=== PATIENT | female | born 1935 | race Caucasian/White ===

== ENCOUNTER 2017-04-08 11:25 | Inpatient (IN) ==
--- NOTE | 2017-04-08 12:30 | Emergency Department Note ---
Nausea/Vomiting/Diarrhea HPI - General Chief complaint: Nausea/Vomiting/Diarrhea Stated complaint: Nausea and vomiting, diarrhea, dialysis patient Time Seen by Provider: 04/08/17 11:44 Source: patient Mode of arrival: wheelchair Limitations: no limitations - History of Present Illness HPI Narrative: 82-year-old female with a history of nausea but no vomiting. Today. Been having intermittent bouts of midepigastric pain for the last week. This time she denies any pain states her appetite has been decreased. Been no diarrhea she states that the stool is soft this morning but not diarrhea. She was admitted at [facility] in February she states her stomach problems. Was told that she had poor gastric emptying times.. Attempting to get those old records. Sees Dr. Duncan and she is on dialysis. For her chronic renal failure is afebrile no acute distress no signs or symptoms at this time. - Related Data Home Medications Medication Instructions Recorded Confirmed Gabapentin [Neurontin] 100 mg PO BID 06/23/15 04/08/17 Isosorbide Mononitrate [Isosorbide 60 mg PO HS 06/23/15 04/08/17 Mononitrate ER] Pravastatin [Pravachol] 40 mg PO HS 06/23/15 04/08/17 Pantoprazole [Protonix] 40 mg PO QAMAC 08/18/15 04/08/17 Acetaminophen [Arthritis Pain 650 mg PO PRN PRN 09/24/16 04/08/17 Relief] Cyanocobalamin (Vitamin B-12) 1,000 mcg PO DAILY 09/24/16 04/08/17 [Vitamin B12] Ergocalciferol (Vitamin D2) 50,000 unit PO WEEKLY 09/24/16 04/08/17 [Vitamin D2] Insulin Glargine,Hum.rec.anlog 10 unit SQ DAILYP PRN 09/24/16 04/08/17 [Lantus Solostar] Ubidecarenone [Coq-10] 300 mg PO DAILY 09/24/16 04/08/17 Vit A,C & E/Lutein/Minerals 1 tab PO DAILY 09/24/16 04/08/17 [Ocuvite] Clopidogrel [Plavix] 75 mg PO HS 09/25/16 04/08/17 Meclizine [Antivert] 25 mg PO HS 09/25/16 04/08/17 HYDROcodone/APAP 5/325MG [[place] 1 tab PO TIDP PRN 04/08/17 04/08/17 5/325Mg] Lactobacillus Acidophilus/Fos 1 tab PO TID 04/08/17 04/08/17 [Acidophilus Probiotic Tablet] Metoclopramide [Reglan] 10 mg PO ACHS 04/08/17 04/08/17 Midodrine [Midodrine HCl] 5 mg PO DAILYP PRN 04/08/17 04/08/17 Previous Rx's Medication Instructions Recorded Aspirin [Ecotrin] 325 mg PO DAILY tab.ec 08/06/16 peg 3350-electrolytes 236 240 ml PO Q10M #4000 ml 09/10/16 gram-22.74 gram-6.74 gram-5.86 gram solution Allergies Allergy/AdvReac Type Severity Reaction Status Date / Time meperidine [From Demerol] Allergy Severe Difficulty Verified 04/08/17 11:36 Breathing levofloxacin [From Levaquin] AdvReac Intermediate Vomiting Verified 04/08/17 11: 36 amlodipine AdvReac Mild Cough Verified 04/08/17 11:36 morphine sulphate AdvReac Severe Vomiting Uncoded 09/24/16 09:35 Review of Systems All systems ED: reviewed and negative except as stated. Constitutional: Denies: fever, chills Eyes: Denies: eye pain ENT ED: Denies: ear pain Cardiovascular: Denies: chest pain, palpitations Respiratory: Denies: cough, dyspnea Gastrointestinal: Reports: as per HPI, abdominal pain, nausea, vomiting. Denies : diarrhea, constipation, hematemesis Genitourinary: Denies: urgency, dysuria Past Medical History - Past Medical History Medical history: Reports: arthritis, asthma, CHF, coronary artery disease, diabetes, hypertension, renal disease (dialysis dependent), other (per hPI) Surgical history ED: Reports: appendectomy, cataract, cholecystectomy, coronary bypass (CABG) [employer] history: Reports: bilateral tubal ligation - Social History Alcohol use: Reports: None Drug use: Reports: none Physical Exam - General Limitations: no limitations General appearance: alert, in no apparent distress - Head Head exam: atraumatic - Eye Eye exam: Present: normal appearance, PERRL - ENT ENT exam: normal exam, normal oropharynx - Neck Neck exam: Present: normal inspection, full ROM - Chest Chest inspection: Present: normal inspection, symmetric chest wall rise. Absent : tenderness - Respiratory Respiratory exam: Present: normal lung sounds bilaterally, respiratory distress. Absent: wheezes - Cardiovascular Cardiovascular exam: Present: regular rate, normal rhythm. Absent: bradycardia , tachycardia - Abdominal Exam Abdominal exam: Present: soft. Absent: distention, tenderness, guarding - Extremities Exam Extremities exam: Present: normal inspection, full ROM - Back Exam Back exam: Present: normal inspection, full ROM. Absent: tenderness - Neurological Exam Neurological exam: Present: alert, oriented X3, CN II-XII intact - Psychiatric Psychiatric exam: Present: normal affect, normal mood Course Vital Signs Temperature 98.3 F 04/08/17 11:26 Pulse Rate 65 04/08/17 11:26 Respiratory Rate 18 04/08/17 11:26 Blood Pressure 193/62 04/08/17 11:26 Pulse Oximetry (%) 94 04/08/17 11:26 Temperature 99.1 F H 04/08/17 16:21 Pulse Rate 62 04/08/17 16:09 Respiratory Rate 18 04/08/17 16:09 Blood Pressure 174/52 04/08/17 16:02 Pulse Oximetry (%) 87 L 04/08/17 16:09 Nausea/Vomiting/Diarrhea - MDM Narrative Medical decision making narrative: CT revealed no evidence of obstruction. Mild ileus was seen. This was reviewed with Dr. Duncan hospitalist admit for observation. Dialysis is scheduled for tomorrow - Lab Data Result diagrams: 04/08/17 11:48 04/08/17 11:48 Lab Results 04/08/17 04/08/17 Range/Units 11:48 11:48 WBC 9.6 (4.5-11.0) K/mcL RBC 3.74 L (4.00-5.20) M/mcL Hgb 11.8 L (12.0-15.0) g/dL Hct 35.7 L (36.0-48.0) % MCV 95.7 (80.0-100.0) fL MCH 31.6 (26.0-34.0) pg MCHC 33.0 (31.0-36.0) g/dL RDW 15.2 H (11.5-14.5) % Plt Count 235 (140-440) K/mcL MPV 9.5 (7.4-10.4) fL Total Counted 100 Seg Neutrophils % 83 H (38-78) % Band Neutrophils % Not Reportable Lymphocytes % 11 L (15-49) % Monocytes % (Manual) 5 (1-12) % Eosinophils % (Manual) 1 (0-7) % Platelet Estimate Normal (NORMAL) RBC Morphology Normal (NORMAL) Sodium 139 (133-145) mmol/L Potassium 5.6 H (3.3-5.1) mmol/L Chloride 99 (96-108) mmol/L Carbon Dioxide 25 (22-30) mmol/L Anion Gap 15.0 (8-16) BUN 23 (8-23) mg/dl Creatinine 3.8 H (0.6-1.1) mg/dl GFR Calculation 10 Glucose 161 H (70-105) mg/dL Calcium 10.3 (8.6-10.4) mg/dl Total Bilirubin 0.3 (0.0-1.0) mg/dL AST 11 (0-37) U/l ALT 5 (0-40) U/l Alkaline Phosphatase 73 (39-117) U/L Total Protein 6.5 (5.9-8.4) gm/dL Albumin 4.1 (3.2-5.2) gm/dL Globulin 2.4 (2.2-3.7) gm/dL Albumin/Globulin Ratio 1.7 (1.0-2.3) Lipase 22 (7-60) U/L Disposition Clinical Impression: Gastroparesis Disposition: Xfer As Outpt/Obs ([facility]) Condition: Fair Referrals: Pascale Peter DO [Primary Care Provider] -
[2017-04-08 12:31] LABS: ALT/SGPT 5 U/l (0-40); Albumin 4.1 gm/dL (3.2-5.2); Albumin/Globulin Ratio 1.7 (1.0-2.3); Alkaline Phosphatase 73 U/L (39-117); Blood Urea Nitrogen 23 mg/dl (8-23); Lipase 22 U/L (7-60)
--- NOTE | 2017-04-08 12:43 | XRay Report ---
CLINICAL INFORMATION: Nausea vomiting diarrhea COMPARISON: 01/31/2017 FINDINGS: The stomach and a few loops of upper small bowel are mildly dilated and contain scattered air-fluid levels. The distal small bowel and colon are normal. Findings suggestive of either atypical ileus or partial small bowel obstruction at the mid jejunal level. No free air, soft tissue mass or organomegaly. Extraordinarily heavy calcified calcification in the mesenteric arteries noted Small right pleural effusion noted. Heart is moderately enlarged IMPRESSION: Atypical ileus versus partial small bowel obstruction of the mid jejunum. If the patient is toxic, suggest abdomen and pelvic CT. Otherwise, suggest follow-up plain films in one day. Interpreted and Authenticated by: Solomon Lunsford 04/08/17
[2017-04-08 13:37] LABS: Eosinophils % (Manual) 1 % (0-7); Lymphocytes % 11 % (15-49); Monocytes % (Manual) 5 % (1-12); Platelet Estimate NORMAL (NORMAL); RBC Morphology NORMAL (NORMAL); Segmented Neutrophils % 83 % (38-78)
[2017-04-08 13:39] LABS: Mean Cell Volume 95.7 fL (80.0-100.0); Mean Corpuscular Hemoglobin 31.6 pg (26.0-34.0); Platelet Count 235 K/mcL (140-440); RBC 3.74 M/mcL (4.00-5.20); Red Cell Distribution Width 15.2 % (11.5-14.5)
--- NOTE | 2017-04-08 15:34 | Cat Scan Report ---
CLINICAL INFORMATION: Abdominal pain, nausea vomiting and abdominal distention COMPARISON: 08/02/2016 noncontrast abdomen and pelvic CT. TECHNIQUE: IV contrast was withheld due to elevated BUN/creatinine. 2.5 mm helical slices were obtained from the mid heart through the subtrochanteric regions. Following reconstruction, 2.5 mm sagittal, coronal and axial reformatted images were processed and reviewed at bone, lung and soft tissue windows. FINDINGS: Lung bases show moderate right and small left pleural effusions with subsegmental atelectasis posterior right lower lobe. The heart is moderately enlarged and there is heavy calcification in the region of mitral annulus and bowel and the aortic valve calcification. There is also a heavily calcified atherosclerotic plaque in the coronary arteries. Images through the abdomen noncontrasted liver is unremarkable. No focal hepatic lesions on the basis noncontrast study. The gallbladder is surgically absent. Intrahepatic and common bile ducts are normal caliber CBD is 6 mm. Mild atrophy of both kidneys as previously seen: The right is 8.5 cm in length and the left is 9 cm in length. Both adrenal glands, spleen, pancreas are normal. There is extraordinarily heavy calcific atherosclerotic plaque throughout the abdominal aorta and branches. Stomach, small and large bowel show mild symmetric dilatation compatible with mild ileus - no evidence of bowel obstruction. Scattered Sigmoid diverticuli noted. Images through the pelvis show normal volume of urine within the urinary bladder. Normal appearing postmenopausal uterus noted. No definite ascites. No free air and no adenopathy. There is a moderate amount of edema in the subcutaneous fat throughout the abdominal wall. IMPRESSION: 1. Mild ileus - no evidence of bowel obstruction 2. Extraordinarily heavy calcific atherosclerotic plaque throughout the abdominal aorta and all branches including the mesenteric artery. Patient is at high risk for mesenteric ischemia. Consider Doppler exam of the celiac, SMA and SANDRINE to determine arterial blood flow status. 3. Moderate cardiomegaly and moderate bilateral pleural effusions with subcutaneous edema in the abdominal wall. Findings suggestive of moderate CHF. The patient also be a risk for congestive hepatopathy related to CHF - please correlate with elevation in LFTs 4. Moderate bilateral renal atrophy stable Interpreted and Authenticated by: Solomon Lunsford 04/08/17
[2017-04-08] MEDS ORDERED: 0.9 % SODIUM CHLORIDE 1,000 ML IV ONE (16:24)
[2017-04-08] MEDS ORDERED: ACETAMINOPHEN 325 MG TABLET PO PRN (17:22)
[2017-04-08] MEDS ORDERED: ONDANSETRON 4 MG/2 ML VIAL IV PRN (17:22)
[2017-04-08] MEDS ORDERED: 0.9 % SODIUM CHLORIDE 1,000 ML IV SCH (17:22)
[2017-04-08] MEDS ORDERED: MIDODRINE 5 MG TABLET PO PRN (17:22)
[2017-04-08] MEDS ORDERED: ACETAMINOPHEN 1,000 MG/100 ML BOTTLE IV PRN (17:22)
[2017-04-08] MEDS ORDERED: INSULIN GLARGINE, HUMAN 1 UNIT/0.01 ML SQ PRN (17:26)
[2017-04-08] MEDS ORDERED: hydrALAZINE 20 MG/ML VIAL ONE (18:50)
[2017-04-08] MEDS: METOCLOPRAMIDE 10 MG TABLET PO SCH ×2 (18:54→21:03)
--- NOTE | 2017-04-08 18:56 | History and Physical Report ---
DATE OF ADMISSION: 04/08/2017 DATE OF ADMISSION: 04/08/2017 REASON FOR ADMISSION: Nausea, vomiting, weakness, diarrhea. HISTORY OF CHIEF COMPLAINT: The patient is an 82-year-old with known history of gastroparesis and ESRD on hemodialysis, along with history of coronary artery disease and DM type 2 who comes to [facility] with three days onset of worsening nausea and vomiting along with epigastric discomfort. The patient's symptoms started roughly seven days ago with epigastric discomfort after food intake. Symptoms get relieved by episodes of vomiting. She endorses to feeling of rocks in stomach. She otherwise denies weight loss, fevers, shaking chills, bloody stools, dysuria. She endorses to 4 to 5 stools a day for the last few days. She denies recent antibiotic use. She has gotten progressively weak and fatigued prompting her to be evaluated in the ER. Initial workup was essentially unremarkable except for potassium of 5.6. Nephrology was consulted along with hospitalist service for evaluation. CT scan of the abdomen reveals ileus without any evidence of obstruction. Moderate cardiomegaly along with moderate CHF noted. At the time of examination, the patient is alert and oriented. She was able to provide answers to most of the questions. She appears nondistressed. REVIEW OF SYSTEMS: Ten-point review of system was performed and negative except the ones discussed above. PAST MEDICAL HISTORY: 1. History of ESRD on HD. 2. Diabetes mellitus type 2. 3. Hypertension. 4. Coronary artery disease. 5. Neuropathy. 6. Hyperlipidemia. 7. Vertigo. 8. History of mesenteric ischemia status post recent mesenteric stent placement by Dr. Solomon Pearce. 9. History of diabetic gastroparesis, currently on Reglan. CURRENT MEDICATIONS: Aspirin 325. Pravastatin 40. Pantoprazole 40. Midodrine 5. Metoclopramide 10 __ Meclizine 25. Isosorbide 60. Glargine 10. Hydrocodone 1 tab three times daily. Gabapentin 100 twice daily. Plavix 75. ALLERGIES: 1. __ 2. LEVOFLOXACIN. 3. AMLODIPINE. 4. MORPHINE. SOCIAL HISTORY: No history of smoking or alcoholism, lives in the [place]. FAMILY HISTORY: Significant for mother with coronary artery disease. Father with cancer. PHYSICAL EXAMINATION: GENERAL: The patient is alert and oriented. BMI 24. Height 5 feet. VITAL SIGNS: Blood pressure 160/58, respiratory rate 15, temperature 99.1, pulse 58, sats 92 percent on room air. HEENT: Pupils symmetric. Oral cavity is dry. No ear or nose discharge. Head is normocephalic and atraumatic. NECK: No lymphadenopathy. HEART: S1, S2 regular rhythm. ESM grade I left-sided. CHEST: Dialysis catheter placement and removal incision site suture noted. UPPER EXTREMITIES: Fistula right upper extremity with adequate thrill. ABDOMEN: Soft, nontender, except for epigastrium without any palpable mass, but tender to deep palpation. No rebound, no guarding. LOWER EXTREMITIES: Minimal lymphedema, but no cyanosis or clubbing. Normal range of motion of the joints with no joint swelling or erythema. SKIN: Otherwise, no suspicious lesions. PSYCHIATRIC: Alert and cooperative. No anxiety. NEUROLOGIC: Nonfocal, moving all four extremities. LABS AND IMAGING: White count 9.6, hemoglobin 11.8, platelets 235. Sodium 139, potassium 5.6, creatinine 3.8, BUN 23. LFTs unremarkable. CT abdomen and pelvis: Ileus, moderate cardiomegaly, bilateral pleural effusion, moderate CHF. ASSESSMENT AND PLAN: An 82-year-old with history of gastroparesis, admitted with nausea, vomiting, diarrhea. 1. Nausea, vomiting. Possibly exacerbated with underlying gastroparesis, rule out viral infectious process. Continue bowel rest, crystalloids, and antiemetics. 2. Diarrhea, rule out Clostridium difficile, continue crystalloids. 3. Hyperkalemia, will be managed by Dr. Duncan 4. History of end stage renal disease, on hemodialysis. Will be managed by nephrology, Dr. Duncan. 5. Other prior medical issues, including history of diabetes mellitus type 2. Continue basal prandial insulin. 6. Neuropathy. Continue gabapentin. 7. History of coronary artery disease. Continue aspirin, Plavix. Isosorbide and statin. 8. History of gastroesophageal reflux disease. Continue Reglan. The patient will be admitted as observation while she will be kept on bowel rest. AA:maite Job ID: [id number] Doc ID: [id number] Andrew VILLANUEVA
[2017-04-08 20:36] LABS: C-Reactive Protein 0.4 mg/dl (0.0-0.8)
[2017-04-08] MEDS ORDERED: PRAVASTATIN 40 MG TABLET PO SCH (21:00)
[2017-04-08] MEDS: HEPARIN 5,000 UNIT/ML VIAL SQ SCH (21:03)
[2017-04-08] MEDS: GABAPENTIN 100 MG CAPSULE PO SCH (21:03)
[2017-04-08] MEDS: LACTOBACILLUS 1 CAPSULE PO SCH (21:03)
[2017-04-08] MEDS: CLOPIDOGREL 75 MG TABLET PO SCH (21:03)
[2017-04-08] MEDS: SENNOSIDES/DOCUSATE SODIUM 1 TAB TABLET PO SCH (21:04)
[2017-04-08] MEDS: DOCUSATE SODIUM 100 MG CAPSULE PO SCH (21:04)
[2017-04-08] MEDS: SIMVASTATIN 20 MG TABLET PO SCH (21:11)
[2017-04-08] MEDS: MECLIZINE 25 MG TABLET PO SCH (21:11)
[2017-04-08] MEDS: ISOSORBIDE MONONITRATE 60 MG TAB.XL.24H PO SCH (21:11)
[2017-04-08] MEDS: 0.9 % SODIUM CHLORIDE 10 ML SYRINGE IV SCH (21:12)
[2017-04-09] MEDS: HYDROcodone/APAP 5/325MG TABLET PO PRN ×2 (03:19→23:12)
[2017-04-09] MEDS: 0.9 % SODIUM CHLORIDE 10 ML SYRINGE IV SCH ×3 (05:29→23:12)
[2017-04-09 05:44] LABS: Mean Cell Volume 96.3 fL (80.0-100.0); Mean Corpuscular HGB Conc 33.4 g/dL (31.0-36.0); Mean Corpuscular Hemoglobin 32.2 pg (26.0-34.0); Platelet Count 216 K/mcL (140-440); RBC 3.56 M/mcL (4.00-5.20); Red Cell Distribution Width 15.3 % (11.5-14.5)
[2017-04-09 06:38] LABS: ALT/SGPT < 5 U/l (0-40); Albumin 3.5 gm/dL (3.2-5.2); Albumin/Globulin Ratio 1.8 (1.0-2.3); Alkaline Phosphatase 65 U/L (39-117); Bilirubin,Direct < 0.2 mg/dL (0.0-0.3); Blood Urea Nitrogen 25 mg/dl (8-23); Gamma Glutamyl Transpeptidase 40 U/L (5-36); Magnesium 1.3 mg/dL (1.6-2.5); Uric Acid 4.8 mg/dL (2.5-8.0)
[2017-04-09 06:53] LABS: Anisocytosis 1+ (NONE SEEN); Eosinophils % (Manual) 2 % (0-7); Lymphocytes % 21 % (15-49); Monocytes % (Manual) 6 % (1-12); Platelet Estimate NORMAL (NORMAL); RBC Morphology ABNORM (NORMAL); Segmented Neutrophils % 71 % (38-78)
--- NOTE | 2017-04-09 08:10 | Internal Med Progress Note ---
Medical - PN: Subj Patient information: Note initiated : 04/09/17 at 8:10 am Service Date, if different from initiated Date: [] Patient: Maryann Juares 82 y/o F admitted on 04/08/17 for Nausea and vomiting, diarrhea, dialysis patient. Chief Complaint: [] Interval history: 04/08- patient admitted with nausea vomiting diarrhea and hyperkalemia along with congestive heart failure. Underlying history of end-stage renal disease onhemodialysis and gastroparesis on Reglan. Nephrology consulted. Patient admitted for observation. await C. difficile. Continue crystalloids. congestive heart failure on chest imaging 04/09-hemodialysis today. Potassium down from 5.6-5.2. C. difficile negative. No overnight events including nausea vomiting or concerns per staff. Patient stable. extensive pre-existing medical condition currently managed on home medications. Anticipate discharge in 24 hours. - Constitutional Vitals: Vital Signs Temp Pulse Resp BP Pulse Ox 97.4 F 50 L 16 163/50 94 04/09/17 04:01 04/08/17 23:35 04/09/17 00:06 04/09/17 04:01 04/09/17 04:01 Period Temp Pulse Resp BP Sys/Turner Pulse Ox Last 24 Hr 97.4 F-98.7 F 50-70 16-20 131-191/40-74 89-99 Intake and Output 04/08/17 04/09/17 04/09/17 21:59 05:59 13:59 Weight 126 lb 8.725 oz Intake & Output: Intake & Output 04/08/17 04/09/17 04/09/17 21:59 05:59 13:59 Weight 126 lb 8.725 oz Other: # Bowel Movements 1 General appearance: cooperative, no acute distress Exam: alert oriented Nonlabored breathing Nondistended abdomen Medical - PN: Obj Da - Labs CBC & Chem 7: 04/09/17 04:34 04/09/17 04:34 Labs: Abnormal Lab Results 04/09/17 04/09/17 04:34 04:34 RBC 3.56 L Hgb 11.4 L Hct 34.2 L RDW 15.3 H RBC Morphology Abnorm A Anisocytosis 1+ A RBC Fragments Occ A Potassium 5.2 H BUN 25 H Creatinine 4.1 H Magnesium 1.3 L GGT 40 H Total Protein 5.5 L Globulin 2.0 L Meds: Medications Acetaminophen (Tylenol) 650 mg PO Q4-6HP PRN PRN Reason: PAIN/FEVER > 101 Hydrocodone Bitart/Acetaminophen ([place] 5/325mg) 1 tab PO TIDP PRN PRN Reason: Pain Last Admin: 04/09/17 03:19 Dose: 1 tab Aspirin (Ecotrin) 325 mg PO DAILY [facility] Clopidogrel Bisulfate (Plavix) 75 mg PO HS [facility] Last Admin: 04/08/17 21:03 Dose: 75 mg Docusate Sodium (Colace) 100 mg PO BID [facility] Last Admin: 04/08/17 21:04 Dose: Not Given Gabapentin (Neurontin) 100 mg PO BID [facility] Last Admin: 04/08/17 21:03 Dose: 100 mg Heparin Sodium (Porcine) (Heparin) 5,000 unit SQ Q12 [facility] Last Admin: 04/08/17 21:03 Dose: 5,000 unit Hydralazine HCl (Apresoline) 10 mg IV Q4-6HP PRN PRN Reason: Hypertension Acetaminophen (Ofirmev) 1,000 mg in 100 mls @ 200 mls/hr IV Q6HP PRN PRN Reason: PAIN/FEVER > 101 Insulin Glargine (Lantus) 10 unit SQ DAILYP PRN PRN Reason: HYPERGLYCEMIA Isosorbide Mononitrate (Imdur) 60 mg PO HS [facility] Last Admin: 04/08/17 21:11 Dose: 60 mg Lactobacillus Rhamnosus (Culturelle) 1 cap PO TID [facility] Last Admin: 04/08/17 21:03 Dose: 1 cap Meclizine HCl (Antivert) 25 mg PO HS [facility] Last Admin: 04/08/17 21:11 Dose: 25 mg Metoclopramide HCl (Reglan) 10 mg PO ACHS [facility] Last Admin: 04/08/17 21:03 Dose: 10 mg Midodrine (Midodrine Hcl) 5 mg PO DAILYP PRN PRN Reason: Hypotension Ondansetron HCl (Zofran) 4 mg IV Q4-6HP PRN PRN Reason: Nausea And Vomiting Pantoprazole Sodium (Protonix) 40 mg PO QAMAC [facility] Senna/Docusate Sodium (Senna Plus Tablet) 1 tab PO HS [facility] Last Admin: 04/08/17 21:04 Dose: Not Given Simvastatin (Zocor) 20 mg PO HS [facility] Last Admin: 04/08/17 21:11 Dose: 20 mg Sodium Chloride (Saline Flush) 10 ml IV Q8 [facility] Last Admin: 04/09/17 05:29 Dose: 10 ml Medical - PN: A/P - Time Spent With Patient Total time spent is greater than 50% in coordination of care (as documented) at patient's floor/unit and/or counseling patient: 15 - 24 minutes (1) Heart failure with acute decompensation, type unknown Status: Acute Assessment and plan: * Acute decompensated heart failure-secondary to volume overload secondary ESRD. Hemodialysis with fluid removal today * Hyperkalemia-potassium down from 5.65.2. Managed by nephrology * nausea vomiting and diarrhea-clinically improved. C. difficile negative. * History of gastroparesis. Continue Reglan * history of DM type II on basal prandial insulin * history of neuropathy On gabapentin * history of CAD on aspirin and Plavix and statin/isosorbide Plan * hemodialysis per nephrology * pre-existing medical condition management as above * possible discharge in 24 hours Current Visit: Yes Medical - PN: Qual - VTE Deep Vein Thrombosis/Pulmonary Embolism Present on Admission: No
[2017-04-09] MEDS: PANTOPRAZOLE 40 MG TABLET PO SCH (08:19)
[2017-04-09] MEDS: hydrALAZINE 20 MG/ML VIAL IV PRN (08:19)
[2017-04-09] MEDS: METOCLOPRAMIDE 10 MG TABLET PO SCH ×4 (08:19→21:08)
[2017-04-09] MEDS: LACTOBACILLUS 1 CAPSULE PO SCH ×3 (09:33→21:08)
[2017-04-09] MEDS: ASPIRIN 325 MG ENTERIC COATED TABLET PO SCH (09:33)
[2017-04-09] MEDS: GABAPENTIN 100 MG CAPSULE PO SCH ×2 (09:33→21:08)
[2017-04-09] MEDS: HEPARIN 5,000 UNIT/ML VIAL SQ SCH ×2 (09:50→21:08)
[2017-04-09] MEDS: DOCUSATE SODIUM 100 MG CAPSULE PO SCH ×2 (09:51→21:12)
[2017-04-09] MEDS ORDERED: PROMETHAZINE 25 MG/ML VIAL IV PRN (14:26)
--- NOTE | 2017-04-09 19:13 | Consultation ---
DATE OF CONSULTATION: 04/09/2017 REASON FOR HOSPITALIZATION: End-stage renal disease. REFERRING PHYSICIAN: Andrew Barrios MD HISTORY OF PRESENT ILLNESS: Ms. Juares is an 82-year-old female with end-stage renal disease on hemodialysis. She also has a history of coronary artery disease, type 2 diabetes and diabetic gastroparesis. She presented to the emergency room complaining of worsening nausea and vomiting along with epigastric discomfort. It has been getting worse over the last few months. Her symptoms are relieved by vomiting. For that reason, she came to the emergency room. In the emergency room, she had a CT scan of the abdomen without any evidence of obstruction. She had moderate cardiomegaly with moderate congestive heart failure. She dialyzes usually on Saturday, and Saturdays at [facility]. PAST MEDICAL HISTORY: 1. End-stage renal disease on hemodialysis, dialyzes on Tuesdays, and Saturdays at [facility]. 2. Type 2 diabetes. 3. Hypertension. 4. Coronary artery disease. 5. Diabetic gastroparesis. 6. Hyperlipidemia. 7. History of mesenteric ischemia for which she had a stent placement. CURRENT MEDICATIONS: 1. Aspirin 325 mg daily. 2. Pravastatin 40 mg daily. 3. Pantoprazole 40 mg daily. 4. Midodrine 5 mg as needed. 5. Metoclopramide 10 mg 3 times daily. 6. Meclizine 25 mg. 7. Isosorbide 60 mg. 8. Lantus 10 units once daily. 9. Hydrocodone p.r.n. 10. Gabapentin 100 mg twice daily. 11. Plavix 75 mg daily. ALLERGIES: LEVOFLOXACIN, AMLODIPINE, MORPHINE. SOCIAL HISTORY: The patient denies any history of alcohol or smoking. She lives by herself. FAMILY HISTORY: Significant for coronary artery disease in the father and cancer. REVIEW OF SYSTEMS: Fourteen systems were reviewed and negative except for the ones indicated in history of present illness. PHYSICAL EXAMINATION: GENERAL: Alert, oriented times 3 in no apparent distress. VITAL SIGNS: Blood pressures have been 150 to 160 systolic with a diastolic in the 60s, pulse rates have been in the 50s, temperature 97.4 with a pulse oximetry of 94 percent. HEENT: NCAT. PERRLA. EOMI. No pallor, no cyanosis, no icterus. Fundus examination is not performed. External and tympanic membranes appear normal. Oral cavity with normal mucosa. NECK: Supple. No jugular venous distention. No lymphadenopathy. No thyromegaly. No carotid bruits. LUNGS: Decreased air entry bilaterally. No rales or rhonchi heard. CARDIAC: S1, S2 heard. No S3, S4. No murmurs. No rubs. ABDOMEN: Soft, nontender, , positive bowel sounds. No mass. No rebound. EXTREMITIES: Did not show any evidence of edema. LABORATORY DATA: White count is 7.6 with a hemoglobin of 11.4 and a platelet count of 216. Sodium 140, potassium 5.2, chloride of 101, CO2 of 25, BUN of 25, creatinine of 4.1. ASSESSMENT AND PLAN: 1. End-stage renal disease on hemodialysis. She will have dialysis today and will attempt to remove 2 to 3 kilos of fluid as tolerated. 2. Nausea, vomiting: Probably related to diabetic gastroparesis. Unlikely to be intestinal ischemia. She would benefit from IV erythromycin and increasing the dose of Reglan. 3. Hyperkalemia, mild: We will dialyze with a 2-K bath. PETROS:gavino Job ID: [id number] Doc ID: [id number] Inder Barrios MD
[2017-04-09] MEDS: SIMVASTATIN 20 MG TABLET PO SCH (21:07)
[2017-04-09] MEDS: CLOPIDOGREL 75 MG TABLET PO SCH (21:08)
[2017-04-09] MEDS: SENNOSIDES/DOCUSATE SODIUM 1 TAB TABLET PO SCH (21:12)
[2017-04-09] MEDS: ISOSORBIDE MONONITRATE 60 MG TAB.XL.24H PO SCH (21:21)
[2017-04-09] MEDS: MECLIZINE 25 MG TABLET PO SCH (21:22)
[2017-04-10] MEDS: 0.9 % SODIUM CHLORIDE 10 ML SYRINGE IV SCH ×3 (05:12→20:44)
[2017-04-10 05:58] LABS: Mean Cell Volume 96.3 fL (80.0-100.0); Mean Corpuscular HGB Conc 32.9 g/dL (31.0-36.0); Mean Corpuscular Hemoglobin 31.7 pg (26.0-34.0); Platelet Count 219 K/mcL (140-440); RBC 3.45 M/mcL (4.00-5.20); Red Cell Distribution Width 15.2 % (11.5-14.5)
[2017-04-10 06:40] LABS: ALT/SGPT < 5 U/l (0-40); Albumin 3.5 gm/dL (3.2-5.2); Albumin/Globulin Ratio 1.8 (1.0-2.3); Alkaline Phosphatase 62 U/L (39-117); Bilirubin,Direct < 0.2 mg/dL (0.0-0.3); Blood Urea Nitrogen 14 mg/dl (8-23); Gamma Glutamyl Transpeptidase 38 U/L (5-36); Magnesium 1.5 mg/dL (1.6-2.5); Uric Acid 3.4 mg/dL (2.5-8.0)
[2017-04-10] MEDS ORDERED: MAGNESIUM SULFATE 8.12 MEQ in DEXTROSE 5% IN WATER 50 ML IV ONE (07:28)
[2017-04-10] MEDS: METOCLOPRAMIDE 10 MG TABLET PO SCH ×4 (07:32→20:43)
[2017-04-10] MEDS: PANTOPRAZOLE 40 MG TABLET PO SCH (07:32)
[2017-04-10 07:33] LABS: Anisocytosis 1+ (NONE SEEN); Lymphocytes % 18 % (15-49); Monocytes % (Manual) 13 % (1-12); Platelet Estimate NORMAL (NORMAL); RBC Morphology ABNORM (NORMAL); Segmented Neutrophils % 69 % (38-78)
[2017-04-10] MEDS ORDERED: DEXTROSE 50% 50 ML VIAL IV PRN (07:43)
[2017-04-10] MEDS: LACTOBACILLUS 1 CAPSULE PO SCH ×3 (09:16→20:42)
[2017-04-10] MEDS: GABAPENTIN 100 MG CAPSULE PO SCH ×2 (09:16→20:43)
[2017-04-10] MEDS: DOCUSATE SODIUM 100 MG CAPSULE PO SCH ×2 (09:17→20:42)
[2017-04-10] MEDS: ASPIRIN 325 MG ENTERIC COATED TABLET PO SCH (09:17)
[2017-04-10] MEDS: HEPARIN 5,000 UNIT/ML VIAL SQ SCH ×2 (09:17→20:42)
[2017-04-10] MEDS: ERYTHROMYCIN LACTOBIONATE IV SCH ×2 (10:11→16:41)
[2017-04-10] MEDS: SODIUM CHLORIDE 0.9% IV SCH ×2 (10:11→16:41)
--- NOTE | 2017-04-10 10:55 | Internal Med Progress Note ---
Medical - PN: Subj Patient information: Note initiated : 04/10/17 at 10:53 am Service Date, if different from initiated Date: [] Patient: Maryann Juares 82 y/o F admitted on 04/09/17 for Nausea and Vomiting, Diarrhea, Dialysis Patient. Chief Complaint: [] Interval history: 04/08- patient admitted with nausea vomiting diarrhea and hyperkalemia along with congestive heart failure. Underlying history of end-stage renal disease onhemodialysis and gastroparesis on Reglan. Nephrology consulted. Patient admitted for observation. await C. difficile. Continue crystalloids. congestive heart failure on chest imaging 04/09-hemodialysis today. Potassium down from 5.6-5.2. C. difficile negative. No overnight events including nausea vomiting or concerns per staff. Patient stable. extensive pre-existing medical condition currently managed on home medications. Anticipate discharge in 24 hours. 04/10: Patient seen examined, sitting comfortably in her chair, denies any acute complaints. She is still having vomiting, unable to tolerate PO. She vomited yesterday during dialysis. He diet has been changed to clear liquid diet again. Educated need for small frequent meals and to take reglan before meal time. I will start her on IV erythromycin for its prokientic effect along with reglan and see how she does. Pertinent ROS: Denies headache, dizziness Denies chest pain, palpitations Denies cough or shortness of breath Denies abdominal pain, Present nausea and vomiting. - Constitutional Vitals: Vital Signs Temp Pulse Resp BP Pulse Ox 98.0 F 82 18 170/60 95 04/10/17 07:41 04/09/17 16:00 04/10/17 07:41 04/10/17 07:41 04/10/17 07:41 Period Temp Pulse Resp BP Sys/Turner Pulse Ox Last 24 Hr 97.8 F-98.6 F 16-18 137-174/52-62 95-95 Intake and Output 04/09/17 04/10/17 04/10/17 21:59 05:59 13:59 Intake Total 292 / 292 Output Total 50 / 50 Balance 242 / 242 Weight 122 lb 2.177 oz Intake & Output: Intake & Output 04/09/17 04/10/17 04/10/17 21:59 05:59 13:59 Intake Total 292 / 292 Output Total 50 / 50 Balance 242 / 242 Weight 122 lb 2.177 oz Intake: IV 52 / 52 Oral 240 / 240 Output: Void Amount 50 / 50 Other: Meal Breakfast Percent of Meal Consumed 100% Exam: Constitutional; Afebrile, cooperative, alert, not in distress. frail old lady Eyes- No icterus, , No periorbital swelling Ears- Ext ear normal, hearing normal to conversation. Neck- Midline trachea, supple Respiratory system: Air Entry equal on both sides, No crackles or wheezing, no rhonchi. CVS- Rate rhythm regular, S1,S2 heard, no gallop, no rub. systolic murmur noted. 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 Medical - PN: Obj Da - Labs CBC & Chem 7: 04/10/17 04:50 04/10/17 04:50 Labs: Abnormal Lab Results 04/10/17 04/10/17 04:50 04:50 RBC 3.45 L Hgb 10.9 L Hct 33.2 L RDW 15.2 H Monocytes % (Manual) 13 H RBC Morphology Abnorm A Anisocytosis 1+ A Creatinine 3.2 H Magnesium 1.5 L GGT 38 H Total Protein 5.4 L Globulin 1.9 L Meds: Medications Acetaminophen (Tylenol) 650 mg PO Q4-6HP PRN PRN Reason: PAIN/FEVER > 101 Hydrocodone Bitart/Acetaminophen ([place] 5/325mg) 1 tab PO TIDP PRN PRN Reason: Pain Last Admin: 04/09/17 23:12 Dose: 1 tab Aspirin (Ecotrin) 325 mg PO DAILY [facility] Last Admin: 04/10/17 09:17 Dose: 325 mg Clopidogrel Bisulfate (Plavix) 75 mg PO HS [facility] Last Admin: 04/09/17 21:08 Dose: 75 mg Dextrose (Dextrose 50%) 0 ml IV UD PRN PRN Reason: Hypoglycemia Diagnostic Test (Pha) (Accu-Chek) 1 each FS ACHS [facility] Docusate Sodium (Colace) 100 mg PO BID [facility] Last Admin: 04/10/17 09:17 Dose: 100 mg Gabapentin (Neurontin) 100 mg PO BID [facility] Last Admin: 04/10/17 09:16 Dose: 100 mg Heparin Sodium (Porcine) (Heparin) 5,000 unit SQ Q12 [facility] Last Admin: 04/10/17 09:17 Dose: 5,000 unit Hydralazine HCl (Apresoline) 10 mg IV Q4-6HP PRN PRN Reason: Hypertension Last Admin: 04/09/17 08:19 Dose: 10 mg Acetaminophen (Ofirmev) 1,000 mg in 100 mls @ 200 mls/hr IV Q6HP PRN PRN Reason: PAIN/FEVER > 101 Erythromycin Lactobionate 180 (mg/ Sodium Chloride) 50 mls @ 100 mls/hr IV Q8H [facility] Last Admin: 04/10/17 10:11 Dose: 100 mls/hr Insulin Glargine (Lantus) 10 unit SQ DAILYP PRN PRN Reason: HYPERGLYCEMIA Insulin Human Lispro (Humalog) 0 unit SQ [facility] PRN Reason: Protocol Isosorbide Mononitrate (Imdur) 60 mg PO [facility] Last Admin: 04/09/17 21:21 Dose: 60 mg Lactobacillus Rhamnosus (Culturelle) 1 cap PO TID [facility] Last Admin: 04/10/17 09:16 Dose: 1 cap Meclizine HCl (Antivert) 25 mg PO [facility] Last Admin: 04/09/17 21:22 Dose: 25 mg Metoclopramide HCl (Reglan) 10 mg PO [facility] Last Admin: 04/10/17 07:32 Dose: 10 mg Midodrine (Midodrine Hcl) 5 mg PO DAILYP PRN PRN Reason: Hypotension Ondansetron HCl (Zofran) 4 mg IV Q4-6HP PRN PRN Reason: Nausea And Vomiting Last Admin: 04/09/17 12:20 Dose: 4 mg [facility]oprazole S[facility]) [facility] Last Admin: 04/10/17 07:32 Dose: 40 mg Promethazine HCl (Phenergan) 12.5 mg IV Q4-6HP PRN PRN Reason: Nausea And Vomiting Last Admin: 04/09/17 15:28 Dose: 12.5 mg Senna/Docusate Sodium (Senna Plus Tablet) 1 tab PO [facility] Last Admin: 04/09/17 21:12 Dose: Not Given Simvastatin (Zocor) 20 mg PO [facility] Last Admin: 04/09/17 21:07 Dose: 20 mg Sodium Chloride (Saline Flush) 10 ml IV Q8 [facility] Last Admin: 04/10/17 05:12 Dose: 10 ml Medical - PN: A/P - Time Spent With Patient Total time spent is greater than 50% in coordination of care (as documented) at patient's floor/unit and/or counseling patient: - Narrative A/P Narrative: A/P Acute decomensated Heart failure.: due to esrd, Volume overload due to ESRD: On HD, fluid status better now, continue HD as per nephrology. Hyperkalemia: Resolved. Diabetic Gastroparesis with Intractable Nausea and Vomiting: PO reglan ACHS, IV erythromycin today, X ray Abdomen today. Hypomagnesemia: Replace IV DM: Sliding scale insulin, glucose at goal. CAD: on statin and antiplatlet agents (aspirin and clopidogrel) , continue same , continue isosorbide , no cp. DVT hep sq Diet Clear liquid diet. Advance as tolerated Neuropathy: contiue home meds, neurontin. Medical - PN: Qual - VTE Deep Vein Thrombosis/Pulmonary Embolism Present on Admission: No
--- NOTE | 2017-04-10 12:06 | XRay Report ---
CLINICAL INFORMATION: Abdominal pain COMPARISON: 04/08/2017 FINDINGS: The stool gas pattern has normalized since previous study. No free air, soft tissue mass or organomegaly. Heavy calcification seen in the mesenteric arteries. IMPRESSION: Negative Interpreted and Authenticated by: Solomon Lunsford 04/10/17
[2017-04-10] MEDS: INSULIN LISPRO 1 UNIT/0.01 ML UNIT SQ SCH ×3 (12:46→20:42)
[2017-04-10] MEDS: hydrALAZINE 20 MG/ML VIAL IV PRN (14:04)
--- NOTE | 2017-04-10 15:41 | XRay Report ---
CLINICAL INFORMATION: CHF COMPARISON: 02/01/2017 FINDINGS: The heart has increased in size - now moderately enlarged. Sternotomy changes noted. Mediastinum is normal. The pulmonary vessels are mildly distended and there is mild perihilar edema. Small right pleural effusion noted. No infiltrate IMPRESSION: Moderate CHF Interpreted and Authenticated by: Solomon Lunsford 04/10/17
[2017-04-10] MEDS: MECLIZINE 25 MG TABLET PO SCH (20:41)
[2017-04-10] MEDS: CLOPIDOGREL 75 MG TABLET PO SCH (20:43)
[2017-04-10] MEDS: ISOSORBIDE MONONITRATE 60 MG TAB.XL.24H PO SCH (20:43)
[2017-04-10] MEDS: SIMVASTATIN 20 MG TABLET PO SCH (20:44)
[2017-04-10] MEDS: SENNOSIDES/DOCUSATE SODIUM 1 TAB TABLET PO SCH (20:44)
[2017-04-11] MEDS: ERYTHROMYCIN LACTOBIONATE IV SCH ×3 (00:12→17:46)
[2017-04-11] MEDS: SODIUM CHLORIDE 0.9% IV SCH ×3 (00:12→17:46)
[2017-04-11] MEDS: 0.9 % SODIUM CHLORIDE 10 ML SYRINGE IV SCH ×2 (05:28→14:05)
[2017-04-11] MEDS: PANTOPRAZOLE 40 MG TABLET PO SCH (08:04)
[2017-04-11] MEDS: INSULIN LISPRO 1 UNIT/0.01 ML UNIT SQ SCH ×4 (08:05→23:00)
[2017-04-11] MEDS: METOCLOPRAMIDE 10 MG TABLET PO SCH ×4 (08:05→23:01)
[2017-04-11 09:04] LABS: Mean Cell Volume 96.9 fL (80.0-100.0); Mean Corpuscular HGB Conc 33.1 g/dL (31.0-36.0); Platelet Count 237 K/mcL (140-440); RBC 3.79 M/mcL (4.00-5.20); Red Cell Distribution Width 15.1 % (11.5-14.5)
[2017-04-11 09:10] LABS: ALT/SGPT < 5 U/l (0-40); Albumin 3.5 gm/dL (3.2-5.2); Albumin/Globulin Ratio 2.1 (1.0-2.3); Alkaline Phosphatase 70 U/L (39-117); Bilirubin,Direct < 0.2 mg/dL (0.0-0.3); Blood Urea Nitrogen 20 mg/dl (8-23); Gamma Glutamyl Transpeptidase 37 U/L (5-36); Magnesium 1.7 mg/dL (1.6-2.5); Uric Acid 4.3 mg/dL (2.5-8.0)
[2017-04-11 09:48] LABS: Band Neutrophils % 7 % (0-10); Eosinophils % (Manual) 3 % (0-7); Lymphocytes % 10 % (15-49); Monocytes % (Manual) 6 % (1-12); Platelet Estimate NORMAL (NORMAL); RBC Morphology NORMAL (NORMAL); Segmented Neutrophils % 74 % (38-78)
[2017-04-11] MEDS: HEPARIN 5,000 UNIT/ML VIAL SQ SCH ×2 (09:58→23:00)
[2017-04-11] MEDS: DOCUSATE SODIUM 100 MG CAPSULE PO SCH ×2 (09:58→23:01)
[2017-04-11] MEDS: ASPIRIN 325 MG ENTERIC COATED TABLET PO SCH (09:58)
[2017-04-11] MEDS: GABAPENTIN 100 MG CAPSULE PO SCH ×2 (09:58→23:02)
[2017-04-11] MEDS: LACTOBACILLUS 1 CAPSULE PO SCH ×3 (09:58→23:00)
[2017-04-11] MEDS ORDERED: MAGNESIUM SULFATE 2 GM/50 ML BAG IV ONE (12:30)
--- NOTE | 2017-04-11 12:30 | Internal Med Progress Note ---
Medical - PN: Subj Patient information: Note initiated : 04/11/17 at 12:28 pm Service Date, if different from initiated Date: [] Patient: Maryann Juares 82 y/o F admitted on 04/09/17 for Nausea and Vomiting, Diarrhea, Dialysis Patient. Chief Complaint: [] Interval history: 04/08- patient admitted with nausea vomiting diarrhea and hyperkalemia along with congestive heart failure. Underlying history of end-stage renal disease onhemodialysis and gastroparesis on Reglan. Nephrology consulted. Patient admitted for observation. await C. difficile. Continue crystalloids. congestive heart failure on chest imaging 04/09-hemodialysis today. Potassium down from 5.6-5.2. C. difficile negative. No overnight events including nausea vomiting or concerns per staff. Patient stable. extensive pre-existing medical condition currently managed on home medications. Anticipate discharge in 24 hours. 04/10: Patient seen examined, sitting comfortably in her chair, denies any acute complaints. She is still having vomiting, unable to tolerate PO. She vomited yesterday during dialysis. He diet has been changed to clear liquid diet again. Educated need for small frequent meals and to take reglan before meal time. I will start her on IV erythromycin for its prokientic effect along with reglan and see how she does. 04/11 Pt seen examined, sitting comfortably in the chair, denies any acute issues , tolerated renal diet well yesterday. Pertinent ROS: Denies headache, dizziness Denies chest pain, palpitations Denies cough or shortness of breath Denies abdominal pain, nausea or vomiting. - Constitutional Vitals: Vital Signs Temp Pulse Resp BP Pulse Ox 98.1 F 58 L 18 159/52 98 04/11/17 07:55 04/11/17 00:25 04/11/17 07:55 04/11/17 07:55 04/11/17 07:55 Period Temp Pulse Resp BP Sys/Turner Pulse Ox Last 24 Hr 97.8 F-98.4 F 58-76 16-20 125-159/40-52 92-98 Intake and Output 04/10/17 04/11/17 04/11/17 21:59 05:59 13:59 Intake Total 290 / 290 300 / 300 120 / 120 Output Total 50 / 50 Balance 240 / 240 300 / 300 120 / 120 Weight 123 lb 12.8 oz Intake & Output: Intake & Output 04/10/17 04/11/17 04/11/17 21:59 05:59 13:59 Intake Total 290 / 290 300 / 300 120 / 120 Output Total 50 / 50 Balance 240 / 240 300 / 300 120 / 120 Weight 123 lb 12.8 oz Intake: IV 50 / 50 50 / 50 Erythrocin Lactobionate 50 / 50 50 / 50 180 mg In Sodium Chloride 0.9% 50 ml @ 100 mls/hr IV Q8H [facility] Rx#:[id number] Oral 240 / 240 250 / 250 120 / 120 Output: Void Amount 50 / 50 Other: Meal Dinner Breakfast Percent of Meal Consumed 100% 100% Feeding Ability Assist with Tray Set Up # Voids 1 # Bowel Movements 1 Exam: Constitutional; Afebrile, cooperative, alert, not in distress. Eyes- No icterus, , No periorbital swelling Ears- Ext ear normal, hearing moderately hard to conversation. Neck- Midline trachea, supple Respiratory system: Air Entry equal on both sides, No crackles or wheezing, no rhonchi. CVS- Rate rhythm regular, S1,S2 heard, no gallop, no rub. 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 Medical - PN: Obj Da - Labs CBC & Chem 7: 04/11/17 03:40 04/11/17 03:40 Labs: Abnormal Lab Results 04/11/17 04/11/17 04/10/17 03:40 03:40 04:50 RBC 3.79 L Hgb Hct RDW 15.1 H Lymphocytes % 10 L Monocytes % (Manual) RBC Morphology Anisocytosis Creatinine 3.4 H 3.2 H Glucose 184 H Magnesium 1.5 L GGT 37 H 38 H Total Protein 5.2 L 5.4 L Globulin 1.7 L 1.9 L 04/10/17 04:50 RBC 3.45 L Hgb 10.9 L Hct 33.2 L RDW 15.2 H Lymphocytes % Monocytes % (Manual) 13 H RBC Morphology Abnorm A Anisocytosis 1+ A Creatinine Glucose Magnesium GGT Total Protein Globulin Meds: Medications Acetaminophen (Tylenol) 650 mg PO Q4-6HP PRN PRN Reason: PAIN/FEVER > 101 Hydrocodone Bitart/Acetaminophen ([place] 5/325mg) 1 tab PO TIDP PRN PRN Reason: Pain Last Admin: 04/09/17 23:12 Dose: 1 tab Aspirin (Ecotrin) 325 mg PO DAILY [facility] Last Admin: 04/11/17 09:58 Dose: 325 mg Clopidogrel Bisulfate (Plavix) 75 mg PO HS [facility] Last Admin: 04/10/17 20:43 Dose: 75 mg Dextrose (Dextrose 50%) 0 ml IV UD PRN PRN Reason: Hypoglycemia Diagnostic Test (Pha) (Accu-Chek) 1 each FS ACHS [facility] Last Admin: 04/11/17 08:05 Dose: 1 each Docusate Sodium (Colace) 100 mg PO BID [facility] Last Admin: 04/11/17 09:58 Dose: 100 mg Gabapentin (Neurontin) 100 mg PO BID [facility] Last Admin: 04/11/17 09:58 Dose: 100 mg Heparin Sodium (Porcine) (Heparin) 5,000 unit SQ Q12 [facility] Last Admin: 04/11/17 09:58 Dose: 5,000 unit Hydralazine HCl (Apresoline) 10 mg IV Q4-6HP PRN PRN Reason: Hypertension Last Admin: 04/10/17 14:04 Dose: 10 mg Acetaminophen (Ofirmev) 1,000 mg in 100 mls @ 200 mls/hr IV Q6HP PRN PRN Reason: PAIN/FEVER > 101 Erythromycin Lactobionate 180 (mg/ Sodium Chloride) 50 mls @ 100 mls/hr IV Q8H [facility] Last Admin: 04/11/17 08:22 Dose: 100 mls/hr Insulin Glargine (Lantus) 10 unit SQ DAILYP PRN PRN Reason: HYPERGLYCEMIA Insulin Human Lispro (Humalog) 0 unit SQ ACHS [facility] PRN Reason: Protocol Last Admin: 04/11/17 08:05 Dose: Not Given Isosorbide Mononitrate (Imdur) 60 mg PO HS [facility] Last Admin: 04/10/17 20:43 Dose: 60 mg Lactobacillus Rhamnosus (Culturelle) 1 cap PO TID [facility] Last Admin: 04/11/17 09:58 Dose: 1 cap Meclizine HCl (Antivert) 25 mg PO HS [facility] Last Admin: 04/10/17 20:41 Dose: 25 mg Metoclopramide HCl (Reglan) 10 mg PO ACHS [facility] Last Admin: 04/11/17 08:05 Dose: 10 mg Midodrine (Midodrine Hcl) 5 mg PO DAILYP PRN PRN Reason: Hypotension Ondansetron HCl (Zofran) 4 mg IV Q4-6HP PRN PRN Reason: Nausea And Vomiting Last Admin: 04/09/17 12:20 Dose: 4 mg Pantoprazole Sodium (Protonix) 40 mg PO QAMAC [facility] Last Admin: 04/11/17 08:04 Dose: 40 mg Promethazine HCl (Phenergan) 12.5 mg IV Q4-6HP PRN PRN Reason: Nausea And Vomiting Last Admin: 04/09/17 15:28 Dose: 12.5 mg Senna/Docusate Sodium (Senna Plus Tablet) 1 tab PO HS [facility] Last Admin: 04/10/17 20:44 Dose: 1 tab Simvastatin (Zocor) 20 mg PO HS [facility] Last Admin: 04/10/17 20:44 Dose: 20 mg Sodium Chloride (Saline Flush) 10 ml IV Q8 [facility] Last Admin: 04/11/17 05:28 Dose: 10 ml Medical - PN: A/P - Time Spent With Patient Total time spent is greater than 50% in coordination of care (as documented) at patient's floor/unit and/or counseling patient: - Narrative A/P Narrative: A/P Acute decomensated Heart failure.: due to esrd, clinically improving. Volume overload due to ESRD: On HD, fluid status better now, continue HD as per nephrology. HD due today Hyperkalemia: Resolved. Diabetic Gastroparesis with Intractable Nausea and Vomiting: PO reglan ACHS, IV erythromycin, X ray abdomen is negative, patient doing well with IV erythromycin. Continue same today and if able to keep food down, anticipate d/c tomorrow. Hypomagnesemia: Replaced, today 1.7, give additional 2 gms. DM: Sliding scale insulin, glucose at goal. CAD: on statin and antiplatlet agents (aspirin and clopidogrel) , continue same , continue isosorbide , no cp. DVT hep sq Diet Renal diabetic diet. Neuropathy: contiue home meds, neurontin. Dispo anticipate d/c in AM barring any new issues. Medical - PN: Qual - VTE Deep Vein Thrombosis/Pulmonary Embolism Present on Admission: No
--- NOTE | 2017-04-11 13:39 | Nephrology Progress Note ---
Subjective Patient information: Note initiated : 04/11/17 at 1:36 pm Service Date, if different from initiated Date: [] Patient: Maryann Juares 82 y/o F admitted on 04/09/17 for Nausea and Vomiting, Diarrhea, Dialysis Patient. Chief Complaint: Feels better. She ate breakfast. Nausea is better. Objective - Vital Signs Vital signs: Vital Signs Temp Pulse Pulse Resp BP BP Pulse Ox 04/11/17 12:00 98.2 F 74 16 157/48 99 04/11/17 07:55 98.1 F 18 159/52 98 04/11/17 03:35 98.4 F 20 149/46 92 04/11/17 00:25 97.8 F 58 L 58 L 16 135/51 96 04/10/17 20:33 152/48 98 04/10/17 20:00 98.0 F 60 18 152/48 98 04/10/17 16:00 98.4 F 76 18 125/40 94 Intake and Output 04/10/17 04/11/17 04/11/17 21:59 05:59 13:59 Intake Total 290 / 290 300 / 300 170 / 170 Output Total 50 / 50 Balance 240 / 240 300 / 300 170 / 170 Intake: IV 50 / 50 50 / 50 50 / 50 Erythrocin Lactobionate 50 / 50 50 / 50 50 / 50 180 mg In Sodium Chloride 0.9% 50 ml @ 100 mls/hr IV Q8H [facility] Rx#:[id number] Oral 240 / 240 250 / 250 120 / 120 Output: Void Amount 50 / 50 Other: Meal Dinner Breakfast Percent of Meal Consumed 100% 100% Feeding Ability Assist with Tray Set Up # Voids 1 # Bowel Movements 1 Weight 123 lb 12.8 oz Intake & Output: Intake & Output 04/10/17 04/11/17 04/11/17 21:59 05:59 13:59 Intake Total 290 / 290 300 / 300 170 / 170 Output Total 50 / 50 Balance 240 / 240 300 / 300 170 / 170 Weight 123 lb 12.8 oz Intake: IV 50 / 50 50 / 50 50 / 50 Erythrocin Lactobionate 50 / 50 50 / 50 50 / 50 180 mg In Sodium Chloride 0.9% 50 ml @ 100 mls/hr IV Q8H [facility] Rx#:[id number] Oral 240 / 240 250 / 250 120 / 120 Output: Void Amount 50 / 50 Other: Meal Dinner Breakfast Percent of Meal Consumed 100% 100% Feeding Ability Assist with Tray Set Up # Voids 1 # Bowel Movements 1 - General Appearance General appearance: well-developed, appears started age EENT: ATNC, mucous membranes dry Neck: no JVD Respiratory: no kyphosis Cardiology: diastolic murmur Gastrointestinal: normoactive bowel sounds - Lab 04/11/17 03:40 04/11/17 03:40 Most recent lab results Calcium 9.8 mg/dl (8.6-10.4) 04/11/17 03:40 Phosphorus 4.2 mg/dL (2.7-4.5) 04/11/17 03:40 Magnesium 1.7 mg/dL (1.6-2.5) 04/11/17 03:40 Assessment and Plan (1) End-stage renal disease needing dialysis Status: Acute Comment: 1. End-stage renal disease on hemodialysis. She will have dialysis today and will attempt to remove 2 to 3 kilos of fluid as tolerated. 2. Nausea, vomiting: Probably related to diabetic gastroparesis. Unlikely to be intestinal ischemia. On Reglan. 3. Hyperkalemia, mild: resolved. 4. Can be placed on swing bed.
[2017-04-11] MEDS ORDERED: ONDANSETRON 4 MG/2 ML VIAL IV PRN (20:23)
[2017-04-11] MEDS ORDERED: DEXTROSE 50% 50 ML VIAL IV PRN (20:23)
[2017-04-11] MEDS ORDERED: PROMETHAZINE 25 MG/ML VIAL IV PRN (20:23)
[2017-04-11] MEDS ORDERED: ACETAMINOPHEN 325 MG TABLET PO PRN (20:23)
[2017-04-11] MEDS ORDERED: ACETAMINOPHEN 1,000 MG/100 ML BOTTLE IV PRN (20:23)
[2017-04-11] MEDS ORDERED: MIDODRINE 5 MG TABLET PO PRN (20:23)
[2017-04-11] MEDS ORDERED: INSULIN GLARGINE, HUMAN 1 UNIT/0.01 ML SQ PRN (20:23)
[2017-04-11] MEDS ORDERED: HYDROcodone/APAP 5/325MG TABLET PO PRN (20:23)
[2017-04-11] MEDS ORDERED: hydrALAZINE 20 MG/ML VIAL IV PRN (20:23)
[2017-04-11] MEDS ORDERED: CLOPIDOGREL 75 MG TABLET PO SCH (21:00)
[2017-04-11] MEDS ORDERED: SIMVASTATIN 20 MG TABLET PO SCH (21:00)
[2017-04-11] MEDS ORDERED: MECLIZINE 25 MG TABLET PO SCH (21:00)
[2017-04-11] MEDS ORDERED: SENNOSIDES/DOCUSATE SODIUM 1 TAB TABLET PO SCH (21:00)
[2017-04-11] MEDS ORDERED: ISOSORBIDE MONONITRATE 60 MG TAB.XL.24H PO SCH (21:00)
[2017-04-12] MEDS: SODIUM CHLORIDE 0.9% IV SCH ×2 (00:30→10:03)
[2017-04-12] MEDS: 0.9 % SODIUM CHLORIDE 10 ML SYRINGE IV SCH ×2 (00:30→10:03)
[2017-04-12] MEDS: ERYTHROMYCIN LACTOBIONATE IV SCH ×2 (00:30→10:03)
[2017-04-12 07:00] LABS: Eosinophils % (Manual) 1 % (0-7); Lymphocytes % 12 % (15-49); Monocytes % (Manual) 9 % (1-12); Platelet Estimate NORMAL (NORMAL); RBC Morphology ABNORM (NORMAL); Segmented Neutrophils % 78 % (38-78)
[2017-04-12 07:01] LABS: Mean Cell Volume 94.4 fL (80.0-100.0); Mean Corpuscular HGB Conc 33.1 g/dL (31.0-36.0); Mean Corpuscular Hemoglobin 31.3 pg (26.0-34.0); Platelet Count 188 K/mcL (140-440); RBC 3.57 M/mcL (4.00-5.20); Red Cell Distribution Width 14.9 % (11.5-14.5)
[2017-04-12] MEDS ORDERED: PANTOPRAZOLE 40 MG TABLET PO SCH (07:30)
[2017-04-12] MEDS: METOCLOPRAMIDE 10 MG TABLET PO SCH ×2 (08:06→12:25)
[2017-04-12] MEDS: INSULIN LISPRO 1 UNIT/0.01 ML UNIT SQ SCH ×2 (08:07→12:13)
[2017-04-12 08:14] LABS: ALT/SGPT < 5 U/l (0-40); Albumin 3.3 gm/dL (3.2-5.2); Albumin/Globulin Ratio 1.4 (1.0-2.3); Alkaline Phosphatase 66 U/L (39-117); Bilirubin,Direct < 0.2 mg/dL (0.0-0.3); Blood Urea Nitrogen 13 mg/dl (8-23); Gamma Glutamyl Transpeptidase 37 U/L (5-36); Magnesium 1.7 mg/dL (1.6-2.5); Uric Acid 2.8 mg/dL (2.5-8.0)
[2017-04-12] MEDS: HEPARIN 5,000 UNIT/ML VIAL SQ SCH (08:39)
[2017-04-12] MEDS: DOCUSATE SODIUM 100 MG CAPSULE PO SCH (08:39)
[2017-04-12] MEDS: GABAPENTIN 100 MG CAPSULE PO SCH (08:40)
[2017-04-12] MEDS ORDERED: ASPIRIN 325 MG ENTERIC COATED TABLET PO SCH (09:00)
[2017-04-12] MEDS: LACTOBACILLUS 1 CAPSULE PO SCH (10:53)
--- NOTE | 2017-04-12 12:54 | Discharge Summary ---
Medical - DS: Prov Patient information: Note initiated : 04/12/17 at 12:51 pm Service Date, if different from initiated Date: [] Patient: Maryann Juares 82 y/o F admitted on 04/09/17 for Nausea and Vomiting, Diarrhea, Dialysis Patient. Chief Complaint: [] Date of admission: 04/09/17 20:05 Discharge date: 04/12/17 Primary care physician: Pascale Peter DO Admitting clinician: Andrew Barrios Discharging clinician: Jack Alvarado Medical - DS: Meds - Discharge Medications Active and Home Medications: Home Medications Gabapentin [Neurontin] 100 mg PO BID 06/23/15 [History Confirmed 04/08/17 Last Taken 09/24/16] Isosorbide Mononitrate [Isosorbide Mononitrate ER] 60 mg PO HS 06/23/15 [ History Confirmed 04/08/17 Last Taken 09/24/16] Pravastatin [Pravachol] 40 mg PO HS 06/23/15 [History Confirmed 04/08/17 Last Taken 09/24/16] Pantoprazole [Protonix] 40 mg PO QAMAC 08/18/15 [History Confirmed 04/08/17 Last Taken 09/24/16] Aspirin [Ecotrin] 325 mg PO DAILY tab.ec 08/06/16 [Rx Confirmed 04/08/17 Last Taken 09/24/16] peg 3350-electrolytes 236 gram-22.74 gram-6.74 gram-5.86 gram solution 240 ml PO Q10M #4000 ml 09/10/16 [Rx Confirmed 04/08/17 Last Taken Unknown] Acetaminophen [Arthritis Pain Relief] 650 mg PO PRN PRN 09/24/16 [History Confirmed 04/08/17 Last Taken Unknown] Cyanocobalamin (Vitamin B-12) [Vitamin B12] 1,000 mcg PO DAILY 09/24/16 [ History Confirmed 04/08/17 Last Taken 09/24/16] Ergocalciferol (Vitamin D2) [Vitamin D2] 50,000 unit PO WEEKLY 09/24/16 [ History Confirmed 04/08/17 Last Taken 09/24/16] Insulin Glargine,Hum.rec.anlog [Lantus Solostar] 10 unit SQ DAILYP PRN 09/24/16 [History Confirmed 04/08/17 Last Taken 09/24/16] Ubidecarenone [Coq-10] 300 mg PO DAILY 09/24/16 [History Confirmed 04/08/17 Last Taken 09/24/16] Vit A,C & E/Lutein/Minerals [Ocuvite] 1 tab PO DAILY 09/24/16 [History Confirmed 04/08/17 Last Taken 09/24/16] Clopidogrel [Plavix] 75 mg PO HS 09/25/16 [History Confirmed 04/08/17 Last Taken 09/24/16] Meclizine [Antivert] 25 mg PO HS 09/25/16 [History Confirmed 04/08/17 Last Taken 09/24/16] HYDROcodone/APAP 5/325MG [[place] 5/325Mg] 1 tab PO TIDP PRN 04/08/17 [History Confirmed 04/08/17 Last Taken Unknown] Lactobacillus Acidophilus/Fos [Acidophilus Probiotic Tablet] 1 tab PO TID [History Confirmed 04/08/17 Last Taken Unknown] Metoclopramide [Reglan] 10 mg PO ACHS 04/08/17 [History Confirmed 04/08/17 Last Taken Unknown] Midodrine [Midodrine HCl] 5 mg PO DAILYP PRN 04/08/17 [History Confirmed Last Taken Unknown] Medical - DS: Hosp Hospital course: Mrs. Juares is a 82 year old Female with h/o ESRD on HD, DM and Gastroparesis, who presented to the ER with complaints of epigastric distress, and persistent nausea and vomiting. the patient was admitted to the hospital for further management. Acute exacerbation of Gastroparesis: Pt had a CT abdomen and pelvis done which showed mild ileus, no obstruction, heavy calcification of the blood vessels, subesquent X Ray revelaed resolution of the ileus. The patient was not taking her reglan as need 4 times a day, but only twice a day. She was treated by a cocktail of anti nausea meds, which helped but did not resolve her nausea. Erythromycin strated which completely helped with her nausea and vomiting and she has been able to tolerate po diet now for 2 days. Acute decompensated Heart failure/ ESRD with fluid overload: Noted on CXR, treated with HD and fluid removal. Pt asymptomatic and off oxygen on discharge. ESRD : Pt is esrd on HD, followed by Dr Duncan, pt dialysis was continued CAD: ON statin, isosoribide mononitrate and dual antiplatelet agents, which are continued patient had no cp The rest of the stay in the hospital was uneventful, no changes in home regime done, only compliance reinforced. Should patient develop gastroparesis again, she may benefit from a longer course of erythromycin.Pt educated regarding need for small more frequent meals. The patient was weak after her stay in the hospital and in need for more therapy. The patient has no pcp and therefore could not be discharged at the SNF facility as there was no accepting provider. Will be discharged to swing bed status for therapy. Discharge diagnosis: Gastroparesis. - Time Spent with Patient Total time spent providing and/or coordinating discharge services: Greater than 30 minutes Medical - DS: Exam - Constitutional Vitals: Vital Signs Temp Pulse Pulse Resp BP BP Pulse Ox 04/12/17 11:41 98.7 F 16 192/68 94 04/12/17 07:34 98 F 16 146/55 94 04/12/17 04:00 98.1 F 60 16 176/56 94 04/12/17 00:00 97.9 F 53 L 16 147/54 94 04/11/17 20:00 97.6 F 54 L 16 172/65 97 04/11/17 17:41 97.8 F 124 H 04/11/17 17:04 69 140/55 04/11/17 16:35 68 147/78 04/11/17 16:04 61 171/65 04/11/17 16:00 97.4 F 66 14 177/68 98 04/11/17 15:34 66 177/68 04/11/17 15:04 64 171/61 04/11/17 14:34 75 184/79 04/11/17 13:58 98.4 F 70 167/59 Intake and Output 04/11/17 04/12/17 04/12/17 21:59 05:59 13:59 Intake Total 420 / 420 150 / 150 50 / 50 Output Total 39932 / 55737 Balance -02678 / -19174 150 / 150 50 / 50 Intake: IV 50 / 50 50 / 50 Erythrocin Lactobionate 50 / 50 50 / 50 180 mg In Sodium Chloride 0.9% 50 ml @ 100 mls/hr IV Q8H [facility] Rx#:[id number] Oral 420 / 420 100 / 100 Output: Hemodialysis UF 54806 / 24671 Other: Meal Lunch Percent of Meal Consumed 100% Feeding Ability Assist with Tray Set Up # Bowel Movements 1 Weight 122 lb Additional comments: Constitutional; Afebrile, cooperative, alert, not in distress. Eyes- No icterus, , No periorbital swelling Ears- Ext ear normal, hearing normal to conversation. Neck- Midline trachea, supple Respiratory system: Air Entry equal on both sides, No crackles or wheezing, no rhonchi. CVS- Rate rhythm regular, S1,S2 heard, no gallop, no rub. Abdomen- Soft nontender abdomen, no organomegaly, no tenderness, no guarding or rigidity, SOLUTION COORDINATOR- AOOx3, moving all extremities, no gross focal deficit noted. Medical - DS: Data Labs on day of discharge: Labs from last 24 hours 04/12/17 04/12/17 04/12/17 07:04 05:10 05:10 WBC 8.9 RBC 3.57 L Hgb 11.2 L Hct 33.8 L MCV 94.4 MCH 31.3 MCHC 33.1 RDW 14.9 H Plt Count 188 MPV 10.1 Total Counted 100 Seg Neutrophils % 78 Band Neutrophils % Not Reportable Lymphocytes % 12 L Monocytes % (Manual) 9 Eosinophils % (Manual) 1 WBC Morphology Normal Platelet Estimate Normal RBC Morphology Abnorm A RBC Fragments Few A Sodium 138 Not Reportable Potassium 4.3 Not Reportable Chloride 97 Not Reportable Carbon Dioxide 29 Not Reportable Anion Gap 12.0 Not Reportable BUN 13 Not Reportable Creatinine 2.7 H Not Reportable GFR Calculation 16 Not Reportable Glucose 95 TNP Uric Acid 2.8 Not Reportable Calcium 9.7 Not Reportable Phosphorus 3.3 Not Reportable Magnesium 1.7 Not Reportable Total Bilirubin 0.2 Not Reportable Direct Bilirubin < 0.2 Not Reportable GGT 37 H Not Reportable AST 9 Not Reportable ALT < 5 Not Reportable Alkaline Phosphatase 66 Not Reportable Lactate Dehydrogenase 141 Not Reportable Total Protein 5.6 L Not Reportable Albumin 3.3 Not Reportable Globulin 2.3 Not Reportable Albumin/Globulin Ratio 1.4 Not Reportable Triglycerides 97 Not Reportable Medical - DS: A/P - Patient/Caregiver Discharge Instructions Activity: as per physical therapy, increase activity as tolerated Diet: Renal/Consistent Carbs Additional Instructions: Follow up with nephrology as per schedule - Follow up Plan Follow up with: Inder Duncan MD [Physician] - (Continue with your current Dialysis schedule.) Pascale Peter DO [Primary Care Provider] - Disposition: [facility] Swing Bed Prognosis: Fair Rehab Potential: Fair I certify that the patient requires SNF services: No Overall status at discharge: patient is progressing back to baseline Medical - DS: Qual - VTE Deep Vein Thrombosis/Pulmonary Embolism Present on Admission: No
== END 2017-04-12 13:32 | disposition other institution (70) | DRG 73 ==
LOC: ICU 11:25 → ED 11:25 → ICU 17:14 → MEDSUR 04-11 20:22
PROVIDERS: ADMIT Internal Medicine; ATTEND Internal Medicine

== ENCOUNTER 2017-04-12 12:33 | Inpatient (IN) ==
[2017-04-12] MEDS ORDERED: hydrALAZINE 20 MG/ML VIAL IV ONE (14:12)
[2017-04-12] MEDS ORDERED: DEXTROSE 50% 50 ML VIAL IV PRN (16:01)
[2017-04-12] MEDS ORDERED: ACETAMINOPHEN 325 MG TABLET PO PRN (16:05)
[2017-04-12] MEDS: INSULIN LISPRO 1 UNIT/0.01 ML UNIT SQ SCH ×2 (17:23→21:18)
[2017-04-12] MEDS: METOCLOPRAMIDE 10 MG TABLET PO SCH ×2 (17:24→21:17)
[2017-04-12] MEDS: ISOSORBIDE MONONITRATE 60 MG TAB.XL.24H PO SCH (21:16)
[2017-04-12] MEDS: HEPARIN 5,000 UNIT/ML VIAL SQ SCH (21:16)
[2017-04-12] MEDS: CLOPIDOGREL 75 MG TABLET PO SCH (21:17)
[2017-04-12] MEDS: LACTOBACILLUS 1 CAPSULE PO SCH (21:17)
[2017-04-12] MEDS: HYDROcodone/APAP 5/325MG TABLET PO PRN (21:17)
[2017-04-12] MEDS: MECLIZINE 25 MG TABLET PO SCH (21:18)
[2017-04-12] MEDS: GABAPENTIN 100 MG CAPSULE PO SCH (21:18)
[2017-04-12] MEDS: SIMVASTATIN 20 MG TABLET PO SCH (21:18)
[2017-04-13] MEDS ORDERED: ONDANSETRON 4 MG/2 ML VIAL ONE ×2 (01:01→05:25)
[2017-04-13] MEDS: METOCLOPRAMIDE 10 MG TABLET PO SCH ×4 (08:12→21:22)
[2017-04-13] MEDS: INSULIN LISPRO 1 UNIT/0.01 ML UNIT SQ SCH ×4 (08:12→21:29)
[2017-04-13] MEDS: PANTOPRAZOLE 40 MG TABLET PO SCH (08:12)
[2017-04-13] MEDS: ERYTHROMYCIN LACTOBIONATE IV SCH ×2 (09:46→17:21)
[2017-04-13] MEDS: HEPARIN 5,000 UNIT/ML VIAL SQ SCH ×2 (09:46→21:23)
[2017-04-13] MEDS: LACTOBACILLUS 1 CAPSULE PO SCH ×3 (09:46→21:23)
[2017-04-13] MEDS: SODIUM CHLORIDE 0.9% IV SCH ×2 (09:46→17:21)
[2017-04-13] MEDS: cloNIDine HCL 0.1 MG TABLET PO PRN (09:46)
[2017-04-13] MEDS: CYANOCOBALAMIN (VITAMIN B-12) 500 MCG TABLET PO SCH (09:46)
[2017-04-13] MEDS: GABAPENTIN 100 MG CAPSULE PO SCH ×2 (09:47→21:23)
[2017-04-13] MEDS: ASPIRIN 325 MG ENTERIC COATED TABLET PO SCH (09:47)
[2017-04-13] MEDS: VIT A,C & E/LUTEIN/MINERALS TABLET PO SCH (09:47)
[2017-04-13] MEDS: UBIDECARENONE 300 MG PO SCH (12:28)
--- NOTE | 2017-04-13 12:30 | Internal Med History&Physical ---
Medical - H&P: [facility] Patient information: Note initiated : 04/13/17 at 12:25 pm Service Date, if different from initiated Date: [] Patient: Maryann Juares a 82 y/o F admitted on 04/12/17 for Gastroperesis, CHF. Chief Complaint: [] History of present illness: Ms. Juares is a 82 year old F with h/o DM, ESRD on HD, admitted to the hospital for therapy on swing bed status. The patient was initially admitted to the hospital for acute gastroparesis, treated with reglan and IV erythromycin. The patient was stablizied and was able to tolerate po diet x 2 days and once she was able keep food down she was discharged to swing bed status. The gaby ent overnight noted that she has 2 episodes of emesis. and was feeling full this AM, Besides thsi she did not have any other complaints. The patient was weak after her admission and was admitted to swing bed status as she did not have a PCP to follow her in [place], and she needed therapy to get better. Review of systems: CONSTITUTIONAL: No weight loss, fever, chills, weakness or fatigue. HEENT: Eyes: No visual loss, blurred vision, double vision or yellow sclerae. Ears, Nose, Throat: No hearing loss, sneezing, congestion, runny nose or sore throat. SKIN: No rash or itching. CARDIOVASCULAR: No chest pain, chest pressure or chest discomfort. No palpitations or edema. RESPIRATORY: No shortness of breath, cough or sputum. GASTROINTESTINAL: nausea and vomjiting present overnight, fullness in epigastrium noted. GENITOURINARY: Denies Burning on urination. Blood in urine, or foul smelling urine NEUROLOGICAL: No headache, dizziness, syncope, paralysis, tremors, numbness or tingling in the extremities. No change in bowel or bladder control. MUSCULOSKELETAL: No muscle, back pain, joint pain or stiffness. HEMATOLOGIC: No bleeding or bruising. No enlarged nodes PSYCHIATRIC: No depression or anxiety. ENDOCRINOLOGIC: No reports of sweating, cold or heat intolerance. No polyuria or polydipsia. ALLERGIES: No hives, eczema or rhinitis. Skin: No rash, no jaundice, cyanosis or pallor. Medical - H&P: [facility] Medical history: Medical History (Last Updated 04/11/17 @ 13:40 by Inder Duncan MD) Chronic mesenteric ischemia (Acute) Chronic renal failure (Acute) Closed head injury (Acute) Diabetes mellitus, insulin dependent (IDDM), controlled (Acute) End-stage renal disease needing dialysis (Acute) Hypokalemia due to loss of potassium (Acute) Nausea (Acute) Pneumonia (Acute) Small bowel obstruction (Acute) Syncope (Acute) UTI (urinary tract infection) (Acute) Ventricular ectopy (Acute) Surgical history: Past Surgical History (Last Updated 08/13/16 @ 09:21 by Charline Murillo RN) H/O neck surgery (Acute) Tubal ligation status (Acute) Family history: reviewed and not pertinent Medical - H&P: Meds Home Medications Medication Instructions Recorded Confirmed Type Gabapentin [Neurontin] 100 mg PO BID 06/23/15 04/12/17 History Isosorbide Mononitrate [Isosorbide 60 mg PO HS 06/23/15 04/12/17 History Mononitrate ER] Pravastatin [Pravachol] 40 mg PO HS 06/23/15 04/12/17 History Pantoprazole [Protonix] 40 mg PO QAMAC 08/18/15 04/12/17 History Aspirin [Ecotrin] 325 mg PO DAILY tab.ec 08/06/16 04/12/17 Rx Acetaminophen [Arthritis Pain 650 mg PO PRN PRN 09/24/16 04/12/17 History Relief] Cyanocobalamin (Vitamin B-12) 1,000 mcg PO DAILY 09/24/16 04/12/17 History [Vitamin B12] Ergocalciferol (Vitamin D2) 50,000 unit PO WEEKLY 09/24/16 04/12/17 History [Vitamin D2] Insulin Glargine,Hum.rec.anlog 10 unit SQ DAILYP PRN 09/24/16 04/12/17 History [Lantus Solostar] Ubidecarenone [Coq-10] 300 mg PO DAILY 09/24/16 04/12/17 History Vit A,C & E/Lutein/Minerals 1 tab PO DAILY 09/24/16 04/12/17 History [Ocuvite] Clopidogrel [Plavix] 75 mg PO HS 09/25/16 04/12/17 History Meclizine [Antivert] 25 mg PO HS 09/25/16 04/12/17 History HYDROcodone/APAP 5/325MG [[place] 1 tab PO TIDP PRN 04/08/17 04/12/17 History 5/325Mg] Lactobacillus Acidophilus/Fos 1 tab PO TID 04/08/17 04/12/17 History [Acidophilus Probiotic Tablet] Metoclopramide [Reglan] 10 mg PO ACHS 04/08/17 04/12/17 History Midodrine [Midodrine HCl] 5 mg PO DAILYP PRN 04/08/17 04/12/17 History Allergies Allergy/AdvReac Type Severity Reaction Status Date / Time meperidine [From Demerol] Allergy Severe Difficulty Verified 04/08/17 11:36 Breathing levofloxacin [From Levaquin] AdvReac Intermediate Vomiting Verified 04/08/17 11: 36 morphine AdvReac Intermediate Vomiting Verified 04/11/17 21:00 amlodipine AdvReac Mild Cough Verified 04/08/17 11:36 Medical - H&P: Exam - Constitutional Vitals: Temp Pulse Resp BP Pulse Ox 98.3 F 66 20 198/65 91 04/13/17 07:28 04/12/17 20:00 04/13/17 07:28 04/13/17 07:28 04/13/17 07:28 Exam: GENERAL: The patient is a well-developed, well-nourished in no apparent distress. Is alert and oriented x3. frail old lady VITAL SIGNS: Reviewed and as noted elsewhere. HEENT: Head is normocephalic and atraumatic. Extraocular muscles are intact. Pupils are equal, round, and reactive to light. Nares appeared normal. Mouth appears any without lesions. Mucous membranes are moist. NECK: Normal to inspection, Supple, No lymphadenopathy or thyromegaly. LUNGS: Air entry equal on both sides, no wheezing, crackles or rhonchi noted. No accessory muscles of respiration HEART: Regular rate and rhythm normal, S1 and S2 heard, no Gallop, S3 or Rub Noted, No Gross murmur heard. ABDOMEN: Soft, nontender, and nondistended. Positive bowel sounds. No hepatosplenomegaly was noted. EXTREMITIES: No cyanosis, clubbing, rash, lesions or edema. NEUROLOGIC: Cranial nerves II through XII are grossly intact. Motor and Sensory System Grossly Intact PSYCHIATRIC: Normal affect, Normal Mood. Appropriate Behavior. SKIN: No ulceration or wounds noted, No jaundice, No rash noted. Medical - H&P: A/P - Narrative A/P Narrative: Volume overload due to ESRD: On HD, fluid status better now, continue HD as per nephrology. HD due today Diabetic Gastroparesis with Intractable Nausea and Vomiting: continue po reglan , Resumve IV erythromycin x 1 day, and then start PO erythromycin 250mg tid to help with prokientic action. Hopefully this will help the patient. Low fat, low fiber diet, renal diabetic diet. DM: Sliding scale insulin, glucose at goal. CAD: on statin and antiplatlet agents (aspirin and clopidogrel) , continue same , continue isosorbide , no cp. DVT hep sq Diet Renal diabetic diet. Neuropathy: continue home meds, Weakness and debility: Continue therapy with OT, PT twice daily . Medical - H&P: Qual - VTE Deep Vein Thrombosis/Pulmonary Embolism Present on Admission: No Social History - Tobacco smoking status: Never smoker - Alcohol alcohol intake frequency: does not drink
[2017-04-13] MEDS: HYDROcodone/APAP 5/325MG TABLET PO PRN (15:48)
[2017-04-13] MEDS: amLODIPine 5 MG TABLET PO SCH (15:49)
[2017-04-13] MEDS: CLOPIDOGREL 75 MG TABLET PO SCH (21:22)
[2017-04-13] MEDS: SIMVASTATIN 20 MG TABLET PO SCH (21:23)
[2017-04-13] MEDS: MECLIZINE 25 MG TABLET PO SCH (21:23)
[2017-04-13] MEDS: ISOSORBIDE MONONITRATE 60 MG TAB.XL.24H PO SCH (21:26)
[2017-04-14] MEDS: ERYTHROMYCIN LACTOBIONATE IV SCH (01:01)
[2017-04-14] MEDS: SODIUM CHLORIDE 0.9% IV SCH (01:01)
[2017-04-14] MEDS: VIT A,C & E/LUTEIN/MINERALS TABLET PO SCH (08:27)
[2017-04-14] MEDS: INSULIN LISPRO 1 UNIT/0.01 ML UNIT SQ SCH ×4 (08:27→21:49)
[2017-04-14] MEDS: LACTOBACILLUS 1 CAPSULE PO SCH ×3 (08:28→23:19)
[2017-04-14] MEDS: METOCLOPRAMIDE 10 MG TABLET PO SCH ×4 (08:28→23:17)
[2017-04-14] MEDS: PANTOPRAZOLE 40 MG TABLET PO SCH (08:28)
[2017-04-14] MEDS: ERYTHROMYCIN 250 MG PO SCH ×3 (08:28→23:19)
[2017-04-14] MEDS: CYANOCOBALAMIN (VITAMIN B-12) 500 MCG TABLET PO SCH (08:28)
[2017-04-14] MEDS: ASPIRIN 325 MG ENTERIC COATED TABLET PO SCH (08:28)
[2017-04-14] MEDS: GABAPENTIN 100 MG CAPSULE PO SCH ×2 (08:28→23:15)
[2017-04-14] MEDS: HEPARIN 5,000 UNIT/ML VIAL SQ SCH ×2 (08:28→21:49)
[2017-04-14] MEDS: UBIDECARENONE 300 MG PO SCH (08:46)
[2017-04-14] MEDS: amLODIPine 5 MG TABLET PO SCH (10:42)
--- NOTE | 2017-04-14 11:13 | Internal Med Progress Note ---
Medical - PN: Subj Patient information: Note initiated : 04/14/17 at 11:12 am Patient: Maryann Juares a 82 y/o F admitted on 04/12/17 for nausea and vomiting, Gastroparesis, CHF. Interval history: april 13, 2017: History of present illness: Ms. Juares is a 82 year old F with h/o DM, ESRD on HD, admitted to the hospital for therapy on swing bed status. The patient was initially admitted to the hospital for acute gastroparesis, treated with reglan and IV erythromycin. The patient was stabilized and was able to tolerate po diet x 2 days and once she was able keep food down she was discharged to swing bed status. The patient overnight noted that she has 2 episodes of emesis. and was feeling full this AM, Besides this she did not have any other complaints. The patient was weak after her admission and was admitted to swing bed status as she did not have a PCP to follow her in [place], and she needed therapy to get better. April 14: -This morning, the patient took erythromycin orally, and then had breakfast. Ever since then, she has complained of upper abdominal discomfortand pressure that radiates up into her chest. She has also had nausea. Later in the day she also began to vomit. She then refused to eat lunch or takeher lunchtime dose erythromycin. - also, nursing staff had noted that her right arm seemed a bit swollen yesterday after dialysis. The patient reportsthis often happens. -The patient's IV came out last night. She refused to let the nurses replace it. otherwise, she denies fever or chills. She is not having palpitations or shortness of breath. I believe her diarrhea,that she had briefly, has resolved. She denies dysuria. Medical History Chronic mesenteric ischemia (Acute) Chronic renal failure (Acute) Closed head injury (Acute) Diabetes mellitus, insulin dependent (IDDM), controlled (Acute) End-stage renal disease needing dialysis (Acute) Hypokalemia due to loss of potassium (Acute) Nausea (Acute) Pneumonia (Acute) Small bowel obstruction (Acute) Syncope (Acute) UTI (urinary tract infection) (Acute) Ventricular ectopy (Acute) - Constitutional Vitals: Vital Signs Temp Pulse Resp BP Pulse Ox 98 F 66 18 124/34 94 04/14/17 07:05 04/13/17 20:00 04/14/17 08:00 04/14/17 08:34 04/14/17 08:00 Period Temp Pulse Resp BP Sys/Turner Pulse Ox Last 24 Hr 97.6 F-98 F 66-70 16-18 120-150/34-78 94-95 Intake and Output 04/13/17 04/14/17 04/14/17 21:59 05:59 13:59 Intake Total 50 / 50 400 / 400 180 / 180 Output Total 400 / 400 Balance -350 / -350 400 / 400 180 / 180 Weight 123 lb 8 oz Intake & Output: Intake & Output 04/13/17 04/14/17 04/14/17 21:59 05:59 13:59 Intake Total 50 / 50 400 / 400 180 / 180 Output Total 400 / 400 Balance -350 / -350 400 / 400 180 / 180 Weight 123 lb 8 oz Intake: IV 50 / 50 Erythrocin Lactobionate 50 / 50 180 mg In Sodium Chloride 0.9% 50 ml @ 100 mls/hr IV Q8H [facility] Rx#:[id number] Oral 400 / 400 180 / 180 Output: Void Amount 400 / 400 Other: Meal Breakfast Percent of Meal Consumed 100% # Voids 1 # Bowel Movements 1 # of times incontinent of 2 Bowels on exam, this is an elderly female who appears in distress. She is holding her abdomen, complaining of pressure. Neck is supple without obvious lymphadenopathy or JVD. Cardiac exam shows regular rate and rhythm. Lungs are clear to auscultation. Abdomen: Appears a bit distended. There is moderate epigastric tenderness, and less tenderness in the lower quadrants. Bowel sounds are active. Extremities: Show no significant edema. Medical - PN: Obj Da - Labs Labs: April 12: -CBC: White blood cell count 8900, hemoglobin 11.2, hematocrit 33.8, RDW 14.9 -chemistry panel:Normal electrolytes. B UN 13, creatinine 2.7 Calcium and phosphorus and magnesium are within normal limits. GGT is elevated at 37, stable.Total protein is low at 5.6. Albumin is normal at 3.3. april 10: Abdominal x-ray: Normal. chest x-ray: Mild CHF. April 09: C. difficile screen is negative. Stool culture:negative for Salmonella, Shigella, Campylobacter, Escherichia coli , Yersinia, vibrio April 08: MRSA screen is positive. CT of the abdomen, without contrast:mild ileus. Extraordinarily heavy calcific atherosclerotic plaque throughout the abdominal aorta including mesenteric artery. Patient is at high risk for mesenteric ischemia. Moderate cardiomegaly and moderate bilateral pleural effusions suggestive of moderate CHF. At risk for congestive hepatopathy. Bilateral renal atrophy. Meds: Medications Acetaminophen (Tylenol) 650 mg PO DAILYP PRN PRN Reason: Pain Hydrocodone Bitart/Acetaminophen ([place] 5/325mg) 1 tab PO TIDP PRN PRN Reason: Pain Last Admin: 04/13/17 15:48 Dose: 1 tab Amlodipine Besylate (Norvasc) 5 mg PO DAILY [facility] Last Admin: 04/14/17 10:42 Dose: Not Given Aspirin (Ecotrin) 325 mg PO DAILY [facility] Last Admin: 04/14/17 08:28 Dose: 325 mg Clonidine HCl (Catapres) 0.1 mg PO Q4HP PRN PRN Reason: Hypertension Last Admin: 04/13/17 09:46 Dose: 0.1 mg Clopidogrel Bisulfate (Plavix) 75 mg PO HS [facility] Last Admin: 04/13/17 21:22 Dose: 75 mg Cyanocobalamin (Vitamin B-12) 1,000 mcg PO DAILY [facility] Last Admin: 04/14/17 08:28 Dose: 1,000 mcg Dextrose (Dextrose 50%) 0 ml IV UD PRN PRN Reason: Hypoglycemia Diagnostic Test (Pha) (Accu-Chek) 1 each FS ACHS [facility] Last Admin: 04/14/17 08:27 Dose: 1 each Ergocalciferol (Drisdol) 50,000 unit PO Mo@0900 [facility] Gabapentin (Neurontin) 100 mg PO BID [facility] Last Admin: 04/14/17 08:28 Dose: 100 mg Heparin Sodium (Porcine) (Heparin) 5,000 unit SQ Q12 [facility] Last Admin: 04/14/17 08:28 Dose: 5,000 unit Insulin Human Lispro (Humalog) 0 unit SQ ACHS [facility] PRN Reason: Protocol Last Admin: 04/14/17 08:27 Dose: Not Given Isosorbide Mononitrate (Imdur) 60 mg PO HS [facility] Last Admin: 04/13/17 21:26 Dose: 60 mg Lactobacillus Rhamnosus (Culturelle) 1 cap PO TID [facility] Last Admin: 04/14/17 08:28 Dose: 1 cap Meclizine HCl (Antivert) 25 mg PO HS [facility] Last Admin: 04/13/17 21:23 Dose: 25 mg Metoclopramide HCl (Reglan) 10 mg PO ACHS [facility] Last Admin: 04/14/17 08:28 Dose: 10 mg Multivitamins/Minerals (Ocuvite) 1 tab PO DAILY [facility] Last Admin: 04/14/17 08:27 Dose: 1 tab Erythromycin (Erymax ) Delayed-Release Capsule 250 Mg 1 dose PO TID [facility] Last Admin: 04/14/17 08:28 Dose: 1 dose Ondansetron HCl (Zofran) 4 mg IV Q6HP PRN PRN Reason: Nausea And Vomiting Ondansetron HCl (Zofran Odt) 4 mg SL Q4HP PRN PRN Reason: Nausea And Vomiting Pantoprazole Sodium (Protonix) 40 mg PO QAMAC [facility] Last Admin: 04/14/17 08:28 Dose: 40 mg Ubidecarenone [Coq- (10] 300 Mg Tab) 1 dose PO DAILY [facility] Last Admin: 04/14/17 08:46 Dose: Not Given Simvastatin (Zocor) 20 mg PO [facility] Last Admin: 04/13/17 21:23 Dose: 20 mg Medical - PN: A/P - Time Spent With Patient Total time spent is greater than 50% in coordination of care (as documented) at patient's floor/unit and/or counseling patient: 25 - 35 minutes - Narrative A/P Narrative: #1 GI. -this patient presents with persistent nausea vomiting, abdominal pain. She does have a history of mesenteric ischemia, and is status post stent placements. Apparently Dr. Alvarado and Dr. Duncan thought her symptoms were more likely consistent with diabetic gastroparesis. She was treated with IV Reglan and IV erythromycin and seemed to improve. However, today, when she was placed on oral erythromycin, she again had nausea and vomiting after eating. Radiology thought that the patient was still at high risk for mesenteric ischemia. Unfortunately, she is already on fairly maximal treatment with aspirin plus Plavix plus a statin. She is also on nitroglycerin. -resume IV fluids. Continue attempts at oral nutrition. -Discuss with Dr. Bonilla of general surgery as he has seen her in the past. -continue Reglan for possible diabetic gastroparesis. We may need to discontinue erythromycin if she cannot tolerate it.continue Zofran. #2. Type 2 diabetes. -Reasonable control.continue diabetic diet Humalog sliding scale.add Lantus back if needed. Oral intake is currently rather poor. continue aspirin, Plavix,zocor She is apparently no longer on an MALIA inhibitor , regarding renal failure. #3. Hypertension. Blood pressure is currently well controlled.Continue Isordil and amlodipine,and when necessary clonidine.ext #4. Continue gabapentin for peripheral neuropathy. #5. DVT prophylaxis: Subcutaneous heparin. #6. CODE STATUS: Full code. #7. Renal. End-stage renal disease. Continue dialysis as scheduled. approximately 30 minutes was spent today, reviewing the patient's chart and test results, interviewing and examining her, and reviewing plan of care with nursing staff, as well as writing orders. Medical - PN: Qual - VTE Deep Vein Thrombosis/Pulmonary Embolism Present on Admission: No
[2017-04-14] MEDS: ONDANSETRON ODT 4 MG TABLET SL PRN ×2 (11:16→18:53)
[2017-04-14] MEDS: ONDANSETRON 4 MG/2 ML VIAL IV PRN ×2 (13:39→21:48)
[2017-04-14] MEDS: MECLIZINE 25 MG TABLET PO SCH (23:14)
[2017-04-14] MEDS: SIMVASTATIN 20 MG TABLET PO SCH (23:16)
[2017-04-14] MEDS: ISOSORBIDE MONONITRATE 60 MG TAB.XL.24H PO SCH (23:16)
[2017-04-14] MEDS: CLOPIDOGREL 75 MG TABLET PO SCH (23:17)
[2017-04-14] MEDS: cloNIDine HCL 0.1 MG TABLET PO PRN (23:29)
[2017-04-15] MEDS ORDERED: cloNIDine HCL 0.1 MG TABLET PO SCH (00:02)
[2017-04-15] MEDS ORDERED: ERGOCALCIFEROL (VITAMIN D2) 50,000 UNIT CAPSULE PO SCH (09:00)
[2017-04-15] MEDS: PANTOPRAZOLE 40 MG TABLET PO SCH (09:24)
[2017-04-15] MEDS: METOCLOPRAMIDE 10 MG TABLET PO SCH ×4 (09:24→21:21)
[2017-04-15] MEDS: ERYTHROMYCIN 250 MG PO SCH ×3 (09:24→21:20)
[2017-04-15] MEDS: ASPIRIN 325 MG ENTERIC COATED TABLET PO SCH (09:25)
[2017-04-15] MEDS: UBIDECARENONE 300 MG PO SCH (09:26)
[2017-04-15] MEDS: VIT A,C & E/LUTEIN/MINERALS TABLET PO SCH (09:26)
[2017-04-15] MEDS: amLODIPine 5 MG TABLET PO SCH (09:26)
[2017-04-15] MEDS: CYANOCOBALAMIN (VITAMIN B-12) 500 MCG TABLET PO SCH (09:27)
[2017-04-15] MEDS: LACTOBACILLUS 1 CAPSULE PO SCH ×3 (09:27→21:20)
[2017-04-15] MEDS: GABAPENTIN 100 MG CAPSULE PO SCH ×2 (09:27→21:21)
[2017-04-15] MEDS: HEPARIN 5,000 UNIT/ML VIAL SQ SCH ×2 (09:28→21:21)
[2017-04-15] MEDS: INSULIN LISPRO 1 UNIT/0.01 ML UNIT SQ SCH ×4 (09:59→21:43)
[2017-04-15] MEDS: CLOPIDOGREL 75 MG TABLET PO SCH (21:21)
[2017-04-15] MEDS: MECLIZINE 25 MG TABLET PO SCH (21:22)
[2017-04-15] MEDS: SIMVASTATIN 20 MG TABLET PO SCH (21:22)
[2017-04-15] MEDS: ISOSORBIDE MONONITRATE 60 MG TAB.XL.24H PO SCH (21:22)
[2017-04-16] MEDS: INSULIN LISPRO 1 UNIT/0.01 ML UNIT SQ SCH ×4 (07:12→20:30)
[2017-04-16] MEDS: METOCLOPRAMIDE 10 MG TABLET PO SCH ×4 (07:13→20:31)
[2017-04-16] MEDS: PANTOPRAZOLE 40 MG TABLET PO SCH (07:13)
[2017-04-16] MEDS: VIT A,C & E/LUTEIN/MINERALS TABLET PO SCH (08:48)
[2017-04-16] MEDS: HEPARIN 5,000 UNIT/ML VIAL SQ SCH ×2 (08:48→20:32)
[2017-04-16] MEDS: CYANOCOBALAMIN (VITAMIN B-12) 500 MCG TABLET PO SCH (08:49)
[2017-04-16] MEDS: ASPIRIN 325 MG ENTERIC COATED TABLET PO SCH (08:49)
[2017-04-16] MEDS: ERYTHROMYCIN 250 MG PO SCH ×3 (08:49→20:30)
[2017-04-16] MEDS: GABAPENTIN 100 MG CAPSULE PO SCH ×2 (08:49→20:30)
[2017-04-16] MEDS: LACTOBACILLUS 1 CAPSULE PO SCH ×3 (08:49→20:43)
[2017-04-16] MEDS: amLODIPine 5 MG TABLET PO SCH (08:50)
[2017-04-16] MEDS: UBIDECARENONE 300 MG PO SCH (08:50)
[2017-04-16] MEDS: ISOSORBIDE MONONITRATE 60 MG TAB.XL.24H PO SCH (20:31)
[2017-04-16] MEDS: MECLIZINE 25 MG TABLET PO SCH (20:31)
[2017-04-16] MEDS: CLOPIDOGREL 75 MG TABLET PO SCH (20:31)
[2017-04-16] MEDS: cloNIDine HCL 0.1 MG TABLET PO PRN (20:31)
[2017-04-16] MEDS: SIMVASTATIN 20 MG TABLET PO SCH (20:31)
[2017-04-17] MEDS: INSULIN LISPRO 1 UNIT/0.01 ML UNIT SQ SCH ×4 (07:17→21:05)
[2017-04-17] MEDS: METOCLOPRAMIDE 10 MG TABLET PO SCH ×4 (07:38→21:07)
[2017-04-17] MEDS: PANTOPRAZOLE 40 MG TABLET PO SCH (07:38)
[2017-04-17] MEDS: LACTOBACILLUS 1 CAPSULE PO SCH ×3 (08:41→21:07)
[2017-04-17] MEDS: HEPARIN 5,000 UNIT/ML VIAL SQ SCH ×2 (08:41→21:06)
[2017-04-17] MEDS: CYANOCOBALAMIN (VITAMIN B-12) 500 MCG TABLET PO SCH (08:41)
[2017-04-17] MEDS: ASPIRIN 325 MG ENTERIC COATED TABLET PO SCH (08:41)
[2017-04-17] MEDS: GABAPENTIN 100 MG CAPSULE PO SCH ×2 (08:41→21:07)
[2017-04-17] MEDS: amLODIPine 5 MG TABLET PO SCH (08:41)
[2017-04-17] MEDS: UBIDECARENONE 300 MG PO SCH (08:42)
[2017-04-17] MEDS: ERYTHROMYCIN 250 MG PO SCH ×3 (08:42→21:07)
[2017-04-17] MEDS: VIT A,C & E/LUTEIN/MINERALS TABLET PO SCH (08:42)
[2017-04-17] MEDS: MECLIZINE 25 MG TABLET PO SCH (21:07)
[2017-04-17] MEDS: CLOPIDOGREL 75 MG TABLET PO SCH (21:07)
[2017-04-17] MEDS: SIMVASTATIN 20 MG TABLET PO SCH (21:07)
[2017-04-17] MEDS: ISOSORBIDE MONONITRATE 60 MG TAB.XL.24H PO SCH (21:13)
[2017-04-18] MEDS: METOCLOPRAMIDE 10 MG TABLET PO SCH ×4 (07:37→21:56)
[2017-04-18] MEDS: PANTOPRAZOLE 40 MG TABLET PO SCH (07:37)
[2017-04-18] MEDS: INSULIN LISPRO 1 UNIT/0.01 ML UNIT SQ SCH ×4 (07:40→21:53)
[2017-04-18] MEDS: CYANOCOBALAMIN (VITAMIN B-12) 500 MCG TABLET PO SCH (08:44)
[2017-04-18] MEDS: HEPARIN 5,000 UNIT/ML VIAL SQ SCH ×2 (08:44→21:53)
[2017-04-18] MEDS: VIT A,C & E/LUTEIN/MINERALS TABLET PO SCH (08:44)
[2017-04-18] MEDS: LACTOBACILLUS 1 CAPSULE PO SCH ×3 (08:44→21:54)
[2017-04-18] MEDS: ERYTHROMYCIN 250 MG PO SCH ×3 (08:44→21:56)
[2017-04-18] MEDS: ASPIRIN 325 MG ENTERIC COATED TABLET PO SCH (08:44)
[2017-04-18] MEDS: GABAPENTIN 100 MG CAPSULE PO SCH ×2 (08:44→21:56)
[2017-04-18] MEDS: amLODIPine 5 MG TABLET PO SCH (08:45)
[2017-04-18] MEDS: UBIDECARENONE 300 MG PO SCH (08:45)
[2017-04-18] MEDS: MECLIZINE 25 MG TABLET PO SCH (21:55)
[2017-04-18] MEDS: CLOPIDOGREL 75 MG TABLET PO SCH (21:56)
[2017-04-18] MEDS: ISOSORBIDE MONONITRATE 60 MG TAB.XL.24H PO SCH (21:56)
[2017-04-18] MEDS: SIMVASTATIN 20 MG TABLET PO SCH (21:56)
[2017-04-19] MEDS: INSULIN LISPRO 1 UNIT/0.01 ML UNIT SQ SCH ×2 (07:12→11:25)
[2017-04-19] MEDS: PANTOPRAZOLE 40 MG TABLET PO SCH (07:17)
[2017-04-19] MEDS: METOCLOPRAMIDE 10 MG TABLET PO SCH ×2 (07:17→11:13)
[2017-04-19] MEDS: ASPIRIN 325 MG ENTERIC COATED TABLET PO SCH (09:37)
[2017-04-19] MEDS: GABAPENTIN 100 MG CAPSULE PO SCH (09:37)
[2017-04-19] MEDS: amLODIPine 5 MG TABLET PO SCH (09:37)
[2017-04-19] MEDS: LACTOBACILLUS 1 CAPSULE PO SCH (09:37)
[2017-04-19] MEDS: CYANOCOBALAMIN (VITAMIN B-12) 500 MCG TABLET PO SCH (09:38)
[2017-04-19] MEDS: VIT A,C & E/LUTEIN/MINERALS TABLET PO SCH (09:38)
[2017-04-19] MEDS: ERYTHROMYCIN 250 MG PO SCH (09:38)
[2017-04-19] MEDS: UBIDECARENONE 300 MG PO SCH (09:39)
[2017-04-19] MEDS: HEPARIN 5,000 UNIT/ML VIAL SQ SCH (09:39)
--- NOTE | 2017-04-19 13:21 | Discharge Summary ---
Medical - DS: Prov Patient information: Note initiated : 04/19/17 at 1:13 pm Service Date, if different from initiated Date: [] Patient: Maryann Juares 82 y/o F admitted on 04/12/17 for Gastroperesis, CHF. Chief Complaint: [] Date of admission: 04/12/17 13:32 Discharge date: 04/19/17 Primary care physician: Pascale Peter DO Admitting clinician: Jack Alvarado Consults: 04/14/17 13:33 Consult to Physician [CONS] Routine Comment: Consulting Provider: Felicia Bonilla Reason For Exam: Physician to Consult 04/19/17 11:19 Consult to Physician [CONS] Routine Comment: Consulting Provider: [facility] Reason For Exam: Physician to Consult Attending physician on discharge: Britta Canseco Medical - DS: Meds - Discharge Medications Prescriptions: Erythromycin Base [Erythromycin] 250 mg PO TIDCC #1 capsule. HYDROcodone/APAP 5/325MG [[place] 5/325Mg] 1 tab PO TIDP PRN #30 PRN Reason: Pain Insulin Glargine,Hum.rec.anlog [Lantus Solostar] 5 unit SQ DAILYP PRN #1 PRN Reason: Blood Sugar - High Active and Home Medications: Discharge medications: Tylenol 650 mg 4 times daily as needed Norvasc 5 mg daily Aspirin 325 mg daily Clonidine 0.1 mg p.o. every 4 hours as needed elevated blood pressure, greater than 160/90 Plavix 75 mg nightly B12 1000 mcg daily Vitamin D 50,000 units q. Saturday Erythromycin 250 mg 3 times daily with or after meals, not before, for gastroparesis Gabapentin 100 mg p.o. twice daily [place] 5/325 3 times daily as needed Lantus 5 units subcu nightly Low-dose Humalog sliding scale before meals and at bedtime Imdur 60 mg nightly Lactobacillus supplement 1 cap 3 times daily Meclizine 25 mg nightly as needed Reglan 10 mg p.o. before meals and at bedtime Multivitamin 1 daily Zofran 4 mg sublingual every 4 hours as needed nausea Protonix 40 mg every morning Pravastatin 40 mg nightly Co-Q10 300 mg daily Previous home Medications Gabapentin [Neurontin] 100 mg PO BID 06/23/15 [History Confirmed 04/12/17 Last Taken 09/24/16] Isosorbide Mononitrate [Isosorbide Mononitrate ER] 60 mg PO HS 06/23/15 [ History Confirmed 04/12/17 Last Taken 09/24/16] Pravastatin [Pravachol] 40 mg PO HS 06/23/15 [History Confirmed 04/12/17 Last Taken 09/24/16] Pantoprazole [Protonix] 40 mg PO QAMAC 08/18/15 [History Confirmed 04/12/17 Last Taken 09/24/16] Aspirin [Ecotrin] 325 mg PO DAILY tab.ec 08/06/16 [Rx Confirmed 04/12/17 Last Taken 09/24/16] Acetaminophen [Arthritis Pain Relief] 650 mg PO PRN PRN 09/24/16 [History Confirmed 04/12/17 Last Taken Unknown] Cyanocobalamin (Vitamin B-12) [Vitamin B12] 1,000 mcg PO DAILY 09/24/16 [ History Confirmed 04/12/17 Last Taken 09/24/16] Ergocalciferol (Vitamin D2) [Vitamin D2] 50,000 unit PO WEEKLY 09/24/16 [ History Confirmed 04/12/17 Last Taken 09/24/16] Insulin Glargine,Hum.rec.anlog [Lantus Solostar] 10 unit SQ DAILYP PRN 09/24/16 [History Confirmed 04/12/17 Last Taken 09/24/16] Ubidecarenone [Coq-10] 300 mg PO DAILY 09/24/16 [History Confirmed 04/12/17 Last Taken 09/24/16] Vit A,C & E/Lutein/Minerals [Ocuvite] 1 tab PO DAILY 09/24/16 [History Confirmed 04/12/17 Last Taken 09/24/16] Clopidogrel [Plavix] 75 mg PO HS 09/25/16 [History Confirmed 04/12/17 Last Taken 09/24/16] Meclizine [Antivert] 25 mg PO HS 09/25/16 [History Confirmed 04/12/17 Last Taken 09/24/16] HYDROcodone/APAP 5/325MG [[place] 5/325Mg] 1 tab PO TIDP PRN 04/08/17 [History Confirmed 04/12/17 Last Taken Unknown] Lactobacillus Acidophilus/Fos [Acidophilus Probiotic Tablet] 1 tab PO TID [History Confirmed 04/12/17 Last Taken Unknown] Metoclopramide [Reglan] 10 mg PO ACHS 04/08/17 [History Confirmed 04/12/17 Last Taken Unknown] Midodrine [Midodrine HCl] 5 mg PO DAILYP PRN 04/08/17 [History Confirmed Last Taken Unknown] Medical - DS: Hosp Hospital course: Mr. uJares is a 82 year old F april 13, 2017: History of present illness: Ms. Juares is a 82 year old F with h/o DM, ESRD on HD, admitted to the hospital for therapy on swing bed status. The patient was initially admitted to the hospital for acute gastroparesis, treated with reglan and IV erythromycin. The patient was stabilized and was able to tolerate po diet x 2 days and once she was able keep food down she was discharged to swing bed status. The patient overnight noted that she has 2 episodes of emesis. and was feeling full this AM, Besides this she did not have any other complaints. The patient was weak after her admission and was admitted to swing bed status as she did not have a PCP to follow her in [place], and she needed therapy to get better. April 14: -This morning, the patient took erythromycin orally, and then had breakfast. Ever since then, she has complained of upper abdominal discomfort and pressure that radiates up into her chest. She has also had nausea. Later in the day she also began to vomit. She then refused to eat lunch or takeher lunchtime dose erythromycin. - also, nursing staff had noted that her right arm seemed a bit swollen yesterday after dialysis. The patient reports this often happens. -The patient's IV came out last night. She refused to let the nurses replace it. otherwise, she denies fever or chills. She is not having palpitations or shortness of breath. I believe her diarrhea,that she had briefly, has resolved. She denies dysuria. April 19, 2017: Hospital course: -The patient was admitted to the hospital on April 08, 2017 with persistent nausea and vomiting. He has a history of mesenteric ischemia, but has already had 2 stents placed, so this was not felt to be the cause. It was decided that the cause was most likely diabetic gastroparesis. We had trouble controlling her symptoms with IV Reglan and Zofran, so eventually erythromycin was added. The first day, she received erythromycin before breakfast, on an empty stomach, and then had nausea and vomiting after breakfast. Thereafter, she was given erythromycin either during or after her meals, and that seems to be tolerated much better. For the last several days she has not had any vomiting, and has had minimal nausea. She is slowly increasing her oral intake of both food and liquids, and is feeling better. Medical History Chronic mesenteric ischemia (Acute) status post stents in the mesenteric and celiac arteries. Chronic renal failure (Acute) Closed head injury (Acute) Diabetes mellitus, insulin dependent (IDDM), controlled (Acute) Diabetic gastroparesis End-stage renal disease needing dialysis (Acute) Hypokalemia due to loss of potassium (Acute) Nausea (Acute) Pneumonia (Acute) Small bowel obstruction (Acute) Syncope (Acute) UTI (urinary tract infection) (Acute) Ventricular ectopy (Acute) On exam today, she is sitting up in a chair, talking on the phone, went into the room. She says she is feeling pretty well. She admits she is still quite fatigued, and probably would not be safe to live on her own at this time. Neck is supple without obvious lymphadenopathy or JVD. Cardiac exam shows regular rate and rhythm. Lungs are clear to auscultation. Abdomen is soft and nontender. Extremities: The right arm has a fistula, with a strong thrill in the antecubital area. The left arm has a probable fistula, but she reports it did not work. Lower extremities do not show any edema. Neurologic exam: The patient is awake and alert, calm and cooperative. Exam is grossly nonfocal. Assessment and plan: #1 GI. -this patient presents with persistent nausea vomiting, abdominal pain. She does have a history of mesenteric ischemia, and is status post stent placements. Apparently Dr. Alvarado and Dr. Duncan thought her symptoms were more likely consistent with diabetic gastroparesis. She was treated with IV Reglan and IV erythromycin and seemed to improve. Radiology thought that the patient was still at high risk for mesenteric ischemia. Unfortunately, she is already on fairly maximal treatment with aspirin plus Plavix plus a statin. She is also on nitroglycerin. -She is now tolerating food and liquids well, on Reglan plus erythromycin. She will continue with this. I did review her case also, with Dr. Bonilla, who was previously involved with her care and getting her over to Dr. Pearce for stents for her bowel ischemia. Dr. Bonilla did not feel that her current symptoms were due to ischemia. #2. Type 2 diabetes. -Reasonable control.continue diabetic diet Humalog sliding scale. I did add back daily Lantus, but it does 5 mg nightly. This should be monitored -continue aspirin, Plavix,zocor She is apparently no longer on an MALIA inhibitor , regarding renal failure. #3. Hypertension. Blood pressure is currently well controlled.Continue Isordil and amlodipine,and when necessary clonidine. She was previously on midodrine, but does not appear to need this any longer. #4. Continue gabapentin for peripheral neuropathy. #5. DVT prophylaxis: Subcutaneous heparin. #6. CODE STATUS: Full code. #7. Renal. End-stage renal disease. Continue dialysis as scheduled. -Hyperkalemia resolved with dialysis. -Hypomagnesemia-resolved. #8. During her hospital stay, at one point she looks volume overloaded. She did receive IV Lasix, and this appeared to resolve. Volume is now managed via dialysis. #9. Cardiac History of coronary disease and peripheral vascular disease. Continue aspirin and Plavix, isosorbide. Approximately 35 minutes was spent today, reviewing patient's recent vital signs and nurse's notes, reviewing plan of care with our team, interviewing and examining her, and writing orders. Discharge diagnosis: Volume overload. End-stage renal failure. Diabetic gastroparesis with aundrea Secondary discharge diagnosis: Type 2 diabetes. Peripheral vascular disease, including mesenteric ischemia. Hypertension - Time Spent with Patient Total time spent providing and/or coordinating discharge services: Greater than 30 minutes Medical - DS: Exam - Constitutional Vitals: Vital Signs Temp Pulse Resp BP Pulse Ox 04/19/17 06:53 97.8 F 16 138/64 94 04/19/17 01:04 152/58 04/18/17 20:00 98.2 F 65 20 170/60 96 Intake and Output 04/18/17 04/19/17 04/19/17 21:59 05:59 13:59 Intake Total 300 / 300 100 / 100 120 / 120 Output Total 400 / 400 Balance 300 / 300 -300 / -300 120 / 120 Intake: Oral 300 / 300 100 / 100 120 / 120 Output: Void Amount 400 / 400 Other: Meal Dinner Breakfast Percent of Meal Consumed 100% 100% # Bowel Movements 1 Weight 121 lb 8 oz Medical - DS: Data Procedures and tests throughout hospitalization: Labs: April 12: -CBC: White blood cell count 8900, hemoglobin 11.2, hematocrit 33.8, RDW 14.9 -chemistry panel:Normal electrolytes. B UN 13, creatinine 2.7 Calcium and phosphorus and magnesium are within normal limits. GGT is elevated at 37, stable.Total protein is low at 5.6. Albumin is normal at 3.3. april 10: Abdominal x-ray: Normal. chest x-ray: Mild CHF. April 09: C. difficile screen is negative. Stool culture:negative for Salmonella, Shigella, Campylobacter, Escherichia coli , Yersinia, vibrio April 08: MRSA screen is positive. CT of the abdomen, without contrast:mild ileus. Extraordinarily heavy calcific atherosclerotic plaque throughout the abdominal aorta including mesenteric artery. Patient is at high risk for mesenteric ischemia. Moderate cardiomegaly and moderate bilateral pleural effusions suggestive of moderate CHF. At risk for congestive hepatopathy. Bilateral renal atrophy. Medical - DS: A/P - Patient/Caregiver Discharge Instructions Activity: as per physical therapy, increase activity as tolerated Diet: Renal/Consistent Carbs Prescriptions: Erythromycin Base [Erythromycin] 250 mg PO TIDCC #1 capsule. HYDROcodone/APAP 5/325MG [[place] 5/325Mg] 1 tab PO TIDP PRN #30 PRN Reason: Pain Insulin Glargine,Hum.rec.anlog [Lantus Solostar] 5 unit SQ DAILYP PRN #1 PRN Reason: Blood Sugar - High Other Amb Orders: Aspiration Precautions Location: Determined By Patient Fall Risk Location: Determined By Patient OT Discharge Order Location: Determined By Patient Physical Therapy at Discharge - General Location: Determined By Patient Walker Location: Determined By Patient - Follow up Plan Disposition: er SNF Prognosis: Fair Rehab Potential: Fair Overall status at discharge: patient is progressing back to baseline Medical - DS: Qual - VTE Deep Vein Thrombosis/Pulmonary Embolism Present on Admission: No
== END 2017-04-19 14:49 | DRG 73 ==
LOC: MEDSUR 13:32 → SUATTDRO 13:32 → MEDSUR 14:15
PROVIDERS: ADMIT Internal Medicine; ATTEND Internal Medicine

== ENCOUNTER 2017-05-04 12:42 | Inpatient (IN) ==
[2017-05-04] MEDS ORDERED: ONDANSETRON 4 MG/2 ML VIAL IV ONE (13:10)
--- NOTE | 2017-05-04 13:28 | Emergency Department Note ---
Abdominal Pain HPI - General Chief Complaint: Abdominal Pain Stated Complaint: Nausea, abd pain Time Seen by Provider: 05/04/17 13:00 Source: patient, RN notes reviewed Mode of arrival: wheelchair Limitations: no limitations - History of Present Illness HPI Narrative: 82-year-old female is sent over from the dialysis unit after the patient was complaining of abdominal pain which is in the lower abdomen. They pulled 60 cc of fluid, had to discontinue the dialysis run for today secondary to nausea and abdominal pain. Patient tells me her abdominal pain started this morning, she has had a history of urinary infections, has also had abdominal surgeries and has a history of small bowel obstruction. She is also a diabetic on insulin. Patient does tell me that she ate some toast this morning, food seems to make the pain worse the pain is actually been going on for several months, she has issues with her memory cannot remember exactly. No recent surgery she is status post cholecystectomy and appendectomy, had bowel surgery as well, poor historian. - Related Data Home Medications Medication Instructions Recorded Confirmed Gabapentin [Neurontin] 100 mg PO BID 06/23/15 05/03/17 Isosorbide Mononitrate [Isosorbide 60 mg PO HS 06/23/15 05/03/17 Mononitrate ER] Pravastatin [Pravachol] 40 mg PO HS 06/23/15 05/03/17 Pantoprazole [Protonix] 40 mg PO QAMAC 08/18/15 05/03/17 Acetaminophen [Arthritis Pain 650 mg PO PRN PRN 09/24/16 05/03/17 Relief] Cyanocobalamin (Vitamin B-12) 1,000 mcg PO DAILY 09/24/16 05/03/17 [Vitamin B12] Ergocalciferol (Vitamin D2) 50,000 unit PO WEEKLY 09/24/16 05/03/17 [Vitamin D2] Ubidecarenone [Coq-10] 300 mg PO DAILY 09/24/16 05/03/17 Vit A,C & E/Lutein/Minerals 1 tab PO DAILY 09/24/16 05/03/17 [Ocuvite] Meclizine [Antivert] 25 mg PO HS 09/25/16 05/03/17 Lactobacillus Acidophilus/Fos 1 tab PO TID 04/08/17 05/03/17 [Acidophilus Probiotic Tablet] Metoclopramide [Reglan] 10 mg PO ACHS 04/08/17 05/03/17 aspirin 81 mg chewable tablet 81 mg PO QDAY 05/03/17 05/03/17 folic acid 1 mg tablet 1 mg PO QDAY 05/03/17 05/03/17 misoprostol 100 mcg tablet 100 mcg PO TID tab 05/03/17 05/03/17 ramipril 2.5 mg capsule 2.5 mg PO QDAY 05/03/17 05/03/17 ranitidine 150 mg tablet 150 mg PO QHS 05/03/17 05/03/17 sucralfate 1 gram tablet 1 g PO QID 05/03/17 05/03/17 Previous Rx's Medication Instructions Recorded Aspirin [Ecotrin] 325 mg PO DAILY tab.ec 08/06/16 Accu-Chek 1 each FS ACHS strip 04/19/17 Erythromycin Base [Erythromycin] 250 mg PO TIDCC #1 capsule. 04/19/17 HYDROcodone/APAP 5/325MG [[place] 1 tab PO TIDP PRN #30 04/19/17 5/325Mg] Insulin Glargine,Hum.rec.anlog 5 unit SQ DAILYP PRN #1 04/19/17 [Lantus Solostar] Insulin Lispro [Humalog] 1 unit SQ ACHS #1 unit 04/19/17 Insulin Lispro [Humalog] See Protocol SQ ACHS #1 unit 04/19/17 Ondansetron HCl [Zofran ODT] 4 mg SL Q4HP PRN tablet 04/19/17 amLODIPine [Norvasc] 5 mg PO DAILY tab 04/19/17 cloNIDine HCL [Catapres] 0.1 mg PO Q4HP PRN tablet 04/19/17 hydrocodone 5 mg-acetaminophen 163 2.8 ml PO q6h #7.5 ml 05/03/17 mg/7.5 mL (7.5 mL) oral solution Allergies Allergy/AdvReac Type Severity Reaction Status Date / Time meperidine [From Demerol] Allergy Severe Difficulty Verified 04/08/17 11:36 Breathing levofloxacin [From Levaquin] AdvReac Intermediate Vomiting Verified 04/08/17 11: 36 morphine AdvReac Intermediate Vomiting Verified 04/11/17 21:00 amlodipine AdvReac Mild Cough Verified 04/08/17 11:36 Review of Systems Limitations: ROS unobtainable due to patients medical condition Abdominal Pain PMH - Past Medical History Attestation: Yes: The following information was validated with the patient. Medical history: Reports: arthritis, asthma, CHF, coronary artery disease, diabetes, hypertension, renal disease (dialysis dependent), valvular heart disease, other (, history of mesenteric ischemia,) Surgical history ED: Reports: appendectomy, cholecystectomy, other (status post bowel surgery) REGISTERED NURSE [facility] history: Reports: bilateral tubal ligation - Social History Smoking status: Never smoker Alcohol use: Reports: None Drug use: Reports: none Physical Exam - General Limitations: no limitations General appearance: alert, in no apparent distress - Head Head exam: atraumatic, normocephalic, normal inspection - Eye Eye exam: Present: normal appearance, PERRL, EOMI. Absent: conjunctival injection, nystagmus - ENT ENT exam: normal exam, normal oropharynx, mucous membranes moist, TM's normal bilaterally - Neck Neck exam: Present: normal inspection, full ROM, trachea midline. Absent: tenderness, meningismus - Chest Chest inspection: Present: normal inspection, symmetric chest wall rise - Respiratory Respiratory exam: Present: normal lung sounds bilaterally. Absent: respiratory distress - Cardiovascular Cardiovascular exam: Present: regular rate, normal rhythm, systolic murmur, other (Harsh holosystolic murmur over the apex) - Abdominal Exam Abdominal exam: Present: soft, tenderness, guarding Abdominal tenderness: Present: epigastrium, moderate - Rectal Exam Rectal exam: Present: decreased rectal tone, heme (+) stool. Absent: mass - External exam: Present: normal external exam - Extremities Exam Extremities exam: Present: normal inspection, full ROM, normal capillary refill. Absent: pedal edema, calf tenderness - Back Exam Back exam: Present: normal inspection, full ROM. Absent: CVA tenderness (R), CVA tenderness (L), vertebral tenderness - Neurological Exam Neurological exam: Present: alert, oriented X3, CN II-XII intact. Absent: motor sensory deficit - Psychiatric Psychiatric exam: Present: normal affect, depressed, flat affect - Skin Skin exam: Present: warm, dry, intact, pallor Course Vital Signs Temperature 98.4 F 05/04/17 12:44 Pulse Rate 85 05/04/17 12:44 Respiratory Rate 20 05/04/17 12:44 Pulse Oximetry (%) 92 05/04/17 12:44 Temperature 98.4 F 05/04/17 12:44 Pulse Rate 79 05/04/17 18:31 Respiratory Rate 18 05/04/17 18:31 Blood Pressure 184/65 05/04/17 18:31 Pulse Oximetry (%) 97 05/04/17 18:31 Abdominal Pain - MDM Narrative Medical decision making narrative: CT scan reviewed. With her stools being heme positive, also white count of almost 15,000 recommended hospital observation. Family is here and they are aware of her condition, she feels a little bit better after being nothing by mouth receiving IV fluids. Discussed with Dr. Duncan, also our hospitalist. - Lab Data Result diagrams: 05/04/17 13:12 05/04/17 13:12 Lab Results 05/04/17 05/04/17 05/04/17 Range/Units 13:12 13:12 13:12 WBC 14.7 H (4.5-11.0) K/mcL RBC 4.36 (4.00-5.20) M/mcL Hgb 13.5 (12.0-15.0) g/dL Hct 41.8 (36.0-48.0) % MCV 96.0 (80.0-100.0) fL MCH 31.0 (26.0-34.0) pg MCHC 32.3 (31.0-36.0) g/dL RDW 14.9 H (11.5-14.5) % Plt Count 323 (140-440) K/mcL MPV 9.4 (7.4-10.4) fL Gran % 86.0 H (38.0-78.0) % Lymph % (Auto) 8.1 L (15.5-49.0) % [place] % (Auto) 5.4 (1.0-12.0) % Eos % (Auto) 0.3 (0.0-7.0) % Baso % (Auto) 0.2 (0.0-2.0) % Gran # 12.7 H (1.8-8.0) K/mcL Lymph # (Auto) 1.2 L (1.5-4.8) K/mcL [place] # (Auto) 0.8 (0.1-0.9) K/mcL Eos # (Auto) 0.1 (0.0-0.7) K/mcL Baso # (Auto) 0 (0.0-0.3) K/mcL Sodium 137 (133-145) mmol/L Potassium 4.1 (3.3-5.1) mmol/L Chloride 90 L (96-108) mmol/L Carbon Dioxide 35 H (22-30) mmol/L Anion Gap 12.0 (8-16) BUN 16 (8-23) mg/dl Creatinine 3.3 H (0.6-1.1) mg/dl GFR Calculation 12 Glucose 204 H (70-105) mg/dL Calcium 10.9 H (8.6-10.4) mg/dl Total Bilirubin 0.3 (0.0-1.0) mg/dL AST 15 (0-37) U/l ALT 5 (0-40) U/l Alkaline Phosphatase 86 (39-117) U/L C-Reactive Protein 1.2 H (0.0-0.8) mg/dl Total Protein 7.1 (5.9-8.4) gm/dL Albumin 4.2 (3.2-5.2) gm/dL Globulin 2.9 (2.2-3.7) gm/dL Albumin/Globulin Ratio 1.4 (1.0-2.3) Amylase 23 L (28-100) U/L Lipase 26 (7-60) U/L Urine Color Urine Appearance Urine pH (5.0-9.0) Ur Specific [place] (1.000-1.035) Urine Protein (NEG) mg/dL Urine Glucose (UA) (NEG) mg/dL Urine Ketones (NEG) mg/dL Urine Occult Blood (<0.03) mg/dL Urine Nitrate (NEG) Urine Bilirubin (NEG) mg/dL Urine Urobilinogen (NEG) mg/dL Ur Leukocyte Esterase (NEG) /uL Urine RBC (0-1) /hpf Urine WBC (0-4) /hpf Ur Squamous Epith Cells (0-4) /hpf Amorphous Crystals (0) /hpf Urine Bacteria (0) /hpf Hyaline Casts (0-2) /lpf Urine Mucus (0) /hpf 07/15/17 Range/Units 13:47 WBC (4.5-11.0) K/mcL RBC (4.00-5.20) M/mcL Hgb (12.0-15.0) g/dL Hct (36.0-48.0) % MCV (80.0-100.0) fL MCH (26.0-34.0) pg MCHC (31.0-36.0) g/dL RDW (11.5-14.5) % Plt Count (140-440) K/mcL MPV (7.4-10.4) fL Gran % (38.0-78.0) % Lymph % (Auto) (15.5-49.0) % [place] % (Auto) (1.0-12.0) % Eos % (Auto) (0.0-7.0) % Baso % (Auto) (0.0-2.0) % Gran # (1.8-8.0) K/mcL Lymph # (Auto) (1.5-4.8) K/mcL [place] # (Auto) (0.1-0.9) K/mcL Eos # (Auto) (0.0-0.7) K/mcL Baso # (Auto) (0.0-0.3) K/mcL Sodium (133-145) mmol/L Potassium (3.3-5.1) mmol/L Chloride (96-108) mmol/L Carbon Dioxide (22-30) mmol/L Anion Gap (8-16) BUN (8-23) mg/dl Creatinine (0.6-1.1) mg/dl GFR Calculation Glucose (70-105) mg/dL Calcium (8.6-10.4) mg/dl Total Bilirubin (0.0-1.0) mg/dL AST (0-37) U/l ALT (0-40) U/l Alkaline Phosphatase (39-117) U/L C-Reactive Protein (0.0-0.8) mg/dl Total Protein (5.9-8.4) gm/dL Albumin (3.2-5.2) gm/dL Globulin (2.2-3.7) gm/dL Albumin/Globulin Ratio (1.0-2.3) Amylase (28-100) U/L Lipase (7-60) U/L Urine Color Yellow Urine Appearance Hazy Urine pH 5.0 (5.0-9.0) Ur Specific [place] 1.018 (1.000-1.035) Urine Protein 100 A (NEG) mg/dL Urine Glucose (UA) 50 A (NEG) mg/dL Urine Ketones Neg (NEG) mg/dL Urine Occult Blood Neg (<0.03) mg/dL Urine Nitrate Neg (NEG) Urine Bilirubin Neg (NEG) mg/dL Urine Urobilinogen Neg (NEG) mg/dL Ur Leukocyte Esterase Neg (NEG) /uL Urine RBC 1 (0-1) /hpf Urine WBC 3 (0-4) /hpf Ur Squamous Epith Cells < 1 (0-4) /hpf Amorphous Crystals Few A (0) /hpf Urine Bacteria 0 (0) /hpf Hyaline Casts 12 H (0-2) /lpf Urine Mucus Few (0) /hpf Disposition Pt seen by [facility] only: No Clinical Impression: Mesenteric ischemia, Abdominal pain, Gastroparesis, Chronic renal failure Disposition: Xfer As Outpt/Obs ([facility]) Condition: Fair Referrals: Pascale Peter DO [Primary Care Provider] -
[2017-05-04] MEDS ORDERED: 0.9 % SODIUM CHLORIDE 500 ML IV ONE (13:31)
[2017-05-04] MEDS ORDERED: PANTOPRAZOLE 40 MG VIAL IV ONE (13:31)
[2017-05-04 13:47] LABS: Basophils # (Auto) 0 K/mcL (0.0-0.3); Basophils % (Auto) 0.2 % (0.0-2.0); Eosinophils # (Auto) 0.1 K/mcL (0.0-0.7); Eosinophils % (Auto) 0.3 % (0.0-7.0); Lymphocytes # (Auto) 1.2 K/mcL (1.5-4.8); Lymphocytes % (Auto) 8.1 % (15.5-49.0); Mean Corpuscular HGB Conc 32.3 g/dL (31.0-36.0); Monocytes # (Auto) 0.8 K/mcL (0.1-0.9); Monocytes % (Auto) 5.4 % (1.0-12.0); Platelet Count 323 K/mcL (140-440); RBC 4.36 M/mcL (4.00-5.20); Red Cell Distribution Width 14.9 % (11.5-14.5)
[2017-05-04] MEDS ORDERED: NITROGLYCERIN 1 GM OINT.TOP TD ONE (13:49)
[2017-05-04] MEDS: HYDROmorphone 2 MG/ML SYRINGE IV PRN ×2 (13:50→16:40)
[2017-05-04 14:01] LABS: ALT/SGPT 5 U/l (0-40); Albumin 4.2 gm/dL (3.2-5.2); Albumin/Globulin Ratio 1.4 (1.0-2.3); Alkaline Phosphatase 86 U/L (39-117); Blood Urea Nitrogen 16 mg/dl (8-23)
[2017-05-04 14:12] LABS: Amylase 23 U/L (28-100); C-Reactive Protein 1.2 mg/dl (0.0-0.8); Lipase 26 U/L (7-60)
--- NOTE | 2017-05-04 14:12 | XRay Report ---
CLINICAL INFORMATION: Abdominal pain. Nausea. TECHNIQUE: AP supine and upright abdomen COMPARISON: Previous examinations dated 04/10/2017 and 04/08/2017 FINDINGS: Gas and fecal material within the colon. No gas-filled dilated small bowel. No mechanical small bowel obstruction. No pneumatosis. No biliary or portal venous gas. No pneumoperitoneum. No air-fluid levels. There is extensive vascular calcification consistent with atherosclerosis. No significant interval change since previous examinations. IMPRESSION: 1. Extensive mesenteric atherosclerosis and vascular calcification 2. Unremarkable and nonspecific bowel gas pattern. No acute or focal abnormality Interpreted and Authenticated by: Solomon Sanford 05/04/17
[2017-05-04 14:47] LABS: Appearance,Urine HAZY; Bacteria,Urine 0 /hpf (0); Bilirubin,Urine NEG (NEG); Color,Urine YELLOW; Glucose,Urine (UA) 50 mg/dL (NEG); Leukocyte Esterase,Urine NEG /uL (NEG); Mucus,Urine FEW /hpf (0); Nitrate,Urine NEG (NEG); Protein,Urine 100 mg/dL (NEG); Specific Gravity,Urine 1.018 (1.000-1.035); Urine Amorphous Crystals FEW /hpf (0); Urine Blood NEG mg/dL (<0.03); Urine Hyaline Cast 12 /lpf (0-2); Urine RBC 1 /hpf (0-1); Urine Squamous Epithelial Cell < 1 /hpf (0-4); Urine WBC 3 /hpf (0-4); Urobilinogen,Urine NEG (NEG)
--- NOTE | 2017-05-04 18:11 | Cat Scan Report ---
CLINICAL INFORMATION: Abdominal pain. Nausea and vomiting. COMPARISON: Previous CT scans dated 04/08/2017 and 08/02/2016. Previous plain film examination dated 05/04/2017 TECHNIQUE: Axial images were obtained through the abdomen and pelvis. Sagittally and coronally reformatted images. FINDINGS: Bilateral lower lobe volume loss or infiltrate. Small left pleural effusion. Moderate right pleural effusion. Cardiomegaly. No pericardial effusion. Gallbladder is not identified. No dilated bile ducts. Common bile duct measures 6 to 7 mm. No intrahepatic bile duct dilatation. Liver is smooth without significant nodularity. No detectable focal abnormality on this noncontrast enhanced examination. There is a small amount of perihepatic ascitic fluid No splenomegaly. Pancreas is negative. No pancreatic mass. No peripancreatic abnormality. Kidneys are small bilaterally. No hydronephrosis. Negative adrenal glands. Very severe atherosclerotic disease with dense calcification of the abdominal aorta, common iliac arteries, external iliac arteries, common femoral arteries. There is dense calcification of mesenteric arteries. There is severe calcification at the origins of the celiac trunk and superior mesenteric artery. Inferior mesenteric artery is densely calcified. There is no definite small bowel or colonic wall thickening. No pneumatosis. No pneumoperitoneum. The stomach is moderately distended and contains fluid. Small bowel appears negative. There is fecal material within the colon. There are multiple diverticuli without evidence for diverticulitis. No intra-abdominal abscess. No definite manifestations of ischemic bowel disease. Acute ischemic bowel is possible and clinical correlation with serum lactate levels may be helpful. If renal function allows for it. Contrast-enhanced examination would also be helpful. There is generalized subcutaneous edema suggesting anasarca. Uterus is present and calcified. No adnexal mass. No lumbar compression fractures. Sacrum and pelvis are negative. IMPRESSION: 1. Very severe densely calcified atherosclerotic disease. No CT manifestations of ischemic colitis or small bowel disease. Acute ischemic bowel is possible. 2. Moderate right pleural effusion. Bilateral lower lobe loss or infiltrate 3. Small amount of ascitic fluid around the liver 4. Moderately distended fluid-filled stomach. No mechanical small bowel obstruction Interpreted and Authenticated by: Solomon Sanford 05/04/17
--- NOTE | 2017-05-04 18:53 | Internal Med History&Physical ---
Medical - H&P: HPI Patient information: Note initiated : 05/04/17 at 6:50 pm Patient: Maryann Juares 82 y/o F admitted on for Nausea, abd pain. History of present illness: Ms. Juares is a 82 year old with a history of recurrent abdominal pain, nausea and vomiting. In the past she has had signs and comes of mesenteric ischemia. She did have stents placed by Dr. Pearce. She was last here for a similar problem from April 08 - April 19. At that time, the consensus was that this was more of a diabetic gastroparesis problem. She failed treatment with Reglan and Zofran, etc. but then she was tried on oral erythromycin with each meal, and seemed to improve, so was discharged back to [facility]. He tells me that ever since she left though, she still has intermittent abdominal pain, nausea and vomiting, after meals. Today, she ate a piece of toast, and started to have abdominal pain. She then reported for dialysis, but continued to have pain and vomiting. She was sent back to the emergency room for evaluation, where she was found to have an elevated white blood cell count. CT scan shows severe diffuse vascular disease. Otherwise, the patient denies recent fever or chills, headaches or dizziness, new eye or ear symptoms, sore throat or cough. She denies chest pain or palpitations, shortness of breath, or diarrhea. She thinks she has more constipation issues. She denies significant urine output or dysuria. Medical History Chronic mesenteric ischemia (Acute) Chronic renal failure (Acute) Closed head injury (Acute) Diabetes mellitus, insulin dependent (IDDM), controlled (Acute) End-stage renal disease needing dialysis (Acute) 1. End-stage renal disease on hemodialysis. 2. Nausea, vomiting: Probably related to diabetic gastroparesis. 3. Hyperkalemia, mild: resolved. Hypokalemia due to loss of potassium (Acute) Nausea (Acute) Pneumonia (Acute) Small bowel obstruction (Acute) Syncope (Acute) UTI (urinary tract infection) (Acute) Ventricular ectopy (Acute) Coronary artery disease, status post three-vessel bypass Hypertension GERD Surgical History H/O neck surgery (Acute) Tubal ligation status (Acute) Medication List [Accu-Chek 1 EACH 1 ea FS ACHS] acetaminophen ER 650 mg PO PRN PRN amlodipine 5 mg PO DAILY aspirin 81 mg PO QDAY aspirin 325 mg PO DAILY [clonidine HCl 0.1 mg PO Q4HP PRN] coenzyme Q10 300 mg PO DAILY cyanocobalamin (vitamin B-12) 1,000 mcg PO DAILY ergocalciferol (vitamin D2) 50,000 units PO WEEKLY erythromycin 250 mg PO TIDCC folic acid 1 mg PO QDAY gabapentin 100 mg PO BID hydrocodone-acetaminophen 5-325 mg 1 tab PO TIDP PRN [insulin glargine 5 units (0.05 mL) SQ DAILYP PRN] [insulin lispro 1 unit (0.01 mL) SQ ACHS] [insulin lispro See Protocol units SQ ACHS] isosorbide mononitrate ER 60 mg PO HS Lactobac acidoph-fructooligos 500 million cell-50 mg 1 tab PO TID meclizine 25 mg PO HS metoclopramide 10 mg PO ACHS misoprostol 100 mcg PO TID [ondansetron 4 mg SL Q4HP PRN] pantoprazole 40 mg PO QAMAC pravastatin 40 mg PO HS ramipril 2.5 mg PO QDAY ranitidine (Zantac) 150 mg PO QHS sucralfate (Carafate) 1 g PO QID vit A 1 tab PO DAILY Allergies/Adverse Reactions meperidine [From Demerol] Allergy (Severe, Verified 04/08/17 11:36) Difficulty Breathing levofloxacin [From Levaquin] Adverse Reaction (Intermediate, Verified 04/08/17 11:36) Vomiting morphine Adverse Reaction (Intermediate, Verified 04/11/17 21:00) Vomiting amlodipine Adverse Reaction (Mild, Verified 04/08/17 11:36) Cough Family History Father may have with kidney failure. Cancer Mother had coronary disease and stroke. Social History smoking status: Never smoker; alcohol intake frequency: does not drink; no drugs. The patient is currently living at [facility]. She is a . She has 2 daughters here with her today. Medical - H&P: Meds Home Medications Medication Instructions Recorded Confirmed Type Gabapentin [Neurontin] 100 mg PO BID 06/23/15 05/03/17 History Isosorbide Mononitrate [Isosorbide 60 mg PO HS 06/23/15 05/03/17 History Mononitrate ER] Pravastatin [Pravachol] 40 mg PO HS 06/23/15 05/03/17 History Pantoprazole [Protonix] 40 mg PO QAMAC 08/18/15 05/03/17 History Aspirin [Ecotrin] 325 mg PO DAILY tab.ec 08/06/16 05/03/17 Rx Acetaminophen [Arthritis Pain 650 mg PO PRN PRN 09/24/16 05/03/17 History Relief] Cyanocobalamin (Vitamin B-12) 1,000 mcg PO DAILY 09/24/16 05/03/17 History [Vitamin B12] Ergocalciferol (Vitamin D2) 50,000 unit PO WEEKLY 09/24/16 05/03/17 History [Vitamin D2] Ubidecarenone [Coq-10] 300 mg PO DAILY 09/24/16 05/03/17 History Vit A,C & E/Lutein/Minerals 1 tab PO DAILY 09/24/16 05/03/17 History [Ocuvite] Meclizine [Antivert] 25 mg PO HS 09/25/16 05/03/17 History Lactobacillus Acidophilus/Fos 1 tab PO TID 04/08/17 05/03/17 History [Acidophilus Probiotic Tablet] Metoclopramide [Reglan] 10 mg PO ACHS 04/08/17 05/03/17 History Accu-Chek 1 each FS ACHS strip 04/19/17 Rx Erythromycin Base [Erythromycin] 250 mg PO TIDCC #1 capsule. 04/19/17 Rx HYDROcodone/APAP 5/325MG [Lena 1 tab PO TIDP PRN #30 04/19/17 05/03/17 Rx 5/325Mg] Insulin Glargine,Hum.rec.anlog 5 unit SQ DAILYP PRN #1 04/19/17 Rx [Lantus Solostar] Insulin Lispro [Humalog] 1 unit SQ ACHS #1 unit 04/19/17 Rx Insulin Lispro [Humalog] See Protocol SQ ACHS #1 unit 04/19/17 Rx Ondansetron HCl [Zofran ODT] 4 mg SL Q4HP PRN tablet 04/19/17 Rx amLODIPine [Norvasc] 5 mg PO DAILY tab 04/19/17 05/03/17 Rx cloNIDine HCL [Catapres] 0.1 mg PO Q4HP PRN tablet 04/19/17 Rx aspirin 81 mg chewable tablet 81 mg PO QDAY 05/03/17 05/03/17 History folic acid 1 mg tablet 1 mg PO QDAY 05/03/17 05/03/17 History hydrocodone 5 mg-acetaminophen 163 2.8 ml PO q6h #7.5 ml 05/03/17 05/03/17 Rx mg/7.5 mL (7.5 mL) oral solution misoprostol 100 mcg tablet 100 mcg PO TID tab 05/03/17 05/03/17 History ramipril 2.5 mg capsule 2.5 mg PO QDAY 05/03/17 05/03/17 History ranitidine 150 mg tablet 150 mg PO QHS 05/03/17 05/03/17 History sucralfate 1 gram tablet 1 g PO QID 05/03/17 05/03/17 History Allergies Allergy/AdvReac Type Severity Reaction Status Date / Time meperidine [From Demerol] Allergy Severe Difficulty Verified 04/08/17 11:36 Breathing levofloxacin [From Levaquin] AdvReac Intermediate Vomiting Verified 04/08/17 11: 36 morphine AdvReac Intermediate Vomiting Verified 04/11/17 21:00 amlodipine AdvReac Mild Cough Verified 04/08/17 11:36 Medical - H&P: Exam - Constitutional Vitals: Temp Pulse Resp BP Pulse Ox 98.4 F 79 18 184/65 97 05/04/17 12:44 05/04/17 18:31 05/04/17 18:31 05/04/17 18:31 05/04/17 18:31 On exam, she is a very small framed elderly female, who is fragile in appearance. She appears quite fatigued. She is otherwise alert and cooperative. Head: Normocephalic, atraumatic. Eyes: PERRLA, EOMI, anicteric. Ears: She has bilateral cerumen occluding the view of her TMs. Pharynx: Appears clear. She has full upper and lower plates. Mucosa appears normal. Next Neck: Shows no obvious lymphadenopathy, JVD, thyromegaly, bruits. Cardiac exam: Shows regular rate and rhythm with normal S1 and S2. 2/6 systolic ejection murmur is heard throughout the precordium. No rubs or gallops are noted. Lungs: She has a few crackles at the right base, and otherwise lungs are clear, without rales, rhonchi, wheezes. Abdomen: Appears soft and nontender. No masses are noted. Bowel sounds are active. There is no guarding or rebound. Extremities: Show no significant edema, cyanosis or clubbing. Neurologic exam: Patient is alert and oriented, calm and cooperative. The remainder of the exam is grossly nonfocal. Medical - H&P: Reslt - Labs CBC & Chem 7: 05/04/17 13:12 05/04/17 13:12 Labs: Short CBC 05/04/17 Range/Units 13:12 WBC 14.7 H (4.5-11.0) K/mcL Hgb 13.5 (12.0-15.0) g/dL Hct 41.8 (36.0-48.0) % Plt Count 323 (140-440) K/mcL BMP 05/04/17 13:12 Sodium 137 Potassium 4.1 Chloride 90 L Carbon Dioxide 35 H BUN 16 Creatinine 3.3 H Glucose 204 H Calcium 10.9 H Liver Function 05/04/17 Range/Units 13:12 Total Bilirubin 0.3 (0.0-1.0) mg/dL AST 15 (0-37) U/l ALT 5 (0-40) U/l Alkaline Phosphatase 86 (39-117) U/L Albumin 4.2 (3.2-5.2) gm/dL Urine 05/04/17 Range/Units 13:47 Urine Color Yellow Urine Appearance Hazy Urine pH 5.0 (5.0-9.0) Ur Specific [place] 1.018 (1.000-1.035) Urine Protein 100 A (NEG) mg/dL Urine Glucose (UA) 50 A (NEG) mg/dL May 04, 2017: CBC: White blood cell count 14,700, hemoglobin 13, hematocrit 41 , RDW 14, absolute granulocyte count is 12,700. Chemistry panel: Is notable for chloride of 90, CO2 of 35, creatinine 3.3, BUN 16, glucose 204, total calcium 10.9 C-reactive protein is elevated at 1.2 Urinalysis shows 100 mg of protein, 50 of glucose, negative nitrites, negative leukocyte esterase, 12 casts Lipase and amylase are normal April 09, 2017: Screen for C. difficile was negative. Noncontrast CT abdomen: Show severely densely calcified atherosclerotic disease. No obvious ischemic colitis or small bowel disease. Acute bowel ischemia is possible. Moderate right pleural effusion. Bilateral lower lobe loss or infiltrate. Small amount of ascites. Moderately distended fluid- filled stomach, without obvious small bowel obstruction. Abdominal x-ray: Shows extensive mesenteric atherosclerosis, unremarkable bowel gas pattern. Medical - H&P: A/P (1) Abdominal pain Current visit: Yes Status: Acute (2) Gastroparesis Current visit: No Status: Acute (3) Chronic mesenteric ischemia Current visit: No Status: Acute (4) End-stage renal disease needing dialysis Problem details: 1. End-stage renal disease on hemodialysis. She will have dialysis today and will attempt to remove 2 to 3 kilos of fluid as tolerated. 2. Nausea, vomiting: Probably related to diabetic gastroparesis. Unlikely to be intestinal ischemia. On Reglan. 3. Hyperkalemia, mild: resolved. 4. Can be placed on swing bed. Current visit: No Status: Acute (5) Diabetes mellitus, insulin dependent (IDDM), controlled Current visit: No Status: Acute - Narrative A/P Narrative: #1. GI. This patient presents with recurrent abdominal pain. She has known mesenteric ischemia, which is remarkably bad on CT scan. She is status post stenting for this. She also has known diabetic gastroparesis, which is also quite severe. White blood cell count is quite elevated today, and cause is uncertain. I reviewed with the patient and her 2 daughters this evening, that she has known severe vascular disease, which in the past has caused mesenteric ischemia. She also has known severe gastroparesis. We discussed that either of these problems could be triggered by her eating. They say she eats almost nothing, but that at the senior care they sometimes do serve heavy foods, such as hamburgers. The patient seems to tolerate small-volume liquid foods rather than solid foods. We discussed that at this point, there is likely to be anything further they could do if she is having mesenteric ischemia, as she has already had stents placed. She is also much too frail to undergo major surgery. If this is in fact gastroparesis, we wondered if perhaps placing a J-tube would get around that problem. I touched base with Dr. Bonilla, and he will review her case tomorrow, and discuss if this would be an option for her. Admit for observation. Gentle IV fluids, if renal function will allow. -Bowel rest. -Antiemetics as needed. -Continue sucralfate, ranitidine, misoprostol, aspirin, Norvasc, pravastatin, Reglan, lactobacillus, isosorbide, , for her known history of gastroparesis and bowel ischemia, with diffuse vascular disease. We will hold erythromycin, as long as she is not eating well #2. End-stage renal disease. Dialysis patient. Consult Dr. Duncan. 3. Type 2 diabetes -Cover with sliding scale insulin for now, as we do not know how much nutrition she will get over the next day or 2. 4. Endocrine. Hypercalcemia. Likely due to renal dysfunction. #5. CODE STATUS: The patient stated she did not have a living well today. I did think take some time to discuss with her and her daughters health CPR works , and that I doubted that it would do her any good if she ever got to the point of needing it. She says she does not think she would want CPR at this point, and her daughters are in agreement with that. We will make her a no code. 6. DVT prophylaxis: Subcu heparin. 7. Hypertension. Blood pressures running quite high. She did miss most of her dialysis treatment today, and I believe Dr. Duncan will see her tomorrow. When she can tolerate p.o., we will resume the rammer Juliana, clonidine, Norvasc , Isordil. Also resume aspirin. It is a little unclear if she is still on the Norvasc, as I also see that on her allergy list. The patient really does not know what she takes right now, as the senior care brings her her meds. 8. Continue gabapentin for peripheral neuropathy. 9. Cardiac. History of coronary disease, vascular disease. Continue aspirin and isosorbide. Patient was previously on Plavix, but I no longer see that on her medication list. This visit took approximately 60 minutes, to review the patient's old records, review current test results, review her case with the ER MD, interview and examine her, review plan of care with the patient and her daughters, and write orders.
[2017-05-04] MEDS ORDERED: MAGNESIUM HYDROXIDE 30 ML ORAL.SUSP PO PRN (19:59)
[2017-05-04] MEDS ORDERED: DOCUSATE SODIUM 100 MG CAPSULE PO PRN (19:59)
[2017-05-04] MEDS ORDERED: DEXTROSE 50% 50 ML VIAL IV PRN (19:59)
[2017-05-04] MEDS ORDERED: ACETAMINOPHEN 325 MG TABLET PO PRN (19:59)
[2017-05-04] MEDS ORDERED: HYDROmorphone 2 MG/ML SYRINGE IV PRN ×2 (19:59)
[2017-05-04] MEDS ORDERED: ONDANSETRON 4 MG/2 ML VIAL IV PRN (19:59)
[2017-05-04] MEDS ORDERED: NALOXONE HCL 0.4 MG/ML VIAL IV PRN (19:59)
[2017-05-04] MEDS: 0.9 % SODIUM CHLORIDE 1,000 ML IV SCH (20:10)
[2017-05-04] MEDS: FAMOTIDINE/PF 20 MG/2 ML VIAL IV SCH (22:01)
[2017-05-04] MEDS: HEPARIN 5,000 UNIT/ML VIAL SQ SCH (22:01)
[2017-05-04] MEDS: INSULIN LISPRO 1 UNIT/0.01 ML UNIT SQ SCH (22:02)
[2017-05-04] MEDS: 0.9 % SODIUM CHLORIDE 10 ML SYRINGE IV SCH (22:02)
[2017-05-05] MEDS: 0.9 % SODIUM CHLORIDE 10 ML SYRINGE IV SCH ×3 (05:53→23:23)
[2017-05-05] MEDS: INSULIN LISPRO 1 UNIT/0.01 ML UNIT SQ SCH ×4 (07:14→22:29)
[2017-05-05 08:04] LABS: ALT/SGPT 5 U/l (0-40); Albumin/Globulin Ratio 1.5 (1.0-2.3); Alkaline Phosphatase 63 U/L (39-117); Bilirubin,Direct < 0.2 mg/dL (0.0-0.3); Blood Urea Nitrogen 21 mg/dl (8-23); Gamma Glutamyl Transpeptidase 52 U/L (5-36); Magnesium 1.9 mg/dL (1.6-2.5); Uric Acid 4.7 mg/dL (2.5-8.0)
[2017-05-05 08:08] LABS: Basophils # (Auto) 0 K/mcL (0.0-0.3); Basophils % (Auto) 0 % (0.0-2.0); Eosinophils # (Auto) 0.2 K/mcL (0.0-0.7); Eosinophils % (Auto) 1.6 % (0.0-7.0); Granulocytes % (Auto) 78.4 % (38.0-78.0); Lymphocytes # (Auto) 1.4 K/mcL (1.5-4.8); Lymphocytes % (Auto) 11.8 % (15.5-49.0); Mean Corpuscular HGB Conc 32.1 g/dL (31.0-36.0); Mean Corpuscular Hemoglobin 30.5 pg (26.0-34.0); Monocytes # (Auto) 0.9 K/mcL (0.1-0.9); Monocytes % (Auto) 8.2 % (1.0-12.0); Platelet Count 221 K/mcL (140-440); RBC 3.43 M/mcL (4.00-5.20); Red Cell Distribution Width 15.2 % (11.5-14.5)
[2017-05-05] MEDS: HEPARIN 5,000 UNIT/ML VIAL SQ SCH ×2 (08:45→20:24)
[2017-05-05] MEDS: FAMOTIDINE/PF 20 MG/2 ML VIAL IV SCH ×2 (08:45→20:25)
--- NOTE | 2017-05-05 15:06 | Internal Med Progress Note ---
Medical - PN: Subj Patient information: Note initiated : 05/05/17 at 3:04 pm Service Date, if different from initiated Date: [] Patient: Maryann Juares 82 y/o F admitted on 05/04/17 for Nausea, abd pain. Chief Complaint: [] Interval history: Ms. Juares is a 82 year old with a history of recurrent abdominal pain, nausea and vomiting. In the past she has had signs and comes of mesenteric ischemia. She did have stents placed by Dr. Pearce. She was last here for a similar problem from April 08 - April 19. At that time, the consensus was that this was more of a diabetic gastroparesis problem. She failed treatment with Reglan and Zofran, etc. but then she was tried on oral erythromycin with each meal, and seemed to improve, so was [facility]. He tells me that ever since she left though, she still has intermittent abdominal pain, nausea and vomiting, after meals. Today, she ate a piece of toast, and started to have abdominal pain. She then reported for dialysis, but continued to have pain and vomiting. She was sent back to the emergency room for evaluation, where she was found to have an elevated white blood cell count. CT scan shows severe diffuse vascular disease. Otherwise, the patient denies recent fever or chills, headaches or dizziness, new eye or ear symptoms, sore throat or cough. She denies chest pain or palpitations, shortness of breath, or diarrhea. She thinks she has more constipation issues. She denies significant urine output or dysuria. 05/05- Pt doing well, case discussed with Dr Duncan- Dialysis likely tomorrow as labs appear stable per nephrology. Multiple family at bedside. No O/n events, Improved abd pain, no0 Nausea, on clears, Start Dietary consult and ST eval. - Constitutional Vitals: Vital Signs Temp Pulse Resp BP Pulse Ox 98.1 F 71 18 134/51 92 05/05/17 11:40 05/05/17 08:00 05/05/17 11:40 05/05/17 11:40 05/05/17 11:40 Period Temp Pulse Resp BP Sys/Turner Pulse Ox Last 24 Hr 98.0 F-98.2 F 71-77 18-18 134-174/50-56 92-94 Intake and Output 05/05/17 05/05/17 05/05/17 05:59 13:59 21:59 Intake Total 0 / 0 1210 / 1210 Balance 0 / 0 1210 / 1210 Weight 114 lb Intake & Output: Intake & Output 05/05/17 05/05/17 05/05/17 05:59 13:59 21:59 Intake Total 0 / 0 1210 / 1210 Balance 0 / 0 1210 / 1210 Weight 114 lb Intake: Oral 0 / 0 1210 / 1210 Other: Meal Lunch Percent of Meal Consumed 100% Feeding Ability Independent # Voids 1 # Bowel Movements 1 General appearance: cooperative, no acute distress Exam: alert, CTAB No lymphedema NTND abdomen Medical - PN: Obj Da - Labs CBC & Chem 7: 05/05/17 05:38 05/05/17 05:38 Labs: Abnormal Lab Results 05/05/17 05/05/17 05:38 05:38 WBC 11.5 H RBC 3.43 L Hgb 10.5 L Hct 32.6 L RDW 15.2 H Gran % 78.4 H Lymph % (Auto) 11.8 L Gran # 9.0 H Lymph # (Auto) 1.4 L Carbon Dioxide 31 H Creatinine 3.9 H Glucose 151 H GGT 52 H Total Protein 5.0 L Albumin 3.0 L Globulin 2.0 L Meds: Medications Acetaminophen (Tylenol) 650 mg PO Q6HP PRN PRN Reason: PAIN/FEVER > 101 Dextrose (Dextrose 50%) 0 ml IV UD PRN PRN Reason: Hypoglycemia Diagnostic Test (Pha) (Accu-Chek) 1 each FS ACHS [facility] Last Admin: 05/05/17 11:44 Dose: 1 each Docusate Sodium (Colace) 100 mg PO BID PRN PRN Reason: Constipation Famotidine (Pepcid) 20 mg IV Q12 [facility] Last Admin: 05/05/17 08:45 Dose: 20 mg Heparin Sodium (Porcine) (Heparin) 5,000 unit SQ Q12 TOY Last Admin: 05/05/17 08:45 Dose: 5,000 unit Hydromorphone HCl (Dilaudid) 0.5 mg IV Q2HP PRN PRN Reason: Pain Last Admin: 05/05/17 03:14 Dose: 0.5 mg Sodium Chloride (Sodium Chloride 0.9%) 1,000 mls @ 50 mls/hr IV .Q20H [facility] Last Admin: 05/04/17 20:10 Dose: 50 mls/hr Insulin Human Lispro (Humalog) 0 unit SQ ACHS TOY PRN Reason: Protocol Last Admin: 05/05/17 12:47 Dose: 2 unit Magnesium Hydroxide (Milk Of Magnesia) 30 ml PO DAILYP PRN PRN Reason: Constipation Naloxone HCl (Narcan) 0.1 mg IV Q2MIN PRN PRN Reason: Opiate Reversal Ondansetron HCl (Zofran) 4 mg IV Q6HP PRN PRN Reason: Nausea And Vomiting Sodium Chloride (Saline Flush) 10 ml IV Q8 [facility] Last Admin: 05/05/17 13:36 Dose: Not Given Medical - PN: A/P - Time Spent With Patient Total time spent is greater than 50% in coordination of care (as documented) at patient's floor/unit and/or counseling patient: 15 - 24 minutes - Narrative A/P Narrative: * Abdominal pain- Mesentric ischemia Vs gastroparesis, Dr lazo consulted for possibility for J-tube placement and evaluation. EGD was done in Oct. She has known mesenteric ischemia, which is remarkably bad on CT scan. She is status post stenting. She also has known diabetic gastroparesis, which is also quite severe. * Elevated White blood cell count-etiology uncertain. downtrending from 14.7- 11.5. * severe diabetic gastroparesis-on erythromycin as outpatient * End-stage renal disease.- Dialysis per Dr. Duncan. * Type 2 diabetes-Cover with sliding scale insulin for now, as we do not know how much nutrition she will get over the next day or 2. * Hypercalcemia. Likely due to renal dysfunction. down from 10.9-9.6 * HTN- On home meds * Neuropathy-0 gabapentin * CAD/PVD- -ASA/isosorbide * CODE STATUS:- full code plan * Surgery consult * Hemodialysis per nephrology * pre-existing condition management as above Medical - PN: Qual - VTE Deep Vein Thrombosis/Pulmonary Embolism Present on Admission: No
[2017-05-05] MEDS: 0.9 % SODIUM CHLORIDE 1,000 ML IV SCH (16:59)
--- NOTE | 2017-05-05 17:53 | General Surgery Consult Note ---
History of Present Illness Patient information: Note initiated : 05/05/17 at 5:49 pm Service Date, if different from initiated Date: [] Patient: Maryann Juares 82 y/o F admitted on 05/04/17 for Nausea, abd pain. Chief Complaint: [] Reason for consult: abdominal pain History of present illness: 82-year-old female who was admitted with recurrent nausea and vomiting and epigastric and mid abdominal pain. The patient has a known history of mesenteric ischemia and she has a presumptive diagnosis of gastroparesis. She was admitted in July 2016 where she had severe abdominal pain with a 30 cm segment of ischemic jejunum. 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 She was transferred to [facility] where she underwent stenting of the SMA and the celiac axis. She improved for short-term but had recurrent symptoms off and on. She was readmitted with suspected gastroparesis and was started on metoclopramide and erythromycin. This improved her symptoms temporarily but her symptoms returned.. She has about a 2 week history of recurrent severe symptoms with onset of profuse nausea and vomiting on the day prior to admission. She is admitted and started on symptomatic treatment. She was admitted to [facility] for pneumonia in January and was admitted at [facility] for abdominal pain and February 2017. She was taken off of her Plavix at that time since she had been on it for 6 months and there was some question as to whether or not this was causing her abdominal pain. By history she is gotten worse since then. Review of Systems - Constitutional anorexia, fatigue, malaise, weakness, weight loss - EENT Nose, mouth and throat: no bleeding gums, no disequilibrium, no dizziness, no dysphagia, no headache(s) - Cardiovascular no chest pain, no chest pain with activity, no dyspnea on exertion, no palpatations, no pedal edema - Respiratory dyspnea on exertion, no wheezing, no chest congestion - Gastrointestinal abdominal pain, change in bowel habits, dyspepsia, early satiety, loose stools, nausea, vomiting - Genitourinary Genitourinary: no dysuria, no nocturia, no urinary frequency - Musculoskeletal abnormal gait, arthralgias, back pain, muscle cramps, numbness, stiffness - Integumentary no changing lesions, no new lesions, no pruritus, no rash - Neurological lack of coordination, paresthesias, sensory deficit, weakness, no numbness - Psychiatric anxiety, depression - Endocrine fatigue, palpitations - Hematologic/Lymphatic no easy bleeding, no easy bruising, no lymphadenopathy - Allergic/Immunologic no tongue swelling, no throat swelling, no uticaria, no wheezing, no lip swelling Past History Past medical history: Diabetes mellitus End-stage renal disease on hemodialysis Coronary artery disease status post three-vessel bypass Hypertension Gastroesophageal reflux Gastroparesis Peripheral vascular disease Mesenteric ischemia Past surgical history: Cervical spine fusion Cholecystectomy Coronary artery bypass graft 3 Appendectomy OTIF right ankle vascular access graft Past family history: Kidney failure Coronary artery disease Stroke Past social history: Retired Never smoker Never alcohol use Never drug use Medications and Allergies Home Medications Medication Instructions Recorded Confirmed Type Gabapentin [Neurontin] 100 mg PO BID 06/23/15 05/05/17 History Isosorbide Mononitrate [Isosorbide 60 mg PO HS 06/23/15 05/05/17 History Mononitrate ER] Pravastatin [Pravachol] 40 mg PO HS 06/23/15 05/05/17 History Cyanocobalamin (Vitamin B-12) 1,000 mcg PO DAILY 09/24/16 05/05/17 History [Vitamin B12] Ergocalciferol (Vitamin D2) 50,000 unit PO MO@0800 09/24/16 05/05/17 History [Vitamin D2] Ubidecarenone [Coq-10] 300 mg PO DAILY 09/24/16 05/05/17 History Vit A,C & E/Lutein/Minerals 1 tab PO DAILY 09/24/16 05/05/17 History [Ocuvite] Meclizine [Antivert] 25 mg PO HS 09/25/16 05/05/17 History Lactobacillus Acidophilus/Fos 1 tab PO TID 04/08/17 05/05/17 History [Acidophilus Probiotic Tablet] Metoclopramide [Reglan] 10 mg PO ACHS 04/08/17 05/05/17 History Accu-Chek 1 each FS ACHS strip 04/19/17 05/05/17 Rx Erythromycin Base [Erythromycin] 250 mg PO TIDCC #1 capsule. 04/19/17 Rx Insulin Lispro [Humalog] See Protocol SQ ACHS #1 unit 04/19/17 05/05/17 Rx Ondansetron HCl [Zofran ODT] 4 mg SL Q4HP PRN tablet 04/19/17 05/05/17 Rx cloNIDine HCL [Catapres] 0.1 mg PO Q4HP PRN tablet 04/19/17 05/05/17 Rx aspirin 81 mg chewable tablet 81 mg PO QDAY 05/03/17 05/05/17 History folic acid 1 mg tablet 1 mg PO QDAY 05/03/17 05/05/17 History misoprostol 100 mcg tablet 100 mcg PO TIDCC tab 05/03/17 05/05/17 History ramipril 2.5 mg capsule 2.5 mg PO QDAY 05/03/17 05/05/17 History ranitidine 150 mg tablet 150 mg PO QHS 05/03/17 05/05/17 History sucralfate 1 gram tablet 1 g PO QID 05/03/17 05/05/17 History Bisacodyl [Dulcolax] 10 mg [place] DAILYP PRN 05/05/17 05/05/17 History HYDROcodone/APAP 5/325MG [[place] 1 tab PO Q4HP PRN 05/05/17 05/05/17 History 5/325Mg] Na Phos,M-B/Na Phos,Di-Ba [Fleets 1 unit [place] DAILYP PRN 05/05/17 05/05/17 History Adult] Polyethylene Glycol 3350 [Miralax] 17 gm PO DAILYP PRN 05/05/17 05/05/17 History Allergies Allergy/AdvReac Type Severity Reaction Status Date / Time meperidine [From Demerol] Allergy Severe Difficulty Verified 04/08/17 11:36 Breathing levofloxacin [From Levaquin] AdvReac Intermediate Vomiting Verified 04/08/17 11: 36 morphine AdvReac Intermediate Vomiting Verified 04/11/17 21:00 amlodipine AdvReac Mild Cough Verified 04/08/17 11:36 Exam Temp Pulse Resp BP Pulse Ox 98.3 F 71 16 136/77 93 05/05/17 16:00 05/05/17 08:00 05/05/17 16:00 05/05/17 16:00 05/05/17 16:00 - General physical appearance well developed, well nourished, moderate distress, moderate pain, chronically ill - Eyes PERRL, normal ocular movement - ENT normal pinna, normal nares, normal mucosa, no hearing loss, no congestion - Head Head exam IM: Present: atraumatic, normocephalic - Neck no masses, no bruits, trachea midline, no lymphadectomy, no venous distension - Cardiovascular Cardiovascular exam IM: Present: normal rate and rhythm, irregular rhythm, +S1, +S2, systolic murmur. Absent: JVD Intensity IM: 10/26 Cardiovascular: Decreased femoral and peripheral pulses Bruit right upper extremity AV fistula left upper extremity - Respiratory normal expansion, normal respiratory effort, clear to percussion, clear to auscultation - Abdomen Abdomen: Present: soft, tender (Mild mid abdominal tenderness), bowel sounds, surgical scars (Multiple healed surgical scars) Hernia: Present: none - Genitourinary Present: normal external genitalia - Integumentary Present: no rash, no growths, no abnormal pigmentation - Neurologic Present: normal coordination, normal sensation - Musculoskeletal Present: normal gait, normal posture - Psychiatric Present: oriented to time, oriented to person, oriented to place, speech is normal, memory intact Results - Labs 05/06/17 06:52 05/06/17 06:52 Abnormal lab results 05/05/17 05/05/17 Range/Units 05:38 05:38 WBC 11.5 H (4.5-11.0) K/mcL RBC 3.43 L (4.00-5.20) M/mcL Hgb 10.5 L (12.0-15.0) g/dL Hct 32.6 L (36.0-48.0) % RDW 15.2 H (11.5-14.5) % Gran % 78.4 H (38.0-78.0) % Lymph % (Auto) 11.8 L (15.5-49.0) % Gran # 9.0 H (1.8-8.0) K/mcL Lymph # (Auto) 1.4 L (1.5-4.8) K/mcL Carbon Dioxide 31 H (22-30) mmol/L Creatinine 3.9 H (0.6-1.1) mg/dl Glucose 151 H (70-105) mg/dL GGT 52 H (5-36) U/L Total Protein 5.0 L (5.9-8.4) gm/dL Albumin 3.0 L (3.2-5.2) gm/dL Globulin 2.0 L (2.2-3.7) gm/dL Diabetes panel 05/05/17 Range/Units 05:38 Sodium 137 (133-145) mmol/L Potassium 4.0 (3.3-5.1) mmol/L Chloride 97 (96-108) mmol/L Carbon Dioxide 31 H (22-30) mmol/L BUN 21 (8-23) mg/dl Creatinine 3.9 H (0.6-1.1) mg/dl Glucose 151 H (70-105) mg/dL Calcium 9.6 (8.6-10.4) mg/dl AST 15 (0-37) U/l ALT 5 (0-40) U/l Alkaline Phosphatase 63 (39-117) U/L Total Protein 5.0 L (5.9-8.4) gm/dL Albumin 3.0 L (3.2-5.2) gm/dL Triglycerides 100 (<150) mg/dl Calcium panel 05/05/17 Range/Units 05:38 Calcium 9.6 (8.6-10.4) mg/dl Phosphorus 3.2 (2.7-4.5) mg/dL Albumin 3.0 L (3.2-5.2) gm/dL Pituitary panel 05/05/17 Range/Units 05:38 Sodium 137 (133-145) mmol/L Potassium 4.0 (3.3-5.1) mmol/L Chloride 97 (96-108) mmol/L Carbon Dioxide 31 H (22-30) mmol/L BUN 21 (8-23) mg/dl Creatinine 3.9 H (0.6-1.1) mg/dl Glucose 151 H (70-105) mg/dL Calcium 9.6 (8.6-10.4) mg/dl Adrenal panel 05/05/17 Range/Units 05:38 Sodium 137 (133-145) mmol/L Potassium 4.0 (3.3-5.1) mmol/L Chloride 97 (96-108) mmol/L Carbon Dioxide 31 H (22-30) mmol/L BUN 21 (8-23) mg/dl Creatinine 3.9 H (0.6-1.1) mg/dl Glucose 151 H (70-105) mg/dL Calcium 9.6 (8.6-10.4) mg/dl Total Bilirubin 0.2 (0.0-1.0) mg/dL AST 15 (0-37) U/l ALT 5 (0-40) U/l Alkaline Phosphatase 63 (39-117) U/L Total Protein 5.0 L (5.9-8.4) gm/dL Albumin 3.0 L (3.2-5.2) gm/dL All other labs normal. Assessment and Plan (1) Chronic mesenteric ischemia Status: Acute (2) Diabetes mellitus, insulin dependent (IDDM), controlled Status: Acute (3) End-stage renal disease needing dialysis Status: Acute Comment: 1. End-stage renal disease on hemodialysis. She will have dialysis today and will attempt to remove 2 to 3 kilos of fluid as tolerated. 2. Nausea, vomiting: Probably related to diabetic gastroparesis or intestinal ischemia. On Reglan. (4) Gastroparesis Status: Acute
[2017-05-05] MEDS ORDERED: METOCLOPRAMIDE 10 MG/2 ML VIAL IV SCH (18:00)
[2017-05-05] MEDS ORDERED: METOCLOPRAMIDE 10 MG/2 ML VIAL ONE (18:23)
[2017-05-06] MEDS: METOCLOPRAMIDE 10 MG/2 ML VIAL IV SCH ×4 (01:09→17:54)
[2017-05-06] MEDS: 0.9 % SODIUM CHLORIDE 10 ML SYRINGE IV SCH ×3 (06:25→20:30)
[2017-05-06] MEDS: INSULIN LISPRO 1 UNIT/0.01 ML UNIT SQ SCH ×4 (07:07→20:31)
[2017-05-06] MEDS: CILOSTAZOL 100 MG TABLET PO SCH ×2 (07:15→20:28)
[2017-05-06 08:10] LABS: Basophils # (Auto) 0 K/mcL (0.0-0.3); Basophils % (Auto) 0.3 % (0.0-2.0); Eosinophils # (Auto) 0.3 K/mcL (0.0-0.7); Eosinophils % (Auto) 3.2 % (0.0-7.0); Lymphocytes # (Auto) 1.1 K/mcL (1.5-4.8); Lymphocytes % (Auto) 14.3 % (15.5-49.0); Mean Cell Volume 97.4 fL (80.0-100.0); Mean Corpuscular HGB Conc 32.1 g/dL (31.0-36.0); Mean Corpuscular Hemoglobin 31.3 pg (26.0-34.0); Monocytes # (Auto) 0.7 K/mcL (0.1-0.9); Monocytes % (Auto) 8.2 % (1.0-12.0); Platelet Count 204 K/mcL (140-440); RBC 3.18 M/mcL (4.00-5.20); Red Cell Distribution Width 14.7 % (11.5-14.5)
[2017-05-06] MEDS: ERYTHROMYCIN BASE 250 MG CAPSULE PO SCH ×3 (08:20→11:40)
[2017-05-06] MEDS: FAMOTIDINE/PF 20 MG/2 ML VIAL IV SCH ×2 (08:20→20:30)
[2017-05-06] MEDS: HEPARIN 5,000 UNIT/ML VIAL SQ SCH (08:20)
[2017-05-06] MEDS ORDERED: cloNIDine HCL 0.1 MG TABLET PO PRN (08:21)
[2017-05-06 08:35] LABS: ALT/SGPT 5 U/l (0-40); Albumin 2.7 gm/dL (3.2-5.2); Albumin/Globulin Ratio 1.5 (1.0-2.3); Alkaline Phosphatase 53 U/L (39-117); Bilirubin,Direct < 0.2 mg/dL (0.0-0.3); Blood Urea Nitrogen 20 mg/dl (8-23); Gamma Glutamyl Transpeptidase 37 U/L (5-36); Magnesium 1.4 mg/dL (1.6-2.5); Uric Acid 4.4 mg/dL (2.5-8.0)
--- NOTE | 2017-05-06 08:46 | Nephrology Consult Note ---
History of Present Illness - Reason for Consult Patient information: Note initiated : 05/06/17 at 8:29 am Service Date, if different from initiated Date: [] Patient: aMryann Juares 82 y/o F admitted on 05/04/17 for Nausea, abd pain. Chief Complaint: Patient seen on 05/05/2017 at 2 PM. I had a family conference with the extended family at that time. Nausea, vomiting and abdominal pain. Ms. Juares is a 82 year old with a history of recurrent abdominal pain, nausea and vomiting. In the past she has had signs and comes of mesenteric ischemia for which stents werer placed by Dr. Pearce. She also has significant diabetic gastroparesis. She has responded to oral erythromycin but she still has intermittent abdominal pain, nausea and vomiting, after meals. On the day of admission, she was fed a hamburger and then she started to have abdominal pain. She then reported for dialysis, but continued to have pain and vomiting. She was sent back to the emergency room for evaluation, where she was found to have an elevated white blood cell count. CT scan shows severe diffuse vascular disease. end stage renal disease Medications and Allergies Home Medications Medication Instructions Recorded Confirmed Type Gabapentin [Neurontin] 100 mg PO BID 06/23/15 05/05/17 History Isosorbide Mononitrate [Isosorbide 60 mg PO HS 06/23/15 05/05/17 History Mononitrate ER] Pravastatin [Pravachol] 40 mg PO HS 06/23/15 05/05/17 History Cyanocobalamin (Vitamin B-12) 1,000 mcg PO DAILY 09/24/16 05/05/17 History [Vitamin B12] Ergocalciferol (Vitamin D2) 50,000 unit PO MO@0800 09/24/16 05/05/17 History [Vitamin D2] Ubidecarenone [Coq-10] 300 mg PO DAILY 09/24/16 05/05/17 History Vit A,C & E/Lutein/Minerals 1 tab PO DAILY 09/24/16 05/05/17 History [Ocuvite] Meclizine [Antivert] 25 mg PO HS 09/25/16 05/05/17 History Lactobacillus Acidophilus/Fos 1 tab PO TID 04/08/17 05/05/17 History [Acidophilus Probiotic Tablet] Metoclopramide [Reglan] 10 mg PO ACHS 04/08/17 05/05/17 History Accu-Chek 1 each FS ACHS strip 04/19/17 05/05/17 Rx Erythromycin Base [Erythromycin] 250 mg PO TIDCC #1 capsule. 04/19/17 Rx Insulin Lispro [Humalog] See Protocol SQ ACHS #1 unit 04/19/17 05/05/17 Rx Ondansetron HCl [Zofran ODT] 4 mg SL Q4HP PRN tablet 04/19/17 05/05/17 Rx cloNIDine HCL [Catapres] 0.1 mg PO Q4HP PRN tablet 04/19/17 05/05/17 Rx aspirin 81 mg chewable tablet 81 mg PO QDAY 05/03/17 05/05/17 History folic acid 1 mg tablet 1 mg PO QDAY 05/03/17 05/05/17 History misoprostol 100 mcg tablet 100 mcg PO TIDCC tab 05/03/17 05/05/17 History ramipril 2.5 mg capsule 2.5 mg PO QDAY 05/03/17 05/05/17 History ranitidine 150 mg tablet 150 mg PO QHS 05/03/17 05/05/17 History sucralfate 1 gram tablet 1 g PO QID 05/03/17 05/05/17 History Bisacodyl [Dulcolax] 10 mg [place] DAILYP PRN 05/05/17 05/05/17 History HYDROcodone/APAP 5/325MG [[place] 1 tab PO Q4HP PRN 05/05/17 05/05/17 History 5/325Mg] Na Phos,M-B/Na Phos,Di-Ba [Fleets 1 unit [place] DAILYP PRN 05/05/17 05/05/17 History Adult] Polyethylene Glycol 3350 [Miralax] 17 gm PO DAILYP PRN 05/05/17 05/05/17 History Allergies Allergy/AdvReac Type Severity Reaction Status Date / Time meperidine [From Demerol] Allergy Severe Difficulty Verified 04/08/17 11:36 Breathing levofloxacin [From Levaquin] AdvReac Intermediate Vomiting Verified 04/08/17 11: 36 morphine AdvReac Intermediate Vomiting Verified 04/11/17 21:00 amlodipine AdvReac Mild Cough Verified 04/08/17 11:36 Exam - Vital Signs Vital signs: Temp Pulse Resp BP Pulse Ox 98.6 F 71 18 122/81 94 05/06/17 06:53 05/06/17 04:00 05/06/17 06:53 05/06/17 06:53 05/06/17 06:53 - General Appearance General appearance: appears started age, chronically ill EENT: ATNC, PERRL Neck: no JVD, no thyromegaly Respiratory: no kyphosis Cardiology: no murmurs Gastrointestinal: normoactive bowel sounds, no tenderness, no guarding Integumentary: no rash Neurologic: no focal deficit Musculoskeletal: no deformities Results - Lab Results 05/06/17 06:52 05/05/17 05:38 Most recent lab results Calcium 9.6 mg/dl (8.6-10.4) 05/05/17 05:38 Phosphorus 3.2 mg/dL (2.7-4.5) 05/05/17 05:38 Magnesium 1.9 mg/dL (1.6-2.5) 05/05/17 05:38 Assessment and Plan (1) End-stage renal disease needing dialysis Status: Acute Comment: 1. End-stage renal disease on hemodialysis. She will have dialysis today and will attempt to remove 2 to 3 kilos of fluid as tolerated. 2. Nausea, vomiting: Probably related to diabetic gastroparesis or intestinal ischemia. On Reglan.
[2017-05-06] MEDS ORDERED: RAMIPRIL 2.5 MG CAPSULE PO SCH (09:00)
[2017-05-06] MEDS: GABAPENTIN 100 MG CAPSULE PO SCH ×2 (09:11→20:29)
[2017-05-06] MEDS: ASPIRIN 81 MG TAB.CHEW PO SCH (09:11)
--- NOTE | 2017-05-06 09:57 | Internal Med Progress Note ---
Medical - PN: Subj Patient information: Note initiated : 05/06/17 at 9:54 am Service Date, if different from initiated Date: [] Patient: Maryann Juares 82 y/o F admitted on 05/04/17 for Nausea, abd pain. Chief Complaint: [] Interval history: Ms. Juares is a 82 year old with a history of recurrent abdominal pain, nausea and vomiting. In the past she has had signs and comes of mesenteric ischemia. She did have stents placed by Dr. Pearce. She was last here for a similar problem from April 08 - April 19. At that time, the consensus was that this was more of a diabetic gastroparesis problem. She failed treatment with Reglan and Zofran, etc. but then she was tried on oral erythromycin with each meal, and seemed to improve, so was discharged back to life care. He tells me that ever since she left though, she still has intermittent abdominal pain, nausea and vomiting, after meals. Today, she ate a piece of toast, and started to have abdominal pain. She then reported for dialysis, but continued to have pain and vomiting. She was sent back to the emergency room for evaluation, where she was found to have an elevated white blood cell count. CT scan shows severe diffuse vascular disease. Otherwise, the patient denies recent fever or chills, headaches or dizziness, new eye or ear symptoms, sore throat or cough. She denies chest pain or palpitations, shortness of breath, or diarrhea. She thinks she has more constipation issues. She denies significant urine output or dysuria. 05/05- Pt doing well, case discussed with Dr Duncan- Dialysis likely tomorrow as labs appear stable per nephrology. Multiple family at bedside. No O/n events, Improved abd pain, no0 Nausea, on clears, Start Dietary consult and ST eval. -case discussed with surgery. Patient will need upper endoscopy likely in 24 hours. She is a poor candidate for J-tube given severe mesenteric ischemia. Surgeon already started patient on Reglan/erythromycin/ilostazol. surgery recommends keeping patient additional 24-48 hours until further workup. patient has been able to tolerate oral liquids and clears. dietary intervention for high-protein calorie supplements. - Constitutional Vitals: Vital Signs Temp Pulse Resp BP Pulse Ox 98.6 F 71 18 122/81 94 05/06/17 06:53 05/06/17 04:00 05/06/17 06:53 05/06/17 06:53 05/06/17 06:53 Period Temp Pulse Resp BP Sys/Turner Pulse Ox Last 24 Hr 97.3 F-98.6 F 60-71 14-18 120-170/50-81 91-97 Intake and Output 05/05/17 05/06/17 05/06/17 21:59 05:59 13:59 Intake Total 1880 / 1880 0 / 0 520 / 520 Balance 1880 / 1880 0 / 0 520 / 520 Weight 123 lb Intake & Output: Intake & Output 05/05/17 05/06/17 05/06/17 21:59 05:59 13:59 Intake Total 1880 / 1880 0 / 0 520 / 520 Balance 1880 / 1880 0 / 0 520 / 520 Weight 123 lb Intake: IV 1000 / 1000 Sodium Chloride 0.9% 1, 1000 / 1000 000 ml @ 50 mls/hr IV . Q20H [facility] Rx#:[id number] Oral 880 / 880 0 / 0 520 / 520 Other: Meal Dinner Breakfast Percent of Meal Consumed 100% 100% # Voids 1 # Bowel Movements 1 1 # of times incontinent of 1 Bowels General appearance: no acute distress Exam: alert oriented Nonlabored breathing nontender abdomen Medical - PN: Obj Da - Labs CBC & Chem 7: 05/06/17 06:52 05/06/17 06:52 Labs: Abnormal Lab Results 05/06/17 05/06/17 05/05/17 06:52 06:52 05:38 WBC RBC 3.18 L Hgb 9.9 L Hct 30.9 L RDW 14.7 H Gran % Lymph % (Auto) 14.3 L Gran # Lymph # (Auto) 1.1 L Potassium 3.2 L Carbon Dioxide 31 H Creatinine 3.5 H 3.9 H Glucose 106 H 151 H Calcium 8.0 L Phosphorus 2.2 L Magnesium 1.4 L GGT 37 H 52 H Total Protein 4.5 L 5.0 L Albumin 2.7 L 3.0 L Globulin 1.8 L 2.0 L 05/05/17 05:38 WBC 11.5 H RBC 3.43 L Hgb 10.5 L Hct 32.6 L RDW 15.2 H Gran % 78.4 H Lymph % (Auto) 11.8 L Gran # 9.0 H Lymph # (Auto) 1.4 L Potassium Carbon Dioxide Creatinine Glucose Calcium Phosphorus Magnesium GGT Total Protein Albumin Globulin Meds: Medications Acetaminophen (Tylenol) 650 mg PO Q6HP PRN PRN Reason: PAIN/FEVER > 101 Last Admin: 05/05/17 22:43 Dose: 650 mg Hydrocodone Bitart/Acetaminophen ([place] 5/325mg) 1 tab PO Q4HP PRN PRN Reason: Pain Aspirin (Aspirin) 81 mg PO QDAY [facility] Last Admin: 05/06/17 09:11 Dose: 81 mg Cilostazol (Pletal) 50 mg PO BIDAC [facility] Last Admin: 05/06/17 07:15 Dose: 50 mg Clonidine HCl (Catapres) 0.1 mg PO Q4HP PRN PRN Reason: Hypertension Dextrose (Dextrose 50%) 0 ml IV UD PRN PRN Reason: Hypoglycemia Diagnostic Test (Pha) (Accu-Chek) 1 each FS ACHS [facility] Last Admin: 05/06/17 07:06 Dose: 1 each Docusate Sodium (Colace) 100 mg PO BID PRN PRN Reason: Constipation Erythromycin (Erythromycin) 250 mg PO TIDCC [facility] Last Admin: 05/06/17 09:13 Dose: Not Given Famotidine (Pepcid) 20 mg IV Q12 [facility] Last Admin: 05/06/17 08:20 Dose: 20 mg Gabapentin (Neurontin) 100 mg PO BID [facility] Last Admin: 05/06/17 09:11 Dose: 100 mg Heparin Sodium (Porcine) (Heparin) 5,000 unit SQ Q12 [facility] Last Admin: 05/06/17 08:20 Dose: 5,000 unit Hydromorphone HCl (Dilaudid) 0.5 mg IV Q2HP PRN PRN Reason: Pain Last Admin: 05/05/17 03:14 Dose: 0.5 mg Sodium Chloride (Sodium Chloride 0.9%) 1,000 mls @ 50 mls/hr IV .Q20H [facility] Last Admin: 05/05/17 16:59 Dose: 50 mls/hr Insulin Human Lispro (Humalog) 0 unit SQ ACHS [facility] PRN Reason: Protocol Last Admin: 05/06/17 07:07 Dose: Not Given Isosorbide Mononitrate (Imdur) 60 mg PO HS [facility] Magnesium Hydroxide (Milk Of Magnesia) 30 ml PO DAILYP PRN PRN Reason: Constipation Metoclopramide HCl (Reglan) 5 mg IV Q6 [facility] Last Admin: 05/06/17 05:54 Dose: 5 mg Metoclopramide HCl (Reglan) 10 mg PO ACHS [facility] Misoprostol (Cytotec) 100 mcg PO TIDCC [facility] Naloxone HCl (Narcan) 0.1 mg IV Q2MIN PRN PRN Reason: Opiate Reversal Ondansetron HCl (Zofran) 4 mg IV Q6HP PRN PRN Reason: Nausea And Vomiting Ramipril (Altace) 2.5 mg PO QDAY [facility] Last Admin: 05/06/17 09:11 Dose: 2.5 mg Simvastatin (Zocor) 10 mg PO HS [facility] Sodium Chloride (Saline Flush) 10 ml IV Q8 [facility] Last Admin: 05/06/17 06:25 Dose: 10 ml Sucralfate (Carafate) 1 gm PO [facility] Medical - PN: A/P - Time Spent With Patient Total time spent is greater than 50% in coordination of care (as documented) at patient's floor/unit and/or counseling patient: 15 - 24 minutes - Narrative A/P Narrative: * Abdominal pain- Mesentric ischemia Vs gastroparesis, Dr lazo consulted for possibility However recommends against J-tube placement due to extensive mesenteric ischemia. surgery will perform upper endoscopy in 24-48 hours. Surgery recommends cilostazol/gentamicin/Reglan. she is status post mesenteric stenting owever Plavix was stopped by interventional radiology due to significant nausea associated with Plavix. * Elevated White blood cell count-etiology uncertain. downtrending from 14.7- 11.5->8 * severe diabetic gastroparesis-on erythromycin as outpatient * End-stage renal disease.- Dialysis per Dr. Duncan. * Type 2 diabetes-Cover with sliding scale insulin for now, as we do not know how much nutrition she will get over the next day or 2. * Hypercalcemia. Likely secondary to volume depletion. down from 10.9-9.6->8 * HTN- On home meds * Neuropathy-gabapentin * CAD/PVD- -ASA/isosorbide * CODE STATUS:- full code plan * EGD in am * patient cannot be discharge in light of persistent symptoms and failure to advance diet and need for further investigations * continue HD per nephrology * Pre-existing condition management as above Medical - PN: Qual - VTE Deep Vein Thrombosis/Pulmonary Embolism Present on Admission: No
[2017-05-06] MEDS: SUCRALFATE 1 GM TABLET PO SCH ×3 (11:39→20:29)
[2017-05-06] MEDS: MISOPROSTOL 100 MCG TABLET PO SCH ×2 (11:40→17:53)
[2017-05-06] MEDS: METOCLOPRAMIDE 10 MG TABLET PO SCH ×3 (11:40→20:29)
[2017-05-06] MEDS: HYDROcodone/APAP 5/325MG TABLET PO PRN (11:43)
[2017-05-06] MEDS: 0.9 % SODIUM CHLORIDE 1,000 ML IV SCH (12:33)
--- NOTE | 2017-05-06 17:06 | General Surgery Progress Note ---
Subjective Patient reports: still having pain, pain is less, nausea, vomiting, afebrile Narrative: Note initiated : 05/06/17 at 5:03 pm Service Date, if different from initiated Date: [] Patient: Maryann Juares 82 y/o F admitted on 05/06/17 for Nausea, abd pain. Chief Complaint: [Patient had episode of melena earlier yesterday and there is a documented episode of emesis of dark brown liquid suggestive of bleeding from the stomach. She complains of severe indigestion which leads to emesis. Her lower abdominal discomfort is better. Since her emesis she has tolerated a small amount of clear liquids. 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 be done in the aircraft designer.] Objective Temp Pulse Resp BP Pulse Ox 97.2 F 58 L 16 120/42 96 05/06/17 16:00 05/06/17 16:35 05/06/17 16:00 05/06/17 16:35 05/06/17 16:00 - Additional Data Intake & Output - Last 24 hours: Intake & Output 05/04/17 05/05/17 05/06/17 05/07/17 05:59 05:59 05:59 05:59 Intake Total 978 / 1498 Output Total 2594 / 2594 Balance -1616 / -1096 Weight 123 lb - General physical appearance no distress, chronically ill - Eyes PERRL, pale - ENT no congestion - Neck no venous distension - Respiratory clear to auscultation - Cardiovascular Cardiovascular exam: Present: normal rate and rhythm, +S1, +S2. Absent: JVD - Abdomen soft, non tender, bowel sounds, distended (No distention; active bowel sounds; no tenderness to palpation in epigastrium or left upper quadrant) - Integumentary no rash, no growths, no abnormal pigmentation - Neurologic normal coordination, normal sensation - Musculoskeletal normal gait, normal posture - Psychiatric oriented to time, oriented to person, oriented to place, speech is normal - Labs 05/06/17 06:52 05/06/17 06:52 Assessment and Plan (1) Mesenteric ischemia Status: Acute Current Visit: Yes (2) Gastroparesis Status: Acute Current Visit: Yes (3) Gastrointestinal hemorrhage with hematemesis Status: Acute Assessment and plan: Plan for EGD in the morning discontinue heparin for now Current Visit: Yes (4) Gastrointestinal hemorrhage with melena Status: Acute Current Visit: Yes - Time Spent With Patient Total time spent is greater than 50% in coordination of care (as documented) at patient's floor/unit and/or counseling patient:
[2017-05-06] MEDS: ERYTHROMYCIN LACTOBIONATE 250 MG in 0.9 % SODIUM CHLORIDE 100 ML IV SCH (20:54)
[2017-05-06] MEDS ORDERED: PRAVASTATIN 40 MG TABLET PO SCH (21:00)
[2017-05-06] MEDS ORDERED: SIMVASTATIN 10 MG TABLET PO SCH (21:00)
[2017-05-06] MEDS ORDERED: ISOSORBIDE MONONITRATE 60 MG TAB.XL.24H PO SCH (21:00)
[2017-05-07] MEDS: HYDROcodone/APAP 5/325MG TABLET PO PRN ×2 (00:16→18:05)
[2017-05-07] MEDS: ERYTHROMYCIN LACTOBIONATE 250 MG in 0.9 % SODIUM CHLORIDE 100 ML IV SCH ×4 (00:16→18:11)
[2017-05-07] MEDS: METOCLOPRAMIDE 10 MG/2 ML VIAL IV SCH ×2 (00:21→05:53)
[2017-05-07] MEDS: 0.9 % SODIUM CHLORIDE 10 ML SYRINGE IV SCH ×3 (05:50→20:19)
[2017-05-07 05:52] LABS: Basophils # (Auto) 0 K/mcL (0.0-0.3); Basophils % (Auto) 0.4 % (0.0-2.0); Eosinophils # (Auto) 0.3 K/mcL (0.0-0.7); Eosinophils % (Auto) 2.6 % (0.0-7.0); Lymphocytes # (Auto) 1.1 K/mcL (1.5-4.8); Lymphocytes % (Auto) 11.8 % (15.5-49.0); Mean Cell Volume 96.4 fL (80.0-100.0); Mean Corpuscular HGB Conc 32.8 g/dL (31.0-36.0); Mean Corpuscular Hemoglobin 31.6 pg (26.0-34.0); Monocytes # (Auto) 0.8 K/mcL (0.1-0.9); Monocytes % (Auto) 8.2 % (1.0-12.0); Platelet Count 231 K/mcL (140-440); RBC 3.45 M/mcL (4.00-5.20); Red Cell Distribution Width 14.7 % (11.5-14.5)
[2017-05-07] MEDS ORDERED: KETAMINE 10 MG/ML ML IV PRN (05:58)
[2017-05-07] MEDS ORDERED: PROPOFOL 200 MG/20 ML VIAL IV SCH (06:00)
[2017-05-07] MEDS ORDERED: MIDAZOLAM 2 MG/2 ML VIAL IV SCH (06:00)
[2017-05-07 06:19] LABS: ALT/SGPT 6 U/l (0-40); Albumin 3.4 gm/dL (3.2-5.2); Albumin/Globulin Ratio 1.8 (1.0-2.3); Alkaline Phosphatase 68 U/L (39-117); Bilirubin,Direct < 0.2 mg/dL (0.0-0.3); Blood Urea Nitrogen 9 mg/dl (8-23); Gamma Glutamyl Transpeptidase 45 U/L (5-36); Magnesium 1.7 mg/dL (1.6-2.5); Uric Acid 2.8 mg/dL (2.5-8.0)
[2017-05-07] MEDS ORDERED: PROPOFOL 200 MG/20 ML VIAL IV ONE (07:10)
--- NOTE | 2017-05-07 07:24 | Brief Operative Note ---
Date of procedure: 05/07/17 Pre-op diagnosis: recurrent nausea and vomiting;hematemesis,melena Post-op diagnosis: same (mild distal esophagitis;gastroparesis) Procedure: ESOPHAGOGASTRODUODENOSCOPY Grafts/Implants: No Anesthesia: other (GENERAL) Findings: MILD INFLAMMATION AT GE JUNCTION ; NO ULCERATION ;WEB STRICTURE OR RING; NO GASTRITIS OR DUODENITIS Complications: none Surgeon: Felicia Bonilla Specimens Removed/Pathology: none sent Condition: stable Disposition: PACU
[2017-05-07] MEDS ORDERED: LACTATED RINGERS 250 ML IV PRN (07:25)
[2017-05-07] MEDS ORDERED: NALOXONE HCL 0.4 MG/ML VIAL IV PRN ×2 (07:25→08:47)
[2017-05-07] MEDS ORDERED: IPRATROPIUM/ALBUTEROL 3 ML AMPUL.NEB NEB PRN (07:25)
[2017-05-07] MEDS ORDERED: diphenhydrAMINE 50 MG/ML VIAL IV PRN (07:25)
[2017-05-07] MEDS ORDERED: BENZOCAINE/MENTHOL 1 LOZENGE PO PRN (07:25)
[2017-05-07] MEDS ORDERED: fentaNYL 100 MCG/2 ML VIAL IV PRN (07:25)
[2017-05-07] MEDS ORDERED: ONDANSETRON 4 MG/2 ML VIAL IV PRN (07:25)
[2017-05-07] MEDS ORDERED: ePHEDrine 50 MG/ML AMPUL IV PRN (07:25)
[2017-05-07] MEDS ORDERED: LACTATED RINGERS 1,000 ML IV SCH ×2 (07:30→08:47)
[2017-05-07] MEDS: INSULIN LISPRO 1 UNIT/0.01 ML UNIT SQ SCH ×4 (08:37→20:11)
[2017-05-07] MEDS: GABAPENTIN 100 MG CAPSULE PO SCH ×3 (08:39→20:15)
[2017-05-07] MEDS: MISOPROSTOL 100 MCG TABLET PO SCH ×3 (08:39→20:14)
[2017-05-07] MEDS: FAMOTIDINE/PF 20 MG/2 ML VIAL IV SCH ×3 (08:39→20:12)
[2017-05-07] MEDS: METOCLOPRAMIDE 10 MG TABLET PO SCH ×4 (08:39→20:13)
[2017-05-07] MEDS: ASPIRIN 81 MG TAB.CHEW PO SCH ×2 (08:39→08:53)
[2017-05-07] MEDS: SUCRALFATE 1 GM TABLET PO SCH ×4 (08:39→20:13)
[2017-05-07] MEDS ORDERED: DOCUSATE SODIUM 100 MG CAPSULE PO PRN (08:47)
[2017-05-07] MEDS ORDERED: DEXTROSE 50% 50 ML VIAL IV PRN (08:47)
[2017-05-07] MEDS ORDERED: MAGNESIUM HYDROXIDE 30 ML ORAL.SUSP PO PRN (08:47)
[2017-05-07] MEDS ORDERED: ACETAMINOPHEN 325 MG TABLET PO PRN (08:47)
[2017-05-07] MEDS ORDERED: cloNIDine HCL 0.1 MG TABLET PO PRN (08:47)
[2017-05-07] MEDS: 0.9 % SODIUM CHLORIDE 1,000 ML IV SCH ×3 (08:53→19:07)
[2017-05-07] MEDS: CILOSTAZOL 100 MG TABLET PO SCH ×2 (08:56→20:16)
[2017-05-07] MEDS ORDERED: RAMIPRIL 2.5 MG CAPSULE PO SCH (09:00)
[2017-05-07] MEDS: LISINOPRIL 5 MG TABLET PO SCH (09:01)
--- NOTE | 2017-05-07 09:46 | Internal Med Progress Note ---
Medical - PN: Subj Patient information: Note initiated : 05/07/17 at 9:42 am Service Date, if different from initiated Date: [] Patient: Maryann Juares 82 y/o F admitted on 05/06/17 for Nausea, abd pain. Chief Complaint: [] Interval history: Ms. Juares is a 82 year old with a history of recurrent abdominal pain, nausea and vomiting. In the past she has had signs and comes of mesenteric ischemia. She did have stents placed by Dr. Pearce. She was last here for a similar problem from April 08 - April 19. At that time, the consensus was that this was more of a diabetic gastroparesis problem. She failed treatment with Reglan and Zofran, etc. but then she was tried on oral erythromycin with each meal, and seemed to improve, so was discharged back to life care. He tells me that ever since she left though, she still has intermittent abdominal pain, nausea and vomiting, after meals. Today, she ate a piece of toast, and started to have abdominal pain. She then reported for dialysis, but continued to have pain and vomiting. She was sent back to the emergency room for evaluation, where she was found to have an elevated white blood cell count. CT scan shows severe diffuse vascular disease. Otherwise, the patient denies recent fever or chills, headaches or dizziness, new eye or ear symptoms, sore throat or cough. She denies chest pain or palpitations, shortness of breath, or diarrhea. She thinks she has more constipation issues. She denies significant urine output or dysuria. 05/05- Pt doing well, case discussed with Dr Duncan- Dialysis likely tomorrow as labs appear stable per nephrology. Multiple family at bedside. No O/n events, Improved abd pain, no0 Nausea, on clears, Start Dietary consult and ST eval. 05/06-case discussed with surgery. Patient will need upper endoscopy likely in 24 hours. She is a poor candidate for J-tube given severe mesenteric ischemia. Surgeon already started patient on Reglan/erythromycin/ilostazol. surgery recommends keeping patient additional 24-48 hours until further workup. patient has been able to tolerate oral liquids and clears. dietary intervention for high-protein calorie supplements. 05/07- patient status post EGD with no identifiable lesions. Advance diet. Possible discharge in 24 hours on oral erythromycin/Reglan. Patient started on lost cilostazol per surgery. no overnight fever chills nausea vomiting abdominal pain or shortness of breath. no other concerns expressed by nursing staff - Constitutional Vitals: Vital Signs Temp Pulse Resp BP Pulse Ox 97.9 F 80 16 135/71 94 05/07/17 08:00 05/07/17 07:46 05/07/17 08:00 05/07/17 08:00 05/07/17 08:00 Period Temp Pulse Resp BP Sys/Turner Pulse Ox Last 24 Hr 97 F-98.4 F 58-80 12-18 105-135/34-79 92-100 Intake and Output 05/06/17 05/07/17 05/07/17 21:59 05:59 13:59 Intake Total 100 / 100 100 / 100 Output Total 54590 / 14476 Balance -08210 / -13411 100 / 100 Weight 116 lb Intake & Output: Intake & Output 05/06/17 05/07/17 05/07/17 21:59 05:59 13:59 Intake Total 100 / 100 100 / 100 Output Total 49549 / 22692 Balance -63671 / -91745 100 / 100 Weight 116 lb Intake: IV 100 / 100 100 / 100 Erythrocin Lactobionate 100 / 100 100 / 100 250 mg In Sodium Chloride 0.9% 100 ml @ 100 mls/hr IV Q6H [facility] Rx#:[id number] Oral 0 / 0 Output: Hemodialysis UF 80798 / 53427 Other: # Bowel Movements 1 General appearance: cooperative, no acute distress Exam: nonlabored breathing alert oriented Medical - PN: Obj Da - Labs CBC & Chem 7: 05/07/17 04:30 05/07/17 04:30 Labs: Abnormal Lab Results 05/07/17 05/07/17 04:30 04:30 RBC 3.45 L Hgb 10.9 L Hct 33.2 L RDW 14.7 H Lymph % (Auto) 11.8 L Lymph # (Auto) 1.1 L Creatinine 2.4 H Glucose 160 H Phosphorus 1.8 L GGT 45 H Total Protein 5.3 L Globulin 1.9 L Meds: Medications Acetaminophen (Tylenol) 650 mg PO Q6HP PRN PRN Reason: PAIN/FEVER > 101 Hydrocodone Bitart/Acetaminophen ([place] 5/325mg) 1 tab PO Q4HP PRN PRN Reason: Pain Aspirin (Aspirin) 81 mg PO QDAY [facility] Last Admin: 05/07/17 08:53 Dose: Not Given Cilostazol (Pletal) 50 mg PO BIDAC [facility] Clonidine HCl (Catapres) 0.1 mg PO Q4HP PRN PRN Reason: Hypertension Dextrose (Dextrose 50%) 0 ml IV UD PRN PRN Reason: Hypoglycemia Diagnostic Test (Pha) (Accu-Chek) 1 each FS ACHS [facility] Diagnostic Test (Pha) (Accu-Chek) 1 each FS ONCE [facility] Stop: 05/07/17 13:58 Last Admin: 05/07/17 08:53 Dose: Not Given Docusate Sodium (Colace) 100 mg PO BID PRN PRN Reason: Constipation Famotidine (Pepcid) 20 mg IV Q12 [facility] Last Admin: 05/07/17 08:54 Dose: Not Given Gabapentin (Neurontin) 100 mg PO BID [facility] Last Admin: 05/07/17 08:53 Dose: Not Given Hydromorphone HCl (Dilaudid) 0.5 mg IV Q2HP PRN PRN Reason: Pain Erythromycin Lactobionate 250 (mg/ Sodium Chloride) 100 mls @ 100 mls/hr IV Q6H [facility] Sodium Chloride (Sodium Chloride 0.9%) 1,000 mls @ 50 mls/hr IV .Q20H [facility] Last Admin: 05/07/17 08:53 Dose: 50 mls/hr Insulin Human Lispro (Humalog) 0 unit SQ [facility] PRN Reason: Protocol Isosorbide Mononitrate (Imdur) 60 mg PO HS [facility] Lisinopril (Zestril) 5 mg PO DAILY [facility] Last Admin: 05/07/17 09:01 Dose: 5 mg Magnesium Hydroxide (Milk Of Magnesia) 30 ml PO DAILYP PRN PRN Reason: Constipation Metoclopramide HCl (Reglan) 10 mg PO ACHS [facility] Misoprostol (Cytotec) 100 mcg PO TIDCC [facility] Naloxone HCl (Narcan) 0.1 mg IV Q2MIN PRN PRN Reason: Opiate Reversal Ondansetron HCl (Zofran) 4 mg IV Q6HP PRN PRN Reason: Nausea And Vomiting Pantoprazole Sodium (Protonix) 40 mg IV Q12H [facility] Simvastatin (Zocor) 10 mg PO HS [facility] Sodium Chloride (Saline Flush) 10 ml IV Q8 [facility] Sucralfate (Carafate) 1 gm PO ACHS [facility] Medical - PN: A/P - Time Spent With Patient Total time spent is greater than 50% in coordination of care (as documented) at patient's floor/unit and/or counseling patient: 15 - 24 minutes - Narrative A/P Narrative: * Abdominal painPersistent nausea vomiting and the gastric emptying- Mesentric ischemia Vs gastroparesis, status post unremarkableupper endoscopy by Dr lazo. Surgery recommends cilostazol/prokinetics-erythromycin/Reglan. * severe diabetic gastroparesis-on erythromycin/Reglan * ESRD on HD- Dialysis per Dr. Duncan. * Type 2 diabetes-continue sliding scale insulin * Hypercalcemia. Likely secondary to volume depletion. down from 10.9-9.6->8 * HTN- On home meds * Neuropathy-gabapentin * CAD/PVD- -ASA/isosorbide * CODE STATUS:- full code plan * advance diet as tolerated * patient discharge pending diet advancement and resolution of symptoms. * continue HD per nephrology * Pre-existing condition management as above Medical - PN: Qual - VTE Deep Vein Thrombosis/Pulmonary Embolism Present on Admission: No
[2017-05-07] MEDS: ONDANSETRON 4 MG/2 ML VIAL IV PRN (16:49)
[2017-05-07] MEDS ORDERED: PANTOPRAZOLE 40 MG VIAL IV SCH (17:30)
[2017-05-07] MEDS: PANTOPRAZOLE 40 MG VIAL IV SCH (18:11)
[2017-05-07] MEDS: ISOSORBIDE MONONITRATE 60 MG TAB.XL.24H PO SCH (20:14)
[2017-05-07] MEDS ORDERED: SIMVASTATIN 10 MG TABLET PO SCH (21:00)
[2017-05-08] MEDS: ERYTHROMYCIN LACTOBIONATE 250 MG in 0.9 % SODIUM CHLORIDE 100 ML IV SCH ×5 (00:25→23:58)
[2017-05-08 05:39] LABS: Basophils # (Auto) 0 K/mcL (0.0-0.3); Basophils % (Auto) 0.4 % (0.0-2.0); Eosinophils # (Auto) 0.3 K/mcL (0.0-0.7); Eosinophils % (Auto) 2.5 % (0.0-7.0); Granulocytes % (Auto) 74.6 % (38.0-78.0); Lymphocytes # (Auto) 1.5 K/mcL (1.5-4.8); Lymphocytes % (Auto) 13.2 % (15.5-49.0); Mean Cell Volume 96.2 fL (80.0-100.0); Mean Corpuscular HGB Conc 32.6 g/dL (31.0-36.0); Mean Corpuscular Hemoglobin 31.4 pg (26.0-34.0); Monocytes % (Auto) 9.3 % (1.0-12.0); Platelet Count 256 K/mcL (140-440); RBC 3.74 M/mcL (4.00-5.20); Red Cell Distribution Width 14.8 % (11.5-14.5)
[2017-05-08 06:06] LABS: ALT/SGPT 6 U/l (0-40); Albumin 3.5 gm/dL (3.2-5.2); Albumin/Globulin Ratio 1.6 (1.0-2.3); Alkaline Phosphatase 73 U/L (39-117); Bilirubin,Direct < 0.2 mg/dL (0.0-0.3); Blood Urea Nitrogen 12 mg/dl (8-23); Gamma Glutamyl Transpeptidase 47 U/L (5-36); Magnesium 1.7 mg/dL (1.6-2.5); Uric Acid 3.7 mg/dL (2.5-8.0)
[2017-05-08] MEDS: PANTOPRAZOLE 40 MG VIAL IV SCH ×2 (06:58→18:19)
[2017-05-08] MEDS: 0.9 % SODIUM CHLORIDE 1,000 ML IV SCH (06:58)
[2017-05-08] MEDS: 0.9 % SODIUM CHLORIDE 10 ML SYRINGE IV SCH ×3 (06:58→20:40)
[2017-05-08] MEDS: INSULIN LISPRO 1 UNIT/0.01 ML UNIT SQ SCH ×4 (06:59→20:40)
[2017-05-08] MEDS: METOCLOPRAMIDE 10 MG TABLET PO SCH ×4 (07:04→22:27)
[2017-05-08] MEDS: SUCRALFATE 1 GM TABLET PO SCH ×4 (07:04→22:26)
[2017-05-08] MEDS: CILOSTAZOL 100 MG TABLET PO SCH ×2 (07:04→17:53)
[2017-05-08] MEDS: MISOPROSTOL 100 MCG TABLET PO SCH ×3 (09:17→17:53)
[2017-05-08] MEDS: FAMOTIDINE/PF 20 MG/2 ML VIAL IV SCH ×2 (09:17→22:25)
[2017-05-08] MEDS: LISINOPRIL 5 MG TABLET PO SCH (09:18)
[2017-05-08] MEDS: GABAPENTIN 100 MG CAPSULE PO SCH ×2 (09:18→22:27)
[2017-05-08] MEDS: ASPIRIN 81 MG TAB.CHEW PO SCH ×3 (09:19→09:36)
--- NOTE | 2017-05-08 15:45 | Internal Med Progress Note ---
Medical - PN: Subj Patient information: Note initiated : 05/08/17 at 3:40 pm Service Date, if different from initiated Date: [] Patient: Maryann Juares 82 y/o F admitted on 05/06/17 for Mesenteric Ischemia, Abdominal Pain, Gastroparesis. Chief Complaint: [] Interval history: Ms. Juares is a 82 year old with a history of recurrent abdominal pain, nausea and vomiting. In the past she has had signs and comes of mesenteric ischemia. She did have stents placed by Dr. Pearce. She was last here for a similar problem from April 08 - April 19. At that time, the consensus was that this was more of a diabetic gastroparesis problem. She failed treatment with Reglan and Zofran, etc. but then she was tried on oral erythromycin with each meal, and seemed to improve, so was discharged back to life care. He tells me that ever since she left though, she still has intermittent abdominal pain, nausea and vomiting, after meals. Today, she ate a piece of toast, and started to have abdominal pain. She then reported for dialysis, but continued to have pain and vomiting. She was sent back to the emergency room for evaluation, where she was found to have an elevated white blood cell count. CT scan shows severe diffuse vascular disease. Otherwise, the patient denies recent fever or chills, headaches or dizziness, new eye or ear symptoms, sore throat or cough. She denies chest pain or palpitations, shortness of breath, or diarrhea. She thinks she has more constipation issues. She denies significant urine output or dysuria. 05/05- Pt doing well, case discussed with Dr Duncan- Dialysis likely tomorrow as labs appear stable per nephrology. Multiple family at bedside. No O/n events, Improved abd pain, no0 Nausea, on clears, Start Dietary consult and ST eval. 05/06-case discussed with surgery. Patient will need upper endoscopy likely in 24 hours. She is a poor candidate for J-tube given severe mesenteric ischemia. Surgeon already started patient on Reglan/erythromycin/ilostazol. surgery recommends keeping patient additional 24-48 hours until further workup. patient has been able to tolerate oral liquids and clears. dietary intervention for high-protein calorie supplements. 05/07- patient status post EGD with no identifiable lesions. Advance diet. Possible discharge in 24 hours on oral erythromycin/Reglan. Patient started on lost cilostazol per surgery. no overnight fever chills nausea vomiting abdominal pain or shortness of breath. no other concerns expressed by nursing staff 05/08: Pt seen examined, s/p fistulogram today, received fentanyl and versed at the IR suite and hence is drowsy post op. Arousable to voice, denies any complaints. Ok to resume diet. Pertinent ROS: Denies headache, dizziness Denies chest pain, palpitations Denies cough or shortness of breath Denies abdominal pain, nausea or vomiting. - Constitutional Vitals: Vital Signs Temp Pulse Resp BP Pulse Ox 97.7 F 75 16 194/68 99 05/08/17 15:05 05/08/17 08:00 05/08/17 15:05 05/08/17 15:05 05/08/17 15:05 Period Temp Pulse Resp BP Sys/Turner Pulse Ox Last 24 Hr 97.4 F-98.4 F 75-90 16-16 148-194/46-77 91-99 Intake and Output 05/08/17 05/08/17 05/08/17 05:59 13:59 21:59 Intake Total 300 / 300 480 / 480 Balance 300 / 300 480 / 480 Intake & Output: Intake & Output 05/08/17 05/08/17 05/08/17 05:59 13:59 21:59 Intake Total 300 / 300 480 / 480 Balance 300 / 300 480 / 480 Intake: IV 100 / 100 Erythrocin Lactobionate 100 / 100 250 mg In Sodium Chloride 0.9% 100 ml @ 100 mls/hr IV Q6H [facility] Rx#:[id number] Oral 200 / 200 240 / 240 GI Tube Flush 240 / 240 Other: Meal Nourishment/Supplement Percent of Meal Consumed 100% Feeding Ability Assist with Tray Set Up # Emeses 0 Exam: Constitutional; Afebrile, cooperative, drowsy. Eyes- No icterus, , No periorbital swelling Ears- Ext ear normal, hearing normal to conversation. Neck- Midline trachea, supple Respiratory system: Air Entry equal on both sides, No crackles or wheezing, no rhonchi. CVS- Rate rhythm regular, S1,S2 heard, no gallop, no rub. Abdomen- Soft nontender abdomen, no organomegaly, no tenderness, no guarding or rigidity, [employer]- [id number], moving all extremities, no gross focal deficit noted. Medical - PN: Obj Da - Labs CBC & Chem 7: 05/08/17 03:55 05/08/17 03:55 Labs: Abnormal Lab Results 05/08/17 05/08/17 05/07/17 03:55 03:55 04:30 WBC 11.3 H RBC 3.74 L Hgb 11.7 L Hct RDW 14.8 H Lymph % (Auto) 13.2 L Gran # 8.4 H Lymph # (Auto) [place] # (Auto) 1.0 H Creatinine 3.0 H 2.4 H Glucose 147 H 160 H Phosphorus 2.5 L 1.8 L GGT 47 H 45 H Total Protein 5.7 L 5.3 L Globulin 1.9 L 05/07/17 04:30 WBC RBC 3.45 L Hgb 10.9 L Hct 33.2 L RDW 14.7 H Lymph % (Auto) 11.8 L Gran # Lymph # (Auto) 1.1 L [place] # (Auto) Creatinine Glucose Phosphorus GGT Total Protein Globulin Meds: Medications Acetaminophen (Tylenol) 650 mg PO Q6HP PRN PRN Reason: PAIN/FEVER > 101 Hydrocodone Bitart/Acetaminophen ([place] 5/325mg) 1 tab PO Q4HP PRN PRN Reason: Pain Last Admin: 05/07/17 18:05 Dose: 1 tab Aspirin (Aspirin) 81 mg PO QDAY [facility] Last Admin: 05/08/17 09:36 Dose: 81 mg Cilostazol (Pletal) 50 mg PO BIDAC [facility] Last Admin: 05/08/17 07:04 Dose: 50 mg Clonidine HCl (Catapres) 0.1 mg PO Q4HP PRN PRN Reason: Hypertension Dextrose (Dextrose 50%) 0 ml IV UD PRN PRN Reason: Hypoglycemia Diagnostic Test (Pha) (Accu-Chek) 1 each FS ACHS [facility] Last Admin: 05/08/17 14:56 Dose: 1 each Docusate Sodium (Colace) 100 mg PO BID PRN PRN Reason: Constipation Famotidine (Pepcid) 20 mg IV Q12 [facility] Last Admin: 05/08/17 09:17 Dose: 20 mg Gabapentin (Neurontin) 100 mg PO BID [facility] Last Admin: 05/08/17 09:18 Dose: 100 mg Hydromorphone HCl (Dilaudid) 0.5 mg IV Q2HP PRN PRN Reason: Pain Erythromycin Lactobionate 250 (mg/ Sodium Chloride) 100 mls @ 100 mls/hr IV Q6H [facility] Last Admin: 05/08/17 15:00 Dose: Not Given Sodium Chloride (Sodium Chloride 0.9%) 1,000 mls @ 50 mls/hr IV .Q20H [facility] Last Admin: 05/08/17 06:58 Dose: Not Given Insulin Human Lispro (Humalog) 0 unit SQ [facility] PRN Reason: Protocol Last Admin: 05/08/17 14:59 Dose: Not Given Isosorbide Mononitrate (Imdur) 60 mg PO HS [facility] Last Admin: 05/07/17 20:14 Dose: 60 mg Lisinopril (Zestril) 5 mg PO DAILY [facility] Last Admin: 05/08/17 09:18 Dose: 5 mg Magnesium Hydroxide (Milk Of Magnesia) 30 ml PO DAILYP PRN PRN Reason: Constipation Metoclopramide HCl (Reglan) 10 mg PO [facility] Last Admin: 05/08/17 14:58 Dose: Not Given Misoprostol (Cytotec) 100 mcg PO TIDCC [facility] Last Admin: 05/08/17 14:58 Dose: Not Given Naloxone HCl (Narcan) 0.1 mg IV Q2MIN PRN PRN Reason: Opiate Reversal Ondansetron HCl (Zofran) 4 mg IV Q6HP PRN PRN Reason: Nausea And Vomiting Last Admin: 05/07/17 16:49 Dose: 4 mg Pantoprazole Sodium (Protonix) 40 mg IV Q12H [facility] Last Admin: 05/08/17 06:58 Dose: 40 mg Sodium Chloride (Saline Flush) 10 ml IV Q8 [facility] Last Admin: 05/08/17 14:57 Dose: Not Given Sucralfate (Carafate) 1 gm PO [facility] Last Admin: 05/08/17 14:57 Dose: Not Given Medical - PN: A/P - Time Spent With Patient Total time spent is greater than 50% in coordination of care (as documented) at patient's floor/unit and/or counseling patient: - Narrative A/P Narrative: a/P Acute recurrent nausea and vomiting: due to mesenteric ischemia vs gastroparesis. Patient pain free presntly. On asa, statin, as well as pletal, also on misoprostol . s/p stenting by Dr Pearce, as per previous documentation no further intervention. Diabetic Gastroparesis. : on reglan and erythromycin, continue same. will check if marinol was tried in the past. s/p egd yesterday which was negative. ADvance diet as tolerated. ESRD on HD, followed by Dr Duncan DM on sliding scale insulin, conitnue tevin HTN uncontrolled, continue home meds, HD tomorrow, prn clonidine for now. Neurophaty on gabapentin, continue same. Extensive PVD on isosorbide, and asa, statin, pletal, medical management for now. Full code DVT hep sq Diet Renal e Medical - PN: Qual - VTE Deep Vein Thrombosis/Pulmonary Embolism Present on Admission: No
--- NOTE | 2017-05-08 16:03 | General Surgery Progress Note ---
Subjective Patient reports: feels better, pain is less, tolerating liquids well Narrative: Note initiated : 05/08/17 at 4:03 pm Service Date, if different from initiated Date: [] Patient: Maryann Juares 82 y/o F admitted on 05/06/17 for Mesenteric Ischemia, Abdominal Pain, Gastroparesis. Chief Complaint: [Patient has been drowsy since returning from [facility] for her fistulogram. She responds appropriately and answers questions appropriately. She does not complain of shortness of breath or chest pain. She does not complain of abdominal pain. She has had small bowel movements. She denies nausea at this time] Objective Temp Pulse Resp BP Pulse Ox 97.7 F 75 16 194/68 99 05/08/17 15:05 05/08/17 08:00 05/08/17 15:05 05/08/17 15:05 05/08/17 15:05 - Additional Data Intake & Output - Last 24 hours: Intake & Output 05/06/17 05/07/17 05/08/17 05/09/17 05:59 05:59 05:59 05:59 Intake Total 1178 / 1698 994 / 994 480 / 480 Output Total 23250 / 92005 Balance -85512 / -00781 994 / 994 480 / 480 Weight 116 lb 118 lb - General physical appearance no distress, no pain - Eyes PERRL - ENT no congestion - Neck no venous distension - Respiratory normal respiratory effort, clear to auscultation - Cardiovascular Cardiovascular exam: Present: irregular rhythm, +S1, +S2, systolic murmur. Absent: JVD - Abdomen soft, non tender, bowel sounds, distended (Abdomen is soft and nondistended. She does not have any tenderness. She has good active bowel sounds) Hernia: none - Integumentary no rash, no growths, no abnormal pigmentation - Neurologic normal coordination, normal sensation - Psychiatric oriented to time, oriented to person, oriented to place, speech is normal, memory intact - Labs 05/09/17 04:25 05/09/17 04:25 Diabetes panel 05/08/17 Range/Units 03:55 Sodium 137 (133-145) mmol/L Potassium 3.8 (3.3-5.1) mmol/L Chloride 97 (96-108) mmol/L Carbon Dioxide 27 (22-30) mmol/L BUN 12 (8-23) mg/dl Creatinine 3.0 H (0.6-1.1) mg/dl Glucose 147 H (70-105) mg/dL Calcium 9.9 (8.6-10.4) mg/dl AST 16 (0-37) U/l ALT 6 (0-40) U/l Alkaline Phosphatase 73 (39-117) U/L Total Protein 5.7 L (5.9-8.4) gm/dL Albumin 3.5 (3.2-5.2) gm/dL Triglycerides 88 (<150) mg/dl Calcium panel 05/08/17 Range/Units 03:55 Calcium 9.9 (8.6-10.4) mg/dl Phosphorus 2.5 L (2.7-4.5) mg/dL Albumin 3.5 (3.2-5.2) gm/dL Pituitary panel 05/08/17 Range/Units 03:55 Sodium 137 (133-145) mmol/L Potassium 3.8 (3.3-5.1) mmol/L Chloride 97 (96-108) mmol/L Carbon Dioxide 27 (22-30) mmol/L BUN 12 (8-23) mg/dl Creatinine 3.0 H (0.6-1.1) mg/dl Glucose 147 H (70-105) mg/dL Calcium 9.9 (8.6-10.4) mg/dl Adrenal panel 05/08/17 Range/Units 03:55 Sodium 137 (133-145) mmol/L Potassium 3.8 (3.3-5.1) mmol/L Chloride 97 (96-108) mmol/L Carbon Dioxide 27 (22-30) mmol/L BUN 12 (8-23) mg/dl Creatinine 3.0 H (0.6-1.1) mg/dl Glucose 147 H (70-105) mg/dL Calcium 9.9 (8.6-10.4) mg/dl Total Bilirubin 0.3 (0.0-1.0) mg/dL AST 16 (0-37) U/l ALT 6 (0-40) U/l Alkaline Phosphatase 73 (39-117) U/L Total Protein 5.7 L (5.9-8.4) gm/dL Albumin 3.5 (3.2-5.2) gm/dL Assessment and Plan (1) Chronic mesenteric ischemia Status: Acute Assessment and plan: Patient is stable and is asymptomatic at this time. Nursing advised to try to encourage better p.o. intake Current Visit: No (2) Diabetes mellitus, insulin dependent (IDDM), controlled Status: Acute Current Visit: No (3) End-stage renal disease needing dialysis Problem details: 1. End-stage renal disease on hemodialysis. She will have dialysis today and will attempt to remove 2 to 3 kilos of fluid as tolerated. 2. Nausea, vomiting: Probably related to diabetic gastroparesis or intestinal ischemia. On Reglan. Status: Acute Current Visit: No (4) Gastroparesis Status: Acute Assessment and plan: Patient is stable and has not had any nausea. Will try to encourage p.o. intake. Current Visit: No - Time Spent With Patient Total time spent is greater than 50% in coordination of care (as documented) at patient's floor/unit and/or counseling patient:
--- NOTE | 2017-05-08 18:06 | Internal Med Progress Note ---
Medical - Auxillary Note - Subjective Patient Information: Note initiated : 05/08/17 at 6:04 pm Service Date, if different from initiated Date: [] Patient: Maryann Juares 82 y/o F admitted on 05/06/17 for Mesenteric Ischemia, Abdominal Pain, Gastroparesis. Chief Complaint: [] Vital Signs Temp Pulse Resp BP Pulse Ox 96.5 F L 72 12 144/52 94 05/08/17 16:00 05/08/17 16:00 05/08/17 16:00 05/08/17 16:00 05/08/17 16:00 Period Temp Pulse Resp BP Sys/Turner Pulse Ox Last 24 Hr 96.5 F-98.4 F 72-90 12-16 144-194/46-77 91-99 Intake and Output 05/08/17 05/08/17 05/08/17 05:59 13:59 21:59 Intake Total 300 / 300 480 / 480 Balance 300 / 300 480 / 480 Medications Acetaminophen (Tylenol) 650 mg PO Q6HP PRN PRN Reason: PAIN/FEVER > 101 Hydrocodone Bitart/Acetaminophen ([place] 5/325mg) 1 tab PO Q4HP PRN PRN Reason: Pain Last Admin: 05/07/17 18:05 Dose: 1 tab Aspirin (Aspirin) 81 mg PO QDAY [facility] Last Admin: 05/08/17 09:36 Dose: 81 mg Cilostazol (Pletal) 50 mg PO BIDAC [facility] Last Admin: 05/08/17 17:53 Dose: Not Given Clonidine HCl (Catapres) 0.1 mg PO Q4HP PRN PRN Reason: Hypertension Dextrose (Dextrose 50%) 0 ml IV UD PRN PRN Reason: Hypoglycemia Diagnostic Test (Pha) (Accu-Chek) 1 each FS ACHS [facility] Last Admin: 05/08/17 14:56 Dose: 1 each Docusate Sodium (Colace) 100 mg PO BID PRN PRN Reason: Constipation Famotidine (Pepcid) 20 mg IV Q12 [facility] Last Admin: 05/08/17 09:17 Dose: 20 mg Gabapentin (Neurontin) 100 mg PO BID [facility] Last Admin: 05/08/17 09:18 Dose: 100 mg Hydromorphone HCl (Dilaudid) 0.5 mg IV Q2HP PRN PRN Reason: Pain Erythromycin Lactobionate 250 (mg/ Sodium Chloride) 100 mls @ 100 mls/hr IV Q6H [facility] Last Admin: 05/08/17 15:00 Dose: Not Given Insulin Human Lispro (Humalog) 0 unit SQ [facility] PRN Reason: Protocol Last Admin: 05/08/17 17:52 Dose: Not Given Isosorbide Mononitrate (Imdur) 60 mg PO HS [facility] Last Admin: 05/07/17 20:14 Dose: 60 mg Lisinopril (Zestril) 5 mg PO DAILY [facility] Last Admin: 05/08/17 09:18 Dose: 5 mg Magnesium Hydroxide (Milk Of Magnesia) 30 ml PO DAILYP PRN PRN Reason: Constipation Metoclopramide HCl (Reglan) 10 mg PO [facility] Last Admin: 05/08/17 17:53 Dose: Not Given Misoprostol (Cytotec) 100 mcg PO TIDCC [facility] Last Admin: 05/08/17 17:53 Dose: Not Given Naloxone HCl (Narcan) 0.1 mg IV Q2MIN PRN PRN Reason: Opiate Reversal Ondansetron HCl (Zofran) 4 mg IV Q6HP PRN PRN Reason: Nausea And Vomiting Last Admin: 05/07/17 16:49 Dose: 4 mg Pantoprazole Sodium (Protonix) 40 mg IV Q12H [facility] Last Admin: 05/08/17 06:58 Dose: 40 mg Sodium Chloride (Saline Flush) 10 ml IV Q8 [facility] Last Admin: 05/08/17 14:57 Dose: Not Given Sucralfate (Carafate) 1 gm PO [facility] Last Admin: 05/08/17 17:52 Dose: Not Given Result Diagarams 05/08/17 03:55 05/08/17 03:55 Abnormal Labs 05/08/17 05/08/17 05/07/17 03:55 03:55 04:30 WBC 11.3 H RBC 3.74 L Hgb 11.7 L Hct RDW 14.8 H Lymph % (Auto) 13.2 L Gran # 8.4 H Lymph # (Auto) [place] # (Auto) 1.0 H Creatinine 3.0 H 2.4 H Glucose 147 H 160 H Phosphorus 2.5 L 1.8 L GGT 47 H 45 H Total Protein 5.7 L 5.3 L Globulin 1.9 L 05/07/17 04:30 WBC RBC 3.45 L Hgb 10.9 L Hct 33.2 L RDW 14.7 H Lymph % (Auto) 11.8 L Gran # Lymph # (Auto) 1.1 L [place] # (Auto) Creatinine Glucose Phosphorus GGT Total Protein Globulin I reviewed the events and the labs. She will proceed with dialysis tomorrow without heparin. Will remove about 2 liters of fluids.
[2017-05-08] MEDS: ISOSORBIDE MONONITRATE 60 MG TAB.XL.24H PO SCH (22:26)
[2017-05-09] MEDS: HYDROcodone/APAP 5/325MG TABLET PO PRN (01:15)
[2017-05-09] MEDS: PANTOPRAZOLE 40 MG VIAL IV SCH ×2 (05:35→18:24)
[2017-05-09] MEDS: ERYTHROMYCIN LACTOBIONATE 250 MG in 0.9 % SODIUM CHLORIDE 100 ML IV SCH ×2 (05:39→17:43)
[2017-05-09] MEDS: 0.9 % SODIUM CHLORIDE 10 ML SYRINGE IV SCH ×3 (05:42→22:17)
[2017-05-09 06:55] LABS: ALT/SGPT < 5 U/l (0-40); Albumin 2.7 gm/dL (3.2-5.2); Albumin/Globulin Ratio 1.5 (1.0-2.3); Alkaline Phosphatase 56 U/L (39-117); Basophils # (Auto) 0.1 K/mcL (0.0-0.3); Basophils % (Auto) 0.5 % (0.0-2.0); Bilirubin,Direct < 0.2 mg/dL (0.0-0.3); Blood Urea Nitrogen 16 mg/dl (8-23); Eosinophils # (Auto) 0.1 K/mcL (0.0-0.7); Eosinophils % (Auto) 1.1 % (0.0-7.0); Gamma Glutamyl Transpeptidase 34 U/L (5-36); Granulocytes % (Auto) 81.6 % (38.0-78.0); Lymphocytes % (Auto) 8.7 % (15.5-49.0); Magnesium 1.6 mg/dL (1.6-2.5); Mean Corpuscular HGB Conc 32.2 g/dL (31.0-36.0); Mean Corpuscular Hemoglobin 30.9 pg (26.0-34.0); Monocytes # (Auto) 0.9 K/mcL (0.1-0.9); Monocytes % (Auto) 8.1 % (1.0-12.0); Platelet Count 188 K/mcL (140-440); RBC 2.93 M/mcL (4.00-5.20); Red Cell Distribution Width 14.6 % (11.5-14.5); Uric Acid 4.3 mg/dL (2.5-8.0)
[2017-05-09] MEDS: SUCRALFATE 1 GM TABLET PO SCH ×4 (07:23→20:39)
[2017-05-09] MEDS: METOCLOPRAMIDE 10 MG TABLET PO SCH ×4 (07:24→20:40)
[2017-05-09] MEDS: INSULIN LISPRO 1 UNIT/0.01 ML UNIT SQ SCH ×4 (07:24→20:40)
--- NOTE | 2017-05-09 12:11 | General Surgery Progress Note ---
Subjective Patient reports: feels better, pain is less, tolerating liquids well, flatus, bowel movement, afebrile Narrative: Note initiated : 05/09/17 at 12:08 pm Service Date, if different from initiated Date: [] Patient: Maryann Juares 82 y/o F admitted on 05/06/17 for Mesenteric Ischemia, Abdominal Pain, Gastroparesis. Chief Complaint: [Patient is better today. She just completed her dialysis and her vital signs are stable. Her fistula worked well. She is encouraged to try to take in more p.o. intake. She does not have abdominal pain or nausea at this time.] Objective Temp Pulse Resp BP Pulse Ox 97.9 F 81 20 157/49 97 05/09/17 11:53 05/09/17 11:53 05/09/17 05:00 05/09/17 11:53 05/09/17 05:00 - Additional Data Intake & Output - Last 24 hours: Intake & Output 05/07/17 05/08/17 05/09/17 05/10/17 05:59 05:59 05:59 05:59 Intake Total 1178 / 1698 994 / 994 880 / 880 100 / 100 Output Total 21359 / 03715 43171 / 52174 Balance -18252 / -56556 994 / 994 880 / 880 -31059 / -34465 Weight 116 lb 122 lb 128 lb - General physical appearance no distress, no pain - Eyes PERRL - ENT no congestion - Neck no venous distension - Respiratory normal expansion, normal respiratory effort, clear to auscultation - Cardiovascular Cardiovascular exam: Present: normal rate and rhythm, RRR, +S1, +S2, systolic murmur. Absent: JVD - Abdomen soft, non tender, bowel sounds (Abdomen is benign. She has good active bowel sounds. There is no distention. She does not have tenderness.) - Integumentary no rash, no growths, no abnormal pigmentation - Neurologic normal coordination, normal sensation - Psychiatric oriented to time, oriented to person, oriented to place, speech is normal, memory intact - Labs 05/09/17 04:25 05/09/17 04:25 Diabetes panel 05/09/17 Range/Units 04:25 Sodium 134 (133-145) mmol/L Potassium 4.1 (3.3-5.1) mmol/L Chloride 98 (96-108) mmol/L Carbon Dioxide 25 (22-30) mmol/L BUN 16 (8-23) mg/dl Creatinine 3.5 H (0.6-1.1) mg/dl Glucose 161 H (70-105) mg/dL Calcium 9.2 (8.6-10.4) mg/dl AST 11 (0-37) U/l ALT < 5 (0-40) U/l Alkaline Phosphatase 56 (39-117) U/L Total Protein 4.5 L (5.9-8.4) gm/dL Albumin 2.7 L (3.2-5.2) gm/dL Triglycerides 72 (<150) mg/dl Calcium panel 05/09/17 Range/Units 04:25 Calcium 9.2 (8.6-10.4) mg/dl Phosphorus 4.1 (2.7-4.5) mg/dL Albumin 2.7 L (3.2-5.2) gm/dL Pituitary panel 05/09/17 Range/Units 04:25 Sodium 134 (133-145) mmol/L Potassium 4.1 (3.3-5.1) mmol/L Chloride 98 (96-108) mmol/L Carbon Dioxide 25 (22-30) mmol/L BUN 16 (8-23) mg/dl Creatinine 3.5 H (0.6-1.1) mg/dl Glucose 161 H (70-105) mg/dL Calcium 9.2 (8.6-10.4) mg/dl Adrenal panel 05/09/17 Range/Units 04:25 Sodium 134 (133-145) mmol/L Potassium 4.1 (3.3-5.1) mmol/L Chloride 98 (96-108) mmol/L Carbon Dioxide 25 (22-30) mmol/L BUN 16 (8-23) mg/dl Creatinine 3.5 H (0.6-1.1) mg/dl Glucose 161 H (70-105) mg/dL Calcium 9.2 (8.6-10.4) mg/dl Total Bilirubin 0.2 (0.0-1.0) mg/dL AST 11 (0-37) U/l ALT < 5 (0-40) U/l Alkaline Phosphatase 56 (39-117) U/L Total Protein 4.5 L (5.9-8.4) gm/dL Albumin 2.7 L (3.2-5.2) gm/dL Assessment and Plan (1) Chronic mesenteric ischemia Status: Acute Assessment and plan: Patient is stable and is asymptomatic at this time. Nursing advised to try to encourage better p.o. intake Current Visit: No (2) Diabetes mellitus, insulin dependent (IDDM), controlled Status: Acute Current Visit: No (3) End-stage renal disease needing dialysis Problem details: 1. End-stage renal disease on hemodialysis. She will have dialysis today and will attempt to remove 2 to 3 kilos of fluid as tolerated. 2. Nausea, vomiting: Probably related to diabetic gastroparesis or intestinal ischemia. On Reglan. Status: Acute Current Visit: No (4) Gastroparesis Status: Acute Assessment and plan: Patient is stable and has not had any nausea. Will try to encourage p.o. intake. Current Visit: No - Time Spent With Patient Total time spent is greater than 50% in coordination of care (as documented) at patient's floor/unit and/or counseling patient:
[2017-05-09] MEDS ORDERED: ERYTHROMYCIN BASE 250 MG CAPSULE PO SCH (13:00)
--- NOTE | 2017-05-09 13:01 | Internal Med Progress Note ---
Medical - PN: Subj Patient information: Note initiated : 05/09/17 at 12:57 pm Service Date, if different from initiated Date: [] Patient: Maryann Juares 82 y/o F admitted on 05/06/17 for Mesenteric Ischemia, Abdominal Pain, Gastroparesis. Chief Complaint: [] Interval history: Ms. Juares is a 82 year old with a history of recurrent abdominal pain, nausea and vomiting. In the past she has had signs and comes of mesenteric ischemia. She did have stents placed by Dr. Pearce. She was last here for a similar problem from April 08 - April 19. At that time, the consensus was that this was more of a diabetic gastroparesis problem. She failed treatment with Reglan and Zofran, etc. but then she was tried on oral erythromycin with each meal, and seemed to improve, so was discharged back to life care. He tells me that ever since she left though, she still has intermittent abdominal pain, nausea and vomiting, after meals. Today, she ate a piece of toast, and started to have abdominal pain. She then reported for dialysis, but continued to have pain and vomiting. She was sent back to the emergency room for evaluation, where she was found to have an elevated white blood cell count. CT scan shows severe diffuse vascular disease. Otherwise, the patient denies recent fever or chills, headaches or dizziness, new eye or ear symptoms, sore throat or cough. She denies chest pain or palpitations, shortness of breath, or diarrhea. She thinks she has more constipation issues. She denies significant urine output or dysuria. 05/05- Pt doing well, case discussed with Dr Duncan- Dialysis likely tomorrow as labs appear stable per nephrology. Multiple family at bedside. No O/n events, Improved abd pain, no0 Nausea, on clears, Start Dietary consult and ST eval. 05/06-case discussed with surgery. Patient will need upper endoscopy likely in 24 hours. She is a poor candidate for J-tube given severe mesenteric ischemia. Surgeon already started patient on Reglan/erythromycin/ilostazol. surgery recommends keeping patient additional 24-48 hours until further workup. patient has been able to tolerate oral liquids and clears. dietary intervention for high-protein calorie supplements. 05/07- patient status post EGD with no identifiable lesions. Advance diet. Possible discharge in 24 hours on oral erythromycin/Reglan. Patient started on lost cilostazol per surgery. no overnight fever chills nausea vomiting abdominal pain or shortness of breath. no other concerns expressed by nursing staff 05/08: Pt seen examined, s/p fistulogram today, received fentanyl and versed at the IR suite and hence is drowsy post op. Arousable to voice, denies any complaints. Ok to resume diet. 05/09 Pt seen examined, no acute overnight issues, able to tolerate diet well yesterday and this AM, On IV erythromycin so far,will d/c same and see if she is able to keep food down with PO erythromycin, continue surcralfate as well as misopristol. Pertinent ROS: Denies headache, dizziness Denies chest pain, palpitations Denies cough or shortness of breath Denies abdominal pain, nausea or vomiting. - Constitutional Vitals: Vital Signs Temp Pulse Resp BP Pulse Ox 97.9 F 81 16 168/65 97 05/09/17 11:53 05/09/17 11:53 05/09/17 12:00 05/09/17 12:00 05/09/17 05:00 Period Temp Pulse Resp BP Sys/Turner Pulse Ox Last 24 Hr 96.5 F-98.9 F 64-91 12-22 116-194/40-68 93-99 Intake and Output 05/08/17 05/09/17 05/09/17 21:59 05:59 13:59 Intake Total 100 / 100 200 / 200 100 / 100 Output Total 27400 / 06643 Balance 100 / 100 200 / 200 -84318 / -14630 Weight 128 lb 128 lb Intake & Output: Intake & Output 05/08/17 05/09/17 05/09/17 21:59 05:59 13:59 Intake Total 100 / 100 200 / 200 100 / 100 Output Total 26408 / 70777 Balance 100 / 100 200 / 200 -01074 / -45248 Weight 128 lb 128 lb Intake: IV 100 / 100 100 / 100 100 / 100 Erythrocin Lactobionate 100 / 100 100 / 100 100 / 100 250 mg In Sodium Chloride 0.9% 100 ml @ 100 mls/hr IV Q6H [facility] Rx#:[id number] Oral 100 / 100 Output: Hemodialysis UF 73211 / 31550 Other: Meal Applesauce cup Percent of Meal Consumed 100% Feeding Ability Independent # Voids 1 # Bowel Movements 1 Exam: Constitutional; Afebrile, cooperative, alert, not in distress. Eyes- No icterus, , No periorbital swelling Ears- Ext ear normal, hearing normal to conversation. Neck- Midline trachea, supple Respiratory system: Air Entry equal on both sides, No crackles or wheezing, no rhonchi. CVS- Rate rhythm regular, S1,S2 heard, no gallop, no rub. 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 Medical - PN: Obj Da - Labs CBC & Chem 7: 05/09/17 04:25 05/09/17 04:25 Labs: Abnormal Lab Results 05/09/17 05/09/17 05/08/17 04:25 04:25 03:55 WBC 11.6 H RBC 2.93 L Hgb 9.1 L Hct 28.1 L RDW 14.6 H Gran % 81.6 H Lymph % (Auto) 8.7 L Gran # 9.5 H Lymph # (Auto) 1.0 L [place] # (Auto) Creatinine 3.5 H 3.0 H Glucose 161 H 147 H Phosphorus 2.5 L GGT 47 H Total Protein 4.5 L 5.7 L Albumin 2.7 L Globulin 1.8 L 05/08/17 05/07/17 05/07/17 03:55 04:30 04:30 WBC 11.3 H RBC 3.74 L 3.45 L Hgb 11.7 L 10.9 L Hct 33.2 L RDW 14.8 H 14.7 H Gran % Lymph % (Auto) 13.2 L 11.8 L Gran # 8.4 H Lymph # (Auto) 1.1 L [place] # (Auto) 1.0 H Creatinine 2.4 H Glucose 160 H Phosphorus 1.8 L GGT 45 H Total Protein 5.3 L Albumin Globulin 1.9 L Meds: Medications Acetaminophen (Tylenol) 650 mg PO Q6HP PRN PRN Reason: PAIN/FEVER > 101 Hydrocodone Bitart/Acetaminophen ([place] 5/325mg) 1 tab PO Q4HP PRN PRN Reason: Pain Last Admin: 05/09/17 01:15 Dose: 1 tab Aspirin (Aspirin) 81 mg PO QDAY [facility] Last Admin: 05/08/17 09:36 Dose: 81 mg Cilostazol (Pletal) 50 mg PO BIDAC [facility] Last Admin: 05/08/17 17:53 Dose: Not Given Clonidine HCl (Catapres) 0.1 mg PO Q4HP PRN PRN Reason: Hypertension Dextrose (Dextrose 50%) 0 ml IV UD PRN PRN Reason: Hypoglycemia Diagnostic Test (Pha) (Accu-Chek) [address] [facility] Last Admin: 05/09/17 07:23 Dose: 1 each Docusate Sodium (Colace) 100 mg PO BID PRN PRN Reason: Constipation Erythromycin (Erythromycin) 250 mg PO Q6HP [facility] Famotidine (Pepcid) 20 mg IV Q12 [facility] Last Admin: 05/08/17 22:25 Dose: 20 mg Gabapentin (Neurontin) 100 mg PO BID [facility] Last Admin: 05/08/17 22:27 Dose: Not Given Hydromorphone HCl (Dilaudid) 0.5 mg IV Q2HP PRN PRN Reason: Pain Insulin Human Lispro (Humalog) 0 unit SQ [facility] PRN Reason: Protocol Last Admin: 05/09/17 07:24 Dose: Not Given Isosorbide Mononitrate (Imdur) 60 mg PO HS [facility] Last Admin: 05/08/17 22:26 Dose: Not Given Lisinopril (Zestril) 5 mg PO DAILY [facility] Last Admin: 05/08/17 09:18 Dose: 5 mg Magnesium Hydroxide (Milk Of Magnesia) 30 ml PO DAILYP PRN PRN Reason: Constipation Metoclopramide HCl (Reglan) 10 mg PO [facility] Last Admin: 05/09/17 07:24 Dose: 10 mg Misoprostol (Cytotec) 100 mcg PO TIDCC [facility] Last Admin: 05/08/17 17:53 Dose: Not Given Naloxone HCl (Narcan) 0.1 mg IV Q2MIN PRN PRN Reason: Opiate Reversal Ondansetron HCl (Zofran) 4 mg IV Q6HP PRN PRN Reason: Nausea And Vomiting Last Admin: 05/07/17 16:49 Dose: 4 mg Pantoprazole Sodium (Protonix) 40 mg IV Q12H [facility] Last Admin: 05/09/17 05:35 Dose: 40 mg Sodium Chloride (Saline Flush) 10 ml IV Q8 [facility] Last Admin: 05/09/17 05:42 Dose: 10 ml Sucralfate (Carafate) 1 gm PO ACHS [facility] Last Admin: 05/09/17 07:23 Dose: 1 gm Medical - PN: A/P - Time Spent With Patient Total time spent is greater than 50% in coordination of care (as documented) at patient's floor/unit and/or counseling patient: - Narrative A/P Narrative: a/P Acute recurrent nausea and vomiting: due to mesenteric ischemia vs gastroparesis. Patient pain free presently. On asa, statin, as well as pletal, also on misoprostol and sucralfate. s/p stenting by Dr Pearce, as per previous documentation no further intervention. Diabetic Gastroparesis. : on reglan and erythromycin, continue same. s/p egd yesterday which was negative. able to tolerate diet well, swich from IV to oral erythromycin, if able to tolerate well can d/c back to snf. ESRD on HD, followed by Dr Duncan. HD Today. DM on sliding scale insulin, continue same, glucose at goal. HTN better today, prn clonidine if bp goes up. Neuropathy on gabapentin, continue same. Extensive PVD on isosorbide, and asa, statin, pletal, medical management for now. Full code DVT hep sq Diet Renal e Medical - PN: Qual - VTE Deep Vein Thrombosis/Pulmonary Embolism Present on Admission: No
[2017-05-09] MEDS ORDERED: ERYTHROMYCIN LACTOBIONATE 250 MG in 0.9 % SODIUM CHLORIDE 100 ML IV SCH (14:00)
[2017-05-09] MEDS: GABAPENTIN 100 MG CAPSULE PO SCH ×2 (14:27→20:40)
[2017-05-09] MEDS: FAMOTIDINE/PF 20 MG/2 ML VIAL IV SCH ×2 (14:28→22:17)
[2017-05-09] MEDS: LISINOPRIL 5 MG TABLET PO SCH (14:28)
[2017-05-09] MEDS: ASPIRIN 81 MG TAB.CHEW PO SCH (14:28)
[2017-05-09] MEDS: MISOPROSTOL 100 MCG TABLET PO SCH ×3 (14:29→17:44)
[2017-05-09] MEDS: CILOSTAZOL 100 MG TABLET PO SCH ×2 (15:18→18:24)
[2017-05-09] MEDS: DRONABINOL 2.5 MG CAPSULE PO SCH ×2 (15:19→20:40)
[2017-05-09] MEDS: ISOSORBIDE MONONITRATE 60 MG TAB.XL.24H PO SCH (20:40)
[2017-05-10] MEDS: 0.9 % SODIUM CHLORIDE 10 ML SYRINGE IV SCH ×3 (05:41→20:30)
[2017-05-10] MEDS: PANTOPRAZOLE 40 MG VIAL IV SCH ×2 (05:41→17:12)
[2017-05-10 06:21] LABS: Basophils # (Auto) 0 K/mcL (0.0-0.3); Basophils % (Auto) 0.1 % (0.0-2.0); Eosinophils # (Auto) 0.1 K/mcL (0.0-0.7); Eosinophils % (Auto) 0.9 % (0.0-7.0); Granulocytes % (Auto) 87.9 % (38.0-78.0); Lymphocytes # (Auto) 0.7 K/mcL (1.5-4.8); Mean Cell Volume 96.4 fL (80.0-100.0); Mean Corpuscular HGB Conc 32.8 g/dL (31.0-36.0); Mean Corpuscular Hemoglobin 31.6 pg (26.0-34.0); Monocytes # (Auto) 1.2 K/mcL (0.1-0.9); Monocytes % (Auto) 7.1 % (1.0-12.0); Platelet Count 188 K/mcL (140-440); Red Cell Distribution Width 15.2 % (11.5-14.5)
[2017-05-10 06:48] LABS: ALT/SGPT 6 U/l (0-40); Albumin 3.3 gm/dL (3.2-5.2); Albumin/Globulin Ratio 1.5 (1.0-2.3); Alkaline Phosphatase 69 U/L (39-117); Bilirubin,Direct < 0.2 mg/dL (0.0-0.3); Blood Urea Nitrogen 9 mg/dl (8-23); Gamma Glutamyl Transpeptidase 36 U/L (5-36); Magnesium 1.6 mg/dL (1.6-2.5); Uric Acid 2.9 mg/dL (2.5-8.0)
[2017-05-10] MEDS: SUCRALFATE 1 GM TABLET PO SCH ×5 (07:39→21:05)
[2017-05-10] MEDS: INSULIN LISPRO 1 UNIT/0.01 ML UNIT SQ SCH ×4 (07:39→20:32)
[2017-05-10] MEDS: METOCLOPRAMIDE 10 MG TABLET PO SCH ×4 (07:39→20:31)
[2017-05-10] MEDS: CILOSTAZOL 100 MG TABLET PO SCH ×2 (07:39→17:12)
[2017-05-10] MEDS: MISOPROSTOL 100 MCG TABLET PO SCH ×3 (08:15→17:12)
--- NOTE | 2017-05-10 08:23 | XRay Report ---
CLINICAL INFORMATION: Chest pain. Mesenteric ischemia. TECHNIQUE: AP portable chest x-ray COMPARISON: Chest x-rays dated 04/10/2017, 02/01/2017, 09/24/2016 FINDINGS: Previous median sternotomy. Multiple surgical clips are present. There is cardiomegaly, unchanged. Pulmonary vascularity is prominent consistent pulmonary congestion. There is bronchial wall thickening which appears chronic. There is a small right pleural effusion and mild right basilar atelectasis or infiltrate. Findings may be due to mild congestive heart failure. Pneumonia is possible. IMPRESSION: 1. Cardiomegaly and pulmonary congestion 2. Small right basilar infiltrate and small effusion. Findings may be due to congestive heart failure or pneumonia Interpreted and Authenticated by: Solomon Sanford 05/10/17
[2017-05-10] MEDS ORDERED: VANCOMYCIN PER PHARMACY IV SCH (09:18)
[2017-05-10] MEDS: ASPIRIN 81 MG TAB.CHEW PO SCH (10:15)
[2017-05-10] MEDS: LISINOPRIL 5 MG TABLET PO SCH (10:15)
[2017-05-10] MEDS: GABAPENTIN 100 MG CAPSULE PO SCH ×3 (10:17→21:05)
[2017-05-10] MEDS: DRONABINOL 2.5 MG CAPSULE PO SCH ×4 (10:17→21:05)
[2017-05-10] MEDS: FAMOTIDINE/PF 20 MG/2 ML VIAL IV SCH ×2 (10:17→20:32)
[2017-05-10] MEDS: PIPERACILLIN SODIUM/TAZOBACTAM 2.25 GM in DEXTROSE 5% IN WATER 50 ML IV SCH ×2 (10:51→23:00)
--- NOTE | 2017-05-10 14:57 | General Surgery Progress Note ---
Subjective Patient reports: feels better, pain is less, tolerating a regular diet, flatus, bowel movement, afebrile Narrative: Note initiated : 05/10/17 at 2:56 pm Service Date, if different from initiated Date: [] Patient: Maryann Juares 82 y/o F admitted on 05/06/17 for Mesenteric Ischemia, Abdominal Pain, Gastroparesis. Chief Complaint: [Patient is doing better. She has not complained of abdominal pain. She is taking in much more medication and has eaten significant portion of her diet without nausea or vomiting. She has had periods of confusion which usually occurs at night. It was noted that her white blood count was elevated so a chest x-ray was done. This shows a small effusion on the right with possible atelectasis or infiltrate. She has been afebrile. It has been elected to keep her and treat her for possible pneumonitis. This may just represent effusion with atelectasis rather than pneumonitis. She will need follow-up chest x-rays. With regard to her abdominal symptoms she is probably back to baseline and can be discharged whenever her pulmonary picture has cleared. Her family is advised that marijuana products would be good for to control her pain and her nausea and increase her appetite. They will look into purchasing this locally when she goes to the nursing facility.] Objective Temp Pulse Resp BP Pulse Ox 98.2 F 82 16 151/62 93 05/10/17 08:00 05/10/17 08:00 05/10/17 08:00 05/10/17 08:00 05/10/17 08:00 - Additional Data Intake & Output - Last 24 hours: Intake & Output 05/08/17 05/09/17 05/10/17 05/11/17 05:59 05:59 05:59 05:59 Intake Total 994 / 994 880 / 880 500 / 500 170 / 170 Output Total 27376 / 51546 Balance 994 / 994 880 / 880 -85751 / -27965 169 / 169 Weight 122 lb 128 lb 124 lb - General physical appearance no distress, no pain - Eyes PERRL - ENT no congestion - Neck no venous distension - Respiratory other (Lungs actually sound good; breath sounds at the right base are unremarkable and not different than on the left side. She does not have any rales rhonchi or wheezes) - Cardiovascular Cardiovascular exam: Present: irregular rhythm, +S1, +S2. Absent: JVD - Abdomen soft, non tender, bowel sounds (Abdomen is soft and nondistended; she does not have any tenderness; she has good active bowel sounds), distended - Integumentary no rash, no growths, no abnormal pigmentation - Neurologic normal coordination, normal sensation - Psychiatric oriented to time, oriented to person, oriented to place, speech is normal, memory intact, other (Memory and orientation is intermittently confused at night ) - Labs 05/10/17 05:05 05/10/17 05:05 Diabetes panel 05/10/17 Range/Units 05:05 Sodium 137 (133-145) mmol/L Potassium 3.6 (3.3-5.1) mmol/L Chloride 96 (96-108) mmol/L Carbon Dioxide 26 (22-30) mmol/L BUN 9 (8-23) mg/dl Creatinine 2.6 H (0.6-1.1) mg/dl Glucose 116 H (70-105) mg/dL Calcium 9.7 (8.6-10.4) mg/dl AST 12 (0-37) U/l ALT 6 (0-40) U/l Alkaline Phosphatase 69 (39-117) U/L Total Protein 5.5 L (5.9-8.4) gm/dL Albumin 3.3 (3.2-5.2) gm/dL Triglycerides 102 (<150) mg/dl Calcium panel 05/10/17 Range/Units 05:05 Calcium 9.7 (8.6-10.4) mg/dl Phosphorus 2.4 L (2.7-4.5) mg/dL Albumin 3.3 (3.2-5.2) gm/dL Pituitary panel 05/10/17 Range/Units 05:05 Sodium 137 (133-145) mmol/L Potassium 3.6 (3.3-5.1) mmol/L Chloride 96 (96-108) mmol/L Carbon Dioxide 26 (22-30) mmol/L BUN 9 (8-23) mg/dl Creatinine 2.6 H (0.6-1.1) mg/dl Glucose 116 H (70-105) mg/dL Calcium 9.7 (8.6-10.4) mg/dl Adrenal panel 05/10/17 Range/Units 05:05 Sodium 137 (133-145) mmol/L Potassium 3.6 (3.3-5.1) mmol/L Chloride 96 (96-108) mmol/L Carbon Dioxide 26 (22-30) mmol/L BUN 9 (8-23) mg/dl Creatinine 2.6 H (0.6-1.1) mg/dl Glucose 116 H (70-105) mg/dL Calcium 9.7 (8.6-10.4) mg/dl Total Bilirubin 0.3 (0.0-1.0) mg/dL AST 12 (0-37) U/l ALT 6 (0-40) U/l Alkaline Phosphatase 69 (39-117) U/L Total Protein 5.5 L (5.9-8.4) gm/dL Albumin 3.3 (3.2-5.2) gm/dL Assessment and Plan (1) Chronic mesenteric ischemia Status: Acute Assessment and plan: Patient is stable and is asymptomatic at this time. Nursing advised to try to encourage better p.o. intake Current Visit: No (2) Diabetes mellitus, insulin dependent (IDDM), controlled Status: Acute Current Visit: No (3) End-stage renal disease needing dialysis Problem details: 1. End-stage renal disease on hemodialysis. She will have dialysis today and will attempt to remove 2 to 3 kilos of fluid as tolerated. 2. Nausea, vomiting: Probably related to diabetic gastroparesis or intestinal ischemia. On Reglan. Status: Acute Current Visit: No (4) Gastroparesis Status: Acute Assessment and plan: Patient is stable and has not had any nausea. Will try to encourage p.o. intake. Current Visit: No - Time Spent With Patient Total time spent is greater than 50% in coordination of care (as documented) at patient's floor/unit and/or counseling patient:
--- NOTE | 2017-05-10 15:02 | Internal Med Progress Note ---
Medical - PN: Subj Patient information: Note initiated : 05/10/17 at 2:58 pm Service Date, if different from initiated Date: [] Patient: Maryann Juares 82 y/o F admitted on 05/06/17 for Mesenteric Ischemia, Abdominal Pain, Gastroparesis. Chief Complaint: [] Interval history: Ms. Juares is a 82 year old with a history of recurrent abdominal pain, nausea and vomiting. In the past she has had signs and comes of mesenteric ischemia. She did have stents placed by Dr. Pearce. She was last here for a similar problem from April 08 - April 19. At that time, the consensus was that this was more of a diabetic gastroparesis problem. She failed treatment with Reglan and Zofran, etc. but then she was tried on oral erythromycin with each meal, and seemed to improve, so was discharged back to life care. He tells me that ever since she left though, she still has intermittent abdominal pain, nausea and vomiting, after meals. Today, she ate a piece of toast, and started to have abdominal pain. She then reported for dialysis, but continued to have pain and vomiting. She was sent back to the emergency room for evaluation, where she was found to have an elevated white blood cell count. CT scan shows severe diffuse vascular disease. Otherwise, the patient denies recent fever or chills, headaches or dizziness, new eye or ear symptoms, sore throat or cough. She denies chest pain or palpitations, shortness of breath, or diarrhea. She thinks she has more constipation issues. She denies significant urine output or dysuria. 05/05- Pt doing well, case discussed with Dr Duncan- Dialysis likely tomorrow as labs appear stable per nephrology. Multiple family at bedside. No O/n events, Improved abd pain, no0 Nausea, on clears, Start Dietary consult and ST eval. 05/06-case discussed with surgery. Patient will need upper endoscopy likely in 24 hours. She is a poor candidate for J-tube given severe mesenteric ischemia. Surgeon already started patient on Reglan/erythromycin/ilostazol. surgery recommends keeping patient additional 24-48 hours until further workup. patient has been able to tolerate oral liquids and clears. dietary intervention for high-protein calorie supplements. 05/07- patient status post EGD with no identifiable lesions. Advance diet. Possible discharge in 24 hours on oral erythromycin/Reglan. Patient started on lost cilostazol per surgery. no overnight fever chills nausea vomiting abdominal pain or shortness of breath. no other concerns expressed by nursing staff 05/08: Pt seen examined, s/p fistulogram today, received fentanyl and versed at the IR suite and hence is drowsy post op. Arousable to voice, denies any complaints. Ok to resume diet. 05/09 Pt seen examined, no acute overnight issues, able to tolerate diet well yesterday and this AM, On IV erythromycin so far,will d/c same and see if she is able to keep food down with PO erythromycin, continue surcralfate as well as misopristol. 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 D1 today Patient mildly confused as per son today, but looks stable. Denies any other issues. Given that Oral erythromycin was not available, she is on Oral marinol for this time to evaluate her response to same. Discussed with the family the overall poor prognosis given no further intervention is possible, and continued weakness due to inability to keep food down. Son and daughter in law seem to understand. Pertinent ROS: Denies headache, dizziness Denies chest pain, palpitations Denies cough or shortness of breath Present abdominal pain this AM but no nausea or vomiting. - Constitutional Vitals: Vital Signs Temp Pulse Resp BP Pulse Ox 98.2 F 82 16 151/62 93 05/10/17 08:00 05/10/17 08:00 05/10/17 08:00 05/10/17 08:00 05/10/17 08:00 Period Temp Pulse Resp BP Sys/Turner Pulse Ox Last 24 Hr 97.0 F-98.5 F 73-90 15-20 133-172/54-72 91-93 Intake and Output 05/10/17 05/10/17 05/10/17 05:59 13:59 21:59 Intake Total 400 / 400 50 / 50 120 / 120 Output Total 1 / Balance 400 / 400 50 / 50 119 / 119 Intake & Output: Intake & Output 05/10/17 05/10/17 05/10/17 05:59 13:59 21:59 Intake Total 400 / 400 50 / 50 120 / 120 Output Total / Balance 400 / 400 50 / 50 119 / 119 Intake: IV 50 / 50 Zosyn 2.25 gm In Dextrose 50 / 50 5% in Water 50 ml @ 100 mls/hr IV Q12H [facility] Rx#: [id number] Oral 400 / 400 120 / 120 Output: # of times incontinent of 1 / urine Other: Meal Breakfast Lunch Percent of Meal Consumed Refused 50% Feeding Ability Independent # of times incontinent of 1 Bowels Exam: Constitutional; Afebrile, cooperative, alert, not in distress. Eyes- No icterus, , No periorbital swelling Ears- Ext ear normal, hearing normal to conversation. Neck- Midline trachea, supple Respiratory system: Air Entry equal on both sides, No wheezing, no rhonchi. Left basilar crackle CVS- Rate rhythm regular, S1,S2 heard, no gallop, no rub. Abdomen- Soft nontender abdomen, no organomegaly, no tenderness, no guarding or rigidity, RANGE SCIENTIST- AOOx2, moving all extremities, no gross focal deficit noted. Medical - PN: Obj Da - Labs CBC & Chem 7: 05/10/17 05:05 05/10/17 05:05 Labs: Abnormal Lab Results 05/10/17 05/10/17 05/09/17 05:05 05:05 04:25 WBC 16.6 H RBC 3.20 L Hgb 10.1 L Hct 30.9 L RDW 15.2 H Gran % 87.9 H Lymph % (Auto) 4.0 L Gran # 14.6 H Lymph # (Auto) 0.7 L Bartholomew # (Auto) 1.2 H Creatinine 2.6 H 3.5 H Glucose 116 H 161 H Phosphorus 2.4 L GGT Total Protein 5.5 L 4.5 L Albumin 2.7 L Globulin 1.8 L 05/09/17 05/08/17 05/08/17 04:25 03:55 03:55 WBC 11.6 H 11.3 H RBC 2.93 L 3.74 L Hgb 9.1 L 11.7 L Hct 28.1 L RDW 14.6 H 14.8 H Gran % 81.6 H Lymph % (Auto) 8.7 L 13.2 L Gran # 9.5 H 8.4 H Lymph # (Auto) 1.0 L Bartholomew # (Auto) 1.0 H Creatinine 3.0 H Glucose 147 H Phosphorus 2.5 L GGT 47 H Total Protein 5.7 L Albumin Globulin Meds: Medications Acetaminophen (Tylenol) 650 mg PO Q6HP PRN PRN Reason: PAIN/FEVER > 101 Hydrocodone Bitart/Acetaminophen ([place] 5/325mg) 1 tab PO Q4HP PRN PRN Reason: Pain Last Admin: 05/09/17 01:15 Dose: 1 tab Aspirin (Aspirin) 81 mg PO QDAY [facility] Last Admin: 05/10/17 10:15 Dose: 81 mg Cilostazol (Pletal) 50 mg PO BIDAC [facility] Last Admin: 05/10/17 07:39 Dose: Not Given Clonidine HCl (Catapres) 0.1 mg PO Q4HP PRN PRN Reason: Hypertension Dextrose (Dextrose 50%) 0 ml IV UD PRN PRN Reason: Hypoglycemia Diagnostic Test (Pha) (Accu-Chek) 1 each FS ACHS [facility] Last Admin: 05/10/17 12:27 Dose: 1 each Docusate Sodium (Colace) 100 mg PO BID PRN PRN Reason: Constipation Dronabinol (Marinol) 5 mg PO TID [facility] Last Admin: 05/10/17 10:17 Dose: Not Given Famotidine (Pepcid) 20 mg IV Q12 [facility] Last Admin: 05/10/17 10:17 Dose: Not Given Gabapentin (Neurontin) 100 mg PO BID [facility] Last Admin: 05/10/17 10:17 Dose: Not Given Hydromorphone HCl (Dilaudid) 0.5 mg IV Q2HP PRN PRN Reason: Pain Piperacillin Sod/Tazobactam (Sod 2.25 gm/ Dextrose) 50 mls @ 100 mls/hr IV Q12H [facility] Last Infusion: 05/10/17 11:21 Dose: Infused Insulin Human Lispro (Humalog) 0 unit SQ [facility] PRN Reason: Protocol Last Admin: 05/10/17 12:27 Dose: Not Given Isosorbide Mononitrate (Imdur) 60 mg PO HS [facility] Last Admin: 05/09/17 20:40 Dose: Not Given Lisinopril (Zestril) 5 mg PO DAILY [facility] Last Admin: 05/10/17 10:15 Dose: 5 mg Magnesium Hydroxide (Milk Of Magnesia) 30 ml PO DAILYP PRN PRN Reason: Constipation Metoclopramide HCl (Reglan) 10 mg PO ACHS [facility] Last Admin: 05/10/17 12:28 Dose: Not Given Misoprostol (Cytotec) 100 mcg PO TIDCC [facility] Last Admin: 05/10/17 12:28 Dose: Not Given Naloxone HCl (Narcan) 0.1 mg IV Q2MIN PRN PRN Reason: Opiate Reversal Ondansetron HCl (Zofran) 4 mg IV Q6HP PRN PRN Reason: Nausea And Vomiting Last Admin: 05/07/17 16:49 Dose: 4 mg Pantoprazole Sodium (Protonix) 40 mg IV Q12H [facility] Last Admin: 05/10/17 05:41 Dose: 40 mg Sodium Chloride (Saline Flush) 10 ml IV Q8 [facility] Last Admin: 05/10/17 05:41 Dose: 10 ml Sucralfate (Carafate) 1 gm PO ACHS [facility] Last Admin: 05/10/17 12:27 Dose: Not Given Vancomycin HCl (Vancomycin Per Pharmacy) 1 order IV ONCE ONE Stop: 05/10/17 09:19 Medical - PN: A/P - Time Spent With Patient Total time spent is greater than 50% in coordination of care (as documented) at patient's floor/unit and/or counseling patient: - Narrative A/P Narrative: a/P Acute recurrent nausea and vomiting: due to mesenteric ischemia vs gastroparesis. Patient pain free presently. On asa, statin, as well as pletal, also on misoprostol and sucralfate. s/p stenting by Dr Pearce, as per previous documentation no further intervention. Mesentreric ischemia: intermittent pain in abdomen. on dual antiplatlet agents as well as statin. continue same. Diabetic Gastroparesis. : on reglan and marinol for now. see how she does on these. Given that we cannot discharge her on IV erythromycin , marinol was chose to evaluate her response. Health care associated pneumonia: IV vanco and Zosyn for now, await blood and sputum cultures. on room air at this time. afebrile. ESRD on HD, followed by Dr Duncan. HD Today. DM on sliding scale insulin, continue same, glucose at goal. HTN better today, prn clonidine if bp goes up. Neuropathy on gabapentin, continue same. Extensive PVD on isosorbide, and asa, statin, pletal, medical management for now. Full code DVT hep sq Diet Renal e Medical - PN: Qual - VTE Deep Vein Thrombosis/Pulmonary Embolism Present on Admission: No
[2017-05-10] MEDS ORDERED: VANCOMYCIN 1,000 MG in 0.9 % SODIUM CHLORIDE 250 ML IV ONE (16:00)
[2017-05-10] MEDS: HYDROcodone/APAP 5/325MG TABLET PO PRN (20:29)
[2017-05-10] MEDS: ISOSORBIDE MONONITRATE 60 MG TAB.XL.24H PO SCH ×2 (20:31→21:05)
[2017-05-11] MEDS: PANTOPRAZOLE 40 MG VIAL IV SCH ×2 (06:01→18:00)
[2017-05-11] MEDS: 0.9 % SODIUM CHLORIDE 10 ML SYRINGE IV SCH ×3 (06:01→21:22)
[2017-05-11] MEDS: GABAPENTIN 100 MG CAPSULE PO SCH ×2 (07:45→21:36)
[2017-05-11] MEDS: METOCLOPRAMIDE 10 MG TABLET PO SCH ×4 (07:45→21:36)
[2017-05-11] MEDS: INSULIN LISPRO 1 UNIT/0.01 ML UNIT SQ SCH ×4 (07:46→21:49)
[2017-05-11] MEDS: SUCRALFATE 1 GM TABLET PO SCH ×4 (07:46→21:36)
[2017-05-11] MEDS: MISOPROSTOL 100 MCG TABLET PO SCH ×3 (07:47→17:52)
[2017-05-11] MEDS: DRONABINOL 2.5 MG CAPSULE PO SCH ×3 (07:47→21:36)
[2017-05-11] MEDS: FAMOTIDINE/PF 20 MG/2 ML VIAL IV SCH ×3 (07:48→21:22)
[2017-05-11] MEDS: LISINOPRIL 5 MG TABLET PO SCH (07:48)
[2017-05-11] MEDS: ASPIRIN 81 MG TAB.CHEW PO SCH (07:48)
[2017-05-11] MEDS: CILOSTAZOL 100 MG TABLET PO SCH ×2 (08:16→17:52)
[2017-05-11] MEDS: PIPERACILLIN SODIUM/TAZOBACTAM 2.25 GM in DEXTROSE 5% IN WATER 50 ML IV SCH ×2 (10:15→21:49)
--- NOTE | 2017-05-11 13:21 | General Surgery Progress Note ---
Subjective Patient reports: feels better, pain is less, tolerating a regular diet, flatus, bowel movement, afebrile Narrative: Note initiated : 05/11/17 at 1:19 pm Service Date, if different from initiated Date: [] Patient: Maryann Juares 82 y/o F admitted on 05/06/17 for Mesenteric Ischemia, Abdominal Pain, Gastroparesis. Chief Complaint: [Patient is stable except for nocturnal confusion. She has been incontinent of stool and urine during the night. She does not complain of shortness of breath or chest pain. She is eating well and has no complaints of abdominal discomfort. She remains afebrile. Her labs for today are pending. ] Objective Temp Pulse Resp BP Pulse Ox 97.7 F 84 20 148/57 91 05/11/17 12:20 05/11/17 12:54 05/11/17 08:06 05/11/17 12:54 05/11/17 08:06 - Additional Data Intake & Output - Last 24 hours: Intake & Output 05/09/17 05/10/17 05/11/17 05/12/17 05:59 05:59 05:59 05:59 Intake Total 880 / 880 500 / 500 520 / 520 120 / 120 Output Total 77927 / 65359 610 / 610 Balance 880 / 880 -55296 / -41670 519 / 519 -490 / -490 Weight 128 lb 124 lb 129 lb 8 oz 129 lb 8 oz - General physical appearance no distress, no pain - Eyes PERRL - ENT no congestion - Neck no venous distension - Respiratory clear to auscultation - Cardiovascular Cardiovascular exam: Present: irregular rhythm, +S1, +S2, systolic murmur. Absent: JVD - Abdomen soft, non tender, bowel sounds, distended (Abdomen is benign. She does not have any tenderness. She has good active bowel sounds.) - Integumentary no rash, no growths, no abnormal pigmentation - Psychiatric other (Intermittently confused) - Labs 05/10/17 05:05 05/10/17 05:05 Assessment and Plan (1) Chronic mesenteric ischemia Status: Acute Assessment and plan: Patient is stable and is asymptomatic at this time. Nursing advised to try to encourage better p.o. intake Current Visit: No (2) Diabetes mellitus, insulin dependent (IDDM), controlled Status: Acute Current Visit: No (3) End-stage renal disease needing dialysis Problem details: 1. End-stage renal disease on hemodialysis. She will have dialysis today and will attempt to remove 2 to 3 kilos of fluid as tolerated. 2. Nausea, vomiting: Probably related to diabetic gastroparesis or intestinal ischemia. On Reglan. Status: Acute Current Visit: No (4) Gastroparesis Status: Acute Assessment and plan: Patient is stable and has not had any nausea. Will try to encourage p.o. intake. Current Visit: No - Time Spent With Patient Total time spent is greater than 50% in coordination of care (as documented) at patient's floor/unit and/or counseling patient:
[2017-05-11 13:33] LABS: Basophils # (Auto) 0 K/mcL (0.0-0.3); Basophils % (Auto) 0.2 % (0.0-2.0); Eosinophils # (Auto) 0.1 K/mcL (0.0-0.7); Eosinophils % (Auto) 0.7 % (0.0-7.0); Granulocytes % (Auto) 87.6 % (38.0-78.0); Lymphocytes # (Auto) 0.7 K/mcL (1.5-4.8); Lymphocytes % (Auto) 4.5 % (15.5-49.0); Mean Corpuscular HGB Conc 32.1 g/dL (31.0-36.0); Mean Corpuscular Hemoglobin 30.8 pg (26.0-34.0); Monocytes # (Auto) 1.1 K/mcL (0.1-0.9); Platelet Count 211 K/mcL (140-440); RBC 3.34 M/mcL (4.00-5.20); Red Cell Distribution Width 14.7 % (11.5-14.5)
[2017-05-11 13:53] LABS: ALT/SGPT 6 U/l (0-40); Albumin 3.3 gm/dL (3.2-5.2); Albumin/Globulin Ratio 1.4 (1.0-2.3); Alkaline Phosphatase 68 U/L (39-117); Bilirubin,Direct < 0.2 mg/dL (0.0-0.3); Blood Urea Nitrogen 17 mg/dl (8-23); Gamma Glutamyl Transpeptidase 36 U/L (5-36); Magnesium 1.6 mg/dL (1.6-2.5); Uric Acid 3.6 mg/dL (2.5-8.0)
--- NOTE | 2017-05-11 15:33 | Internal Med Progress Note ---
Medical - PN: Subj Patient information: Note initiated : 05/11/17 at 3:31 pm Service Date, if different from initiated Date: [] Patient: Maryann Juares 82 y/o F admitted on 05/06/17 for Mesenteric Ischemia, Abdominal Pain, Gastroparesis. Chief Complaint: confusion/n/v Interval history: Ms. Juares is a 82 year old with a history of recurrent abdominal pain, nausea and vomiting. In the past she has had signs and comes of mesenteric ischemia. She did have stents placed by Dr. Pearce. She was last here for a similar problem from April 08 - April 19. At that time, the consensus was that this was more of a diabetic gastroparesis problem. She failed treatment with Reglan and Zofran, etc. but then she was tried on oral erythromycin with each meal, and seemed to improve, so was discharged back to life care. He tells me that ever since she left though, she still has intermittent abdominal pain, nausea and vomiting, after meals. Today, she ate a piece of toast, and started to have abdominal pain. She then reported for dialysis, but continued to have pain and vomiting. She was sent back to the emergency room for evaluation, where she was found to have an elevated white blood cell count. CT scan shows severe diffuse vascular disease. Otherwise, the patient denies recent fever or chills, headaches or dizziness, new eye or ear symptoms, sore throat or cough. She denies chest pain or palpitations, shortness of breath, or diarrhea. She thinks she has more constipation issues. She denies significant urine output or dysuria. 05/05- Pt doing well, case discussed with Dr Duncan- Dialysis likely tomorrow as labs appear stable per nephrology. Multiple family at bedside. No O/n events, Improved abd pain, no0 Nausea, on clears, Start Dietary consult and ST eval. 05/06-case discussed with surgery. Patient will need upper endoscopy likely in 24 hours. She is a poor candidate for J-tube given severe mesenteric ischemia. Surgeon already started patient on Reglan/erythromycin/ilostazol. surgery recommends keeping patient additional 24-48 hours until further workup. patient has been able to tolerate oral liquids and clears. dietary intervention for high-protein calorie supplements. 05/07- patient status post EGD with no identifiable lesions. Advance diet. Possible discharge in 24 hours on oral erythromycin/Reglan. Patient started on lost cilostazol per surgery. no overnight fever chills nausea vomiting abdominal pain or shortness of breath. no other concerns expressed by nursing staff 05/08: Pt seen examined, s/p fistulogram today, received fentanyl and versed at the IR suite and hence is drowsy post op. Arousable to voice, denies any complaints. Ok to resume diet. 05/09 Pt seen examined, no acute overnight issues, able to tolerate diet well yesterday and this AM, On IV erythromycin so far,will d/c same and see if she is able to keep food down with PO erythromycin, continue surcralfate as well as misopristol. 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 D1 today Patient mildly confused as per son today, but looks stable. Denies any other issues. Given that Oral erythromycin was not available, she is on Oral marinol for this time to evaluate her response to same. Discussed with the family the overall poor prognosis given no further intervention is possible, and continued weakness due to inability to keep food down. Son and daughter in law seem to understand. 05/11: Had some confusion overnight. Was incontinent of stool and urine overnight. Still seems slower than baseline when moving today. Having HD today. Cont to encourage po intake. Pertinent ROS: ROS: pt denies significant pain. No fever. - Constitutional Vitals: Vital Signs Temp Pulse Resp BP Pulse Ox 98.3 F 94 H 20 204/55 91 05/11/17 15:11 05/11/17 15:11 05/11/17 08:06 05/11/17 15:11 05/11/17 08:06 Period Temp Pulse Resp BP Sys/Turner Pulse Ox Last 24 Hr 97.2 F-98.4 F 47-98 16-20 100-204/50-102 91-95 Intake and Output 05/11/17 05/11/17 05/11/17 05:59 13:59 21:59 Intake Total 350 / 350 480 / 480 Output Total 4787 / 4787 80282 / 73255 Balance 350 / 350 -4307 / -4307 -85952 / -87883 Weight 129 lb 8 oz Patient Weight 05/12/17 05:59 Weight 129 lb 8 oz Intake & Output: Intake & Output 05/11/17 05/11/17 05/11/17 05:59 13:59 21:59 Intake Total 350 / 350 480 / 480 Output Total 4787 / 4787 00354 / 46572 Balance 350 / 350 -4307 / -4307 -97763 / -64871 Weight 129 lb 8 oz Intake: IV 50 / 50 Zosyn 2.25 gm In Dextrose 50 / 50 5% in Water 50 ml @ 100 mls/hr IV Q12H [facility] Rx#: [id number] Oral 300 / 300 480 / 480 Output: Hemodialysis UF 4787 / 4787 32657 / 68208 Other: Meal Breakfast Percent of Meal Consumed 50% # Voids 1 1 # Emeses 0 General appearance: no acute distress Exam: slow to answer questions. Needs cueing to move walker so she can transfer from chair to bed. - Respiratory Respiratory exam: Present: CTAB. Absent: accessory muscle use - Cardiovascular Cardiovascular exam: Present: normal rate and rhythm, systolic murmur - GI/Abdominal GI/Abdominal exam: Present: normal bowel sounds, soft. Absent: tenderness - Extremities Exam Additional comments: volume overloaded with edema in all 4 extremities - Neurological Exam Neurological exam: Present: alert Additional comments: slow to answer questions. No focal deficits. Medical - PN: Obj Da - Labs CBC & Chem 7: 05/11/17 12:29 05/11/17 12:29 Labs: Abnormal Lab Results 05/11/17 05/11/17 05/10/17 12:29 12:29 05:05 WBC 16.2 H RBC 3.34 L Hgb 10.3 L Hct 32.1 L RDW 14.7 H Gran % 87.6 H Lymph % (Auto) 4.5 L Gran # 14.2 H Lymph # (Auto) 0.7 L Flagler # (Auto) 1.1 H Potassium 3.1 L Chloride 94 L Creatinine 3.6 H 2.6 H Glucose 187 H 116 H Phosphorus 2.4 L 2.4 L Total Protein 5.7 L 5.5 L Albumin Globulin 05/10/17 05/09/17 05/09/17 05:05 04:25 04:25 WBC 16.6 H 11.6 H RBC 3.20 L 2.93 L Hgb 10.1 L 9.1 L Hct 30.9 L 28.1 L RDW 15.2 H 14.6 H Gran % 87.9 H 81.6 H Lymph % (Auto) 4.0 L 8.7 L Gran # 14.6 H 9.5 H Lymph # (Auto) 0.7 L 1.0 L Flagler # (Auto) 1.2 H Potassium Chloride Creatinine 3.5 H Glucose 161 H Phosphorus Total Protein 4.5 L Albumin 2.7 L Globulin 1.8 L Meds: Medications Acetaminophen (Tylenol) 650 mg PO Q6HP PRN PRN Reason: PAIN/FEVER > 101 Hydrocodone Bitart/Acetaminophen ([place] 5/325mg) 1 tab PO Q4HP PRN PRN Reason: Pain Last Admin: 05/10/17 20:29 Dose: 1 tab Aspirin (Aspirin) 81 mg PO QDAY [facility] Last Admin: 05/11/17 07:48 Dose: Not Given Cilostazol (Pletal) 50 mg PO BIDAC [facility] Last Admin: 05/11/17 08:16 Dose: 50 mg Clonidine HCl (Catapres) 0.1 mg PO Q4HP PRN PRN Reason: Hypertension Dextrose (Dextrose 50%) 0 ml IV UD PRN PRN Reason: Hypoglycemia Diagnostic Test (Pha) (Accu-Chek) 1 each FS [facility] Last Admin: 05/11/17 11:57 Dose: 1 each Docusate Sodium (Colace) 100 mg PO BID PRN PRN Reason: Constipation Dronabinol (Marinol) 5 mg PO TID [facility] Last Admin: 05/11/17 07:47 Dose: 5 mg Famotidine (Pepcid) 20 mg IV Q12 [facility] Last Admin: 05/11/17 07:48 Dose: 20 mg Gabapentin (Neurontin) 100 mg PO BID [facility] Last Admin: 05/11/17 07:45 Dose: 100 mg Hydromorphone HCl (Dilaudid) 0.5 mg IV Q2HP PRN PRN Reason: Pain Piperacillin Sod/Tazobactam (Sod 2.25 gm/ Dextrose) 50 mls @ 100 mls/hr IV Q12H [facility] Last Admin: 05/11/17 10:15 Dose: 100 mls/hr Insulin Human Lispro (Humalog) 0 unit SQ [facility] PRN Reason: Protocol Last Admin: 05/11/17 11:58 Dose: Not Given Isosorbide Mononitrate (Imdur) 60 mg PO HS [facility] Last Admin: 05/10/17 21:05 Dose: Not Given Lisinopril (Zestril) 5 mg PO DAILY [facility] Last Admin: 05/11/17 07:48 Dose: Not Given Magnesium Hydroxide (Milk Of Magnesia) 30 ml PO DAILYP PRN PRN Reason: Constipation Metoclopramide HCl (Reglan) 10 mg PO [facility] Last Admin: 05/11/17 12:36 Dose: Not Given Misoprostol (Cytotec) 100 mcg PO TIDCC [facility] Last Admin: 05/11/17 12:36 Dose: Not Given Naloxone HCl (Narcan) 0.1 mg IV Q2MIN PRN PRN Reason: Opiate Reversal Ondansetron HCl (Zofran) 4 mg IV Q6HP PRN PRN Reason: Nausea And Vomiting Last Admin: 05/07/17 16:49 Dose: 4 mg Pantoprazole Sodium (Protonix) 40 mg IV Q12H [facility] Last Admin: 05/11/17 06:01 Dose: 40 mg Sodium Chloride (Saline Flush) 10 ml IV Q8 [facility] Last Admin: 05/11/17 14:53 Dose: Not Given Sucralfate (Carafate) 1 gm PO [facility] Last Admin: 05/11/17 12:35 Dose: Not Given Vancomycin HCl (Vancomycin Per Pharmacy) 1 order IV [facility] Medical - PN: A/P - Time Spent With Patient Total time spent is greater than 50% in coordination of care (as documented) at patient's floor/unit and/or counseling patient: 25 - 35 minutes - Narrative A/P Narrative: a/P Acute recurrent nausea and vomiting: due to mesenteric ischemia vs gastroparesis. Patient pain free presently. On asa, statin, as well as pletal, also on misoprostol and sucralfate. s/p stenting by Dr Pearce, as per previous documentation no further intervention. Mesenteric ischemia, likely chronic: intermittent pain in abdomen. on dual antiplatelet agents as well as statin. continue same. Encourage po intake and monitor. Diabetic Gastroparesis. : on reglan and marinol for now. see how she does on these. Given that we cannot discharge her on IV erythromycin , marinol was chosen to evaluate her response. Health care associated pneumonia: IV vanco and Zosyn for now, await blood and sputum cultures. on room air at this time. afebrile. Will repeat CXR in AM p HD. If WBC is persistently elevated and confusion continues, consider UA. Confusion: likely delirium. See above. Supportive care. ESRD on HD, followed by Dr Duncan. HD Today. DM on sliding scale insulin, continue same, glucose at goal. HTN better today, prn clonidine if bp goes up. Neuropathy on gabapentin, continue same. Extensive PVD on isosorbide, and asa, statin, pletal, medical management for now. Full code DVT hep sq Diet Renal Medical - PN: Qual - VTE Deep Vein Thrombosis/Pulmonary Embolism Present on Admission: No
[2017-05-11] MEDS: HYDROcodone/APAP 5/325MG TABLET PO PRN (17:57)
[2017-05-11] MEDS: ONDANSETRON 4 MG/2 ML VIAL IV PRN (18:50)
[2017-05-11] MEDS: cloNIDine HCL 0.1 MG TABLET PO PRN (19:28)
[2017-05-11] MEDS: ISOSORBIDE MONONITRATE 60 MG TAB.XL.24H PO SCH (21:36)
[2017-05-12] MEDS: HYDROmorphone 2 MG/ML SYRINGE IV PRN (01:26)
[2017-05-12] MEDS: 0.9 % SODIUM CHLORIDE 10 ML SYRINGE IV SCH ×3 (06:16→21:08)
[2017-05-12] MEDS: PANTOPRAZOLE 40 MG VIAL IV SCH ×2 (06:16→16:53)
[2017-05-12 07:16] LABS: Basophils # (Auto) 0 K/mcL (0.0-0.3); Basophils % (Auto) 0.4 % (0.0-2.0); Eosinophils # (Auto) 0.3 K/mcL (0.0-0.7); Eosinophils % (Auto) 2.6 % (0.0-7.0); Granulocytes % (Auto) 73.3 % (38.0-78.0); Lymphocytes # (Auto) 1.3 K/mcL (1.5-4.8); Lymphocytes % (Auto) 12.3 % (15.5-49.0); Mean Corpuscular HGB Conc 31.9 g/dL (31.0-36.0); Monocytes # (Auto) 1.2 K/mcL (0.1-0.9); Monocytes % (Auto) 11.4 % (1.0-12.0); Platelet Count 158 K/mcL (140-440); RBC 2.93 M/mcL (4.00-5.20); Red Cell Distribution Width 14.7 % (11.5-14.5)
[2017-05-12 07:37] LABS: Vancomycin,Random 10.3 ug/ml
[2017-05-12 07:49] LABS: ALT/SGPT < 5 U/l (0-40); Albumin 2.8 gm/dL (3.2-5.2); Albumin/Globulin Ratio 1.6 (1.0-2.3); Alkaline Phosphatase 52 U/L (39-117); Bilirubin,Direct < 0.2 mg/dL (0.0-0.3); Blood Urea Nitrogen 11 mg/dl (8-23); Gamma Glutamyl Transpeptidase 29 U/L (5-36); Magnesium 1.6 mg/dL (1.6-2.5); Uric Acid 2.3 mg/dL (2.5-8.0)
--- NOTE | 2017-05-12 08:36 | XRay Report ---
CLINICAL INFORMATION: Possible pneumonia. TECHNIQUE: Upright PA and lateral chest x-ray COMPARISON: Previous chest x-rays dated 05/10/2017, 04/10/2017, 02/01/2017. FINDINGS: Previous median sternotomy. There is cardiomegaly which is probably unchanged when allowances are made for differences in positioning and technique. Pulmonary vascularity is prominent and there is peribronchial thickening. There is a small right pleural effusion. Findings are and with congestive heart failure. Previous examination demonstrated a focal right basilar infiltrate. There is right basilar volume loss or infiltrate again identified. Pneumonia is possible and clinical correlation is necessary. IMPRESSION: Findings consistent with congestive heart failure. No definite interval change when allowances are made for differences in positioning and technique. Interpreted and Authenticated by: Solomon Sanford 05/12/17
[2017-05-12] MEDS: SUCRALFATE 1 GM TABLET PO SCH ×4 (09:06→20:12)
[2017-05-12] MEDS: MISOPROSTOL 100 MCG TABLET PO SCH ×3 (09:07→16:54)
[2017-05-12] MEDS: CILOSTAZOL 100 MG TABLET PO SCH ×2 (09:07→16:55)
[2017-05-12] MEDS: GABAPENTIN 100 MG CAPSULE PO SCH ×2 (09:07→21:07)
[2017-05-12] MEDS: INSULIN LISPRO 1 UNIT/0.01 ML UNIT SQ SCH ×4 (09:07→21:06)
[2017-05-12] MEDS: FAMOTIDINE/PF 20 MG/2 ML VIAL IV SCH ×2 (09:07→21:06)
[2017-05-12] MEDS: LISINOPRIL 5 MG TABLET PO SCH (09:07)
[2017-05-12] MEDS: DRONABINOL 2.5 MG CAPSULE PO SCH (09:07)
[2017-05-12] MEDS: ASPIRIN 81 MG TAB.CHEW PO SCH (09:07)
[2017-05-12] MEDS: METOCLOPRAMIDE 10 MG TABLET PO SCH ×4 (09:07→21:07)
--- NOTE | 2017-05-12 09:36 | Internal Med Progress Note ---
Medical - PN: Subj Patient information: Note initiated : 05/12/17 at 9:32 am Service Date, if different from initiated Date: [] Patient: Maryann Juares 82 y/o F admitted on 05/06/17 for Mesenteric Ischemia, Abdominal Pain, Gastroparesis. Chief Complaint: [] Interval history: Ms. Juares is a 82 year old with a history of recurrent abdominal pain, nausea and vomiting. In the past she has had signs and comes of mesenteric ischemia. She did have stents placed by Dr. Pearce. She was last here for a similar problem from April 08 - April 19. At that time, the consensus was that this was more of a diabetic gastroparesis problem. She failed treatment with Reglan and Zofran, etc. but then she was tried on oral erythromycin with each meal, and seemed to improve, so was discharged back to [facility]. He tells me that ever since she left though, she still has intermittent abdominal pain, nausea and vomiting, after meals. Today, she ate a piece of toast, and started to have abdominal pain. She then reported for dialysis, but continued to have pain and vomiting. She was sent back to the emergency room for evaluation, where she was found to have an elevated white blood cell count. CT scan shows severe diffuse vascular disease. Otherwise, the patient denies recent fever or chills, headaches or dizziness, new eye or ear symptoms, sore throat or cough. She denies chest pain or palpitations, shortness of breath, or diarrhea. She thinks she has more constipation issues. She denies significant urine output or dysuria. 05/05- Pt doing well, case discussed with Dr Duncan- Dialysis likely tomorrow as labs appear stable per nephrology. Multiple family at bedside. No O/n events, Improved abd pain, no0 Nausea, on clears, Start Dietary consult and ST eval. 05/06-case discussed with surgery. Patient will need upper endoscopy likely in 24 hours. She is a poor candidate for J-tube given severe mesenteric ischemia. Surgeon already started patient on Reglan/erythromycin/ilostazol. surgery recommends keeping patient additional 24-48 hours until further workup. patient has been able to tolerate oral liquids and clears. dietary intervention for high-protein calorie supplements. 05/07- patient status post EGD with no identifiable lesions. Advance diet. Possible discharge in 24 hours on oral erythromycin/Reglan. Patient started on lost cilostazol per surgery. no overnight fever chills nausea vomiting abdominal pain or shortness of breath. no other concerns expressed by nursing staff 05/08: Pt seen examined, s/p fistulogram today, received fentanyl and versed at the IR suite and hence is drowsy post op. Arousable to voice, denies any complaints. Ok to resume diet. 05/09 Pt seen examined, no acute overnight issues, able to tolerate diet well yesterday and this AM, On IV erythromycin so far,will d/c same and see if she is able to keep food down with PO erythromycin, continue surcralfate as well as misopristol. 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 D1 today Patient mildly confused as per son today, but looks stable. Denies any other issues. Given that Oral erythromycin was not available, she is on Oral marinol for this time to evaluate her response to same. Discussed with the family the overall poor prognosis given no further intervention is possible, and continued weakness due to inability to keep food down. Son and daughter in law seem to understand. 05/11: Had some confusion overnight. Was incontinent of stool and urine overnight. Still seems slower than baseline when moving today. Having HD today. Cont to encourage po intake. 05/12: More confused today. Trying to exit into hallway believing she is entering the bathroom. Arguing with nurse. No fevers or leukocytosis. Occasional cough but not requiring O2. BMP looks OK. Will DC Abx as repeat CXR does not have distinct infiltrate and she has no infectious sx. DC Marinol as she is refusing anyway. Did not eat this morning because she is fixated on leaving but now agrees to stay. Not sleeping well at night. Pertinent ROS: no fever or abdominal pain - Constitutional Vitals: Vital Signs Temp Pulse Resp BP Pulse Ox 96.9 F L 76 16 160/63 97 05/12/17 00:00 05/12/17 00:00 05/12/17 04:00 05/12/17 00:00 05/12/17 00:00 Period Temp Pulse Resp BP Sys/Turner Pulse Ox Last 24 Hr 96.8 F-98.3 F 47-98 16-18 100-204/55-102 93-97 Intake and Output 05/11/17 05/12/17 05/12/17 21:59 05:59 13:59 Intake Total 180 / 180 250 / 250 Output Total 14588 / 38341 Balance -87055 / -93170 250 / 250 Weight 128 lb 8 oz Intake & Output: Intake & Output 05/11/17 05/12/17 05/12/17 21:59 05:59 13:59 Intake Total 180 / 180 250 / 250 Output Total 01303 / 03920 Balance -39364 / -72839 250 / 250 Weight 128 lb 8 oz Intake: IV 50 / 50 Zosyn 2.25 gm In Dextrose 50 / 50 5% in Water 50 ml @ 100 mls/hr IV Q12H TOY Rx#: [id number] Oral 180 / 180 200 / 200 Output: Hemodialysis UF 04857 / 37381 Other: Meal Lunch Percent of Meal Consumed 50% # Voids 1 - Head Head exam: Present: atraumatic - Eye Eye exam: Present: PERRL. Absent: conjunctival injection, scleral icterus - Respiratory Respiratory exam: Present: normal respiratory exam, CTAB. Absent: rales - Cardiovascular Cardiovascular exam: Present: normal rate and rhythm, systolic murmur - Extremities Exam Additional comments: R hand is edematous--pt states chronic problem - Neurological Exam Additional comments: On 2nd visit, pt is alert and oriented w no focal deficits. Medical - PN: Obj Da - Labs CBC & Chem 7: 05/12/17 06:15 05/12/17 06:15 Labs: Abnormal Lab Results 05/12/17 05/12/17 05/11/17 06:15 06:15 12:29 WBC RBC 2.93 L Hgb 9.1 L Hct 28.4 L RDW 14.7 H Gran % Lymph % (Auto) 12.3 L Gran # Lymph # (Auto) 1.3 L Davis # (Auto) 1.2 H Potassium 3.1 L Chloride 94 L Creatinine 2.6 H 3.6 H Glucose 187 H Uric Acid 2.3 L Phosphorus 2.4 L 2.4 L Total Protein 4.6 L 5.7 L Albumin 2.8 L Globulin 1.8 L 05/11/17 05/10/17 05/10/17 12:29 05:05 05:05 WBC 16.2 H 16.6 H RBC 3.34 L 3.20 L Hgb 10.3 L 10.1 L Hct 32.1 L 30.9 L RDW 14.7 H 15.2 H Gran % 87.6 H 87.9 H Lymph % (Auto) 4.5 L 4.0 L Gran # 14.2 H 14.6 H Lymph # (Auto) 0.7 L 0.7 L Davis # (Auto) 1.1 H 1.2 H Potassium Chloride Creatinine 2.6 H Glucose 116 H Uric Acid Phosphorus 2.4 L Total Protein 5.5 L Albumin Globulin Meds: Medications Acetaminophen (Tylenol) 650 mg PO Q6HP PRN PRN Reason: PAIN/FEVER > 101 Hydrocodone Bitart/Acetaminophen ([place] 5/325mg) 1 tab PO Q4HP PRN PRN Reason: Pain Last Admin: 05/11/17 17:57 Dose: 1 tab Aspirin (Aspirin) 81 mg PO QDAY [facility] Last Admin: 05/12/17 09:07 Dose: Not Given Cilostazol (Pletal) 50 mg PO BIDAC [facility] Last Admin: 05/12/17 09:07 Dose: Not Given Clonidine HCl (Catapres) 0.1 mg PO Q4HP PRN PRN Reason: Hypertension Last Admin: 05/11/17 19:28 Dose: 0.1 mg Dextrose (Dextrose 50%) 0 ml IV UD PRN PRN Reason: Hypoglycemia Diagnostic Test (Pha) (Accu-Chek) 1 each FS ACHS [facility] Last Admin: 05/12/17 09:06 Dose: Not Given Docusate Sodium (Colace) 100 mg PO BID PRN PRN Reason: Constipation Dronabinol (Marinol) 5 mg PO TID [facility] Last Admin: 05/12/17 09:07 Dose: Not Given Famotidine (Pepcid) 20 mg IV Q12 [facility] Last Admin: 05/12/17 09:07 Dose: Not Given Gabapentin (Neurontin) 100 mg PO BID [facility] Last Admin: 05/12/17 09:07 Dose: Not Given Hydromorphone HCl (Dilaudid) 0.5 mg IV Q2HP PRN PRN Reason: Pain Last Admin: 05/12/17 01:26 Dose: 0.5 mg Piperacillin Sod/Tazobactam (Sod 2.25 gm/ Dextrose) 50 mls @ 100 mls/hr IV Q12H [facility] Last Infusion: 05/11/17 22:20 Dose: Infused Vancomycin HCl 1,000 mg/ (Sodium Chloride) 250 mls @ 250 mls/hr IV ONCE ONE Stop: 05/12/17 10:59 Insulin Human Lispro (Humalog) 0 unit SQ [facility] PRN Reason: Protocol Last Admin: 05/12/17 09:07 Dose: Not Given Isosorbide Mononitrate (Imdur) 60 mg PO HS [facility] Last Admin: 05/11/17 21:36 Dose: 60 mg Lisinopril (Zestril) 5 mg PO DAILY [facility] Last Admin: 05/12/17 09:07 Dose: Not Given Magnesium Hydroxide (Milk Of Magnesia) 30 ml PO DAILYP PRN PRN Reason: Constipation Metoclopramide HCl (Reglan) 10 mg PO [facility] Last Admin: 05/12/17 09:07 Dose: Not Given Misoprostol (Cytotec) 100 mcg PO TIDCC [facility] Last Admin: 05/12/17 09:07 Dose: Not Given Naloxone HCl (Narcan) 0.1 mg IV Q2MIN PRN PRN Reason: Opiate Reversal Ondansetron HCl (Zofran) 4 mg IV Q6HP PRN PRN Reason: Nausea And Vomiting Last Admin: 05/11/17 18:50 Dose: 4 mg Pantoprazole Sodium (Protonix) 40 mg IV Q12H [facility] Last Admin: 05/12/17 06:16 Dose: 40 mg Sodium Chloride (Saline Flush) 10 ml IV Q8 [facility] Last Admin: 05/12/17 06:16 Dose: 10 ml Sucralfate (Carafate) 1 gm PO [facility] Last Admin: 05/12/17 09:06 Dose: Not Given Vancomycin HCl (Vancomycin Per Pharmacy) 1 order IV [facility] [place] [facility] [place] Medical - PN: A/P - Time Spent With Patient Total time spent is greater than 50% in coordination of care (as documented) at patient's floor/unit and/or counseling patient: 25 - 35 minutes - Narrative A/P Narrative: a/P Acute recurrent nausea and vomiting: due to mesenteric ischemia vs gastroparesis. Patient pain free presently. On asa, statin, as well as pletal, also on misoprostol and sucralfate. s/p stenting by Dr Pearce, as per previous documentation no further intervention. Mesenteric ischemia, likely chronic: intermittent pain in abdomen. on dual antiplatelet agents as well as statin. continue same. Encourage po intake and monitor. Diabetic Gastroparesis. : on reglan and marinol for now. see how she does on these. Given that we cannot discharge her on IV erythromycin , marinol was chosen to evaluate her response but she is refusing. Will DC. Consider trial of domperidone as OP but unsure of OP availability. Pulmonary edema: started on IV vanco and Zosyn d/t concerns for PNA. BC and sputum cx not done. No fever or WBC; CXR w/o sig change. Unclear if Abx are causing delirium. Will DC and monitor. Acute encephalopathy: likely delirium. See above. Supportive care. ESRD on HD, followed by Dr Duncan. HD T/Th/Sat. DM on sliding scale insulin, continue same, glucose at goal. HTN stable, prn clonidine if bp goes up. Neuropathy on gabapentin, continue same. Extensive PVD on isosorbide, and asa, statin, pletal, medical management for now. Full code DVT hep sq Diet Renal Medical - PN: Qual - VTE Deep Vein Thrombosis/Pulmonary Embolism Present on Admission: No
[2017-05-12] MEDS ORDERED: VANCOMYCIN 1,000 MG in 0.9 % SODIUM CHLORIDE 250 ML IV ONE (10:00)
[2017-05-12] MEDS: PIPERACILLIN SODIUM/TAZOBACTAM 2.25 GM in DEXTROSE 5% IN WATER 50 ML IV SCH (10:43)
--- NOTE | 2017-05-12 13:40 | General Surgery Progress Note ---
Subjective Patient reports: feels better, tolerating a regular diet, flatus, bowel movement , afebrile Narrative: Note initiated : 05/12/17 at 1:38 pm Service Date, if different from initiated Date: [] Patient: Maryann Juares 82 y/o F admitted on 05/06/17 for Mesenteric Ischemia, Abdominal Pain, Gastroparesis. Chief Complaint: Patient is doing well [. She had more mental confusion until about 1 AM last evening. She was able to rest thereafter. She is fully alert and aware at this time. She has been uncooperative in taking her medication. She denies pain. She denies shortness of breath. She denies nausea at this time.] Objective Temp Pulse Resp BP Pulse Ox 96.9 F L 76 16 160/63 97 05/12/17 00:00 05/12/17 00:00 05/12/17 04:00 05/12/17 00:00 05/12/17 00:00 - Additional Data Intake & Output - Last 24 hours: Intake & Output 05/10/17 05/11/17 05/12/17 05/13/17 05:59 05:59 05:59 05:59 Intake Total 500 / 500 520 / 520 960 / 960 0 / 0 Output Total 46365 / 94189 1 / 81639 / 62373 0 / 0 Balance -85096 / -33504 519 / 519 -60865 / -67561 0 / 0 Weight 124 lb 129 lb 8 oz 128 lb 8 oz - General physical appearance no distress - Eyes PERRL, normal ocular movement - ENT no congestion - Neck trachea midline, no venous distension - Respiratory normal respiratory effort, clear to auscultation - Cardiovascular Cardiovascular exam: Present: normal rate and rhythm, RRR, +S1, +S2. Absent: JVD - Abdomen soft, non tender, bowel sounds (Abdomen is nondistended. She has good active bowel sounds. She does not have any tenderness.) - Integumentary no rash, no growths, no abnormal pigmentation - Neurologic normal coordination, normal sensation - Musculoskeletal normal gait - Psychiatric other (Still with intermittent nocturnal confusion but presently alert and oriented 3) - Labs 05/12/17 06:15 05/12/17 06:15 Diabetes panel 05/11/17 05/12/17 Range/Units 12:29 06:15 Sodium 134 135 (133-145) mmol/L Potassium 3.1 L 3.4 (3.3-5.1) mmol/L Chloride 94 L 97 (96-108) mmol/L Carbon Dioxide 27 30 (22-30) mmol/L BUN 17 11 (8-23) mg/dl Creatinine 3.6 H 2.6 H (0.6-1.1) mg/dl Glucose 187 H 89 (70-105) mg/dL Calcium 9.8 9.1 (8.6-10.4) mg/dl AST 15 10 (0-37) U/l ALT 6 < 5 (0-40) U/l Alkaline Phosphatase 68 52 (39-117) U/L Total Protein 5.7 L 4.6 L (5.9-8.4) gm/dL Albumin 3.3 2.8 L (3.2-5.2) gm/dL Triglycerides 87 67 (<150) mg/dl Calcium panel 05/11/17 05/12/17 Range/Units 12:29 06:15 Calcium 9.8 9.1 (8.6-10.4) mg/dl Phosphorus 2.4 L 2.4 L (2.7-4.5) mg/dL Albumin 3.3 2.8 L (3.2-5.2) gm/dL Pituitary panel 05/11/17 05/12/17 Range/Units 12:29 06:15 Sodium 134 135 (133-145) mmol/L Potassium 3.1 L 3.4 (3.3-5.1) mmol/L Chloride 94 L 97 (96-108) mmol/L Carbon Dioxide 27 30 (22-30) mmol/L BUN 17 11 (8-23) mg/dl Creatinine 3.6 H 2.6 H (0.6-1.1) mg/dl Glucose 187 H 89 (70-105) mg/dL Calcium 9.8 9.1 (8.6-10.4) mg/dl Adrenal panel 05/11/17 05/12/17 Range/Units 12:29 06:15 Sodium 134 135 (133-145) mmol/L Potassium 3.1 L 3.4 (3.3-5.1) mmol/L Chloride 94 L 97 (96-108) mmol/L Carbon Dioxide 27 30 (22-30) mmol/L BUN 17 11 (8-23) mg/dl Creatinine 3.6 H 2.6 H (0.6-1.1) mg/dl Glucose 187 H 89 (70-105) mg/dL Calcium 9.8 9.1 (8.6-10.4) mg/dl Total Bilirubin 0.3 0.2 (0.0-1.0) mg/dL AST 15 10 (0-37) U/l ALT 6 < 5 (0-40) U/l Alkaline Phosphatase 68 52 (39-117) U/L Total Protein 5.7 L 4.6 L (5.9-8.4) gm/dL Albumin 3.3 2.8 L (3.2-5.2) gm/dL Assessment and Plan (1) Chronic mesenteric ischemia Status: Chronic Assessment and plan: Patient is stable and is asymptomatic at this time. Nursing advised to try to encourage better p.o. intake. She is ready for discharge and transfer to shelter facility Current Visit: No (2) Diabetes mellitus, insulin dependent (IDDM), controlled Status: Chronic Current Visit: No (3) End-stage renal disease needing dialysis Problem details: 1. End-stage renal disease on hemodialysis. She will have dialysis today and will attempt to remove 2 to 3 kilos of fluid as tolerated. 2. Nausea, vomiting: Probably related to diabetic gastroparesis or intestinal ischemia. On Reglan. Status: Chronic Current Visit: No (4) Gastroparesis Status: Acute Assessment and plan: Patient is stable and has not had any nausea. Will try to encourage p.o. intake. Current Visit: No - Time Spent With Patient Total time spent is greater than 50% in coordination of care (as documented) at patient's floor/unit and/or counseling patient:
[2017-05-12] MEDS: cloNIDine HCL 0.1 MG TABLET PO PRN ×2 (17:13→21:07)
[2017-05-12] MEDS: ISOSORBIDE MONONITRATE 60 MG TAB.XL.24H PO SCH (21:07)
[2017-05-13] MEDS: 0.9 % SODIUM CHLORIDE 10 ML SYRINGE IV SCH ×2 (05:24→15:41)
[2017-05-13] MEDS: PANTOPRAZOLE 40 MG VIAL IV SCH ×3 (05:25→20:18)
[2017-05-13 07:19] LABS: Basophils # (Auto) 0 K/mcL (0.0-0.3); Basophils % (Auto) 0.2 % (0.0-2.0); Eosinophils # (Auto) 0.1 K/mcL (0.0-0.7); Eosinophils % (Auto) 0.7 % (0.0-7.0); Granulocytes % (Auto) 88.5 % (38.0-78.0); Lymphocytes # (Auto) 0.5 K/mcL (1.5-4.8); Lymphocytes % (Auto) 2.9 % (15.5-49.0); Mean Cell Volume 94.1 fL (80.0-100.0); Mean Corpuscular HGB Conc 32.6 g/dL (31.0-36.0); Mean Corpuscular Hemoglobin 30.7 pg (26.0-34.0); Monocytes # (Auto) 1.3 K/mcL (0.1-0.9); Monocytes % (Auto) 7.7 % (1.0-12.0); Platelet Count 207 K/mcL (140-440); RBC 3.02 M/mcL (4.00-5.20); Red Cell Distribution Width 14.3 % (11.5-14.5)
[2017-05-13 07:29] LABS: Vancomycin,Random 9.9 ug/ml
[2017-05-13 07:36] LABS: ALT/SGPT 5 U/l (0-40); Albumin/Globulin Ratio 1.5 (1.0-2.3); Alkaline Phosphatase 57 U/L (39-117); Bilirubin,Direct < 0.2 mg/dL (0.0-0.3); Blood Urea Nitrogen 16 mg/dl (8-23); Gamma Glutamyl Transpeptidase 30 U/L (5-36); Magnesium 1.5 mg/dL (1.6-2.5); Uric Acid 3.4 mg/dL (2.5-8.0)
[2017-05-13] MEDS: ASPIRIN 81 MG TAB.CHEW PO SCH (08:42)
[2017-05-13] MEDS: GABAPENTIN 100 MG CAPSULE PO SCH ×2 (08:42→21:25)
[2017-05-13] MEDS: LISINOPRIL 5 MG TABLET PO SCH (08:42)
[2017-05-13] MEDS: INSULIN LISPRO 1 UNIT/0.01 ML UNIT SQ SCH ×4 (08:42→22:09)
[2017-05-13] MEDS: MISOPROSTOL 100 MCG TABLET PO SCH ×3 (08:43→17:47)
[2017-05-13] MEDS: SUCRALFATE 1 GM TABLET PO SCH ×4 (08:43→21:25)
[2017-05-13] MEDS: METOCLOPRAMIDE 10 MG TABLET PO SCH ×4 (08:43→21:25)
[2017-05-13] MEDS ORDERED: VANCOMYCIN PER PHARMACY IV SCH (11:39)
--- NOTE | 2017-05-13 11:41 | Internal Med Progress Note ---
Medical - PN: Subj Patient information: Note initiated : 05/13/17 at 11:39 am Service Date, if different from initiated Date: [] Patient: Maryann Juares 82 y/o F admitted on 05/06/17 for Mesenteric Ischemia, Abdominal Pain, Gastroparesis. Chief Complaint: [] Interval history: Ms. Juares is a 82 year old with a history of recurrent abdominal pain, nausea and vomiting. In the past she has had signs and comes of mesenteric ischemia. She did have stents placed by Dr. Pearce. She was last here for a similar problem from April 08 - April 19. At that time, the consensus was that this was more of a diabetic gastroparesis problem. She failed treatment with Reglan and Zofran, etc. but then she was tried on oral erythromycin with each meal, and seemed to improve, so was discharged back to life care. He tells me that ever since she left though, she still has intermittent abdominal pain, nausea and vomiting, after meals. Today, she ate a piece of toast, and started to have abdominal pain. She then reported for dialysis, but continued to have pain and vomiting. She was sent back to the emergency room for evaluation, where she was found to have an elevated white blood cell count. CT scan shows severe diffuse vascular disease. Otherwise, the patient denies recent fever or chills, headaches or dizziness, new eye or ear symptoms, sore throat or cough. She denies chest pain or palpitations, shortness of breath, or diarrhea. She thinks she has more constipation issues. She denies significant urine output or dysuria. 05/05- Pt doing well, case discussed with Dr Duncan- Dialysis likely tomorrow as labs appear stable per nephrology. Multiple family at bedside. No O/n events, Improved abd pain, no0 Nausea, on clears, Start Dietary consult and ST eval. 05/06-case discussed with surgery. Patient will need upper endoscopy likely in 24 hours. She is a poor candidate for J-tube given severe mesenteric ischemia. Surgeon already started patient on Reglan/erythromycin/ilostazol. surgery recommends keeping patient additional 24-48 hours until further workup. patient has been able to tolerate oral liquids and clears. dietary intervention for high-protein calorie supplements. 05/07- patient status post EGD with no identifiable lesions. Advance diet. Possible discharge in 24 hours on oral erythromycin/Reglan. Patient started on lost cilostazol per surgery. no overnight fever chills nausea vomiting abdominal pain or shortness of breath. no other concerns expressed by nursing staff 05/08: Pt seen examined, s/p fistulogram today, received fentanyl and versed at the IR suite and hence is drowsy post op. Arousable to voice, denies any complaints. Ok to resume diet. 05/09 Pt seen examined, no acute overnight issues, able to tolerate diet well yesterday and this AM, On IV erythromycin so far,will d/c same and see if she is able to keep food down with PO erythromycin, continue surcralfate as well as misopristol. 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 D1 today Patient mildly confused as per son today, but looks stable. Denies any other issues. Given that Oral erythromycin was not available, she is on Oral marinol for this time to evaluate her response to same. Discussed with the family the overall poor prognosis given no further intervention is possible, and continued weakness due to inability to keep food down. Son and daughter in law seem to understand. 05/11: Had some confusion overnight. Was incontinent of stool and urine overnight. Still seems slower than baseline when moving today. Having HD today. Cont to encourage po intake. 05/12: More confused today. Trying to exit into hallway believing she is entering the bathroom. Arguing with nurse. No fevers or leukocytosis. Occasional cough but not requiring O2. BMP looks OK. Will DC Abx as repeat CXR does not have distinct infiltrate and she has no infectious sx. DC Marinol as she is refusing anyway. Did not eat this morning because she is fixated on leaving but now agrees to stay. Not sleeping well at night. 05/13: pt seen examined, no acute overnight events, over the last few days the patient seems to be more drowsy and confused. Her WBC is up again today. She is not taking her marinol and this was discontinued. Etiology of confusion? infectious vs medicaion related. She was on famotidine 20mg iv bid, which in renal failure patient can cause some drowsiness. Will wait for 24-48 hrs to help this clear up. Will resume zosyn and vanco given rising wbc today to cover for HCAP pna. IF pt does not improve, will have family conference on goals of treatment. Pertinent ROS: Denies headache, dizziness Denies chest pain, palpitations Denies cough or shortness of breath Denies abdominal pain, nausea or vomiting. - Constitutional Vitals: Vital Signs Temp Pulse Resp BP Pulse Ox 98.9 F 85 16 151/78 91 05/13/17 07:58 05/13/17 04:00 05/13/17 07:58 05/13/17 07:58 05/13/17 07:58 Period Temp Pulse Resp BP Sys/Turner Pulse Ox Last 24 Hr 97.3 F-99.1 F 81-85 14-20 126-191/49-78 91-94 Intake and Output 05/12/17 05/13/17 05/13/17 21:59 05:59 13:59 Intake Total 540 / 540 400 / 400 360 / 360 Balance 540 / 540 400 / 400 360 / 360 Weight 125 lb Intake & Output: Intake & Output 05/12/17 05/13/17 05/13/17 21:59 05:59 13:59 Intake Total 540 / 540 400 / 400 360 / 360 Balance 540 / 540 400 / 400 360 / 360 Weight 125 lb Intake: Oral 540 / 540 400 / 400 360 / 360 Other: Meal Lunch Percent of Meal Consumed 75% Feeding Ability Assist with Tray Set Up # Voids 1 # Bowel Movements 1 1 1 # of times incontinent of 1 Bowels Exam: Constitutional; Afebrile, drowsy, this AM Eyes- No icterus, , No periorbital swelling Ears- Ext ear normal, hearing ok to conversation. Neck- Midline trachea, supple Respiratory system: Air Entry equal on both sides, No crackles or wheezing, no rhonchi. CVS- Rate rhythm regular, S1,S2 heard, no gallop, no rub. 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 Medical - PN: Obj Da - Labs CBC & Chem 7: 05/13/17 06:08 05/13/17 06:08 Labs: Abnormal Lab Results 05/13/17 05/13/17 05/12/17 06:08 06:08 06:15 WBC 16.5 H RBC 3.02 L Hgb 9.3 L Hct 28.4 L RDW MPV 10.5 H Gran % 88.5 H Lymph % (Auto) 2.9 L Gran # 14.6 H Lymph # (Auto) 0.5 L [place] # (Auto) 1.3 H Potassium Chloride 94 L Creatinine 3.4 H 2.6 H Glucose 155 H Uric Acid 2.3 L Phosphorus 2.3 L 2.4 L Magnesium 1.5 L Total Protein 5.0 L 4.6 L Albumin 3.0 L 2.8 L Globulin 2.0 L 1.8 L 05/12/17 05/11/17 05/11/17 06:15 12:29 12:29 WBC 16.2 H RBC 2.93 L 3.34 L Hgb 9.1 L 10.3 L Hct 28.4 L 32.1 L RDW 14.7 H 14.7 H MPV Gran % 87.6 H Lymph % (Auto) 12.3 L 4.5 L Gran # 14.2 H Lymph # (Auto) 1.3 L 0.7 L [place] # (Auto) 1.2 H 1.1 H Potassium 3.1 L Chloride 94 L Creatinine 3.6 H Glucose 187 H Uric Acid Phosphorus 2.4 L Magnesium Total Protein 5.7 L Albumin Globulin Meds: Medications Acetaminophen (Tylenol) 650 mg PO Q6HP PRN PRN Reason: PAIN/FEVER > 101 Hydrocodone Bitart/Acetaminophen ([place] 5/325mg) 1 tab PO Q4HP PRN PRN Reason: Pain Last Admin: 05/11/17 17:57 Dose: 1 tab Aspirin (Aspirin) 81 mg PO QDAY [facility] Last Admin: 05/13/17 08:42 Dose: 81 mg Cilostazol (Pletal) 50 mg PO BIDAC [facility] Last Admin: 05/12/17 16:55 Dose: 50 mg Clonidine HCl (Catapres) 0.1 mg PO Q4HP PRN PRN Reason: Hypertension Last Admin: 05/12/17 21:07 Dose: 0.1 mg Dextrose (Dextrose 50%) 0 ml IV UD PRN PRN Reason: Hypoglycemia Diagnostic Test (Pha) (Accu-Chek) 1 each FS ACHS [facility] Last Admin: 05/13/17 08:41 Dose: 1 each Docusate Sodium (Colace) 100 mg PO BID PRN PRN Reason: Constipation Gabapentin (Neurontin) 100 mg PO BID [facility] Last Admin: 05/13/17 08:42 Dose: 100 mg Hydromorphone HCl (Dilaudid) 0.5 mg IV Q2HP PRN PRN Reason: Pain Last Admin: 05/12/17 01:26 Dose: 0.5 mg Piperacillin Sod/Tazobactam (Sod 2.25 gm/ Dextrose) 50 mls @ 100 mls/hr IV Q8H [facility] Insulin Human Lispro (Humalog) 0 unit SQ [facility] PRN Reason: Protocol Last Admin: 05/13/17 08:42 Dose: Not Given Isosorbide Mononitrate (Imdur) 60 mg PO HS [facility] Last Admin: 05/12/17 21:07 Dose: 60 mg Lisinopril (Zestril) 5 mg PO DAILY [facility] Last Admin: 05/13/17 08:42 Dose: 5 mg Magnesium Hydroxide (Milk Of Magnesia) 30 ml PO DAILYP PRN PRN Reason: Constipation Metoclopramide HCl (Reglan) 10 mg PO [facility] Last Admin: 05/13/17 08:43 Dose: 10 mg Misoprostol (Cytotec) 100 mcg PO TIDCC [facility] Last Admin: 05/13/17 08:43 Dose: 100 mcg Naloxone HCl (Narcan) 0.1 mg IV Q2MIN PRN PRN Reason: Opiate Reversal Ondansetron HCl (Zofran) 4 mg IV Q6HP PRN PRN Reason: Nausea And Vomiting Last Admin: 05/11/17 18:50 Dose: 4 mg Pantoprazole Sodium (Protonix) 40 mg IV Q12H [facility] Last Admin: 05/13/17 05:25 Dose: 40 mg Sodium Chloride (Saline Flush) 10 ml IV Q8 [facility] Last Admin: 05/13/17 05:24 Dose: 10 ml Sucralfate (Carafate) 1 gm PO [facility] Last Admin: 05/13/17 08:43 Dose: 1 gm Vancomycin HCl (Vancomycin Per Pharmacy) 1 order IV ONCE ONE Stop: 05/13/17 11:40 Medical - PN: A/P - Time Spent With Patient Total time spent is greater than 50% in coordination of care (as documented) at patient's floor/unit and/or counseling patient: - Narrative A/P Narrative: a/P Acute recurrent nausea and vomiting: due to mesenteric ischemia vs gastroparesis. Patient pain free presently. On asa, statin, as well as pletal, also on misoprostol and sucralfate. s/p stenting by Dr Pearce, as per previous documentation no further intervention. No vomiting or abdominal pain reported today, was able to eat some breakfast. Mesenteric ischemia, likely chronic: intermittent pain in abdomen. on dual antiplatelet agents as well as statin. continue same. Encourage po intake and monitor. Diabetic Gastroparesis. : on reglan for now, able to eat this AM, marinol was refused. continue conservative management for now. HCAP PNA: treat with vanco and zosyn given risking wbc, it was held yesterday given that her wbc had improved, but today its gone up again. her confusion could be secondary to same. Acute encephalopathy: likely delirium. See above. Supportive care. d/c famotidine, IV ABX for possible pna. ESRD on HD, followed by Dr Duncan. HD T//Sat. DM on sliding scale insulin, continue same, glucose at goal. HTN stable, prn clonidine if bp goes up. Neuropathy on gabapentin, continue same. Extensive PVD on isosorbide, and asa, statin, pletal, medical management for now. Full code DVT hep sq Diet Renal Medical - PN: Qual - VTE Deep Vein Thrombosis/Pulmonary Embolism Present on Admission: No
[2017-05-13] MEDS ORDERED: VANCOMYCIN 1,000 MG in 0.9 % SODIUM CHLORIDE 250 ML IV ONE (12:15)
[2017-05-13] MEDS: CILOSTAZOL 100 MG TABLET PO SCH ×2 (15:41→17:47)
[2017-05-13] MEDS: PIPERACILLIN SODIUM/TAZOBACTAM 2.25 GM in DEXTROSE 5% IN WATER 50 ML IV SCH (19:21)
[2017-05-13] MEDS: ISOSORBIDE MONONITRATE 60 MG TAB.XL.24H PO SCH (21:25)
[2017-05-13] MEDS: ONDANSETRON 4 MG/2 ML VIAL IV PRN (22:01)
[2017-05-13] MEDS: HYDROmorphone 2 MG/ML SYRINGE IV PRN (23:36)
[2017-05-14] MEDS: 0.9 % SODIUM CHLORIDE 10 ML SYRINGE IV SCH ×4 (01:59→22:49)
[2017-05-14] MEDS: PIPERACILLIN SODIUM/TAZOBACTAM 2.25 GM in DEXTROSE 5% IN WATER 50 ML IV SCH ×4 (03:05→22:52)
[2017-05-14] MEDS: PANTOPRAZOLE 40 MG VIAL IV SCH ×2 (04:57→18:37)
[2017-05-14 07:04] LABS: Basophils # (Auto) 0 K/mcL (0.0-0.3); Basophils % (Auto) 0.1 % (0.0-2.0); Eosinophils # (Auto) 0.3 K/mcL (0.0-0.7); Eosinophils % (Auto) 2.4 % (0.0-7.0); Granulocytes % (Auto) 79.7 % (38.0-78.0); Lymphocytes # (Auto) 1.1 K/mcL (1.5-4.8); Lymphocytes % (Auto) 8.5 % (15.5-49.0); Mean Cell Volume 96.3 fL (80.0-100.0); Mean Corpuscular HGB Conc 32.9 g/dL (31.0-36.0); Mean Corpuscular Hemoglobin 31.7 pg (26.0-34.0); Monocytes # (Auto) 1.2 K/mcL (0.1-0.9); Monocytes % (Auto) 9.3 % (1.0-12.0); Platelet Count 231 K/mcL (140-440); RBC 3.23 M/mcL (4.00-5.20); Red Cell Distribution Width 14.9 % (11.5-14.5)
[2017-05-14] MEDS: CILOSTAZOL 100 MG TABLET PO SCH ×2 (07:14→18:38)
[2017-05-14] MEDS: MISOPROSTOL 100 MCG TABLET PO SCH ×3 (07:15→18:37)
[2017-05-14] MEDS: SUCRALFATE 1 GM TABLET PO SCH ×4 (07:15→22:48)
[2017-05-14] MEDS: METOCLOPRAMIDE 10 MG TABLET PO SCH ×4 (07:15→22:49)
[2017-05-14] MEDS: INSULIN LISPRO 1 UNIT/0.01 ML UNIT SQ SCH ×4 (07:16→22:49)
[2017-05-14 07:23] LABS: ALT/SGPT 6 U/l (0-40); Albumin 3.1 gm/dL (3.2-5.2); Albumin/Globulin Ratio 1.3 (1.0-2.3); Alkaline Phosphatase 68 U/L (39-117); Bilirubin,Direct < 0.2 mg/dL (0.0-0.3); Blood Urea Nitrogen 22 mg/dl (8-23); Gamma Glutamyl Transpeptidase 34 U/L (5-36); Magnesium 1.6 mg/dL (1.6-2.5)
[2017-05-14] MEDS: GABAPENTIN 100 MG CAPSULE PO SCH ×2 (08:25→22:49)
[2017-05-14] MEDS: LISINOPRIL 5 MG TABLET PO SCH (08:25)
[2017-05-14] MEDS: ASPIRIN 81 MG TAB.CHEW PO SCH (08:25)
--- NOTE | 2017-05-14 13:03 | Internal Med Progress Note ---
Medical - PN: Subj Patient information: Note initiated : 05/14/17 at 1:01 pm Service Date, if different from initiated Date: [] Patient: Maryann Juares 82 y/o F admitted on 05/06/17 for Mesenteric Ischemia, Abdominal Pain, Gastroparesis. Chief Complaint: [] Interval history: Ms. Juares is a 82 year old with a history of recurrent abdominal pain, nausea and vomiting. In the past she has had signs and comes of mesenteric ischemia. She did have stents placed by Dr. Pearce. She was last here for a similar problem from April 08 - April 19. At that time, the consensus was that this was more of a diabetic gastroparesis problem. She failed treatment with Reglan and Zofran, etc. but then she was tried on oral erythromycin with each meal, and seemed to improve, so was discharged back to life care. He tells me that ever since she left though, she still has intermittent abdominal pain, nausea and vomiting, after meals. Today, she ate a piece of toast, and started to have abdominal pain. She then reported for dialysis, but continued to have pain and vomiting. She was sent back to the emergency room for evaluation, where she was found to have an elevated white blood cell count. CT scan shows severe diffuse vascular disease. Otherwise, the patient denies recent fever or chills, headaches or dizziness, new eye or ear symptoms, sore throat or cough. She denies chest pain or palpitations, shortness of breath, or diarrhea. She thinks she has more constipation issues. She denies significant urine output or dysuria. 05/05- Pt doing well, case discussed with Dr Duncan- Dialysis likely tomorrow as labs appear stable per nephrology. Multiple family at bedside. No O/n events, Improved abd pain, no0 Nausea, on clears, Start Dietary consult and ST eval. 05/06-case discussed with surgery. Patient will need upper endoscopy likely in 24 hours. She is a poor candidate for J-tube given severe mesenteric ischemia. Surgeon already started patient on Reglan/erythromycin/ilostazol. surgery recommends keeping patient additional 24-48 hours until further workup. patient has been able to tolerate oral liquids and clears. dietary intervention for high-protein calorie supplements. 05/07- patient status post EGD with no identifiable lesions. Advance diet. Possible discharge in 24 hours on oral erythromycin/Reglan. Patient started on lost cilostazol per surgery. no overnight fever chills nausea vomiting abdominal pain or shortness of breath. no other concerns expressed by nursing staff 05/08: Pt seen examined, s/p fistulogram today, received fentanyl and versed at the IR suite and hence is drowsy post op. Arousable to voice, denies any complaints. Ok to resume diet. 05/09 Pt seen examined, no acute overnight issues, able to tolerate diet well yesterday and this AM, On IV erythromycin so far,will d/c same and see if she is able to keep food down with PO erythromycin, continue surcralfate as well as misopristol. 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 D1 today Patient mildly confused as per son today, but looks stable. Denies any other issues. Given that Oral erythromycin was not available, she is on Oral marinol for this time to evaluate her response to same. Discussed with the family the overall poor prognosis given no further intervention is possible, and continued weakness due to inability to keep food down. Son and daughter in law seem to understand. 05/11: Had some confusion overnight. Was incontinent of stool and urine overnight. Still seems slower than baseline when moving today. Having HD today. Cont to encourage po intake. 05/12: More confused today. Trying to exit into hallway believing she is entering the bathroom. Arguing with nurse. No fevers or leukocytosis. Occasional cough but not requiring O2. BMP looks OK. Will DC Abx as repeat CXR does not have distinct infiltrate and she has no infectious sx. DC Marinol as she is refusing anyway. Did not eat this morning because she is fixated on leaving but now agrees to stay. Not sleeping well at night. 05/13: pt seen examined, no acute overnight events, over the last few days the patient seems to be more drowsy and confused. Her WBC is up again today. She is not taking her marinol and this was discontinued. Etiology of confusion? infectious vs medicaion related. She was on famotidine 20mg iv bid, which in renal failure patient can cause some drowsiness. Will wait for 24-48 hrs to help this clear up. Will resume zosyn and vanco given rising wbc today to cover for HCAP pna. IF pt does not improve, will have family conference on goals of treatment. 05/14: Pt seen examined, mental status better today, dicussed her case with her family and overall poor prognosis explained. Chances of recurrent admission to hospital due to abdominal pain and nausea vomint explained. explained the underlying disease process of gastroparesis as well as mesenteric ischemia daugthers concerned regarding getting the appropriate diet at the rehab center wbc count seems to be improving on antibiotics, will treat and complete a 5-7 day course. will switch to orals if she continues to improve.She is tolerating po diet now without any iv erythromycin or marinol Pertinent ROS: Denies headache, dizziness Denies chest pain, palpitations Denies cough or shortness of breath Denies abdominal pain, nausea or vomiting. - Constitutional Vitals: Vital Signs Temp Pulse Resp BP Pulse Ox 97.6 F 93 H 16 132/61 91 05/14/17 12:00 05/14/17 08:00 05/14/17 12:00 05/14/17 12:00 05/14/17 12:00 Period Temp Pulse Resp BP Sys/Turner Pulse Ox Last 24 Hr 97.5 F-98.6 F 68-93 16-20 128-180/46-80 90-94 Intake and Output 05/13/17 05/14/17 05/14/17 21:59 05:59 13:59 Intake Total 290 / 290 150 / 150 Balance 290 / 290 150 / 150 Weight 127 lb 127 lb Patient Weight 05/15/17 05:59 Weight 127 lb Intake & Output: Intake & Output 05/13/17 05/14/17 05/14/17 21:59 05:59 13:59 Intake Total 290 / 290 150 / 150 Balance 290 / 290 150 / 150 Weight 127 lb 127 lb Intake: IV 50 / 50 50 / 50 Zosyn 2.25 gm In Dextrose 50 / 50 50 / 50 5% in Water 50 ml @ 100 mls/hr IV Q8H [facility] Rx#: [id number] Oral 240 / 240 100 / 100 Other: Meal Lunch Percent of Meal Consumed 100% # Bowel Movements 2 # of times incontinent of 1 Bowels Exam: Constitutional; Afebrile, cooperative, alert, not in distress. Eyes- No icterus, , No periorbital swelling Ears- Ext ear normal, hearing normal to conversation. Neck- Midline trachea, supple Respiratory system: Air Entry equal on both sides, No crackles or wheezing, no rhonchi CVS- Rate rhythm regular, S1,S2 heard, no gallop, no rub. 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 Medical - PN: Obj Da - Labs CBC & Chem 7: 05/14/17 04:55 05/14/17 04:55 Labs: Abnormal Lab Results 05/14/17 05/14/17 05/13/17 04:55 04:55 06:08 WBC 12.6 H RBC 3.23 L Hgb 10.2 L Hct 31.1 L RDW 14.9 H MPV Gran % 79.7 H Lymph % (Auto) 8.5 L Gran # 10.0 H Lymph # (Auto) 1.1 L [place] # (Auto) 1.2 H Potassium Chloride 93 L 94 L Creatinine 4.1 H 3.4 H Glucose 205 H 155 H Uric Acid Phosphorus 2.3 L 2.3 L Magnesium 1.5 L Total Protein 5.5 L 5.0 L Albumin 3.1 L 3.0 L Globulin 2.0 L 05/13/17 05/12/17 05/12/17 06:08 06:15 06:15 WBC 16.5 H RBC 3.02 L 2.93 L Hgb 9.3 L 9.1 L Hct 28.4 L 28.4 L RDW 14.7 H MPV 10.5 H Gran % 88.5 H Lymph % (Auto) 2.9 L 12.3 L Gran # 14.6 H Lymph # (Auto) 0.5 L 1.3 L [place] # (Auto) 1.3 H 1.2 H Potassium Chloride Creatinine 2.6 H Glucose Uric Acid 2.3 L Phosphorus 2.4 L Magnesium Total Protein 4.6 L Albumin 2.8 L Globulin 1.8 L 05/11/17 05/11/17 12:29 12:29 WBC 16.2 H RBC 3.34 L Hgb 10.3 L Hct 32.1 L RDW 14.7 H MPV Gran % 87.6 H Lymph % (Auto) 4.5 L Gran # 14.2 H Lymph # (Auto) 0.7 L [place] # (Auto) 1.1 H Potassium 3.1 L Chloride 94 L Creatinine 3.6 H Glucose 187 H Uric Acid Phosphorus 2.4 L Magnesium Total Protein 5.7 L Albumin Globulin Meds: Medications Acetaminophen (Tylenol) 650 mg PO Q6HP PRN PRN Reason: PAIN/FEVER > 101 Hydrocodone Bitart/Acetaminophen ([place] 5/325mg) 1 tab PO Q4HP PRN PRN Reason: Pain Last Admin: 05/11/17 17:57 Dose: 1 tab Aspirin (Aspirin) 81 mg PO QDAY [facility] Last Admin: 05/14/17 08:25 Dose: 81 mg Cilostazol (Pletal) 50 mg PO BIDAC [facility] Last Admin: 05/14/17 07:14 Dose: 50 mg Clonidine HCl (Catapres) 0.1 mg PO Q4HP PRN PRN Reason: Hypertension Last Admin: 05/12/17 21:07 Dose: 0.1 mg Dextrose (Dextrose 50%) 0 ml IV UD PRN PRN Reason: Hypoglycemia Diagnostic Test (Pha) (Accu-Chek) 1 each FS ACHS [facility] Last Admin: 05/14/17 11:29 Dose: 1 each Docusate Sodium (Colace) 100 mg PO BID PRN PRN Reason: Constipation Gabapentin (Neurontin) 100 mg PO BID [facility] Last Admin: 05/14/17 08:25 Dose: 100 mg Hydromorphone HCl (Dilaudid) 0.5 mg IV Q2HP PRN PRN Reason: Pain Last Admin: 05/13/17 23:36 Dose: 0.5 mg Piperacillin Sod/Tazobactam (Sod 2.25 gm/ Dextrose) 50 mls @ 100 mls/hr IV Q8H [facility] Last Admin: 05/14/17 05:27 Dose: Not Given Insulin Human Lispro (Humalog) 0 unit SQ ACHS [facility] PRN Reason: Protocol Last Admin: 05/14/17 11:29 Dose: 2 unit Isosorbide Mononitrate (Imdur) 60 mg PO HS [facility] Last Admin: 05/13/17 21:25 Dose: 60 mg Lisinopril (Zestril) 5 mg PO DAILY [facility] Last Admin: 05/14/17 08:25 Dose: 5 mg Magnesium Hydroxide (Milk Of Magnesia) 30 ml PO DAILYP PRN PRN Reason: Constipation Metoclopramide HCl (Reglan) 10 mg PO ACHS [facility] Last Admin: 05/14/17 11:28 Dose: 10 mg Misoprostol (Cytotec) 100 mcg PO TIDCC [facility] Last Admin: 05/14/17 11:28 Dose: 100 mcg Naloxone HCl (Narcan) 0.1 mg IV Q2MIN PRN PRN Reason: Opiate Reversal Ondansetron HCl (Zofran) 4 mg IV Q6HP PRN PRN Reason: Nausea And Vomiting Last Admin: 05/13/17 22:01 Dose: 4 mg Pantoprazole Sodium (Protonix) 40 mg IV Q12H [facility] Last Admin: 05/14/17 04:57 Dose: 40 mg Sodium Chloride (Saline Flush) 10 ml IV Q8 [facility] Last Admin: 05/14/17 04:58 Dose: 10 ml Sucralfate (Carafate) 1 gm PO [facility] Last Admin: 05/14/17 11:28 Dose: 1 gm Vancomycin HCl (Vancomycin Per Pharmacy) 1 order IV UD [facility] Medical - PN: A/P - Time Spent With Patient Total time spent is greater than 50% in coordination of care (as documented) at patient's floor/unit and/or counseling patient: - Narrative A/P Narrative: a/P Acute recurrent nausea and vomiting: due to mesenteric ischemia vs gastroparesis. Patient pain free presently. On asa, statin, as well as pletal, also on misoprostol and sucralfate. s/p stenting by Dr Pearce, as per previous documentation no further intervention. No vomiting or abdominal pain reported today, was able to eat breakfast, no pain, no nausea or vomiting, diet seems to have improved. Mesenteric ischemia, likely chronic: intermittent pain in abdomen. on dual antiplatelet agents as well as statin. continue same. Diabetic Gastroparesis. : on reglan for now, able to eat this AM, marinol was refused. continue conservative management for now. will use iv erythromycin if needed. HCAP PNA: treat with vanco and zosyn given risking wbc d3 today wbc improving. Acute encephalopathy: much better today ,likely delirium. monitor Supportive care. d/c famotidine, IV ABX for possible pna. ESRD on HD, followed by Dr Duncan. HD T/Th/Sat. DM on sliding scale insulin, continue same, glucose at goal. HTN stable, prn clonidine if bp goes up. Neuropathy on gabapentin, continue same. Extensive PVD on isosorbide, and asa, statin, pletal, medical management for now. Full code DVT hep sq Diet Renal Medical - PN: Qual - VTE Deep Vein Thrombosis/Pulmonary Embolism Present on Admission: No
[2017-05-14] MEDS: HYDROcodone/APAP 5/325MG TABLET PO PRN (15:15)
[2017-05-14] MEDS: ISOSORBIDE MONONITRATE 60 MG TAB.XL.24H PO SCH (22:48)
[2017-05-15] MEDS: PANTOPRAZOLE 40 MG VIAL IV SCH ×2 (05:15→18:14)
[2017-05-15] MEDS: PIPERACILLIN SODIUM/TAZOBACTAM 2.25 GM in DEXTROSE 5% IN WATER 50 ML IV SCH ×3 (05:15→22:15)
[2017-05-15] MEDS: 0.9 % SODIUM CHLORIDE 10 ML SYRINGE IV SCH ×3 (05:15→20:50)
[2017-05-15] MEDS: HYDROcodone/APAP 5/325MG TABLET PO PRN ×2 (05:46→23:49)
[2017-05-15 06:30] LABS: Basophils # (Auto) 0 K/mcL (0.0-0.3); Basophils % (Auto) 0.1 % (0.0-2.0); Eosinophils # (Auto) 0.3 K/mcL (0.0-0.7); Eosinophils % (Auto) 2.1 % (0.0-7.0); Granulocytes % (Auto) 80.1 % (38.0-78.0); Lymphocytes # (Auto) 1.2 K/mcL (1.5-4.8); Lymphocytes % (Auto) 8.9 % (15.5-49.0); Mean Cell Volume 96.3 fL (80.0-100.0); Mean Corpuscular HGB Conc 32.7 g/dL (31.0-36.0); Mean Corpuscular Hemoglobin 31.5 pg (26.0-34.0); Monocytes # (Auto) 1.2 K/mcL (0.1-0.9); Monocytes % (Auto) 8.8 % (1.0-12.0); Platelet Count 250 K/mcL (140-440); RBC 3.23 M/mcL (4.00-5.20); Red Cell Distribution Width 14.5 % (11.5-14.5)
[2017-05-15 07:17] LABS: ALT/SGPT 6 U/l (0-40); Albumin/Globulin Ratio 1.3 (1.0-2.3); Alkaline Phosphatase 62 U/L (39-117); Bilirubin,Direct < 0.2 mg/dL (0.0-0.3); Blood Urea Nitrogen 11 mg/dl (8-23); Gamma Glutamyl Transpeptidase 33 U/L (5-36); Magnesium 1.6 mg/dL (1.6-2.5); Uric Acid 2.7 mg/dL (2.5-8.0)
[2017-05-15] MEDS: MISOPROSTOL 100 MCG TABLET PO SCH ×3 (08:22→18:14)
[2017-05-15] MEDS: SUCRALFATE 1 GM TABLET PO SCH ×4 (08:23→20:50)
[2017-05-15] MEDS: ASPIRIN 81 MG TAB.CHEW PO SCH (08:23)
[2017-05-15] MEDS: GABAPENTIN 100 MG CAPSULE PO SCH ×2 (08:23→20:50)
[2017-05-15] MEDS: METOCLOPRAMIDE 10 MG TABLET PO SCH ×4 (08:23→20:50)
[2017-05-15] MEDS: INSULIN LISPRO 1 UNIT/0.01 ML UNIT SQ SCH ×4 (08:24→20:49)
[2017-05-15] MEDS: LISINOPRIL 5 MG TABLET PO SCH (08:39)
[2017-05-15] MEDS: CILOSTAZOL 100 MG TABLET PO SCH ×2 (10:05→18:13)
[2017-05-15] MEDS: cloNIDine HCL 0.1 MG TABLET PO PRN (10:10)
--- NOTE | 2017-05-15 10:29 | Internal Med Progress Note ---
Medical - PN: Subj Patient information: Note initiated : 05/15/17 at 10:26 am Service Date, if different from initiated Date: [] Patient: Maryann Juares 82 y/o F admitted on 05/06/17 for Mesenteric Ischemia, Abdominal Pain, Gastroparesis. Chief Complaint: [] Interval history: Ms. Juares is a 82 year old with a history of recurrent abdominal pain, nausea and vomiting. In the past she has had signs and comes of mesenteric ischemia. She did have stents placed by Dr. Pearce. She was last here for a similar problem from April 08 - April 19. At that time, the consensus was that this was more of a diabetic gastroparesis problem. She failed treatment with Reglan and Zofran, etc. but then she was tried on oral erythromycin with each meal, and seemed to improve, so was discharged back to [facility]. He tells me that ever since she left though, she still has intermittent abdominal pain, nausea and vomiting, after meals. Today, she ate a piece of toast, and started to have abdominal pain. She then reported for dialysis, but continued to have pain and vomiting. She was sent back to the emergency room for evaluation, where she was found to have an elevated white blood cell count. CT scan shows severe diffuse vascular disease. Otherwise, the patient denies recent fever or chills, headaches or dizziness, new eye or ear symptoms, sore throat or cough. She denies chest pain or palpitations, shortness of breath, or diarrhea. She thinks she has more constipation issues. She denies significant urine output or dysuria. 05/05- Pt doing well, case discussed with Dr Duncan- Dialysis likely tomorrow as labs appear stable per nephrology. Multiple family at bedside. No O/n events, Improved abd pain, no0 Nausea, on clears, Start Dietary consult and ST eval. 05/06-case discussed with surgery. Patient will need upper endoscopy likely in 24 hours. She is a poor candidate for J-tube given severe mesenteric ischemia. Surgeon already started patient on Reglan/erythromycin/ilostazol. surgery recommends keeping patient additional 24-48 hours until further workup. patient has been able to tolerate oral liquids and clears. dietary intervention for high-protein calorie supplements. 05/07- patient status post EGD with no identifiable lesions. Advance diet. Possible discharge in 24 hours on oral erythromycin/Reglan. Patient started on lost cilostazol per surgery. no overnight fever chills nausea vomiting abdominal pain or shortness of breath. no other concerns expressed by nursing staff 05/08: Pt seen examined, s/p fistulogram today, received fentanyl and versed at the IR suite and hence is drowsy post op. Arousable to voice, denies any complaints. Ok to resume diet. 05/09 Pt seen examined, no acute overnight issues, able to tolerate diet well yesterday and this AM, On IV erythromycin so far,will d/c same and see if she is able to keep food down with PO erythromycin, continue surcralfate as well as misopristol. 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 D1 today Patient mildly confused as per son today, but looks stable. Denies any other issues. Given that Oral erythromycin was not available, she is on Oral marinol for this time to evaluate her response to same. Discussed with the family the overall poor prognosis given no further intervention is possible, and continued weakness due to inability to keep food down. Son and daughter in law seem to understand. 05/11: Had some confusion overnight. Was incontinent of stool and urine overnight. Still seems slower than baseline when moving today. Having HD today. Cont to encourage po intake. 05/12: More confused today. Trying to exit into hallway believing she is entering the bathroom. Arguing with nurse. No fevers or leukocytosis. Occasional cough but not requiring O2. BMP looks OK. Will DC Abx as repeat CXR does not have distinct infiltrate and she has no infectious sx. DC Marinol as she is refusing anyway. Did not eat this morning because she is fixated on leaving but now agrees to stay. Not sleeping well at night. 05/13: pt seen examined, no acute overnight events, over the last few days the patient seems to be more drowsy and confused. Her WBC is up again today. She is not taking her marinol and this was discontinued. Etiology of confusion? infectious vs medicaion related. She was on famotidine 20mg iv bid, which in renal failure patient can cause some drowsiness. Will wait for 24-48 hrs to help this clear up. Will resume zosyn and vanco given rising wbc today to cover for HCAP pna. IF pt does not improve, will have family conference on goals of treatment. 05/14: Pt seen examined, mental status better today, dicussed her case with her family and overall poor prognosis explained. Chances of recurrent admission to hospital due to abdominal pain and nausea vomit explained. explained the underlying disease process of gastroparesis as well as mesenteric ischemia daugthers concerned regarding getting the appropriate diet at the rehab center wbc count seems to be improving on antibiotics, will treat and complete a 5-7 day course. will switch to orals if she continues to improve.She is tolerating po diet now without any iv erythromycin or marinol 05/15: patient seen and examined, mental status is clear. Again today, she was able to eat food without any abdominal pain, nausea or vomiting since yesterday. The patient had dialysis yesterday,white blood cell count is slightly up. She is on vancomycin and Zosyn for possible pneumonia. Plan to repeat a chest x-ray today. If she remains stable, she will be discharged tomorrow to detention. Pertinent ROS: Denies headache, dizziness Denies chest pain, palpitations Denies cough or shortness of breath Denies abdominal pain, nausea or vomiting. - Constitutional Vitals: Vital Signs Temp Pulse Resp BP Pulse Ox 97.4 F 78 16 196/63 98 05/15/17 09:45 05/15/17 09:45 05/15/17 09:45 05/15/17 09:45 05/15/17 09:45 Period Temp Pulse Resp BP Sys/Turner Pulse Ox Last 24 Hr 97.2 F-98.7 F 66-84 16-16 124-196/44-84 91-98 Intake and Output 05/14/17 05/15/17 05/15/17 21:59 05:59 13:59 Intake Total 150 / 150 100 / 100 Output Total 70286 / 28812 Balance -14353 / -54997 100 / 100 Weight 127 lb Intake & Output: Intake & Output 05/14/17 05/15/17 05/15/17 21:59 05:59 13:59 Intake Total 150 / 150 100 / 100 Output Total 71483 / 61213 Balance -89557 / -93466 100 / 100 Weight 127 lb Intake: IV 50 / 50 50 / 50 Zosyn 2.25 gm In Dextrose 50 / 50 50 / 50 5% in Water 50 ml @ 100 mls/hr IV Q8H [facility] Rx#: [id number] Oral 100 / 100 50 / 50 Output: Hemodialysis UF [id number] / [id number] Other: # Voids 1 # Bowel Movements 1 Exam: Constitutional; Afebrile, cooperative, alert, not in distress. Eyes- No icterus, , No periorbital swelling Ears- Ext ear normal, hearing normal to conversation. Neck- Midline trachea, supple Respiratory system: Air Entry decreased on right base, no crackles, no wheezing. CVS- Rate rhythm regular, S1,S2 heard, no gallop, no rub. Abdomen- Soft nontender abdomen, no organomegaly, no tenderness, no guarding or rigidity, MAKER UP FOLDING- AOOx3, moving all extremities, no gross focal deficit noted. rigth arm swollen. Medical - PN: Obj Da - Labs CBC & Chem 7: 05/15/17 05:05 05/15/17 05:05 Labs: Abnormal Lab Results 05/15/17 05/15/17 05/15/17 08:10 05:05 05:05 WBC 13.3 H RBC 3.23 L Hgb 10.2 L Hct 31.1 L RDW MPV Gran % 80.1 H Lymph % (Auto) 8.9 L Gran # 10.6 H Lymph # (Auto) 1.2 L Lake # (Auto) 1.2 H Chloride 93 L Carbon Dioxide 31 H Creatinine 2.6 H Glucose 117 H Phosphorus 1.6 L Magnesium Total Protein 5.4 L Albumin 3.0 L Globulin Vancomycin Trough 17.3 H 05/14/17 05/14/17 05/14/17 13:00 04:55 04:55 WBC 12.6 H RBC 3.23 L Hgb 10.2 L Hct 31.1 L RDW 14.9 H MPV Gran % 79.7 H Lymph % (Auto) 8.5 L Gran # 10.0 H Lymph # (Auto) 1.1 L Lake # (Auto) 1.2 H Chloride 93 L Carbon Dioxide Creatinine 4.1 H Glucose 205 H Phosphorus 2.3 L Magnesium Total Protein 5.5 L Albumin 3.1 L Globulin Vancomycin Trough 21.2 H* 05/13/17 05/13/17 06:08 06:08 WBC 16.5 H RBC 3.02 L Hgb 9.3 L Hct 28.4 L RDW MPV 10.5 H Gran % 88.5 H Lymph % (Auto) 2.9 L Gran # 14.6 H Lymph # (Auto) 0.5 L Lake # (Auto) 1.3 H Chloride 94 L Carbon Dioxide Creatinine 3.4 H Glucose 155 H Phosphorus 2.3 L Magnesium 1.5 L Total Protein 5.0 L Albumin 3.0 L Globulin 2.0 L Vancomycin Trough Meds: Medications Acetaminophen (Tylenol) 650 mg PO Q6HP PRN PRN Reason: PAIN/FEVER > 101 Hydrocodone Bitart/Acetaminophen ([place] 5/325mg) 1 tab PO Q4HP PRN PRN Reason: Pain Last Admin: 05/15/17 05:46 Dose: 1 tab Aspirin (Aspirin) 81 mg PO QDAY [facility] Last Admin: 05/15/17 08:23 Dose: 81 mg Cilostazol (Pletal) 50 mg PO BIDAC [facility] Last Admin: 05/15/17 10:05 Dose: 50 mg Clonidine HCl (Catapres) 0.1 mg PO Q4HP PRN PRN Reason: Hypertension Last Admin: 05/15/17 10:10 Dose: 0.1 mg Dextrose (Dextrose 50%) 0 ml IV UD PRN PRN Reason: Hypoglycemia Diagnostic Test (Pha) (Accu-Chek) 1 each FS ACHS [facility] Last Admin: 05/15/17 08:21 Dose: 1 each Docusate Sodium (Colace) 100 mg PO BID PRN PRN Reason: Constipation Gabapentin (Neurontin) 100 mg PO BID [facility] Last Admin: 05/15/17 08:23 Dose: 100 mg Hydromorphone HCl (Dilaudid) 0.5 mg IV Q2HP PRN PRN Reason: Pain Last Admin: 05/13/17 23:36 Dose: 0.5 mg Piperacillin Sod/Tazobactam (Sod 2.25 gm/ Dextrose) 50 mls @ 100 mls/hr IV Q8H [facility] Last Admin: 05/15/17 05:15 Dose: 100 mls/hr Vancomycin HCl 1,000 mg/ (Sodium Chloride) 250 mls @ 250 mls/hr IV ONCE ONE Stop: 05/15/17 15:59 Insulin Human Lispro (Humalog) 0 unit SQ [facility] PRN Reason: Protocol Last Admin: 05/15/17 08:24 Dose: Not Given Isosorbide Mononitrate (Imdur) 60 mg PO HS [facility] Last Admin: 05/14/17 22:48 Dose: 60 mg Lisinopril (Zestril) 5 mg PO DAILY [facility] Last Admin: 05/15/17 08:39 Dose: 5 mg Magnesium Hydroxide (Milk Of Magnesia) 30 ml PO DAILYP PRN PRN Reason: Constipation Metoclopramide HCl (Reglan) 10 mg PO [facility] Last Admin: 05/15/17 08:23 Dose: 10 mg Misoprostol (Cytotec) 100 mcg PO TIDCC [facility] Last Admin: 05/15/17 08:22 Dose: 100 mcg Naloxone HCl (Narcan) 0.1 mg IV Q2MIN PRN PRN Reason: Opiate Reversal Ondansetron HCl (Zofran) 4 mg IV Q6HP PRN PRN Reason: Nausea And Vomiting Last Admin: 05/13/17 22:01 Dose: 4 mg Pantoprazole Sodium (Protonix) 40 mg IV Q12H [facility] Last Admin: 05/15/17 05:15 Dose: 40 mg Sodium Chloride (Saline Flush) 10 ml IV Q8 [facility] Last Admin: 05/15/17 05:15 Dose: 10 ml Sucralfate (Carafate) 1 gm PO [facility] Last Admin: 05/15/17 08:23 Dose: 1 gm Vancomycin HCl (Vancomycin Per Pharmacy) 1 order IV [facility] [place] Medical - PN: A/P - Time Spent With Patient Total time spent is greater than 50% in coordination of care (as documented) at patient's floor/unit and/or counseling patient: - Narrative A/P Narrative: a/P Acute recurrent nausea and vomiting: due to mesenteric ischemia vs gastroparesis. Patient pain free presently. On asa, statin, as well as pletal, also on misoprostol and sucralfate. s/p stenting by Dr Pearce, as per previous documentation no further intervention. No vomiting or abdominal pain reported today, was able to eat breakfast, no pain, no nausea or vomiting, diet seems to have improved. continue diet as per Dietary reccs, anticipate d/c in AM Mesenteric ischemia, likely chronic: intermittent pain in abdomen. on dual antiplatelet agents as well as statin. continue same. Diabetic Gastroparesis. : on reglan for now, able to eat this AM, marinol was refused. continue conservative management for now. will use iv erythromycin if needed. HCAP PNA: treat with vanco and zosyn given risking wbc d4 today wbc worse this AM, check CXR chest. Acute encephalopathy: seems back to baseline, likely from infection and or famotidine. ESRD on HD, followed by Dr Duncan. HD T//Sat. DM on sliding scale insulin, continue same, glucose at goal. HTN stable, prn clonidine if bp goes up. Neuropathy on gabapentin, continue same. Extensive PVD on isosorbide, and asa, statin, pletal, medical management for now. Full code DVT hep sq Diet Renal Medical - PN: Qual - VTE Deep Vein Thrombosis/Pulmonary Embolism Present on Admission: No
--- NOTE | 2017-05-15 10:52 | XRay Report ---
HISTORY: Reason for Exam:pneumonia FINDINGS: There is a residual mild to moderate alveolar infiltrate in the right lower lobe with a superimposed pleural effusion. This has become worse since 05/12/17. Mildly prominent increased interstitial lung markings are present in the right upper lobe. The left lung is relatively clear. The pulmonary vascular congestion seen on the prior exam has improved. The heart remains mild to moderately enlarged. IMPRESSION: Worsening right lower lobe pneumonia with associated pleural effusion. Stable cardiomegaly with improving pulmonary vascular congestion Interpreted and Authenticated by: Rogers Shaikh 05/15/17
--- NOTE | 2017-05-15 14:00 | Cat Scan Report ---
CLINICAL INFORMATION: Right-sided pleural effusion and pneumonia COMPARISON: Chest x-ray on 05/15/17 TECHNIQUE: 2.5 mm axial slices were obtained from the lung apices through the bases without intravenous contrast. Sagittal, coronal and axial reformatted images were processed and reviewed at bone, lung and soft tissue windows. 7 mm axial MIP images were also reconstructed. FINDINGS: The chest was imaged without contrast at 2.5 mm intervals. Sagittal and coronal reformats were created. There is a moderate-sized layering pleural effusion the right side. There is no evidence of loculation. Associated with this is volume loss in the basilar segments of the right lower lobe with air bronchograms and consolidation lung parenchyma. This may be a combination of atelectasis and pneumonia. There are mild groundglass alveolar infiltrates in the superior segment right lower lobe and posterior segment right upper lobe. Laterally in the left upper lobe and laterally in the superior segment of the left lower lobe there are small subpleural densities which may be focal areas of inflammation or granulomata. One of them is densely calcified and measures 4 mm. No suspicious masses seen in either lung. Patient does have Faisal very small layering left-sided pleural effusion. No pericardial effusion is present. Heart is mild to moderately enlarged. There are densely calcified plaques in the coronary arteries and the patient has had prior coronary bypass surgery. IMPRESSION: Nonloculated moderate size layering right-sided pleural effusion and much smaller left-sided pleural effusion Atelectasis and pneumonia in the right upper and right lower lobe Cardiomegaly with atherosclerotic coronary artery disease Interpreted and Authenticated by: Rogers Shaikh 05/15/17
[2017-05-15] MEDS ORDERED: VANCOMYCIN 1,000 MG in 0.9 % SODIUM CHLORIDE 250 ML IV ONE (15:00)
[2017-05-15] MEDS: ISOSORBIDE MONONITRATE 60 MG TAB.XL.24H PO SCH (20:50)
[2017-05-16] MEDS: PANTOPRAZOLE 40 MG VIAL IV SCH ×2 (05:26→17:32)
[2017-05-16] MEDS: PIPERACILLIN SODIUM/TAZOBACTAM 2.25 GM in DEXTROSE 5% IN WATER 50 ML IV SCH ×3 (05:31→22:56)
[2017-05-16] MEDS: 0.9 % SODIUM CHLORIDE 10 ML SYRINGE IV SCH ×3 (05:31→21:11)
[2017-05-16 06:39] LABS: Basophils # (Auto) 0 K/mcL (0.0-0.3); Basophils % (Auto) 0.1 % (0.0-2.0); Eosinophils # (Auto) 0.3 K/mcL (0.0-0.7); Eosinophils % (Auto) 2.9 % (0.0-7.0); Granulocytes % (Auto) 76.1 % (38.0-78.0); Lymphocytes # (Auto) 1.3 K/mcL (1.5-4.8); Lymphocytes % (Auto) 11.1 % (15.5-49.0); Mean Cell Volume 96.5 fL (80.0-100.0); Mean Corpuscular HGB Conc 32.5 g/dL (31.0-36.0); Mean Corpuscular Hemoglobin 31.4 pg (26.0-34.0); Monocytes # (Auto) 1.2 K/mcL (0.1-0.9); Monocytes % (Auto) 9.8 % (1.0-12.0); Platelet Count 259 K/mcL (140-440); RBC 3.17 M/mcL (4.00-5.20)
[2017-05-16] MEDS: MISOPROSTOL 100 MCG TABLET PO SCH ×3 (07:53→17:31)
[2017-05-16] MEDS: METOCLOPRAMIDE 10 MG TABLET PO SCH ×4 (07:54→21:11)
[2017-05-16] MEDS: SUCRALFATE 1 GM TABLET PO SCH ×4 (07:54→21:10)
[2017-05-16] MEDS: CILOSTAZOL 100 MG TABLET PO SCH ×2 (07:55→17:31)
[2017-05-16] MEDS: INSULIN LISPRO 1 UNIT/0.01 ML UNIT SQ SCH ×4 (08:32→21:10)
[2017-05-16] MEDS: GABAPENTIN 100 MG CAPSULE PO SCH ×2 (09:45→21:10)
[2017-05-16] MEDS: HYDROcodone/APAP 5/325MG TABLET PO PRN ×2 (11:09→16:12)
--- NOTE | 2017-05-16 11:53 | Internal Med Progress Note ---
Medical - PN: Subj Patient information: Note initiated : 05/16/17 at 11:50 am Service Date, if different from initiated Date: [] Patient: Maryann Juares 82 y/o F admitted on 05/06/17 for Mesenteric Ischemia, Abdominal Pain, Gastroparesis. Chief Complaint: [] Interval history: Ms. Juares is a 82 year old with a history of recurrent abdominal pain, nausea and vomiting. In the past she has had signs and comes of mesenteric ischemia. She did have stents placed by Dr. Pearce. She was last here for a similar problem from April 08 - April 19. At that time, the consensus was that this was more of a diabetic gastroparesis problem. She failed treatment with Reglan and Zofran, etc. but then she was tried on oral erythromycin with each meal, and seemed to improve, so was discharged back to [facility]. He tells me that ever since she left though, she still has intermittent abdominal pain, nausea and vomiting, after meals. Today, she ate a piece of toast, and started to have abdominal pain. She then reported for dialysis, but continued to have pain and vomiting. She was sent back to the emergency room for evaluation, where she was found to have an elevated white blood cell count. CT scan shows severe diffuse vascular disease. Otherwise, the patient denies recent fever or chills, headaches or dizziness, new eye or ear symptoms, sore throat or cough. She denies chest pain or palpitations, shortness of breath, or diarrhea. She thinks she has more constipation issues. She denies significant urine output or dysuria. 05/05- Pt doing well, case discussed with Dr Duncan- Dialysis likely tomorrow as labs appear stable per nephrology. Multiple family at bedside. No O/n events, Improved abd pain, no0 Nausea, on clears, Start Dietary consult and ST eval. 05/06-case discussed with surgery. Patient will need upper endoscopy likely in 24 hours. She is a poor candidate for J-tube given severe mesenteric ischemia. Surgeon already started patient on Reglan/erythromycin/ilostazol. surgery recommends keeping patient additional 24-48 hours until further workup. patient has been able to tolerate oral liquids and clears. dietary intervention for high-protein calorie supplements. 05/07- patient status post EGD with no identifiable lesions. Advance diet. Possible discharge in 24 hours on oral erythromycin/Reglan. Patient started on lost cilostazol per surgery. no overnight fever chills nausea vomiting abdominal pain or shortness of breath. no other concerns expressed by nursing staff 05/08: Pt seen examined, s/p fistulogram today, received fentanyl and versed at the IR suite and hence is drowsy post op. Arousable to voice, denies any complaints. Ok to resume diet. 05/09 Pt seen examined, no acute overnight issues, able to tolerate diet well yesterday and this AM, On IV erythromycin so far,will d/c same and see if she is able to keep food down with PO erythromycin, continue surcralfate as well as misopristol. 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 D1 today Patient mildly confused as per son today, but looks stable. Denies any other issues. Given that Oral erythromycin was not available, she is on Oral marinol for this time to evaluate her response to same. Discussed with the family the overall poor prognosis given no further intervention is possible, and continued weakness due to inability to keep food down. Son and daughter in law seem to understand. 05/11: Had some confusion overnight. Was incontinent of stool and urine overnight. Still seems slower than baseline when moving today. Having HD today. Cont to encourage po intake. 05/12: More confused today. Trying to exit into hallway believing she is entering the bathroom. Arguing with nurse. No fevers or leukocytosis. Occasional cough but not requiring O2. BMP looks OK. Will DC Abx as repeat CXR does not have distinct infiltrate and she has no infectious sx. DC Marinol as she is refusing anyway. Did not eat this morning because she is fixated on leaving but now agrees to stay. Not sleeping well at night. 05/13: pt seen examined, no acute overnight events, over the last few days the patient seems to be more drowsy and confused. Her WBC is up again today. She is not taking her marinol and this was discontinued. Etiology of confusion? infectious vs medicaion related. She was on famotidine 20mg iv bid, which in renal failure patient can cause some drowsiness. Will wait for 24-48 hrs to help this clear up. Will resume zosyn and vanco given rising wbc today to cover for HCAP pna. IF pt does not improve, will have family conference on goals of treatment. 05/14: Pt seen examined, mental status better today, dicussed her case with her family and overall poor prognosis explained. Chances of recurrent admission to hospital due to abdominal pain and nausea vomit explained. explained the underlying disease process of gastroparesis as well as mesenteric ischemia daugthers concerned regarding getting the appropriate diet at the rehab center wbc count seems to be improving on antibiotics, will treat and complete a 5-7 day course. will switch to orals if she continues to improve.She is tolerating po diet now without any iv erythromycin or marinol 05/15: patient seen and examined, mental status is clear. Again today, she was able to eat food without any abdominal pain, nausea or vomiting since yesterday. The patient had dialysis yesterday,white blood cell count is slightly up. She is on vancomycin and Zosyn for possible pneumonia. Plan to repeat a chest x-ray today. If she remains stable, she will be discharged tomorrow to retirement. 05/16: Patient seen and examined, no acute overnight events. Patient did have some pain last night which resolved spontaneously. Did complete her breakfast this morning. She is on IV antibiotics for hospital-acquired pneumonia. She is scheduled for dialysis today She will get a dose of antibiotics after dialysis. She should be able to be discharged tomorrow on oral antibiotics. I will discharge her on Augmentin and ceftin to cover for gram neg and aspiration pneumonitis. culture neg so far. she would benefit from a longer course of antibiotic treatment in light of her pleural effusion, approximately 10 days of oral abx Pertinent ROS: Denies headache, dizziness Denies chest pain, palpitations Denies cough or shortness of breath Denies abdominal pain, nausea or vomiting. - Constitutional Vitals: Vital Signs Temp Pulse Resp BP Pulse Ox 97.4 F 79 16 160/80 97 05/16/17 06:40 05/16/17 11:19 05/16/17 11:19 05/16/17 11:19 05/16/17 11:19 Period Temp Pulse Resp BP Sys/Turner Pulse Ox Last 24 Hr 97.4 F-98.4 F 69-79 14-20 120-160/46-80 90-97 Intake and Output 05/15/17 05/16/17 05/16/17 21:59 05:59 13:59 Intake Total 410 / 410 260 / 260 440 / 440 Output Total Balance 408 / 408 259 / 259 440 / 440 Weight 130 lb Intake & Output: Intake & Output 05/15/17 05/16/17 05/16/17 21:59 05:59 13:59 Intake Total 410 / 410 260 / 260 440 / 440 Output Total Balance 408 / 408 259 / 259 440 / 440 Weight 130 lb Intake: IV 50 / 50 50 / 50 Zosyn 2.25 gm In Dextrose 50 / 50 50 / 50 5% in Water 50 ml @ 100 mls/hr IV Q8H [facility] Rx#: [id number] Oral 360 / 360 210 / 210 440 / 440 Output: # of times incontinent of urine Urine/Stool Mix Other: Meal Dinner Breakfast Percent of Meal Consumed 100% 100% Feeding Ability Independent # Voids 1 # Bowel Movements 1 # of times incontinent of 10 21 Bowels Exam: Constitutional; Afebrile, cooperative, alert, not in distress. Eyes- No icterus, , No periorbital swelling Ears- Ext ear normal, hearing normal to conversation. Neck- Midline trachea, supple Respiratory system: Air Entry equal on both sides, No crackles or wheezing, no rhonchi. CVS- Rate rhythm regular, S1,S2 heard, no gallop, no rub. 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 Medical - PN: Obj Da - Labs CBC & Chem 7: 05/16/17 05:24 05/15/17 05:05 Labs: Abnormal Lab Results 05/16/17 05/15/17 05/15/17 05:24 08:10 05:05 WBC 11.9 H RBC 3.17 L Hgb 9.9 L Hct 30.6 L RDW 15.0 H Gran % Lymph % (Auto) 11.1 L Gran # 9.0 H Lymph # (Auto) 1.3 L [place] # (Auto) 1.2 H Chloride 93 L Carbon Dioxide 31 H Creatinine 2.6 H Glucose 117 H Phosphorus 1.6 L Total Protein 5.4 L Albumin 3.0 L Vancomycin Trough 17.3 H 05/15/17 05/14/17 05/14/17 05:05 13:00 04:55 WBC 13.3 H RBC 3.23 L Hgb 10.2 L Hct 31.1 L RDW Gran % 80.1 H Lymph % (Auto) 8.9 L Gran # 10.6 H Lymph # (Auto) 1.2 L [place] # (Auto) 1.2 H Chloride 93 L Carbon Dioxide Creatinine 4.1 H Glucose 205 H Phosphorus 2.3 L Total Protein 5.5 L Albumin 3.1 L Vancomycin Trough 21.2 H* 05/14/17 04:55 WBC 12.6 H RBC 3.23 L Hgb 10.2 L Hct 31.1 L RDW 14.9 H Gran % 79.7 H Lymph % (Auto) 8.5 L Gran # 10.0 H Lymph # (Auto) 1.1 L [place] # (Auto) 1.2 H Chloride Carbon Dioxide Creatinine Glucose Phosphorus Total Protein Albumin Vancomycin Trough Meds: Medications Acetaminophen (Tylenol) 650 mg PO Q6HP PRN PRN Reason: PAIN/FEVER > 101 Hydrocodone Bitart/Acetaminophen (Cedar 5/325mg) 1 tab PO Q4HP PRN PRN Reason: Pain Last Admin: 05/16/17 11:09 Dose: 1 tab Aspirin (Aspirin) 81 mg PO QDAY [facility] Last Admin: 05/15/17 08:23 Dose: 81 mg Cilostazol (Pletal) 50 mg PO BIDAC [facility] Last Admin: 05/16/17 07:55 Dose: 50 mg Clonidine HCl (Catapres) 0.1 mg PO Q4HP PRN PRN Reason: Hypertension Last Admin: 05/15/17 10:10 Dose: 0.1 mg Dextrose (Dextrose 50%) 0 ml IV UD PRN PRN Reason: Hypoglycemia Diagnostic Test (Pha) (Accu-Chek) 1 each FS ACHS [facility] Last Admin: 05/16/17 11:04 Dose: 1 each Docusate Sodium (Colace) 100 mg PO BID PRN PRN Reason: Constipation Gabapentin (Neurontin) 100 mg PO BID [facility] Last Admin: 05/16/17 09:45 Dose: 100 mg Hydromorphone HCl (Dilaudid) 0.5 mg IV Q2HP PRN PRN Reason: Pain Last Admin: 05/13/17 23:36 Dose: 0.5 mg Piperacillin Sod/Tazobactam (Sod 2.25 gm/ Dextrose) 50 mls @ 100 mls/hr IV Q8H [facility] Last Admin: 05/16/17 05:31 Dose: 100 mls/hr Vancomycin HCl 1,000 mg/ (Sodium Chloride) 250 mls @ 250 mls/hr IV ONCE ONE Stop: 05/16/17 16:59 Insulin Human Lispro (Humalog) 0 unit SQ [facility] PRN Reason: Protocol Last Admin: 05/16/17 11:26 Dose: Not Given Isosorbide Mononitrate (Imdur) 60 mg PO HS [facility] Last Admin: 05/15/17 20:50 Dose: 60 mg Lisinopril (Zestril) 5 mg PO DAILY [facility] Last Admin: 05/15/17 08:39 Dose: 5 mg Magnesium Hydroxide (Milk Of Magnesia) 30 ml PO DAILYP PRN PRN Reason: Constipation Metoclopramide HCl (Reglan) 10 mg PO [facility] Last Admin: 05/16/17 11:09 Dose: 10 mg Misoprostol (Cytotec) 100 mcg PO TIDCC [facility] Last Admin: 05/16/17 11:10 Dose: 100 mcg Naloxone HCl (Narcan) 0.1 mg IV Q2MIN PRN PRN Reason: Opiate Reversal Ondansetron HCl (Zofran) 4 mg IV Q6HP PRN PRN Reason: Nausea And Vomiting Last Admin: 05/13/17 22:01 Dose: 4 mg Pantoprazole Sodium (Protonix) 40 mg IV Q12H [facility] Last Admin: 05/16/17 05:26 Dose: 40 mg Sodium Chloride (Saline Flush) 10 ml IV Q8 [facility] Last Admin: 05/16/17 05:31 Dose: 10 ml Sucralfate (Carafate) 1 gm PO [facility] Last Admin: 05/16/17 11:09 Dose: 1 gm Vancomycin HCl (Vancomycin Per Pharmacy) 1 order IV [facility] [place] - PN: A/P - Time Spent With Patient Total time spent is greater than 50% in coordination of care (as documented) at patient's floor/unit and/or counseling patient: - Narrative A/P Narrative: a/P Acute recurrent nausea and vomiting: due to mesenteric ischemia vs gastroparesis. Patient pain free presently. On asa, statin, as well as pletal, also on misoprostol and sucralfate. s/p stenting by Dr Pearce, as per previous documentation no further intervention. No vomiting or abdominal pain reported today, was able to eat breakfast, no pain, no nausea or vomiting, diet seems to have improved. continue diet as per Dietary reccs. Mesenteric ischemia, likely chronic: intermittent pain in abdomen. on dual antiplatelet agents as well as statin. continue same. Diabetic Gastroparesis. : on reglan for now, able to eat this AM, marinol was refused. continue conservative management for now. will use iv erythromycin if needed. HCAP PNA: treat with vanco and zosyn given risking wbc d5 today wbc better, CXR was orse, CT scan shows pna with right effusion, but no loculations. If the WBC worsens or if the patient has fevers, we may have to tap this fluid. Acute encephalopathy: seems back to baseline, likely from infection and or famotidine. ESRD on HD, followed by Dr Duncan. HD T//Sat. DM on sliding scale insulin, continue same, glucose at goal. HTN stable, prn clonidine if bp goes up. Neuropathy on gabapentin, continue same. Extensive PVD on isosorbide, and asa, statin, pletal, medical management for now. Full code DVT hep sq Diet Renal Medical - PN: Qual - VTE Deep Vein Thrombosis/Pulmonary Embolism Present on Admission: No
[2017-05-16] MEDS ORDERED: VANCOMYCIN 1,000 MG in 0.9 % SODIUM CHLORIDE 250 ML IV ONE (16:00)
[2017-05-16] MEDS: LISINOPRIL 5 MG TABLET PO SCH (16:13)
[2017-05-16] MEDS: ASPIRIN 81 MG TAB.CHEW PO SCH (16:14)
[2017-05-16] MEDS: ISOSORBIDE MONONITRATE 60 MG TAB.XL.24H PO SCH (21:10)
[2017-05-17] MEDS: HYDROcodone/APAP 5/325MG TABLET PO PRN (05:46)
[2017-05-17] MEDS: LISINOPRIL 5 MG TABLET PO SCH ×2 (05:47→10:15)
[2017-05-17] MEDS: 0.9 % SODIUM CHLORIDE 10 ML SYRINGE IV SCH (05:52)
[2017-05-17] MEDS: PIPERACILLIN SODIUM/TAZOBACTAM 2.25 GM in DEXTROSE 5% IN WATER 50 ML IV SCH (05:52)
[2017-05-17] MEDS: PANTOPRAZOLE 40 MG VIAL IV SCH (05:52)
--- NOTE | 2017-05-17 08:17 | Nephrology Progress Note ---
Subjective Patient information: Note initiated : 05/17/17 at 8:15 am Service Date, if different from initiated Date: [] Patient: Maryann Juares 82 y/o F admitted on 05/06/17 for Mesenteric Ischemia, Abdominal Pain, Gastroparesis. Chief Complaint: Patient was seen on 05/16/2017 at 1pm on dialysis. Patient has been complaining of back pain. Her nausea and vomiting have been better. She had a CT yesterday and it showed plural effusion. Objective - Vital Signs Vital signs: Vital Signs Temp Pulse Pulse Resp BP BP Pulse Ox 05/17/17 03:17 97.8 F 80 18 180/54 95 05/17/17 00:00 97.0 F 83 18 180/52 95 05/16/17 20:00 97.9 F 86 18 167/58 98 05/16/17 16:00 97.4 F 87 16 180/60 95 05/16/17 15:31 99 H 147/60 05/16/17 15:26 85 173/44 05/16/17 15:10 82 178/57 05/16/17 14:58 87 174/78 05/16/17 14:44 87 197/73 05/16/17 14:27 86 141/60 05/16/17 14:13 86 191/66 05/16/17 13:59 81 165/55 05/16/17 13:45 79 147/50 05/16/17 13:28 81 193/69 05/16/17 13:09 90 179/66 05/16/17 12:53 82 197/87 05/16/17 11:19 79 16 160/80 97 Intake and Output 05/16/17 05/17/17 05/17/17 21:59 05:59 13:59 Intake Total 830 / 830 500 / 500 Output Total 86317 / 14633 Balance -37941 / -06838 500 / 500 Intake: IV 50 / 50 50 / 50 Zosyn 2.25 gm In Dextrose 50 / 50 50 / 50 5% in Water 50 ml @ 100 mls/hr IV Q8H [facility] Rx#: [id number] Oral 780 / 780 450 / 450 Output: Hemodialysis UF 76309 / 02437 Other: Meal Dinner Percent of Meal Consumed 75% # Voids 2 2 # Bowel Movements 1 1 # of times incontinent of 1 1 Bowels Weight 132 lb Intake & Output: Intake & Output 05/16/17 05/17/17 05/17/17 21:59 05:59 13:59 Intake Total 830 / 830 500 / 500 Output Total / 84991 Balance -83184 / -07494 500 / 500 Weight 132 lb Intake: IV 50 / 50 50 / 50 Zosyn 2.25 gm In Dextrose 50 / 50 50 / 50 5% in Water 50 ml @ 100 mls/hr IV Q8H [facility] Rx#: [id number] Oral 780 / 780 450 / 450 Output: Hemodialysis UF Other: Meal Dinner Percent of Meal Consumed 75% # Voids 2 2 # Bowel Movements 1 1 # of times incontinent of 1 1 Bowels - General Appearance General appearance: appears started age, cachectic EENT: ATNC Neck: no JVD Respiratory: no kyphosis Cardiology: no murmurs Gastrointestinal: normoactive bowel sounds Integumentary: no rash Neurologic: no focal deficit Musculoskeletal: no deformities (she has 1+ edema. ) - Lab 05/16/17 05:24 05/15/17 05:05 Most recent lab results Calcium 9.2 mg/dl (8.6-10.4) 05/15/17 05:05 Phosphorus 1.6 mg/dL (2.7-4.5) L 05/15/17 05:05 Magnesium 1.6 mg/dL (1.6-2.5) 05/15/17 05:05 Assessment and Plan (1) End-stage renal disease needing dialysis Status: Chronic Comment: 1. End-stage renal disease on hemodialysis. She is having dialysis today and will attempt to remove 3 kilos of fluid as tolerated as she has significant edema, CT showing fluid and bp is high. 2. Nausea, vomiting: Probably related to diabetic gastroparesis or intestinal ischemia. On Reglan. This has been better. 3. Elevated wbc. Has been worked up by Dr. Alvarado.
[2017-05-17] MEDS: INSULIN LISPRO 1 UNIT/0.01 ML UNIT SQ SCH (10:04)
[2017-05-17] MEDS: SUCRALFATE 1 GM TABLET PO SCH (10:15)
[2017-05-17] MEDS: METOCLOPRAMIDE 10 MG TABLET PO SCH (10:15)
[2017-05-17] MEDS: MISOPROSTOL 100 MCG TABLET PO SCH (10:16)
[2017-05-17] MEDS: ASPIRIN 81 MG TAB.CHEW PO SCH (10:16)
[2017-05-17] MEDS: GABAPENTIN 100 MG CAPSULE PO SCH (10:16)
--- NOTE | 2017-05-17 10:18 | Discharge Summary ---
Medical - DS: Prov Patient information: Note initiated : 05/17/17 at 10:09 am Service Date, if different from initiated Date: [] Patient: Maryann Juares 82 y/o F admitted on 05/06/17 for Mesenteric Ischemia, Abdominal Pain, Gastroparesis. Chief Complaint: [] Date of admission: 05/06/17 10:01 Discharge date: 05/17/17 Primary care physician: Pascale Peter DO Admitting clinician: Britta Canseco Attending physician on discharge: Britta Canseco Medical - DS: Meds - Discharge Medications Prescriptions: Amoxicillin/Potassium Clav [Augmentin] 500 mg PO Q8H #12 tablet Cefuroxime [Ceftin] 250 mg PO Q12 #14 tablet HYDROcodone/APAP 5/325MG [[place] 5/325Mg] 1 tab PO Q4HP PRN #30 PRN Reason: Pain Pantoprazole [Protonix] 40 mg PO QAMAC #1 tablet Active and Home Medications: Discharge medications: Accu-Cheks before meals and at bedtime Tylenol 650 mg every 6 hours as needed Aspirin 81 mg daily Pletal 50 mg twice daily Clonidine 0.1 mg every 4 hours as needed blood pressures greater than 160/90 Colace 100 mg p.o. twice daily as needed Gabapentin 100 mg p.o. twice daily [place] 5/325 one every 4 hours as needed pain Insulin sliding scale, low-dose, before meals and at bedtime Isordil 60 mg nightly Lisinopril 5 mg daily Milk of magnesia 30 mL daily as needed constipation Reglan 10 mg p.o. before meals and at bedtime for gastroparesis Cytotec 100 mcg p.o. 3 times daily with meals Naloxone 0.1 mg as needed narcotic overdose Zofran 4 mg sublingual every 6 hours as needed nausea Protonix 40 mg p.o. every morning Augmentin 500 mg p.o. twice daily with food, for 4 more days Carafate 1 g p.o. before meals and at bedtime Ceftin 250 mg p.o. twice daily, 5-7 days. Previous home Medications: Gabapentin [Neurontin] 100 mg PO BID 06/23/15 [History Confirmed 05/05/17 Last Taken 05/04/17 08:00] Isosorbide Mononitrate [Isosorbide Mononitrate ER] 60 mg PO HS 06/23/15 [ History Confirmed 05/05/17 Last Taken 05/03/17 20:00] Pravastatin [Pravachol] 40 mg PO HS 06/23/15 [History Confirmed 05/05/17 Last Taken 05/03/17 20:00] Cyanocobalamin (Vitamin B-12) [Vitamin B12] 1,000 mcg PO DAILY 09/24/16 [ History Confirmed 05/05/17 Last Taken 05/04/17 08:00] Ergocalciferol (Vitamin D2) [Vitamin D2] 50,000 unit PO MO@0800 09/24/16 [ History Confirmed 05/05/17 Last Taken 04/29/17 08:00] Ubidecarenone [Coq-10] 300 mg PO DAILY 09/24/16 [History Confirmed 05/05/17 Last Taken 05/04/17 08:00] Vit A,C & E/Lutein/Minerals [Ocuvite] 1 tab PO DAILY 09/24/16 [History Confirmed 05/05/17 Last Taken 05/04/17 08:00] Meclizine [Antivert] 25 mg PO HS 09/25/16 [History Confirmed 05/05/17 Last Taken 05/03/17 20:00] Lactobacillus Acidophilus/Fos [Acidophilus Probiotic Tablet] 1 tab PO TID [History Confirmed 05/05/17 Last Taken 05/04/17 14:00] Metoclopramide [Reglan] 10 mg PO ACHS 04/08/17 [History Confirmed 05/05/17 Last Taken 05/04/17 11:30] Accu-Chek 1 each FS ACHS strip 04/19/17 [Rx Confirmed 05/05/17 Last Taken Unknown] Erythromycin Base [Erythromycin] 250 mg PO TIDCC #1 capsule. 04/19/17 [Rx Confirmed 05/05/17 Last Taken 05/04/17 12:00] Insulin Lispro [Humalog] See Protocol SQ ACHS #1 unit 04/19/17 [Rx Confirmed Last Taken 05/04/17] Ondansetron HCl [Zofran ODT] 4 mg SL Q4HP PRN tablet 04/19/17 [Rx Confirmed Last Taken 05/02/17] cloNIDine HCL [Catapres] 0.1 mg PO Q4HP PRN tablet 04/19/17 [Rx Confirmed 05/05 Last Taken 04/28/17] aspirin 81 mg chewable tablet 81 mg PO QDAY 05/03/17 [History Confirmed Last Taken 05/04/17 08:00] folic acid 1 mg tablet 1 mg PO QDAY 05/03/17 [History Confirmed 05/05/17 Last Taken 05/04/17 08:00] misoprostol 100 mcg tablet 100 mcg PO TIDCC tab 05/03/17 [History Confirmed Last Taken 05/04/17 12:00] ranitidine 150 mg tablet 150 mg PO QHS 05/03/17 [History Confirmed 05/05/17 Last Taken 05/02/17 20:00] sucralfate 1 gram tablet 1 g PO QID 05/03/17 [History Confirmed 05/05/17 Last Taken 05/04/17 11:00] Bisacodyl [Dulcolax] 10 mg [place] DAILYP PRN 05/05/17 [History Confirmed 05/05/17 Last Taken Unknown] HYDROcodone/APAP 5/325MG [[place] 5/325Mg] 1 tab PO Q4HP PRN 05/05/17 [History Confirmed 05/05/17 Last Taken 04/26/17] Na Phos,M-B/Na Phos,Di-Ba [Fleets Adult] 1 unit [place] DAILYP PRN 05/05/17 [History Confirmed 05/05/17 Last Taken Unknown] Polyethylene Glycol 3350 [Miralax] 17 gm PO DAILYP PRN 05/05/17 [History Confirmed 05/05/17 Last Taken 04/28/17] Medical - DS: [facility] Hospital course: Mr. Juares is a 82 year old F Ms. Juares is a 82 year old with a history of recurrent abdominal pain, nausea and vomiting. In the past she has had signs and comes of mesenteric ischemia. She did have stents placed by Dr. Pearce. She was last here for a similar problem from April 08 - April 19. At that time, the consensus was that this was more of a diabetic gastroparesis problem. She failed treatment with Reglan and Zofran, etc. but then she was tried on oral erythromycin with each meal, and seemed to improve, so was discharged back to [facility] care. He tells me that ever since she left though, she still has intermittent abdominal pain, nausea and vomiting, after meals. Today, she ate a piece of toast, and started to have abdominal pain. She then reported for dialysis, but continued to have pain and vomiting. She was sent back to the emergency room for evaluation, where she was found to have an elevated white blood cell count. CT scan shows severe diffuse vascular disease. Otherwise, the patient denies recent fever or chills, headaches or dizziness, new eye or ear symptoms, sore throat or cough. She denies chest pain or palpitations, shortness of breath, or diarrhea. She thinks she has more constipation issues. She denies significant urine output or dysuria. 05/05- Pt doing well, case discussed with Dr Duncan- Dialysis likely tomorrow as labs appear stable per nephrology. Multiple family at bedside. No O/n events, Improved abd pain, no0 Nausea, on clears, Start Dietary consult and ST eval. 05/06-case discussed with surgery. Patient will need upper endoscopy likely in 24 hours. She is a poor candidate for J-tube given severe mesenteric ischemia. Surgeon already started patient on Reglan/erythromycin/ilostazol. surgery recommends keeping patient additional 24-48 hours until further workup. patient has been able to tolerate oral liquids and clears. dietary intervention for high-protein calorie supplements. May 17, 2017: Hospital course: This patient has ongoing intermittent bouts of abdominal pain, nausea and vomiting. She has had numerous admissions and workups for this. Working diagnoses include both diabetic gastroparesis, in addition to severe underlying mesenteric ischemia. Neither of these diagnoses are fixable. She is currently tolerating her current medical regimen, and today was able to eat and tolerate breakfast, without nausea or abdominal pain. She is also status post stent placements by Dr. Pearce. No other procedures are offered at this time. -The patient has had some intermittent confusion at times. This is likely attributable to multiple underlying medical problems and numerous medications. Mental status does appear fairly clear this morning. -X-rays were consistent with pneumonia, so patient was treated for healthcare associated pneumonia with IV vancomycin and Zosyn. She has no pulmonary complaints at this time. We will change IV antibiotics to oral Augmentin and Ceftin for another 7 days. -Patient does have end-stage renal disease, and continues on dialysis. She seems a little volume heavy at this time, but dialysis and volume is being managed by Dr. Duncan. She will be due for dialysis again on Saturday I believe. -Overall long-term prognosis is quite poor. There have been several family conferences regarding this. I discussed with the patient that we really cannot fix what is wrong with her, and that they may want to consider not bringing her back to the emergency room every time she has the symptoms. She seems willing to go to a comfort care status, but it is not clear that all of her children are on board with this yet. Medical History Chronic mesenteric ischemia (Acute) Chronic renal failure (Acute) Closed head injury (Acute) Diabetes mellitus, insulin dependent (IDDM), controlled (Acute) End-stage renal disease needing dialysis (Acute) 1. End-stage renal disease on hemodialysis. 2. Nausea, vomiting: Probably related to diabetic gastroparesis. 3. Hyperkalemia, mild: resolved. Hypokalemia due to loss of potassium (Acute) Nausea (Acute) Pneumonia (Acute) Small bowel obstruction (Acute) Syncope (Acute) UTI (urinary tract infection) (Acute) Ventricular ectopy (Acute) Coronary artery disease, status post three-vessel bypass Hypertension GERD Exam: Today, the patient says she is feeling pretty well. She walked a little with physical therapy today, and says that went well. She did have some loose stool this morning. She has no particular complaints, and denies fever or chills, chest pain or shortness of breath, abdominal pain, nausea or vomiting, dysuria. Temperature 97.8, heart rate 89, respiratory rate 16, blood pressure 175/80, O2 saturation 90% on room air Neck is supple without obvious lymphadenopathy or JVD. Cardiac exam shows regular rate and rhythm. Lungs are essentially clear to auscultation. Abdomen is soft and nontender. Extremities: Her right arm is fairly swollen today, as it often is after dialysis. She has about 2+ edema of both lower legs about two thirds of the way up her calf. Neurologic: The patient is alert and cooperative. She is calm. Exam is grossly nonfocal. Assessment and plan: #1 GI Recurrent nausea and vomiting due to mesenteric ischemia and gastroparesis. Patient is fairly stable at this time. Continue aspirin, statin, plateau, misoprostol, sucralfate. -The patient seems agreeable to not being transferred back to the hospital any more for this problem. We discussed that she should be thinking more about comfort care rather than recurrent admissions, as the underlying problems are actually not fixable. She should be managed with current medications, and in addition sublingual Zofran, and consider liquid oxycodone and Ativan as needed for any discomfort. -[place] with family about her CODE STATUS should be continued. Her 2 daughters that I have discussed this with seem willing to change her to a DNR status with comfort measures. #2. Type 2 diabetes. Continue Accu-Cheks and sliding scale insulin as needed. 3. Healthcare associated pneumonia. Patient is status post 6 days of IV vancomycin and Zosyn. She will be changed over to oral Augmentin and Ceftin today, and should continue this for another 5-7 days. #4. Neurologic. Patient has had intermittent mild confusion, likely multifactorial and due to underlying illnesses and medications. Next 5. End-stage renal disease, managed with dialysis, and followed by Dr. Duncan. She is treated Tuesdays and Saturdays. -Continue renal diet, in addition to carbohydrate controlled diet. 6. Hypertension. Continue as needed clonidine, and dialysis as needed. 7. Peripheral neuropathy, managed with gabapentin. 8. Peripheral vascular disease, extensive. Continue Isordil, aspirin, statin, plateau. No further procedures. 9. CODE STATUS: She and her daughters agreed to a no CODE STATUS at admission this time. My understanding is there are some family members that are not quite on board with this. #10. DVT prophylaxis. I would encourage ambulation, and continue with her aspirin and plateau. I do not think I would consist continue heparin at this point. This visit took approximately 40 minutes today, to review the patient's records and test results, interview and examine her, review plan of care with staff, and write orders. Discharge diagnosis: Recurrent nausea and vomiting, due to gastroparesis and mesenteric ischemia Secondary discharge diagnosis: Severe peripheral vascular disease Type 2 diabetes End-stage renal disease, on dialysis Healthcare associated pneumonia Coronary disease Confusion, delirium - Time Spent with Patient Total time spent providing and/or coordinating discharge services: Medical - DS: Exam - Constitutional Vitals: Vital Signs Temp Pulse Pulse Resp BP BP Pulse Ox 05/17/17 08:00 97.8 F 16 175/80 90 05/17/17 03:17 97.8 F 80 18 180/54 95 05/17/17 00:00 97.0 F 83 18 180/52 95 05/16/17 20:00 97.9 F 86 18 167/58 98 05/16/17 16:00 97.4 F 87 16 180/60 95 05/16/17 15:31 99 H 147/60 05/16/17 15:26 85 173/44 05/16/17 15:10 82 178/57 05/16/17 14:58 87 174/78 05/16/17 14:44 87 197/73 05/16/17 14:27 86 141/60 05/16/17 14:13 86 191/66 05/16/17 13:59 81 165/55 05/16/17 13:45 79 147/50 05/16/17 13:28 81 193/69 05/16/17 13:09 90 179/66 05/16/17 12:53 82 197/87 05/16/17 11:19 79 16 160/80 97 Intake and Output 05/16/17 05/17/17 05/17/17 21:59 05:59 13:59 Intake Total 830 / 830 500 / 500 240 / 240 Output Total 45559 / 35290 Balance -00424 / -16830 500 / 500 240 / 240 Intake: IV 50 / 50 50 / 50 Zosyn 2.25 gm In Dextrose 50 / 50 50 / 50 5% in Water 50 ml @ 100 mls/hr IV Q8H [facility] Rx#: [id number] Oral 780 / 780 450 / 450 240 / 240 Output: Hemodialysis UF 11385 / 05247 Other: Meal Dinner Breakfast Percent of Meal Consumed 75% 100% # Voids 2 2 # Bowel Movements 1 1 # of times incontinent of 1 1 Bowels Weight 132 lb Medical - DS: Data Labs on day of discharge: Preliminary micro results at discharge 05/16/17 05:24 Blood Culture - Preliminary Blood 05/15/17 09:01 Blood Culture - Preliminary Blood May 16: CBC: White blood cell count 11,900, hemoglobin 9.9, hematocrit 30.6, RDW 15, granulocyte count 9000 May 15: Chemistry panel: Sodium 135, potassium 3.6, chloride 93, CO2 31, BUN 11, creatinine 2.6, glucose 117 Phosphorus 1.6, low Magnesium 1.6 Albumin low at 3.0 LFTs within normal limits May 16, C. difficile screen is negative. Blood cultures are negative so far. Next Urine culture was negative. May 15: Chest CT: Moderate sized right-sided pleural effusion and smaller left- sided pleural effusion. Atelectasis and/or pneumonia in the right upper lobe and right lower lobe. Cardiomegaly with atherosclerotic coronary artery disease. Chest x-ray: Showed worsening right lower lobe pneumonia associated with pleural effusion. Stable cardiomegaly, improving pulmonary vascular congestion. Medical - DS: A/P - Patient/Caregiver Discharge Instructions Activity: as per physical therapy, increase activity as tolerated Diet: Low Sodium (2gm), Consistent Carbohydrate, Renal/Consistent Carbs Additional Instructions: Follow up with Dr. Pearce On 06/05/17 @ 11:30Am Keep appointment with Primary Care 05/20/17 @ 1:45 PM Prescriptions: Amoxicillin/Potassium Clav [Augmentin] 500 mg PO Q8H #12 tablet Cefuroxime [Ceftin] 250 mg PO Q12 #14 tablet HYDROcodone/APAP 5/325MG [[place] 5/325Mg] 1 tab PO Q4HP PRN #30 PRN Reason: Pain Pantoprazole [Protonix] 40 mg PO QAMAC #1 tablet Other Amb Orders: Aspiration Precautions Location: Determined By Patient Fall Risk Location: Determined By Patient OT Discharge Order Location: Determined By Patient Physical Therapy at Discharge - General Location: Determined By Patient - Problem Maintenance (1) Abdominal pain Status: Acute (2) Gastroparesis Status: Acute (3) Chronic mesenteric ischemia Status: Chronic (4) End-stage renal disease needing dialysis Status: Chronic Comment: 1. End-stage renal disease on hemodialysis. She is having dialysis today and will attempt to remove 3 kilos of fluid as tolerated as she has significant edema, CT showing fluid and bp is high. 2. Nausea, vomiting: Probably related to diabetic gastroparesis or intestinal ischemia. On Reglan. This has been better. 3. Elevated wbc. Has been worked up by Dr. Alvarado. (5) Diabetes mellitus, insulin dependent (IDDM), controlled Status: Chronic - Follow up Plan Follow up with: Solomon Pearce MD [Physician] - 06/05/17 11:30 am Pascale Peter DO [Primary Care Provider] - 05/20/17 1:45 pm Disposition: Xfer SNF Prognosis: Fair Rehab Potential: Fair Overall status at discharge: patient is progressing back to baseline Medical - DS: Qual - VTE Deep Vein Thrombosis/Pulmonary Embolism Present on Admission: No
[2017-05-17] MEDS: CILOSTAZOL 100 MG TABLET PO SCH (10:20)
== END 2017-05-17 12:00 | DRG 393 ==
LOC: ED 12:42 → MEDSUR 12:42
PROVIDERS: ADMIT Internal Medicine; ATTEND Internal Medicine

== ENCOUNTER 2017-05-26 04:34 | Inpatient (IN) ==
[2017-05-26] MEDS ORDERED: ONDANSETRON 4 MG/2 ML VIAL IV ONE (06:44)
[2017-05-26] MEDS ORDERED: PANTOPRAZOLE 40 MG VIAL IV ONE (06:44)
[2017-05-26] MEDS ORDERED: PANTOPRAZOLE 80 MG in 0.9 % SODIUM CHLORIDE 100 ML IV SCH (06:45)
--- NOTE | 2017-05-26 07:25 | Emergency Department Note ---
Nausea/Vomiting/Diarrhea HPI - General Chief complaint: Nausea/Vomiting/Diarrhea Stated complaint: Nausea/Coffee Ground Emesis Time Seen by Provider: 05/26/17 06:40 Source: patient, old records reviewed Mode of arrival: EMS Limitations: other (Patient only answers about half of my questions-unclear if she has memory issues or other issue) - History of Present Illness HPI Narrative: 82-year-old female recently discharged from the hospital 3 weeks ago comes in after dialysis today from [facility] home-this was stopped short secondary to coffee-ground emesis 4 episodes over the last 24 hours. She has known history of diabetic gastroparesis and mesenteric ischemia which contribute. Denies fever. Unable to get much in the way of history secondary to patient cooperation. Sees Dr. Duncan for dialysis - Related Data Home Medications Medication Instructions Recorded Confirmed Gabapentin [Neurontin] 100 mg PO BID 06/23/15 05/20/17 Isosorbide Mononitrate [Isosorbide 60 mg PO HS 06/23/15 05/20/17 Mononitrate ER] Pravastatin [Pravachol] 40 mg PO HS 06/23/15 05/20/17 Cyanocobalamin (Vitamin B-12) 1,000 mcg PO DAILY 09/24/16 05/20/17 [Vitamin B12] Ergocalciferol (Vitamin D2) 50,000 unit PO MO@0800 09/24/16 05/20/17 [Vitamin D2] Ubidecarenone [Coq-10] 300 mg PO DAILY 09/24/16 05/20/17 Vit A,C & E/Lutein/Minerals 1 tab PO DAILY 09/24/16 05/20/17 [Ocuvite] Meclizine [Antivert] 25 mg PO HS 09/25/16 05/20/17 Lactobacillus Acidophilus/Fos 1 tab PO TID 04/08/17 05/20/17 [Acidophilus Probiotic Tablet] Metoclopramide [Reglan] 10 mg PO ACHS 04/08/17 05/20/17 aspirin 81 mg chewable tablet 81 mg PO QDAY 05/03/17 05/20/17 folic acid 1 mg tablet 1 mg PO QDAY 05/03/17 05/20/17 misoprostol 100 mcg tablet 100 mcg PO TIDCC tab 05/03/17 05/20/17 ranitidine 150 mg tablet 150 mg PO QHS 05/03/17 05/20/17 sucralfate 1 gram tablet 1 g PO QID 05/03/17 05/20/17 Bisacodyl [Dulcolax] 10 mg ID DAILYP PRN 05/05/17 05/20/17 Polyethylene Glycol 3350 [Miralax] 17 gm PO DAILYP PRN 05/05/17 05/20/17 Furosemide [Lasix] 80 mg PO BIDD 05/26/17 05/26/17 Previous Rx's Medication Instructions Recorded Ondansetron HCl [Zofran ODT] 4 mg SL Q4HP PRN tab 04/19/17 Accu-Chek 1 each FS ACHS strip 05/17/17 Acetaminophen [Tylenol] 650 mg PO Q6HP PRN tab 05/17/17 Cefuroxime [Ceftin] 250 mg PO Q12 #14 tab 05/17/17 Cilostazol [Pletal] 50 mg PO BIDAC tab 05/17/17 Docusate Sodium [Colace] 100 mg PO BID PRN cap 05/17/17 HYDROcodone/APAP 5/325MG [[place] 1 tab PO Q4HP PRN #30 05/17/17 5/325Mg] Insulin Lispro [Humalog] See Protocol SQ ACHS unit 05/17/17 Lisinopril [Zestril] 5 mg PO DAILY tab 05/17/17 Magnesium Hydroxide [Milk of 30 ml PO DAILYP PRN 05/17/17 Magnesia] Naloxone HCl [Narcan] 0.1 mg IV Q2MIN PRN vial 05/17/17 Pantoprazole [Protonix] 40 mg PO QAMAC #1 tab 05/17/17 cloNIDine HCL [Catapres] 0.1 mg PO Q4HP PRN tab 05/17/17 Allergies Allergy/AdvReac Type Severity Reaction Status Date / Time meperidine [From Demerol] Allergy Severe Difficulty Verified 05/20/17 13:52 Breathing levofloxacin [From Levaquin] AdvReac Intermediate Vomiting Verified 05/20/17 13: 52 morphine AdvReac Intermediate Vomiting Verified 05/20/17 13:52 amlodipine AdvReac Mild Cough Verified 05/20/17 13:52 Review of Systems Limitations: ROS unobtainable due to patients medical condition Past Medical History - Past Medical History Source: old records reviewed Medical history: Reports: arthritis, asthma, CHF, coronary artery disease, diabetes (With gastroparesis), GI bleed, hyperlipidemia, hypertension, peripheral artery disease, renal disease (End-stage on dialysis), valvular heart disease Surgical history ED: Reports: angioplasty/stent, appendectomy, cholecystectomy, coronary bypass (CABG), other (Dialysis fistula) PIT [employer]OR history: Reports: bilateral tubal ligation - Social History smoking status: Never smoker Alcohol use: Reports: None Drug use: Reports: none Physical Exam Frail elderly female no acute distress resting comfortably. Normocephalic atraumatic. Conjunctive are clear sclerae white and nonicteric. No nasal discharge or congestion. Oropharynx is pink and moist. Neck supple without lymphadenopathy or thyromegaly. Heart is regular rate and rhythm no murmurs appreciated. Lungs are clear to auscultation bilaterally without wheezes rales rhonchi or respiratory distress. Abdomen is soft mildly tender especially the epigastrium but no peritoneal signs. Mild guarding. No pedal edema. +2 radial pulse. Fistula right arm. Not entirely cooperative for exam and interview. Somewhat irritable and not forthcoming about symptoms. Unclear if there are memory issues. - General Limitations: no limitations Course Vital Signs Temperature 98.4 F 05/26/17 04:36 Pulse Rate 102 H 05/26/17 04:36 Respiratory Rate 18 05/26/17 04:36 Blood Pressure 174/65 05/26/17 04:36 Pulse Oximetry (%) 95 05/26/17 04:36 Temperature 98.4 F 05/26/17 04:36 Pulse Rate 105 H 05/26/17 06:32 Respiratory Rate 18 05/26/17 08:25 Blood Pressure 174/55 05/26/17 08:02 Pulse Oximetry (%) 94 05/26/17 06:32 Nausea/Vomiting/Diarrhea - Lab Data Lab results reviewed: Yes I reviewed the patient's lab results. Result diagrams: 05/26/17 07:16 05/26/17 07:16 Lab Results 05/26/17 05/26/17 05/26/17 Range/Units 07:15 07:16 07:16 WBC 21.0 H (4.5-11.0) K/mcL RBC 3.44 L (4.00-5.20) M/mcL Hgb 10.6 L (12.0-15.0) g/dL Hct 33.3 L (36.0-48.0) % MCV 96.7 (80.0-100.0) fL MCH 30.8 (26.0-34.0) pg MCHC 31.9 (31.0-36.0) g/dL RDW 15.0 H (11.5-14.5) % Plt Count 315 (140-440) K/mcL MPV 9.0 (7.4-10.4) fL Gran % 93.4 H (38.0-78.0) % Lymph % (Auto) 3.3 L (15.5-49.0) % Bryan % (Auto) 3.2 (1.0-12.0) % Eos % (Auto) 0 (0.0-7.0) % Baso % (Auto) 0.1 (0.0-2.0) % Gran # 19.7 H (1.8-8.0) K/mcL Lymph # (Auto) 0.7 L (1.5-4.8) K/mcL Bryan # (Auto) 0.7 (0.1-0.9) K/mcL Eos # (Auto) 0 (0.0-0.7) K/mcL Baso # (Auto) 0 (0.0-0.3) K/mcL POC PT (11.9-14.5) sec POC INR (0.9-1.2) VBG Lactic Acid 1.0 (0.5-2.2) mmol/L Sodium 137 (133-145) mmol/L Potassium 3.5 (3.3-5.1) mmol/L Chloride 88 L (96-108) mmol/L Carbon Dioxide 29 (22-30) mmol/L Anion Gap 20.0 H (8-16) BUN 12 (8-23) mg/dl Creatinine 2.8 H (0.6-1.1) mg/dl GFR Calculation 15 Glucose 215 H (70-105) mg/dL Calcium 10.2 (8.6-10.4) mg/dl Total Bilirubin 0.2 (0.0-1.0) mg/dL AST 15 (0-37) U/l ALT 8 (0-40) U/l Alkaline Phosphatase 76 (39-117) U/L Total Protein 5.9 (5.9-8.4) gm/dL Albumin 3.6 (3.2-5.2) gm/dL Globulin 2.3 (2.2-3.7) gm/dL Albumin/Globulin Ratio 1.6 (1.0-2.3) 05/26/17 Range/Units 07:17 WBC (4.5-11.0) K/mcL RBC (4.00-5.20) M/mcL Hgb (12.0-15.0) g/dL Hct (36.0-48.0) % MCV (80.0-100.0) fL MCH (26.0-34.0) pg MCHC (31.0-36.0) g/dL RDW (11.5-14.5) % Plt Count (140-440) K/mcL MPV (7.4-10.4) fL Gran % (38.0-78.0) % Lymph % (Auto) (15.5-49.0) % Bryan % (Auto) (1.0-12.0) % Eos % (Auto) (0.0-7.0) % Baso % (Auto) (0.0-2.0) % Gran # (1.8-8.0) K/mcL Lymph # (Auto) (1.5-4.8) K/mcL Bryan # (Auto) (0.1-0.9) K/mcL Eos # (Auto) (0.0-0.7) K/mcL Baso # (Auto) (0.0-0.3) K/mcL POC PT 11.4 L (11.9-14.5) sec POC INR 0.9 (0.9-1.2) VBG Lactic Acid (0.5-2.2) mmol/L Sodium (133-145) mmol/L Potassium (3.3-5.1) mmol/L Chloride (96-108) mmol/L Carbon Dioxide (22-30) mmol/L Anion Gap (8-16) BUN (8-23) mg/dl Creatinine (0.6-1.1) mg/dl GFR Calculation Glucose (70-105) mg/dL Calcium (8.6-10.4) mg/dl Total Bilirubin (0.0-1.0) mg/dL AST (0-37) U/l ALT (0-40) U/l Alkaline Phosphatase (39-117) U/L Total Protein (5.9-8.4) gm/dL Albumin (3.2-5.2) gm/dL Globulin (2.2-3.7) gm/dL Albumin/Globulin Ratio (1.0-2.3) Disposition Pt seen by CORNICE MAKER/PA only: No Summary: Started initial workup but not finished at time of checkout. Will check patient out to Dr. Gutierrez at shift change. Further care and disposition per Dr. Gutierrez Disposition: Still a Patient Referrals: Pascale Peter DO [Primary Care Provider] -
[2017-05-26 07:45] LABS: Basophils # (Auto) 0 K/mcL (0.0-0.3); Basophils % (Auto) 0.1 % (0.0-2.0); Eosinophils # (Auto) 0 K/mcL (0.0-0.7); Eosinophils % (Auto) 0 % (0.0-7.0); Granulocytes % (Auto) 93.4 % (38.0-78.0); Lymphocytes # (Auto) 0.7 K/mcL (1.5-4.8); Lymphocytes % (Auto) 3.3 % (15.5-49.0); Mean Cell Volume 96.7 fL (80.0-100.0); Mean Corpuscular HGB Conc 31.9 g/dL (31.0-36.0); Mean Corpuscular Hemoglobin 30.8 pg (26.0-34.0); Monocytes # (Auto) 0.7 K/mcL (0.1-0.9); Monocytes % (Auto) 3.2 % (1.0-12.0); Platelet Count 315 K/mcL (140-440); RBC 3.44 M/mcL (4.00-5.20)
[2017-05-26 08:08] LABS: ALT/SGPT 8 U/l (0-40); Albumin 3.6 gm/dL (3.2-5.2); Albumin/Globulin Ratio 1.6 (1.0-2.3); Alkaline Phosphatase 76 U/L (39-117); Blood Urea Nitrogen 12 mg/dl (8-23)
--- NOTE | 2017-05-26 09:49 | Cat Scan Report ---
CLINICAL INFORMATION: Hematemesis and epigastric pain COMPARISON: 08/02/2016 and 05/04/2017 TECHNIQUE: 2.5 mm helical slices were obtained from the mid heart through the subtrochanteric regions. Following reconstruction, 2.5 mm sagittal, coronal and axial reformatted images were processed and reviewed at bone, lung and soft tissue windows. FINDINGS: Moderate right pleural effusion with subsegmental compressive atelectasis right lower lobe is unchanged from the previous study. The heart is moderately enlarged and there is heavy calcification region of mitral valve. Images through the abdomen show the noncontrasted liver is decreased in size with mild cortical irregularity and inhomogeneous attenuation suggesting cirrhosis. No focal hepatic lesions on this noncontrast study. Gallbladder is surgically absent. Common bile duct is normal caliber is 8 mm. There is a small amount of ascites.. Moderate edema in the subcutaneous fat throughout the abdomen and pelvis is unchanged. Both kidneys are atrophic: The right is 7.6 x 4.7 cm and the left is 7.7 x 4.5 cm. No focal renal lesions. The spleen, adrenal glands, pancreas are normal. The aorta is normal in contour and caliber with extremely heavy calcification within the aorta and all of the aortic branches. This may represent metastatic calcification from end-stage renal disease and/or atherosclerotic plaque. It is unchanged. Multiple sigmoid diverticuli appreciated. The remainder of the colon and small bowel are normal. The stomach is markedly dilated and there is marked concentric wall thickening the distal gastric body, antrum and pylorus - a new finding suggestive of infiltrative gastric pathology. Bone windows show moderate broad L4-5 disc protrusion with facet arthropathy resulting in severe central canal and moderate bilateral IV foraminal narrowing - stable. No focal osseous lesion IMPRESSION: 1. Moderate gastric dilatation with marked concentric wall thickening of the distal gastric body, antrum and pylorus - a new finding suggestive of infiltrative gastric pathology. It could represent inflammation or neoplasia suggest upper endoscopy 2. Liver is diminutive with slight cortical irregularity and inhomogeneous attenuation which is suggestive, but not diagnostic, of cirrhosis. Small amount of ascites and integumentary edema is stable. 3. Atrophy of both kidneys compatible with known end-stage renal disease. There is extraordinarily heavy calcification within the aorta, and aortic branch vessels - as previously seen. This may represent a combination of metastatic calcification, seen end-stage renal disease and/or atherosclerotic disease. 4. Moderate right pleural effusion - stable. 5. L4-5: Severe central canal and bilateral IV foraminal narrowing due to broad disc protrusion facet arthropathy Interpreted and Authenticated by: Solomon Lunsford 05/26/17
[2017-05-26] MEDS ORDERED: HYDROmorphone 2 MG/ML SYRINGE IV ONE (11:18)
[2017-05-26 13:39] LABS: Appearance,Urine CLOUDY; Bacteria,Urine 0 /hpf (0); Bilirubin,Urine NEG (NEG); Color,Urine AMBER; Glucose,Urine (UA) NEGATIVE (NEG); Leukocyte Esterase,Urine NEG /uL (NEG); Nitrate,Urine NEG (NEG); Protein,Urine 100 mg/dL (NEG); Specific Gravity,Urine 1.023 (1.000-1.035); Urine Blood 0.2 mg/dL (<0.03); Urine Hyaline Cast 4 /lpf (0-2); Urine RBC 7 /hpf (0-1); Urine Squamous Epithelial Cell 0 /hpf (0-4); Urine WBC 2 /hpf (0-4); Urobilinogen,Urine NEG (NEG)
[2017-05-26] MEDS: 0.9 % SODIUM CHLORIDE 1,000 ML IV SCH (13:45)
[2017-05-26] MEDS ORDERED: NALOXONE HCL 0.4 MG/ML VIAL IV PRN (13:53)
[2017-05-26] MEDS ORDERED: IPRATROPIUM/ALBUTEROL 3 ML AMPUL.NEB NEB PRN (13:53)
[2017-05-26] MEDS ORDERED: ACETAMINOPHEN 325 MG TABLET PO PRN (13:53)
[2017-05-26] MEDS ORDERED: PIPERACILLIN SODIUM/TAZOBACTAM 2.25 GM in DEXTROSE 5% IN WATER 50 ML IV ONE (13:53)
[2017-05-26] MEDS ORDERED: DEXTROSE 50% 50 ML VIAL IV PRN (13:53)
[2017-05-26] MEDS ORDERED: VANCOMYCIN 1,000 MG in 0.9 % SODIUM CHLORIDE 250 ML IV ONE (14:30)
[2017-05-26] MEDS: METOCLOPRAMIDE 10 MG/2 ML VIAL IV SCH ×2 (14:35→19:20)
[2017-05-26] MEDS ORDERED: ERYTHROMYCIN LACTOBIONATE 250 MG in 0.9 % SODIUM CHLORIDE 100 ML IV SCH (15:00)
[2017-05-26] MEDS ORDERED: LORazepam 2 MG/ML VIAL IV ONE (15:18)
[2017-05-26] MEDS: LORazepam 2 MG/ML VIAL ONE ×2 (15:39→17:12)
[2017-05-26] MEDS: ERYTHROMYCIN LACTOBIONATE 250 MG in 0.9 % SODIUM CHLORIDE 100 ML IV SCH ×2 (15:45→19:38)
[2017-05-26] MEDS: LORazepam 2 MG/ML VIAL IV ONE ×2 (15:47→17:13)
[2017-05-26] MEDS ORDERED: VANCOMYCIN PER PHARMACY IV ONE (16:33)
[2017-05-26] MEDS ORDERED: PIPERACILLIN SODIUM/TAZOBACTAM 2.25 GM in DEXTROSE 5% IN WATER 50 ML IV SCH (16:45)
--- NOTE | 2017-05-26 16:46 | Internal Med History&Physical ---
Medical - H&P: HPI Patient information: Note initiated : 05/26/17 at 4:37 pm Service Date, if different from initiated Date: [] Patient: Maryann Juares 82 y/o F admitted on 05/26/17 for Nausea/Coffee Ground Emesis. Chief Complaint: [] History of present illness: Ms. Juares is a 82 year old Female with multiple medical issues, predominantly DM with gastroparesis and Chr mesenteric ischemia, ESRD on HD, who presents to the hospital from [place] today for abdominal pain, nausea and vomiting x 1 day. She has had 3-4 episodes of coffee ground emesis since this AM and was therefore sent to the hospital for further management. According to the patient she woke up this AM to pass urine, as after a bit she had epigastric periumbilical sharp abdominal pain, non radiating, mild to moderate in severity, associated with nausea, but no aggravating or relieving factors. Usually her pain is aggravated by eating food and she is a very poor eater. She notes that the vomit was dark colored but no bright red blood noted. The patient denies any other complaints, last meal was yesterday AM, and denies skipping her meds. In the ER the patient had a elevated WBC count and right basilar pna, which seems old. She was recently treated for same. She has renal failure, Her Hemoglobin was stable. CT abdomen and pelvis showed dilated stomach with thickened stomach indicative of inflammation vs inflammatory pathology. GI was called by ER for same, but they noted that given the patient had recent EGD ( during last hospital stay) EGD is not warranted urgently. Lactic acid was normal. The patient and the patient family are aware of the poor prognosis of the patient. The ER doctor and myself talked with the patient regarding her treatment plans and they want to pursue treatment at this time. The patient was admitted to the hospital for further management. The patient has h/o Gastroparesis and chr mesentric ischemia, she has been hospitalized multiple times in the hospital in the last few times. She has undergone mesenteric artery stenting, seen by surgery and no further intervention was possible. the patient has failed Po reglan, PO erythromycin, zofran as anti nausea meds. She stays in the [facility] for a few days and then comes back to the hospital likely with recurring Gastroparesis and mesenteric ischemia. Last admission I had an extensive conversation with the son and the two daughters including the patient regaring her overall poor prognosis. They wish to continue to treat her as much as possible. All systems: reviewed and no additional remarkable complaints except as stated ( as per HPI) Medical - H&P: H Medical history: Medical History (Last Updated 05/25/17 @ 16:02 by Pascale Peter DO) Chronic renal failure (Chronic) Nausea (Chronic) Hypokalemia due to loss of potassium (Chronic) Ventricular ectopy (Chronic) Chronic mesenteric ischemia (Chronic) End-stage renal disease needing dialysis (Chronic) Diabetes mellitus, insulin dependent (IDDM), controlled (Chronic) Closed head injury (Resolved) Pneumonia (Resolved) Small bowel obstruction (Resolved) Syncope (Resolved) UTI (urinary tract infection) (Resolved) Surgical history: Past Surgical History (Last Reviewed 05/20/17 @ 14:05 by Pascale Peter DO) H/O neck surgery (Resolved) Tubal ligation status (Resolved) Pertinent family history: Family History (Last Reviewed 05/20/17 @ 14:05 by Pascale Peter DO) Father Cancer Mother Heart attack Medical - H&P: Meds Home Medications Medication Instructions Recorded Confirmed Type Gabapentin [Neurontin] 100 mg PO BID 06/23/15 05/20/17 History Isosorbide Mononitrate [Isosorbide 60 mg PO HS 06/23/15 05/20/17 History Mononitrate ER] Pravastatin [Pravachol] 40 mg PO HS 06/23/15 05/20/17 History Cyanocobalamin (Vitamin B-12) 1,000 mcg PO DAILY 09/24/16 05/20/17 History [Vitamin B12] Ergocalciferol (Vitamin D2) 50,000 unit PO MO@0800 09/24/16 05/20/17 History [Vitamin D2] Ubidecarenone [Coq-10] 300 mg PO DAILY 09/24/16 05/20/17 History Vit A,C & E/Lutein/Minerals 1 tab PO DAILY 09/24/16 05/20/17 History [Ocuvite] Meclizine [Antivert] 25 mg PO HS 09/25/16 05/20/17 History Lactobacillus Acidophilus/Fos 1 tab PO TID 04/08/17 05/20/17 History [Acidophilus Probiotic Tablet] Metoclopramide [Reglan] 10 mg PO ACHS 04/08/17 05/20/17 History Ondansetron HCl [Zofran ODT] 4 mg SL Q4HP PRN tab 04/19/17 05/20/17 Rx aspirin 81 mg chewable tablet 81 mg PO QDAY 05/03/17 05/20/17 History folic acid 1 mg tablet 1 mg PO QDAY 05/03/17 05/20/17 History misoprostol 100 mcg tablet 100 mcg PO TIDCC tab 05/03/17 05/20/17 History ranitidine 150 mg tablet 150 mg PO QHS 05/03/17 05/20/17 History sucralfate 1 gram tablet 1 g PO QID 05/03/17 05/20/17 History Bisacodyl [Dulcolax] 10 mg [place] DAILYP PRN 05/05/17 05/20/17 History Polyethylene Glycol 3350 [Miralax] 17 gm PO DAILYP PRN 05/05/17 05/20/17 History Accu-Chek 1 each FS ACHS strip 05/17/17 05/20/17 Rx Acetaminophen [Tylenol] 650 mg PO Q6HP PRN tab 05/17/17 05/20/17 Rx Cefuroxime [Ceftin] 250 mg PO Q12 #14 tab 05/17/17 05/20/17 Rx Cilostazol [Pletal] 50 mg PO BIDAC tab 05/17/17 05/20/17 Rx Docusate Sodium [Colace] 100 mg PO BID PRN cap 05/17/17 05/20/17 Rx HYDROcodone/APAP 5/325MG [[place] 1 tab PO Q4HP PRN #30 05/17/17 05/20/17 Rx 5/325Mg] Insulin Lispro [Humalog] See Protocol SQ ACHS unit 05/17/17 05/20/17 Rx Lisinopril [Zestril] 5 mg PO DAILY tab 05/17/17 05/20/17 Rx Magnesium Hydroxide [Milk of 30 ml PO DAILYP PRN 05/17/17 05/20/17 Rx Magnesia] Naloxone HCl [Narcan] 0.1 mg IV Q2MIN PRN vial 05/17/17 05/20/17 Rx Pantoprazole [Protonix] 40 mg PO QAMAC #1 tab 05/17/17 05/20/17 Rx cloNIDine HCL [Catapres] 0.1 mg PO Q4HP PRN tab 05/17/17 05/20/17 Rx Furosemide [Lasix] 80 mg PO BIDD 05/26/17 05/26/17 History Allergies Allergy/AdvReac Type Severity Reaction Status Date / Time meperidine [From Demerol] Allergy Severe Difficulty Verified 05/20/17 13:52 Breathing levofloxacin [From Levaquin] AdvReac Intermediate Vomiting Verified 05/20/17 13: 52 morphine AdvReac Intermediate Vomiting Verified 05/20/17 13:52 amlodipine AdvReac Mild Cough Verified 05/20/17 13:52 Medical - H&P: Exam - Constitutional Vitals: Temp Pulse Resp BP Pulse Ox 97.8 F 96 H 16 145/45 95 05/26/17 14:00 05/26/17 14:00 05/26/17 14:00 05/26/17 14:00 05/26/17 14:00 Exam: GENERAL: The patient is a well-developed, well-nourished in no apparent distress. Is alert and oriented x3. VITAL SIGNS: Reviewed and as noted elsewhere. HEENT: Head is normocephalic and atraumatic. Extraocular muscles are intact. Pupils are equal, round, and reactive to light. Nares appeared normal. Mouth appears any without lesions. Mucous membranes are dry NECK: Normal to inspection, Supple, No lymphadenopathy or thyromegaly. LUNGS: Air entry equal on both sides, no wheezing, bibasilar crackles, right > left. HEART: Regular rate and rhythm normal, S1 and S2 heard, no Gallop, S3 or Rub Noted, No Gross murmur heard. ABDOMEN: Soft, nontender, and nondistended. Positive bowel sounds. No hepatosplenomegaly was noted. EXTREMITIES: No cyanosis, clubbing, rash, lesions or edema. NEUROLOGIC: Cranial nerves II through XII are grossly intact. Motor and Sensory System Grossly Intact PSYCHIATRIC: Normal affect, Normal Mood. Appropriate Behavior. SKIN: No ulceration or wounds noted, No jaundice, No rash noted. Medical - H&P: Reslt - Labs CBC & Chem 7: 05/26/17 07:16 05/26/17 07:16 Medical - H&P: A/P - Narrative A/P Narrative: A/P Pneumonia/ Aspiration pna: Likely the source of elevated WBC, treat with Vanco and zosyn for now, await official CXR, cultures pending. it could also be reactive elevation of wbc. Pleural effusion: Chr right sided effusion, will see if we can drain this tomorrow. Diabetic Gastroparesis: Chr issue, failed multiple oral regimes, : IV reglan, IV erythromycin for now monitor. GI consult in AM. If does not relieve nausea will place NG tube. nausea and vomiting/ coffee ground emesis. Unlikely to be GIB, IV PPI for now, GI reviewed case and did not feel urgent EGD warranted. Will follow their reccos. Mesenteric ischemia: Chr issue, on dual antiplatelet agents, statin, asa and cilostazol. ESRD HD: consult nephrology for HD. HTN: Resume home Meds HLD: Continue statin. DM : sliding scale insulin for now NPO status. DVT hep sq IV access: The patient has poor IV access, central line will be placed. No good veins for PICC or USG guided peripheral line Diet: NPO for now, will keep on low residue diet which she tolerates well. Will resume home meds once verified. Social History - Tobacco smoking status: Never smoker - Alcohol alcohol intake frequency: does not drink
--- NOTE | 2017-05-26 17:07 | XRay Report ---
CLINICAL INFORMATION: Central line placement COMPARISON: 05/26/2017 1049 hours FINDINGS: Moderate cardiomegaly is increased. Tortuous thoracic aorta noted. Left IJ central line tip overlies the SVC. Mediastinum shows slight widening. Pulmonary vessels are mildly distended. Diffuse alveolar airspace disease likely represents pulmonary edema. Small consolidated infiltrate is now present in the right base. Small right pleural effusion appreciated IMPRESSION: Moderate CHF Central line in satisfactory position - no pneumothorax or other, location from line placement Small infiltrate right base Interpreted and Authenticated by: Solomon Lunsford 05/26/17
--- NOTE | 2017-05-26 17:15 | XRay Report ---
CLINICAL INFORMATION: Elevated white blood cell count and vomiting COMPARISON: 05/15/2017. FINDINGS: Moderate cardiomegaly is unchanged - sternotomy changes again noted. The mediastinum is unremarkable. Pulmonary vessels are slightly distended. Moderate right basilar infiltrate is unchanged. Small right pleural effusion stable IMPRESSION: Moderate right lower lobe pneumonia with small right pleural effusion is unchanged since the comparison study approximately two weeks ago Borderline CHF or volume overload Interpreted and Authenticated by: Solomon Lunsford 05/26/17
--- NOTE | 2017-05-26 17:25 | Procedure Note ---
Procedures - Central Line Placement Left IJ Consent obtained: verbal consent Time out performed: Yes Patient placed on monitor/pulse ox: Yes MD prep: mask, sterile gown, sterile gloves, cap Central line prep: 2% Chlorhexidine scrub Local anesthesia used: lidocaine 2% Ultrasound used for placement: Yes Central line lumen inserted: quad, 16 cm Post procedure: sutured in place, good blood return, all ports aspirated, flushed, capped, sterile dressing applied Post procedure x-ray: tip of catheter in good position, no pneumothorax seen Patient tolerated procedure: well Complications: none
[2017-05-26] MEDS: PANTOPRAZOLE 40 MG VIAL IV SCH (17:35)
[2017-05-26 17:58] LABS: Basophils # (Auto) 0 K/mcL (0.0-0.3); Basophils % (Auto) 0.1 % (0.0-2.0); Eosinophils # (Auto) 0.1 K/mcL (0.0-0.7); Eosinophils % (Auto) 0.2 % (0.0-7.0); Granulocytes % (Auto) 88.3 % (38.0-78.0); Lymphocytes # (Auto) 1.1 K/mcL (1.5-4.8); Lymphocytes % (Auto) 5.4 % (15.5-49.0); Mean Cell Volume 96.3 fL (80.0-100.0); Mean Corpuscular HGB Conc 31.8 g/dL (31.0-36.0); Mean Corpuscular Hemoglobin 30.6 pg (26.0-34.0); Monocytes # (Auto) 1.2 K/mcL (0.1-0.9); Platelet Count 289 K/mcL (140-440); RBC 3.09 M/mcL (4.00-5.20); Red Cell Distribution Width 15.7 % (11.5-14.5)
[2017-05-26] MEDS: INSULIN LISPRO 1 UNIT/0.01 ML UNIT SQ SCH (18:00)
[2017-05-26 18:27] LABS: ALT/SGPT 6 U/l (0-40); Albumin 3.1 gm/dL (3.2-5.2); Albumin/Globulin Ratio 1.6 (1.0-2.3); Alkaline Phosphatase 68 U/L (39-117); Bilirubin,Direct < 0.2 mg/dL (0.0-0.3); Blood Urea Nitrogen 14 mg/dl (8-23); Gamma Glutamyl Transpeptidase 30 U/L (5-36); Magnesium 1.8 mg/dL (1.6-2.5); Uric Acid 3.6 mg/dL (2.5-8.0)
[2017-05-26] MEDS ORDERED: POTASSIUM CHLORIDE 40 MEQ in DEXTROSE 5% IN WATER 250 ML IV ONE (18:29)
[2017-05-26] MEDS ORDERED: MAGNESIUM SULFATE 2 GM/50 ML BAG IV ONE ×2 (18:45→19:34)
[2017-05-26] MEDS ORDERED: POTASSIUM CHLORIDE 20 MEQ/10 ML VIAL IV ONE (18:45)
[2017-05-26] MEDS ORDERED: VANCOMYCIN PER PHARMACY IV SCH (19:45)
[2017-05-26] MEDS ORDERED: PIPERACILLIN SODIUM/TAZOBACTAM 2.25 GM VIAL IV ONE (21:39)
[2017-05-26] MEDS: HEPARIN 5,000 UNIT/ML VIAL SQ SCH (21:41)
[2017-05-26] MEDS: PIPERACILLIN SODIUM/TAZOBACTAM 2.25 GM in DEXTROSE 5% IN WATER 50 ML IV SCH (21:41)
--- NOTE | 2017-05-26 22:19 | Emergency Department Note ---
General Adult HPI - General Chief complaint: Nausea/Vomiting/Diarrhea Stated complaint: Nausea/Coffee Ground Emesis Time Seen by Provider: 05/26/17 06:40 Source: patient, old records reviewed Mode of arrival: EMS Limitations: no limitations - History of Present Illness HPI Narrative: Patient signed off to me by Dr. Lozano at change of shift. The sign out from prestige was that she's had a couple episodes of coffee-ground emesis. On exam she is unable to tell me any details partly due to her memory and partly I believe due to her current mental status. She initially denied any pain for me but when her family came should then endorse 9 out of 10 abdominal pain. She had no episodes of vomiting while in the emergency room. Long conversation with the family regarding her goals of care. Although there is documentation in the chart from her recent discharge on 05/17 that she is DNR - comfort care, the family today states that this is not the case and she wants CPR and limited interventions (just no ventilator). - Related Data Home Medications Medication Instructions Recorded Confirmed Gabapentin [Neurontin] 100 mg PO BID 06/23/15 05/20/17 Isosorbide Mononitrate [Isosorbide 60 mg PO HS 06/23/15 05/20/17 Mononitrate ER] Pravastatin [Pravachol] 40 mg PO HS 06/23/15 05/20/17 Cyanocobalamin (Vitamin B-12) 1,000 mcg PO DAILY 09/24/16 05/20/17 [Vitamin B12] Ergocalciferol (Vitamin D2) 50,000 unit PO MO@0800 09/24/16 05/20/17 [Vitamin D2] Ubidecarenone [Coq-10] 300 mg PO DAILY 09/24/16 05/20/17 Vit A,C & E/Lutein/Minerals 1 tab PO DAILY 09/24/16 05/20/17 [Ocuvite] Meclizine [Antivert] 25 mg PO HS 09/25/16 05/20/17 Lactobacillus Acidophilus/Fos 1 tab PO TID 04/08/17 05/20/17 [Acidophilus Probiotic Tablet] Metoclopramide [Reglan] 10 mg PO ACHS 04/08/17 05/20/17 aspirin 81 mg chewable tablet 81 mg PO QDAY 05/03/17 05/20/17 folic acid 1 mg tablet 1 mg PO QDAY 05/03/17 05/20/17 misoprostol 100 mcg tablet 100 mcg PO TIDCC tab 05/03/17 05/20/17 ranitidine 150 mg tablet 150 mg PO QHS 05/03/17 05/20/17 sucralfate 1 gram tablet 1 g PO QID 05/03/17 05/20/17 Bisacodyl [Dulcolax] 10 mg [place] DAILYP PRN 05/05/17 05/20/17 Polyethylene Glycol 3350 [Miralax] 17 gm PO DAILYP PRN 05/05/17 05/20/17 Furosemide [Lasix] 80 mg PO BIDD 05/26/17 05/26/17 Previous Rx's Medication Instructions Recorded Ondansetron HCl [Zofran ODT] 4 mg SL Q4HP PRN tab 04/19/17 Accu-Chek 1 each FS ACHS strip 05/17/17 Acetaminophen [Tylenol] 650 mg PO Q6HP PRN tab 05/17/17 Cefuroxime [Ceftin] 250 mg PO Q12 #14 tab 05/17/17 Cilostazol [Pletal] 50 mg PO BIDAC tab 05/17/17 Docusate Sodium [Colace] 100 mg PO BID PRN cap 05/17/17 HYDROcodone/APAP 5/325MG [[place] 1 tab PO Q4HP PRN #30 05/17/17 5/325Mg] Insulin Lispro [Humalog] See Protocol SQ ACHS unit 05/17/17 Lisinopril [Zestril] 5 mg PO DAILY tab 05/17/17 Magnesium Hydroxide [Milk of 30 ml PO DAILYP PRN 05/17/17 Magnesia] Naloxone HCl [Narcan] 0.1 mg IV Q2MIN PRN vial 05/17/17 Pantoprazole [Protonix] 40 mg PO QAMAC #1 tab 05/17/17 cloNIDine HCL [Catapres] 0.1 mg PO Q4HP PRN tab 05/17/17 Allergies Allergy/AdvReac Type Severity Reaction Status Date / Time meperidine [From Demerol] Allergy Severe Difficulty Verified 05/20/17 13:52 Breathing levofloxacin [From Levaquin] AdvReac Intermediate Vomiting Verified 05/20/17 13: 52 morphine AdvReac Intermediate Vomiting Verified 05/20/17 13:52 amlodipine AdvReac Mild Cough Verified 05/20/17 13:52 Review of Systems All systems ED: reviewed and negative except as stated. 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 - Social History Alcohol use: Reports: None Drug use: Reports: none Physical Exam - General Limitations: no limitations General appearance: other (sleeping often, has to be shaken to wake up and talk , elderly) - Head Head exam: atraumatic, normocephalic - Eye Eye exam: Present: normal appearance - ENT ENT exam: normal exam - Chest Chest inspection: Present: normal inspection - Respiratory Respiratory exam: Present: normal lung sounds bilaterally - Cardiovascular Cardiovascular exam: Present: regular rate, normal rhythm - Abdominal Exam Abdominal exam: Present: soft, tenderness, normal bowel sounds Abdominal tenderness: Present: diffuse, mild - Psychiatric Psychiatric exam: Present: other (cnfused at times, but when asked knows that she's in the hospital and that the general idea of the date) - Skin Skin exam: Present: warm, dry Course Course Narrative: This is a patient with a complicated medical history and recent discharge from the hospital for mesenteric ischemia and hospital-acquired pneumonia. I discharged her white count was 11 and she was sent home with oral antibiotics. Today her white count has jumped up to 21. Chest x-ray on my view is not significantly changed from her x-ray on discharge. Her urinalysis today was negative except for blood. She did have to be straight cathetered for that sample. Patient is endorsing abdominal pain but she does have a history of mesenteric ischemia and the notes document that they were no longer going to admit for this reason. CT abdomen and pelvis was ordered which showed moderate gastric dilation with marked concentric wall thickening of the distal gastric body, antrum and February suggesting infiltrative gastric pathology. - Reevaluation(s) Reevaluation #1: Family arrived and spoke to them at length about her symptoms. They're very concerned about her pain level and the coffee-ground emesis. I spoke to the on- call hospitalist who graciously agreed to admit the patient for further workup of the leukocytosis. I also spoke to the on-call GI physician who reported that she he doesn't feel she needs to be scoped immediately but that he can be consulted during her admission. Vital Signs Temperature 98.4 F 05/26/17 04:36 Pulse Rate 102 H 05/26/17 04:36 Respiratory Rate 18 05/26/17 04:36 Blood Pressure 174/65 05/26/17 04:36 Pulse Oximetry (%) 95 05/26/17 04:36 Temperature 97.7 F 05/26/17 16:35 Pulse Rate 81 05/26/17 16:35 Respiratory Rate 18 05/26/17 20:00 Blood Pressure 121/64 05/26/17 20:00 Pulse Oximetry (%) 95 05/26/17 21:21 Medical Decision Making - MDM Narrative Medical decision making narrative: Patient's leukocytosis could be from a combination of factors but is not limited to continued hospital-acquired pneumonia, gastritis, and reactive. I do suspect that her abdominal pain is due to mesenteric ischemia as she was recently scoped during her last hospitalization. - Lab Data Lab results reviewed: Yes I reviewed the patient's lab results. Result diagrams: 05/26/17 17:28 05/26/17 17:28 Lab Results 05/26/17 05/26/17 05/26/17 Range/Units 07:15 07:16 07:16 WBC 21.0 H (4.5-11.0) K/mcL RBC 3.44 L (4.00-5.20) M/mcL Hgb 10.6 L (12.0-15.0) g/dL Hct 33.3 L (36.0-48.0) % MCV 96.7 (80.0-100.0) fL MCH 30.8 (26.0-34.0) pg MCHC 31.9 (31.0-36.0) g/dL RDW 15.0 H (11.5-14.5) % Plt Count 315 (140-440) K/mcL MPV 9.0 (7.4-10.4) fL Gran % 93.4 H (38.0-78.0) % Lymph % (Auto) 3.3 L (15.5-49.0) % Nash % (Auto) 3.2 (1.0-12.0) % Eos % (Auto) 0 (0.0-7.0) % Baso % (Auto) 0.1 (0.0-2.0) % Gran # 19.7 H (1.8-8.0) K/mcL Lymph # (Auto) 0.7 L (1.5-4.8) K/mcL Nash # (Auto) 0.7 (0.1-0.9) K/mcL Eos # (Auto) 0 (0.0-0.7) K/mcL Baso # (Auto) 0 (0.0-0.3) K/mcL POC PT (11.9-14.5) sec POC INR (0.9-1.2) VBG Lactic Acid 1.0 (0.5-2.2) mmol/L Sodium 137 (133-145) mmol/L Potassium 3.5 (3.3-5.1) mmol/L Chloride 88 L (96-108) mmol/L Carbon Dioxide 29 (22-30) mmol/L Anion Gap 20.0 H (8-16) BUN 12 (8-23) mg/dl Creatinine 2.8 H (0.6-1.1) mg/dl GFR Calculation 15 Glucose 215 H (70-105) mg/dL Calcium 10.2 (8.6-10.4) mg/dl Total Bilirubin 0.2 (0.0-1.0) mg/dL AST 15 (0-37) U/l ALT 8 (0-40) U/l Alkaline Phosphatase 76 (39-117) U/L Total Protein 5.9 (5.9-8.4) gm/dL Albumin 3.6 (3.2-5.2) gm/dL Globulin 2.3 (2.2-3.7) gm/dL Albumin/Globulin Ratio 1.6 (1.0-2.3) Procalcitonin (<0.10) ng/mL Urine Color Urine Appearance Urine pH (5.0-9.0) Ur Specific [place] (1.000-1.035) Urine Protein (NEG) mg/dL Urine Glucose (UA) (NEG) mg/dL Urine Ketones (NEG) mg/dL Urine Occult Blood (<0.03) mg/dL Urine Nitrate (NEG) Urine Bilirubin (NEG) mg/dL Urine Urobilinogen (NEG) mg/dL Ur Leukocyte Esterase (NEG) /uL Urine RBC (0-1) /hpf Urine WBC (0-4) /hpf Ur Squamous Epith Cells (0-4) /hpf Urine Bacteria (0) /hpf Hyaline Casts (0-2) /lpf Ur Culture Indicated? 05/26/17 05/26/17 05/26/17 Range/Units 07:17 12:38 13:35 WBC (4.5-11.0) K/mcL RBC (4.00-5.20) M/mcL Hgb (12.0-15.0) g/dL Hct (36.0-48.0) % MCV (80.0-100.0) fL MCH (26.0-34.0) pg MCHC (31.0-36.0) g/dL RDW (11.5-14.5) % Plt Count (140-440) K/mcL MPV (7.4-10.4) fL Gran % (38.0-78.0) % Lymph % (Auto) (15.5-49.0) % Nash % (Auto) (1.0-12.0) % Eos % (Auto) (0.0-7.0) % Baso % (Auto) (0.0-2.0) % Gran # (1.8-8.0) K/mcL Lymph # (Auto) (1.5-4.8) K/mcL Nash # (Auto) (0.1-0.9) K/mcL Eos # (Auto) (0.0-0.7) K/mcL Baso # (Auto) (0.0-0.3) K/mcL POC PT 11.4 L (11.9-14.5) sec POC INR 0.9 (0.9-1.2) VBG Lactic Acid (0.5-2.2) mmol/L Sodium (133-145) mmol/L Potassium (3.3-5.1) mmol/L Chloride (96-108) mmol/L Carbon Dioxide (22-30) mmol/L Anion Gap (8-16) BUN (8-23) mg/dl Creatinine (0.6-1.1) mg/dl GFR Calculation Glucose (70-105) mg/dL Calcium (8.6-10.4) mg/dl Total Bilirubin (0.0-1.0) mg/dL AST (0-37) U/l ALT (0-40) U/l Alkaline Phosphatase (39-117) U/L Total Protein (5.9-8.4) gm/dL Albumin (3.2-5.2) gm/dL Globulin (2.2-3.7) gm/dL Albumin/Globulin Ratio (1.0-2.3) Procalcitonin 0.14 (<0.10) ng/mL Urine Color [place] Urine Appearance Cloudy Urine pH 5.0 (5.0-9.0) Ur Specific [place] 1.023 (1.000-1.035) Urine Protein 100 A (NEG) mg/dL Urine Glucose (UA) Negative (NEG) mg/dL Urine Ketones 5/tr A (NEG) mg/dL Urine Occult Blood 0.2 A (<0.03) mg/dL Urine Nitrate Neg (NEG) Urine Bilirubin Neg (NEG) mg/dL Urine Urobilinogen Neg (NEG) mg/dL Ur Leukocyte Esterase Neg (NEG) /uL Urine RBC 7 H (0-1) /hpf Urine WBC 2 (0-4) /hpf Ur Squamous Epith Cells 0 (0-4) /hpf Urine Bacteria 0 (0) /hpf Hyaline Casts 4 H (0-2) /lpf Ur Culture Indicated? No - Radiology Data Radiology results reviewed: Yes I reviewed the patient's radiology results. Disposition Pt seen by FACILITY ATTENDANT/PA only: No Clinical Impression: Leukocytosis Disposition: Xfer As Inpt ([facility]) Condition: Fair
[2017-05-27] MEDS: INSULIN LISPRO 1 UNIT/0.01 ML UNIT SQ SCH ×5 (00:33→23:51)
[2017-05-27] MEDS: METOCLOPRAMIDE 10 MG/2 ML VIAL IV SCH ×5 (00:33→23:41)
[2017-05-27] MEDS: ERYTHROMYCIN LACTOBIONATE 250 MG in 0.9 % SODIUM CHLORIDE 100 ML IV SCH ×4 (00:34→19:30)
[2017-05-27 05:36] LABS: Basophils # (Auto) 0 K/mcL (0.0-0.3); Basophils % (Auto) 0.1 % (0.0-2.0); Eosinophils # (Auto) 0 K/mcL (0.0-0.7); Eosinophils % (Auto) 0.1 % (0.0-7.0); Granulocytes % (Auto) 93.7 % (38.0-78.0); Lymphocytes # (Auto) 0.7 K/mcL (1.5-4.8); Lymphocytes % (Auto) 2.1 % (15.5-49.0); Mean Cell Volume 96.8 fL (80.0-100.0); Mean Corpuscular HGB Conc 32.7 g/dL (31.0-36.0); Mean Corpuscular Hemoglobin 31.6 pg (26.0-34.0); Monocytes # (Auto) 1.2 K/mcL (0.1-0.9); Platelet Count 307 K/mcL (140-440); RBC 3.14 M/mcL (4.00-5.20)
[2017-05-27 05:41] LABS: ALT/SGPT 6 U/l (0-40); Albumin 2.9 gm/dL (3.2-5.2); Albumin/Globulin Ratio 1.3 (1.0-2.3); Alkaline Phosphatase 67 U/L (39-117); Bilirubin,Direct < 0.2 mg/dL (0.0-0.3); Blood Urea Nitrogen 16 mg/dl (8-23); Gamma Glutamyl Transpeptidase 31 U/L (5-36); Magnesium 2.2 mg/dL (1.6-2.5)
[2017-05-27] MEDS: 0.9 % SODIUM CHLORIDE 1,000 ML IV SCH ×2 (06:07→19:30)
[2017-05-27] MEDS: PANTOPRAZOLE 40 MG VIAL IV SCH ×2 (07:26→16:49)
[2017-05-27] MEDS: PIPERACILLIN SODIUM/TAZOBACTAM 2.25 GM in DEXTROSE 5% IN WATER 50 ML IV SCH ×3 (08:10→22:29)
[2017-05-27] MEDS: HEPARIN 5,000 UNIT/ML VIAL SQ SCH ×2 (09:00→22:32)
--- NOTE | 2017-05-27 13:29 | Internal Medicine Consult Note ---
Medical - CN: HPI - Data of Consult Patient: new to practice Consult date: 05/27/17 Requesting Physician: Jack Alvarado Primary Care Provider: Pascale Peter, DO - Consult Narrative Reason for consult: abdominal pain, nausea and vomiting with known diabetic gastroparesis History of present illness: Ms. 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 She was asleep when I consulted but her daughter was present. Her daughter says that her mother has frequent postprandial abdominal pain followed by nausea and vomiting. She believes her symptoms are triggered by the food provided by her SNF. In describing her diet, it does not appear the patient is on a gastroparesis diet; her daughter says her most recent episode was triggered after eating corn on the cob. Her symptoms are exacerbated by overeating. She currently uses hydrocodone prn but it is not clear how often she is using this. It is unclear if she has had significant weight loss. She continues to have symptoms unresponsive to metoclopramide, IV/PO erythromycin, ondansetron, and dronabinol. She is on pletal and a statin for mesenteric ischemia. Currently, her family and the patient are unclear as to how they want to proceed with her care and are not sure if they would consider a venting G tube with feeding J tube. CC: Jack Alvarado Medical - CN: [facility] Medical history: See above. Medical - CN: Meds Home Medications Medication Instructions Recorded Confirmed Type Gabapentin [Neurontin] 100 mg PO BID 06/23/15 05/20/17 History Isosorbide Mononitrate [Isosorbide 60 mg PO HS 06/23/15 05/20/17 History Mononitrate ER] Pravastatin [Pravachol] 40 mg PO HS 06/23/15 05/20/17 History Cyanocobalamin (Vitamin B-12) 1,000 mcg PO DAILY 09/24/16 05/20/17 History [Vitamin B12] Ergocalciferol (Vitamin D2) 50,000 unit PO MO@0800 09/24/16 05/20/17 History [Vitamin D2] Ubidecarenone [Coq-10] 300 mg PO DAILY 09/24/16 05/20/17 History Vit A,C & E/Lutein/Minerals 1 tab PO DAILY 09/24/16 05/20/17 History [Ocuvite] Meclizine [Antivert] 25 mg PO HS 09/25/16 05/20/17 History Lactobacillus Acidophilus/Fos 1 tab PO TID 04/08/17 05/20/17 History [Acidophilus Probiotic Tablet] Metoclopramide [Reglan] 10 mg PO ACHS 04/08/17 05/20/17 History Ondansetron HCl [Zofran ODT] 4 mg SL Q4HP PRN tab 04/19/17 05/20/17 Rx aspirin 81 mg chewable tablet 81 mg PO QDAY 05/03/17 05/20/17 History folic acid 1 mg tablet 1 mg PO QDAY 05/03/17 05/20/17 History misoprostol 100 mcg tablet 100 mcg PO TIDCC tab 05/03/17 05/20/17 History ranitidine 150 mg tablet 150 mg PO QHS 05/03/17 05/20/17 History sucralfate 1 gram tablet 1 g PO QID 05/03/17 05/20/17 History Bisacodyl [Dulcolax] 10 mg [place] DAILYP PRN 05/05/17 05/20/17 History Polyethylene Glycol 3350 [Miralax] 17 gm PO DAILYP PRN 05/05/17 05/20/17 History Accu-Chek 1 each FS ACHS strip 05/17/17 05/20/17 Rx Acetaminophen [Tylenol] 650 mg PO Q6HP PRN tab 05/17/17 05/20/17 Rx Cefuroxime [Ceftin] 250 mg PO Q12 #14 tab 05/17/17 05/20/17 Rx Cilostazol [Pletal] 50 mg PO BIDAC tab 05/17/17 05/20/17 Rx Docusate Sodium [Colace] 100 mg PO BID PRN cap 05/17/17 05/20/17 Rx HYDROcodone/APAP 5/325MG [[place] 1 tab PO Q4HP PRN #30 05/17/17 05/20/17 Rx 5/325Mg] Insulin Lispro [Humalog] See Protocol SQ ACHS unit 05/17/17 05/20/17 Rx Lisinopril [Zestril] 5 mg PO DAILY tab 05/17/17 05/20/17 Rx Magnesium Hydroxide [Milk of 30 ml PO DAILYP PRN 05/17/17 05/20/17 Rx Magnesia] Naloxone HCl [Narcan] 0.1 mg IV Q2MIN PRN vial 05/17/17 05/20/17 Rx Pantoprazole [Protonix] 40 mg PO QAMAC #1 tab 05/17/17 05/20/17 Rx cloNIDine HCL [Catapres] 0.1 mg PO Q4HP PRN tab 05/17/17 05/20/17 Rx Furosemide [Lasix] 80 mg PO BIDD 05/26/17 05/26/17 History Allergies Allergy/AdvReac Type Severity Reaction Status Date / Time meperidine [From Demerol] Allergy Severe Difficulty Verified 05/20/17 13:52 Breathing levofloxacin [From Levaquin] AdvReac Intermediate Vomiting Verified 05/20/17 13: 52 morphine AdvReac Intermediate Vomiting Verified 05/20/17 13:52 amlodipine AdvReac Mild Cough Verified 05/20/17 13:52 Medical - CN: Exam - Constitutional Vitals: Temp Pulse Resp BP Pulse Ox 98.4 F 84 18 156/68 99 05/27/17 08:00 05/27/17 08:00 05/27/17 08:00 05/27/17 08:00 05/27/17 08:00 Medical - CN: Result - Labs CBC & Chem 7: 05/27/17 03:40 05/27/17 03:40 Labs: Short CBC 05/26/17 05/27/17 Range/Units 17:28 03:40 WBC 20.4 H 30.7 H* (4.5-11.0) K/mcL Hgb 9.5 L 9.9 L (12.0-15.0) g/dL Hct 29.8 L 30.4 L (36.0-48.0) % Plt Count 289 307 (140-440) K/mcL BMP 05/26/17 05/27/17 17:28 03:40 Sodium 138 135 Potassium 3.2 L 3.8 Chloride 97 96 Carbon Dioxide 29 28 BUN 14 16 Creatinine 3.1 H 3.3 H Glucose 188 H 143 H Calcium 9.5 10.0 Liver Function 08/06/17 08/07/17 Range/Units 17:28 03:40 Total Bilirubin 0.2 0.2 (0.0-1.0) mg/dL Direct Bilirubin < 0.2 < 0.2 (0.0-0.3) mg/dL GGT 30 31 (5-36) U/L AST 11 11 (0-37) U/l ALT 6 6 (0-40) U/l Alkaline Phosphatase 68 67 (39-117) U/L Albumin 3.1 L 2.9 L (3.2-5.2) gm/dL Medical - CN: A/P (1) Gastroparesis Status: Acute Assessment and plan: I reviewed her case with Dr. Dunlap. Tricylics are often helpful for abdominal pain related to diabetic gastroparesis. I have recommended to Dr. Alvarado she be tried on nortriptyline elixir 2.5 mg. A gastroparesis diet should be instituted. Small frequent meals primarily consisting of liquid nutritional supplements, such as Boost or Glucerna, would be reasonable and likely would be better tolerated. 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 Should the patient and family like to pursue J tube options, we would recommend EGD to further evaluate the abnormal CT findings of marked concentric wall thickening of the distal gastric body, antrum and pylorus. It should be noted that she had an EGD several weeks ago by Dr. Melchor Bonilla which was unremarkable. Parenteral ketamine can be helpful for chronic abdominal pain and nausea and may be helpful in controlling her symptoms; if EGD is undertaken, we will administer a trial of ketamine at that time.
[2017-05-27] MEDS: ACETAMINOPHEN 650 MG/65 ML BOTTLE IV PRN ×2 (17:35→23:42)
--- NOTE | 2017-05-27 18:51 | Internal Med Progress Note ---
Medical - PN: Subj Patient information: Note initiated : 05/27/17 at 6:46 pm Service Date, if different from initiated Date: [] Patient: Maryann Juares 82 y/o F admitted on 05/26/17 for Nausea, Coffee Ground Emesis/Pneumonia. Chief Complaint: [] Interval history: Ms. Juares is a 82 year old Female with multiple medical issues, predominantly DM with gastroparesis and Chr mesenteric ischemia, ESRD on HD, who presents to the hospital from [place] today for abdominal pain, nausea and vomiting x 1 day. She has had 3-4 episodes of coffee ground emesis since this AM and was therefore sent to the hospital for further management. According to the patient she woke up this AM to pass urine, as after a bit she had epigastric periumbilical sharp abdominal pain, non radiating, mild to moderate in severity, associated with nausea, but no aggravating or relieving factors. Usually her pain is aggravated by eating food and she is a very poor eater. She notes that the vomit was dark colored but no bright red blood noted. The patient denies any other complaints, last meal was yesterday AM, and denies skipping her meds. In the ER the patient had a elevated WBC count and right basilar pna, which seems old. She was recently treated for same. She has renal failure, Her Hemoglobin was stable. CT abdomen and pelvis showed dilated stomach with thickened stomach indicative of inflammation vs inflammatory pathology. GI was called by ER for same, but they noted that given the patient had recent EGD ( during last hospital stay) EGD is not warranted urgently. Lactic acid was normal. The patient and the patient family are aware of the poor prognosis of the patient. The ER doctor and myself talked with the patient regarding her treatment plans and they want to pursue treatment at this time. The patient was admitted to the hospital for further management. The patient has h/o Gastroparesis and chr mesentric ischemia, she has been hospitalized multiple times in the hospital in the last few times. She has undergone mesenteric artery stenting, seen by surgery and no further intervention was possible. the patient has failed Po reglan, PO erythromycin, zofran as anti nausea meds. She stays in the NH for a few days and then comes back to the hospital likely with recurring Gastroparesis and mesenteric ischemia. Last admission I had an extensive conversation with the son and the two daughters including the patient regaring her overall poor prognosis. They wish to continue to treat her as much as possible. 05/27: patient seen and examined. Overnight events reviewed, she had a large bowel movement early in the morning, C. difficile was checked and is negative. The patient does not report any complaints except for intermittent abdominal pain, the patient refused dialysis today. The patient also got short. The dialysis on Saturday before the admission. The patient's white blood cell count is at 30, she has infiltrates in her lungs, . She remains on vancomycin and Zosyn. Her home meds are not yet reconciled to resume as soon as reconciled. The patient was refusing dialysis today, told us that she no longer wishes to pursue dialysis she would like to go home and peacefully. He had a long discussion with the patient's family today with regards to the overall plan of care and course of treatment for this patient. The patient has intractable gastroparesis as well as severe chronic mesenteric ischemia. The patient has poor nutritional status, and has had multiple admissions despite multiple medications, been tried. We'll discuss with GI if there is any further treatment options that can be used, low-dose nortriptyline was suggested , repeat EGD and possible PEG tube. The patient does not wish to go on a feeding tube. Also, the patient's desires and wishes are clear. I think at this point in time, the family is not yet ready to accept the patient's poor prognosis. The patient is DNR according to her wishes. She is mentally sound still and can make decisions as well as understands the consequences of the decisions she is making. The patient's family is, discuss among themselves and let us know about what to decide. For now, we will hold off on the EGD or a feeding tube placement till we get clarification from the patient's family members. Pertinent ROS: Denies headache, dizziness Denies chest pain, palpitations Denies cough or shortness of breath Denies abdominal pain intermittent, present intermittent nausea no vomiting. - Constitutional Vitals: Vital Signs Temp Pulse Resp BP Pulse Ox 98.4 F 84 16 168/60 98 05/27/17 08:00 05/27/17 12:00 05/27/17 16:00 05/27/17 16:00 05/27/17 16:00 Period Temp Pulse Resp BP Sys/Turner Pulse Ox Last 24 Hr 97.6 F-99.2 F 84-84 16-24 121-168/49-89 92-99 Intake and Output 05/27/17 05/27/17 05/27/17 05:59 13:59 21:59 Intake Total 1150 / 1150 150 / 150 Balance 1150 / 1150 150 / 150 Weight 113 lb 8 oz Patient Weight 05/28/17 05:59 Weight 113 lb 8 oz Intake & Output: Intake & Output 05/27/17 05/27/17 05/27/17 05:59 13:59 21:59 Intake Total 1150 / 1150 150 / 150 Balance 1150 / 1150 150 / 150 Weight 113 lb 8 oz Intake: IV 1150 / 1150 150 / 150 Sodium Chloride 0.9% 1, 1000 / 1000 000 ml @ 75 mls/hr IV . [id number] TOY Rx#:[id number] Erythrocin Lactobionate 100 / 100 100 / 100 250 mg In Sodium Chloride 0.9% 100 ml @ 100 mls/hr IV Q6H TOY Rx#:[id number] Zosyn 2.25 gm In Dextrose 50 / 50 50 / 50 5% in Water 50 ml @ 100 mls/hr IV Q8H TOY Rx#: [id number] Other: # Bowel Movements 1 # of times incontinent of 1 Bowels Exam: Constitutional; Afebrile, cooperative, alert, not in distress. Eyes- No icterus, , No periorbital swelling Ears- Ext ear normal, hearing normal to conversation. Neck- Midline trachea, supple Respiratory system: Air Entry equal on both sides, bibasilar crackles. CVS- Rate rhythm regular, S1,S2 heard, no gallop, no rub. Abdomen- Soft nontender abdomen, no organomegaly, no tenderness, no guarding or rigidity, [employer]ATE- AOOx3, moving all extremities, no gross focal deficit noted. Medical - PN: Obj Da - Labs CBC & Chem 7: 05/27/17 03:40 05/27/17 03:40 Labs: Abnormal Lab Results 05/27/17 05/27/17 05/26/17 03:40 03:40 17:28 WBC 30.7 H* RBC 3.14 L Hgb 9.9 L Hct 30.4 L RDW 15.0 H Gran % 93.7 H Lymph % (Auto) 2.1 L Gran # 28.8 H Lymph # (Auto) 0.7 L [place] # (Auto) 1.2 H Potassium 3.2 L Creatinine 3.3 H 3.1 H Glucose 143 H 188 H Phosphorus 2.0 L 2.4 L Total Protein 5.2 L 5.1 L Albumin 2.9 L 3.1 L Globulin 2.0 L 05/26/17 17:28 WBC 20.4 H RBC 3.09 L Hgb 9.5 L Hct 29.8 L RDW 15.7 H Gran % 88.3 H Lymph % (Auto) 5.4 L Gran # 18.0 H Lymph # (Auto) 1.1 L [place] # (Auto) 1.2 H Potassium Creatinine Glucose Phosphorus Total Protein Albumin Globulin Meds: Medications Acetaminophen (Tylenol) 650 mg PO Q6HP PRN PRN Reason: PAIN/FEVER > 101 Albuterol/Ipratropium (Duoneb) 3 ml NEB Q4HRT PRN PRN Reason: Shortness Of Breath Or Wheezing Dextrose (Dextrose 50%) 0 ml IV UD PRN PRN Reason: Hypoglycemia Diagnostic Test (Pha) (Accu-Chek) 1 each FS Q6 [facility] Last Admin: 05/27/17 17:49 Dose: 1 each Heparin Sodium (Porcine) (Heparin) 5,000 unit SQ Q12 [facility] Last Admin: 05/27/17 09:00 Dose: 5,000 unit Sodium Chloride (Sodium Chloride 0.9%) 1,000 mls @ 75 mls/hr IV .[id number] [facility] Last Admin: 05/27/17 06:07 Dose: 75 mls/hr Erythromycin Lactobionate 250 (mg/ Sodium Chloride) 100 mls @ 100 mls/hr IV Q6H [facility] Last Admin: 05/27/17 14:50 Dose: 100 mls/hr Piperacillin Sod/Tazobactam (Sod 2.25 gm/ Dextrose) 50 mls @ 100 mls/hr IV Q8H [facility] Last Admin: 05/27/17 14:53 Dose: 100 mls/hr Acetaminophen (Ofirmev) 650 mg in 65 mls @ 130 mls/hr IV Q6HP PRN PRN Reason: PAIN/FEVER > 101 Last Admin: 05/27/17 17:35 Dose: 130 mls/hr Insulin Human Lispro (Humalog) 0 unit SQ Q6 [facility] PRN Reason: Protocol Last Admin: 05/27/17 17:46 Dose: Not Given Metoclopramide HCl (Reglan) 10 mg IV Q6 [facility] Last Admin: 05/27/17 17:35 Dose: 10 mg Naloxone HCl (Narcan) 0.1 mg IV Q2MIN PRN PRN Reason: Opiate Reversal Nortriptyline HCl (Pamelor) 2.5 mg PO HS [facility] Pantoprazole Sodium (Protonix) 40 mg IV BIDAC [facility] Last Admin: 05/27/17 16:49 Dose: 40 mg Vancomycin HCl (Vancomycin Per Pharmacy) 1 order IV UD [facility] Medical - PN: A/P - Time Spent With Patient Total time spent is greater than 50% in coordination of care (as documented) at patient's floor/unit and/or counseling patient: - Narrative A/P Narrative: A/P Pneumonia/ Aspiration pna: Likely the source of elevated WBC, treat with Vanco and zosyn for now, cultures pending, monitor. Pleural effusion: Chr right sided effusion, will drain if family chooses aggressive interventions. Diabetic Gastroparesis: Chr issue, failed multiple oral regimes, : IV reglan, IV erythromycin for now monitor. GI consult appreciated. Will await family decision. If they chose to place PEG will call GI back same. LIquid diet nausea and vomiting/ coffee ground emesis. Unlikely to be GIB, IV PPI for now,h/ h is stable. Mesenteric ischemia: Chr issue, on dual antiplatelet agents, statin, asa and cilostazol, will resume once verified. . ESRD HD: consult nephrology for HD. Pt is declining dialysis at present. HTN: Resume home Meds once verified. HLD: Continue statin. DM : sliding scale insulin DVT hep sq Diet: liquid diet. Will resume home meds once verified. pent over 50 minutes in reviewing patient's chart, family meeting, face-to- face discussions with consultants as well as care coordination.
[2017-05-27] MEDS ORDERED: NORTRIPTYLINE 10 MG CAPSULE PO SCH (21:00)
[2017-05-28] MEDS: ERYTHROMYCIN LACTOBIONATE 250 MG in 0.9 % SODIUM CHLORIDE 100 ML IV SCH ×3 (01:14→14:12)
[2017-05-28] MEDS: PIPERACILLIN SODIUM/TAZOBACTAM 2.25 GM in DEXTROSE 5% IN WATER 50 ML IV SCH ×2 (05:37→14:12)
[2017-05-28] MEDS: METOCLOPRAMIDE 10 MG/2 ML VIAL IV SCH ×3 (05:37→17:34)
[2017-05-28] MEDS: INSULIN LISPRO 1 UNIT/0.01 ML UNIT SQ SCH ×2 (05:51→12:20)
[2017-05-28 05:54] LABS: Basophils # (Auto) 0 K/mcL (0.0-0.3); Basophils % (Auto) 0 % (0.0-2.0); Eosinophils # (Auto) 0.1 K/mcL (0.0-0.7); Eosinophils % (Auto) 0.4 % (0.0-7.0); Granulocytes % (Auto) 91.3 % (38.0-78.0); Lymphocytes # (Auto) 0.7 K/mcL (1.5-4.8); Lymphocytes % (Auto) 3.4 % (15.5-49.0); Mean Cell Volume 97.3 fL (80.0-100.0); Mean Corpuscular HGB Conc 32.6 g/dL (31.0-36.0); Mean Corpuscular Hemoglobin 31.7 pg (26.0-34.0); Monocytes % (Auto) 4.9 % (1.0-12.0); Platelet Count 320 K/mcL (140-440); RBC 3.03 M/mcL (4.00-5.20); Red Cell Distribution Width 15.4 % (11.5-14.5)
[2017-05-28 06:04] LABS: ALT/SGPT 7 U/l (0-40); Albumin 3.2 gm/dL (3.2-5.2); Albumin/Globulin Ratio 1.3 (1.0-2.3); Alkaline Phosphatase 72 U/L (39-117); Bilirubin,Direct < 0.2 mg/dL (0.0-0.3); Blood Urea Nitrogen 21 mg/dl (8-23); Gamma Glutamyl Transpeptidase 32 U/L (5-36); Magnesium 2.1 mg/dL (1.6-2.5); Uric Acid 4.7 mg/dL (2.5-8.0)
[2017-05-28] MEDS: ACETAMINOPHEN 650 MG/65 ML BOTTLE IV PRN ×2 (07:59→15:02)
[2017-05-28] MEDS: PANTOPRAZOLE 40 MG VIAL IV SCH ×2 (08:00→17:33)
[2017-05-28] MEDS ORDERED: ASPIRIN 81 MG TAB.CHEW PO SCH (09:00)
[2017-05-28] MEDS: HEPARIN 5,000 UNIT/ML VIAL SQ SCH (09:39)
[2017-05-28] MEDS ORDERED: cloNIDine HCL 0.1 MG TABLET PO PRN ×2 (10:24→22:17)
[2017-05-28 11:27] LABS: Prealbumin 10.8 mg/dl (20-40)
[2017-05-28] MEDS: CILOSTAZOL 100 MG TABLET PO SCH ×2 (11:30→17:55)
--- NOTE | 2017-05-28 11:50 | XRay Report ---
CLINICAL INFORMATION: Shortness of breath COMPARISON: 05/26/2017 FINDINGS: The heart is moderately enlarged. Mediastinum is unremarkable. Left IJ central line in stable satisfactory position. The pulmonary vessels are mildly distended and there is mild interstitial edema throughout both lungs which show slight improvement. Moderate right pleural effusion is present. Mild airspace disease right base is likely atelectasis and not infiltrate IMPRESSION: Mild/moderate CHF - improved [id number] right pleural effusion slight worsening. Right basilar atelectasis Interpreted and Authenticated by: Solomon Lunsford 05/28/17
[2017-05-28] MEDS: 0.9 % SODIUM CHLORIDE 1,000 ML IV SCH (14:51)
[2017-05-28] MEDS ORDERED: LACTOBACILLUS 1 CAPSULE PO SCH (15:00)
--- NOTE | 2017-05-28 15:32 | Internal Med Progress Note ---
Medical - PN: Subj Patient information: Note initiated : 05/28/17 at 3:30 pm Service Date, if different from initiated Date: [] Patient: Maryann Juares 82 y/o F admitted on 05/27/17 for Nausea, Coffee Ground Emesis/Pneumonia. Chief Complaint: [] Interval history: Ms. Juares is a 82 year old Female with multiple medical issues, predominantly DM with gastroparesis and Chr mesenteric ischemia, ESRD on HD, who presents to the hospital from [place] today for abdominal pain, nausea and vomiting x 1 day. She has had 3-4 episodes of coffee ground emesis since this AM and was therefore sent to the hospital for further management. According to the patient she woke up this AM to pass urine, as after a bit she had epigastric periumbilical sharp abdominal pain, non radiating, mild to moderate in severity, associated with nausea, but no aggravating or relieving factors. Usually her pain is aggravated by eating food and she is a very poor eater. She notes that the vomit was dark colored but no bright red blood noted. The patient denies any other complaints, last meal was yesterday AM, and denies skipping her meds. In the ER the patient had a elevated WBC count and right basilar pna, which seems old. She was recently treated for same. She has renal failure, Her Hemoglobin was stable. CT abdomen and pelvis showed dilated stomach with thickened stomach indicative of inflammation vs inflammatory pathology. GI was called by ER for same, but they noted that given the patient had recent EGD ( during last hospital stay) EGD is not warranted urgently. Lactic acid was normal. The patient and the patient family are aware of the poor prognosis of the patient. The ER doctor and myself talked with the patient regarding her treatment plans and they want to pursue treatment at this time. The patient was admitted to the hospital for further management. The patient has h/o Gastroparesis and chr mesentric ischemia, she has been hospitalized multiple times in the hospital in the last few times. She has undergone mesenteric artery stenting, seen by surgery and no further intervention was possible. the patient has failed Po reglan, PO erythromycin, zofran as anti nausea meds. She stays in the NH for a few days and then comes back to the hospital likely with recurring Gastroparesis and mesenteric ischemia. Last admission I had an extensive conversation with the son and the two daughters including the patient regaring her overall poor prognosis. They wish to continue to treat her as much as possible. 05/27: patient seen and examined. Overnight events reviewed, she had a large bowel movement early in the morning, C. difficile was checked and is negative. The patient does not report any complaints except for intermittent abdominal pain, the patient refused dialysis today. The patient also got short. The dialysis on Saturday before the admission. The patient's white blood cell count is at 30, she has infiltrates in her lungs, . She remains on vancomycin and Zosyn. Her home meds are not yet reconciled to resume as soon as reconciled. The patient was refusing dialysis today, told us that she no longer wishes to pursue dialysis she would like to go home and peacefully. He had a long discussion with the patient's family today with regards to the overall plan of care and course of treatment for this patient. The patient has intractable gastroparesis as well as severe chronic mesenteric ischemia. The patient has poor nutritional status, and has had multiple admissions despite multiple medications, been tried. We'll discuss with GI if there is any further treatment options that can be used, low-dose nortriptyline was suggested , repeat EGD and possible PEG tube. The patient does not wish to go on a feeding tube. Also, the patient's desires and wishes are clear. I think at this point in time, the family is not yet ready to accept the patient's poor prognosis. The patient is DNR according to her wishes. She is mentally sound still and can make decisions as well as understands the consequences of the decisions she is making. The patient's family is, discuss among themselves and let us know about what to decide. For now, we will hold off on the EGD or a feeding tube placement till we get clarification from the patient's family members. 05/28: the patient seen and examined, complains of abdominal pain, did not have much to eat, was a bit drowsy today. Had some shortness of breath x-ray shows CHF and right pleural effusion. Patient also has aspiration pneumonitis based on clinical history. Patient refused dialysis yesterday. Today's is scheduled for dialysis. The patient's kids, all 4 of them were present today. We had an extensive discussion with regards to overall prognosis of the patient as well as the future plan of care. The patient's periods of sitting down and decide what they would wish. I have not yet heard back from them. The patient continues to be on broad-spectrum IV antibiotics for pneumonia, should they choose aggressive interventions, the patient would need a pleural tap, continue dialysis, and likely placement of a feeding tube. In the past. The patient has expressed clear wishes that she did not wish to have a feeding tube. However, at this point in time the patient is not able to make any decisions and her children have the power of civil rights attorney. Pertinent ROS: Denies headache, dizziness Denies chest pain, palpitations present shortness of breath Present abdominal pain, some nausea no vomiting. - Constitutional Vitals: Vital Signs Temp Pulse Resp BP Pulse Ox 98.4 F 88 18 171/65 91 05/28/17 11:01 05/28/17 11:19 05/28/17 11:19 05/28/17 11:01 05/28/17 11:01 Period Temp Pulse Resp BP Sys/Turner Pulse Ox Last 24 Hr 97.8 F-98.6 F 88-89 18-24 165-187/58-80 91-98 Intake and Output 05/28/17 05/28/17 05/28/17 05:59 13:59 21:59 Intake Total 365 / 365 215 / 215 Balance 365 / 365 215 / 215 Intake & Output: Intake & Output 05/28/17 05/28/17 05/28/17 05:59 13:59 21:59 Intake Total 365 / 365 215 / 215 Balance 365 / 365 215 / 215 Intake: IV 215 / 215 215 / 215 Erythrocin Lactobionate 100 / 100 100 / 100 250 mg In Sodium Chloride 0.9% 100 ml @ 100 mls/hr IV Q6H TOY Rx#:[id number] Zosyn 2.25 gm In Dextrose 50 / 50 50 / 50 5% in Water 50 ml @ 100 mls/hr IV Q8H TOY Rx#: [id number] Oral 150 / 150 Other: # Bowel Movements 1 1 # of times incontinent of 2 Bowels Medical - PN: Obj Da - Labs CBC & Chem 7: 05/28/17 04:00 05/28/17 04:00 Labs: Abnormal Lab Results 05/28/17 05/28/17 05/28/17 10:43 04:00 04:00 WBC 21.2 H RBC 3.03 L Hgb 9.6 L Hct 29.5 L RDW 15.4 H Gran % 91.3 H Lymph % (Auto) 3.4 L Gran # 19.4 H Lymph # (Auto) 0.7 L [place] # (Auto) 1.0 H Chloride 95 L Anion Gap 19.0 H Creatinine 3.9 H Glucose 208 H Total Protein 5.6 L Prealbumin 10.8 L Triglycerides 156 H Meds: Medications Acetaminophen (Tylenol) 650 mg PO Q6HP PRN PRN Reason: PAIN/FEVER > 101 Albuterol/Ipratropium (Duoneb) 3 ml NEB Q4HRT PRN PRN Reason: Shortness Of Breath Or Wheezing Last Admin: 05/28/17 11:06 Dose: 3 ml Aspirin (Aspirin) 81 mg PO DAILY [facility] Last Admin: 05/28/17 09:39 Dose: 81 mg Atorvastatin Calcium (Lipitor) 10 mg PO HS TOY Cilostazol (Pletal) 50 mg PO BIDAC [facility] Last Admin: 05/28/17 11:30 Dose: 50 mg Clonidine HCl (Catapres) 0.1 mg PO Q4HP PRN PRN Reason: Hypertension Cyanocobalamin (Vitamin B-12) 1,000 mcg PO DAILY [facility] Dextrose (Dextrose 50%) 0 ml IV UD PRN PRN Reason: Hypoglycemia Diagnostic Test (Pha) (Accu-Chek) 1 each FS Q6 [facility] Last Admin: 05/28/17 12:10 Dose: 1 each Ergocalciferol (Drisdol) 50,000 unit PO MO@0800 [facility] Folic Acid (Folic Acid) 1 mg PO QDAY [facility] Furosemide (Lasix) 80 mg PO BIDD [facility] Heparin Sodium (Porcine) (Heparin) 5,000 unit SQ Q12 [facility] Last Admin: 05/28/17 09:39 Dose: 5,000 unit Erythromycin Lactobionate 250 (mg/ Sodium Chloride) 100 mls @ 100 mls/hr IV Q6H [facility] Last Admin: 05/28/17 14:12 Dose: 100 mls/hr Piperacillin Sod/Tazobactam (Sod 2.25 gm/ Dextrose) 50 mls @ 100 mls/hr IV Q8H [facility] Last Admin: 05/28/17 14:12 Dose: 100 mls/hr Acetaminophen (Ofirmev) 650 mg in 65 mls @ 130 mls/hr IV Q6HP PRN PRN Reason: PAIN/FEVER > 101 Last Admin: 05/28/17 15:02 Dose: 130 mls/hr Insulin Human Lispro (Humalog) 0 unit SQ Q6 TOY PRN Reason: Protocol Last Admin: 05/28/17 12:20 Dose: 3 unit Isosorbide Mononitrate (Imdur) 60 mg PO HS [facility] Lactobacillus Rhamnosus (Culturelle) 1 cap PO TID [facility] Last Admin: 05/28/17 15:07 Dose: Not Given Lisinopril (Zestril) 5 mg PO DAILY [facility] Metoclopramide HCl (Reglan) 10 mg IV Q6 [facility] Last Admin: 05/28/17 12:05 Dose: 10 mg Naloxone HCl (Narcan) 0.1 mg IV Q2MIN PRN PRN Reason: Opiate Reversal Nortriptyline HCl (Pamelor) 2.5 mg PO HS [facility] Last Admin: 05/27/17 22:32 Dose: Not Given Pantoprazole Sodium (Protonix) 40 mg IV BIDAC [facility] Last Admin: 05/28/17 08:00 Dose: 40 mg Vancomycin HCl (Vancomycin Per Pharmacy) 1 order IV UD [facility] Medical - PN: A/P - Time Spent With Patient Total time spent is greater than 50% in coordination of care (as documented) at patient's floor/unit and/or counseling patient: - Narrative A/P Narrative: A/P Pneumonia/ Aspiration pna: Likely the source of elevated WBC, treat with Vanco and zosyn for now, cultures pending, monitor on tele, wbc improving. Pleural effusion: Chr right sided effusion, await family decision, if aggresive intervention decided will drain fluid to look for any infeciton. Diabetic Gastroparesis: Chr issue, failed multiple oral regimes, : IV reglan, IV erythromycin for now monitor. GI consult appreciated. Will await family decision. PEG tube if needed . nausea and vomiting/ coffee ground emesis. Unlikely to be GIB, IV PPI for now,h/ h is stable. Mesenteric ischemia: Chr issue, on dual antiplatelet agents, statin, asa and cilostazol, dosing resumed. ESRD HD: consult nephrology for HD. Pt is declining dialysis at present. will resume HD should family decide to do so. HLD: Continue statin. DM : sliding scale insulin DVT hep sq Diet: liquid diet. spent over 45 minutes in reviewing patient's chart, family meeting, face-to- face discussions with consultants as well as care coordination.
[2017-05-28] MEDS ORDERED: FUROSEMIDE 80 MG TABLET PO SCH (16:00)
[2017-05-28] MEDS ORDERED: HYDROmorphone 2 MG/ML SYRINGE IV PRN ×2 (17:15→22:17)
[2017-05-28] MEDS ORDERED: ISOSORBIDE MONONITRATE 60 MG TAB.XL.24H PO SCH (21:00)
[2017-05-28] MEDS ORDERED: ATORVASTATIN 20 MG TABLET PO SCH (21:00)
[2017-05-28] MEDS ORDERED: ACETAMINOPHEN 325 MG TABLET PO PRN (22:17)
[2017-05-28] MEDS ORDERED: ACETAMINOPHEN 650 MG/65 ML BOTTLE IV PRN (22:17)
[2017-05-28] MEDS ORDERED: IPRATROPIUM/ALBUTEROL 3 ML AMPUL.NEB NEB PRN (22:17)
[2017-05-28] MEDS ORDERED: DEXTROSE 50% 50 ML VIAL IV PRN (22:17)
[2017-05-29] MEDS ORDERED: METOCLOPRAMIDE 10 MG/2 ML VIAL ONE ×2 (01:24→06:12)
[2017-05-29] MEDS: METOCLOPRAMIDE 10 MG/2 ML VIAL IV SCH ×2 (01:28→06:11)
[2017-05-29] MEDS ORDERED: HYDROmorphone 2 MG/ML SYRINGE ONE (03:28)
[2017-05-29] MEDS ORDERED: PANTOPRAZOLE 40 MG VIAL IV SCH (07:30)
[2017-05-29] MEDS ORDERED: CYANOCOBALAMIN (VITAMIN B-12) 500 MCG TABLET PO SCH (09:00)
[2017-05-29] MEDS ORDERED: FOLIC ACID 1 MG TABLET PO SCH (09:00)
[2017-05-29] MEDS ORDERED: LISINOPRIL 5 MG TABLET PO SCH (09:00)
--- NOTE | 2017-05-29 12:45 | Nephrology Consult Note ---
History of Present Illness - Reason for Consult Patient information: Note initiated : 05/29/17 at 12:43 pm Service Date, if different from initiated Date: [05/28/2017] Patient: Maryann Juares 82 y/o F admitted on 05/27/17 for Nausea, Coffee Ground Emesis/Pneumonia. Chief Complaint: ESRD. Admitted with nausea, vomiting and abdominal pain. Consult date: 05/28/17 end stage renal disease Requesting physician: Jack Alvarado Review of Systems Constitutional: anorexia, fatigue, weight loss Medications and Allergies Home Medications Medication Instructions Recorded Confirmed Type Gabapentin [Neurontin] 100 mg PO BID 06/23/15 05/28/17 History Isosorbide Mononitrate [Isosorbide 60 mg PO HS 06/23/15 05/28/17 History Mononitrate ER] Pravastatin [Pravachol] 40 mg PO HS 06/23/15 05/28/17 History Cyanocobalamin (Vitamin B-12) 1,000 mcg PO DAILY 09/24/16 05/28/17 History [Vitamin B12] Ergocalciferol (Vitamin D2) 50,000 unit PO MO@0800 09/24/16 05/28/17 History [Vitamin D2] Ubidecarenone [Coq-10] 300 mg PO DAILY 09/24/16 05/28/17 History Vit A,C & E/Lutein/Minerals 1 tab PO DAILY 09/24/16 05/28/17 History [Ocuvite] Meclizine [Antivert] 25 mg PO HS 09/25/16 05/28/17 History Lactobacillus Acidophilus/Fos 1 tab PO TID 04/08/17 05/28/17 History [Acidophilus Probiotic Tablet] Metoclopramide [Reglan] 10 mg PO ACHS 04/08/17 05/28/17 History Ondansetron HCl [Zofran ODT] 4 mg SL Q4HP PRN tab 04/19/17 05/28/17 Rx aspirin 81 mg chewable tablet 81 mg PO QDAY 05/03/17 05/28/17 History folic acid 1 mg tablet 1 mg PO QDAY 05/03/17 05/28/17 History misoprostol 100 mcg tablet 100 mcg PO TIDCC tab 05/03/17 05/28/17 History ranitidine 150 mg tablet 150 mg PO QHS 05/03/17 05/28/17 History sucralfate 1 gram tablet 1 g PO QID 05/03/17 05/28/17 History Bisacodyl [Dulcolax] 10 mg LA DAILYP PRN 05/05/17 05/28/17 History Polyethylene Glycol 3350 [Miralax] 17 gm PO DAILYP PRN 05/05/17 05/28/17 History Accu-Chek 1 each FS ACHS strip 05/17/17 05/28/17 Rx Acetaminophen [Tylenol] 650 mg PO Q6HP PRN tab 05/17/17 05/28/17 Rx Cefuroxime [Ceftin] 250 mg PO Q12 #14 tab 05/17/17 05/28/17 Rx Cilostazol [Pletal] 50 mg PO BIDAC tab 05/17/17 05/28/17 Rx Docusate Sodium [Colace] 100 mg PO BID PRN cap 05/17/17 05/28/17 Rx Insulin Lispro [Humalog] See Protocol SQ ACHS unit 05/17/17 05/28/17 Rx Lisinopril [Zestril] 5 mg PO DAILY tab 05/17/17 05/28/17 Rx Magnesium Hydroxide [Milk of 30 ml PO DAILYP PRN 05/17/17 05/28/17 Rx Magnesia] Pantoprazole [Protonix] 40 mg PO QAMAC #1 tab 05/17/17 05/28/17 Rx cloNIDine HCL [Catapres] 0.1 mg PO Q4HP PRN tab 05/17/17 05/28/17 Rx Furosemide [Lasix] 80 mg PO BIDD 05/26/17 05/26/17 History HYDROcodone/APAP 5/325MG [[place] 1 tab PO Q4HP PRN 05/28/17 05/28/17 History 5/325Mg] Allergies Allergy/AdvReac Type Severity Reaction Status Date / Time meperidine [From Demerol] Allergy Severe Difficulty Verified 05/20/17 13:52 Breathing levofloxacin [From Levaquin] AdvReac Intermediate Vomiting Verified 05/20/17 13: 52 morphine AdvReac Intermediate Vomiting Verified 05/20/17 13:52 amlodipine AdvReac Mild Cough Verified 05/20/17 13:52 Exam - Vital Signs Vital signs: Temp Pulse Resp BP Pulse Ox 97.1 F 84 24 H 158/73 90 05/29/17 08:00 05/28/17 21:15 05/29/17 08:00 05/29/17 08:00 05/29/17 11:25 - General Appearance General appearance: cachectic, chronically ill EENT: ATNC Neck: no JVD Respiratory: clear Cardiology: holosystolic murmur Gastrointestinal: normoactive bowel sounds, no masses Integumentary: no rash Neurologic: no focal deficit Results - Lab Results 05/28/17 04:00 05/28/17 04:00 Most recent lab results Calcium 10.3 mg/dl (8.6-10.4) 05/28/17 04:00 Phosphorus 3.0 mg/dL (2.7-4.5) 05/28/17 04:00 Magnesium 2.1 mg/dL (1.6-2.5) 05/28/17 04:00 Assessment and Plan (1) End-stage renal disease needing dialysis Status: Chronic Comment: 1. End-stage renal disease on hemodialysis. She refused to have dialysis yesterday. I had a lengthy discussion with the family. It is probably appropriate to stop dialysis. 2. Nausea, vomiting and abdominal pain: Probably related to diabetic gastroparesis or intestinal ischemia.
--- NOTE | 2017-05-29 14:49 | Death Note ---
Discharge Sum: Prov - Provider Patient information: Note initiated : 05/29/17 at 2:42 pm Service Date, if different from initiated Date: [] Patient: Maryann Juares 82 y/o F admitted on 05/27/17 for Nausea, Coffee Ground Emesis/Pneumonia. Chief Complaint: [] Primary care physician: Pascale Peter DO Admitting clinician: Jack Alvarado Consults: nephrology GI Discharge Sum: Diag - PCOD Cause of : Pneumonia Discharge Sum: Summary - Date and Time Date of admission: 05/27/17 17:43 Date of : 05/29/17 Time of : 09:45 - Summary Details: Ms Juares was a pleasant 80-year-old lady who presented to the hospital for abdominal pain and vomiting and elevated wbc due to possible pna. The patient has had multiple episodes of nausea, vomiting, and hospital admissions for aspiration pneumonia in the recent few months. This has been due to patient's intractable diabetic gastroparesis as well as chronic severe mesenteric ischemia. The patient had failed multiple rounds of medications as well as maximum medical management for presented ischemia. The patient was unable to tolerate by mouth diet without significant pain. The only time the patient remained stable, was if she was inside the hospital. During this visit, the patient presented with elevated WBC count, chest x-ray suggestive of effusion versus pneumonia. Given her history of recurrent nausea, vomiting, aspiration pneumonia was likely culprit. The patient had cut short her dialysis on Saturday before admission. The patient's x-ray showing congestion. Dialysis was offered but the patient declined on Saturday. She strongly expressed a desire to be left alone. She wanted to go home and peacefully. The patient overall had a very poor prognosis given the fact that she had multiple skin breakdowns, very poor nutritional status, multiple hospital admissions for a condition that could not be treated medically and had failed multiple regimes. I had an extensive Conference with the licensed clinical social worker, the patient's family members as well as the patient. I explained to them in depth. the patient's disease as well as her overall prognosis. After 2 days of deliberation, the family decided to make patient comfort care. The patient was kept comfortable with the use of antianxiety medications, as well as narcotic pain medications. The patient pretty morning at 9:45 AM family was at bedside. - Additional Data Confirmation of as documented by pronouncing clinician: no pulse, no respirations, no heart sounds Family: at bedside Attending/PCP notified?: Yes Attending physician: Jack Alvarado Was code activated?: No Autopsy requested?: No Advance directives?: Yes Hospice patient?: Yes
[2017-06-03] MEDS ORDERED: ERGOCALCIFEROL (VITAMIN D2) 50,000 UNIT CAPSULE PO SCH (08:00)
== END 2017-05-29 09:45 | disposition expired | DRG 73 ==
LOC: ED 04:34 → INTOOBSV 13:43 → ICU 13:43 → MEDSUR 05-29 06:40
PROVIDERS: ADMIT Internal Medicine; ATTEND Internal Medicine